=== PATIENT | female | born 1980 | race Caucasian/White ===

== ENCOUNTER 2023-06-04 09:22 | Outpatient (OUT) | payer OTHER, SELFPAY ==
[2023-06-04 10:32] LABS: Alanine Aminotransferase 33 U/L (14-59); Albumin Globulin Ratio 0.9; Albumin Level 3.5 g/dL (3.4-5.0); Alkaline Phosphatase 88 U/L (46-116); Aspartate Amino Transferase 18 U/L (15-37); BUN Creatinine Ratio 16.2; Bilirubin Total 0.7 mg/dL (0.2-1.0); Calcium 9.5 mg/dL (8.5-10.1); Carbon Dioxide 27.3 mmol/L (21.0-32.0); Chloride 103 mmol/L (98-107); Chol HDL Ratio 4.1; Cholesterol 219 mg/dL (<=200); Estimated GFR (African America >60 (>=60); Estimated GFR (Non-African Ame >60 (>=60); Glucose 98 mg/dL (74-106); HDL Cholesterol 54 mg/dL (40-60); Potassium 4.3 mmol/L (3.5-5.1); Sodium 140 mmol/L (136-145); Total Protein 7.5 g/dL (6.4-8.2); Triglycerides 117 mg/dL (<=150); VLDL CHOLESTEROL 23.4 mg/dL
[2023-06-04 13:41] LABS: Basophils Absolute Auto 0.1 10^3/uL (0.0-0.1); Basophils Percent Auto 0.6 % (0.2-2.0); Eosinophils Absolute Auto 0.1 10^3/uL (0.0-0.7); Eosinophils Percent Auto 0.7 % (0.9-7.0); Hematocrit 43.2 % (36.0-48.0); Hemoglobin 13.3 g/dL (12.0-16.0); Immature Granulocytes Abs Auto 0.07 10^3/uL (0.00-0.03); Immature Granulocytes Pct Auto 0.6 % (0.0-0.5); Lymphocytes Absolute Auto 1.8 10^3/uL (1.2-3.8); Lymphocytes Percent Auto 15.7 % (20.5-60.0); Mean Corpuscular HGB Conc 30.8 g/dL (29.9-35.2); Mean Corpuscular Hemoglobin 27.5 pg (26.7-34.0); Mean Corpuscular Volume 89.3 fL (81.0-99.0); Mean Platelet Volume 9.7 fL (9.5-13.5); Monocytes Absolute Auto 0.7 10^3/uL (0.3-0.8); Monocytes Percent Auto 6.5 % (1.7-12.0); Neutrophils Absolute Auto 8.5 10^3/uL (1.4-6.5); Neutrophils Percent Auto 75.9 % (43.0-75.0); Platelet Count 343 10^3/uL (150-450); Red Blood Count 4.84 10^6/uL (4.20-5.40); Red Cell Distribution Width 13.5 % (11.0-15.0); White Blood Count 11.2 10^3/uL (4.0-11.0)
== END 2023-06-04 09:23 | disposition home or self-care (01) ==
LOC: LAB 09:28
DX: F41.1 Generalized anxiety disorder (principal); F32.9 Major depressive disorder, single episode, unspecified; E66.01 Morbid (severe) obesity due to excess calories; Z68.42 Body mass index [BMI] 45.0-49.9, adult; R53.83 Other fatigue; R45.84 Anhedonia; Z79.891 Long term (current) use of opiate analgesic; R41.9 Unspecified symptoms and signs involving cognitive functions and awareness
CPT/HCPCS: 36415; 80053; 80061; 82306; 82607; 82746; 85025

== ENCOUNTER 2023-09-03 13:04 | Emergency (ER) | payer OTHER, SELFPAY ==
[2023-09-03 13:08] VITALS: BP 142/83; PULSE 76; TEMP 36.4; O2SAT 97; BMI 44.3
--- OUTSIDE RECORDS SUMMARY | 2023-09-03 13:19 | XMS_ITS | CCD ---
Author Organization [facility] Care Team Providers Care Cigarette Roller Name Role Phone ANNIKA, KEISHA Admitting Unavailable ANNIKA, KEISHA Attending Unavailable MILTON, ESTHER Primary Care Unavailable ALL GUDINO Consulting Unavailable ANNIKA, KEISHA Consulting Unavailable DAWN COHEN Admitting Unavailable DAWN COHEN Attending Unavailable DAWN COHEN Consulting Unavailable MILTON, ESTHER Primary Care Unavailable ANNIKA, KEISHA Admitting Unavailable ANNIKA, KEISHA Attending Unavailable MENDEZ KANG Consulting Unavailable Robert Chinchilla Consulting Unavailable MILTON, ESTHER Primary Care Unavailable ROSAURA ARTHUR Admitting UnavailROSAURA Laws Attending UnavailROSAURA Laws Consulting Unavailgeoff e Chico Gandhi Consulting Unavailable DAWN COHEN Admitting Unavailable DAWN COHEN Attending Unavailable MILTON, ESTHER Primary Care Unavailable DAWN COHEN Consulting Unavailable Milton, Esther Unavailable Maggie Harper Unavailable DO Tha Esther B Primary Care Provider [phone] DO Aide Miltonanne B Attending Provider [phone] DO Tha Esther B Primary Care Provider DO Dalton Orr Attending Provider Dalton Orr Attending Unavailable Milton, Esther B Primary Care Unavailable Dalton Orr Admitting Unavailable Milton, Esther B Admitting Unavailable Milton, Esther B Primary Care Unavailable Tha Esther B Attending Unavailable Alyssia Madden Admitting Unavailable Alyssia Madden Attending Unavailable Alyssia Madden Unavailable GENOVEVA SHERIDAN Attending Unavailable GENOVEVA SHERIDAN Referring Unavailable Allergies Allergy Classification Reported Allergen(s) Allergy Type Date of Onset Reaction(s) Facility (20 sources) Acetaminophen / HYDROcodone Drug Allergy 6 Unknown, mood changes [facility] Repository (1 source) Acetaminophen / oxyCODONE Drug Allergy 6 [facility] (3 sources) Morphine Drug Allergy 6 Unknown Reaction [facility] (19 sources) Acetaminophen / oxyCODONE Drug Allergy changes in personality [facility] [employer] Other (19 sources) Codeine Drug Allergy behaivioral issues, violent behavior [facility] [facility] Other (19 sources) Estrogens, Conjugated (SKILLED NURSING) Drug Allergy behaivioral changes [facility] [facility] Other (15 sources) Morphine Drug Allergy Unknown, mood changes [facility] Other (3 sources) Acetaminophen; Translations: [acetaminophen] Drug Allergy 0 Unknown Reaction [facility] (3 sources) HYDROcodone; Translations: [hydrocodone] Drug Allergy 0 Unknown Reaction [facility] (3 sources) oxyCODONE; Translations: [oxycodone] Drug Allergy 0 Unknown Reaction [facility] (4 sources) Morphine Drug Allergy mood changes [facility] [employer] Other (1 source) Morphine Drug Allergy 0 [facility] Medications Current Medications Medication Drug Class(es) Dates Sig (Normalized) Sig (Original) 0.5 ML semaglutide 0.5 MG/ML Auto-Injector [Wegovy] (8 sources) Start: 02-05-2022 inject 0.25 mg by subcutaneous injection every week Wegovy 0.25 MG/0.5ML 0.25 mg Subcutaneous weekly for 30 day(s) Jan, Active ARIPiprazole 5 mg oral tablet (20 sources) Atypical Antipsychotic Start: 11-14-2020 take 1 tablet by mouth every twenty-four hours Abilify 5 MG 1 tablet Orally Once a day for 30 day(s) Nov, Active take 1 tablet by zenon th once daily as needed ARIPiprazole 2 MG TAKE 1 TABLET BY MOUTH as needed Orally Once a day for 90 days Active ibuprofen 800 mg oral tablet (20 sources) Nonsteroidal Anti-inflammatory Drug Start: 09-09-2019 Ibuprofen Active 800 MG PO As Directed September 08, 2019 11:00pm LORazepam 0.5 mg oral tablet (20 sources) Benzodiazepine Start: 11-19-2022 take 1 tablet by mouth once daily as needed Ativan 0.5 MG 1 tablet Orally daily as needed for 30 days Nov, Active Start: 02-05-2022 take 1 tablet by zenon th once daily as needed Ativan 0.5 MG 1 tablet Orally daily as needed for 30 days Jan, Active Start: 05-20-2021 take 1 tablet by zenon th once daily as needed Ativan 0.5 MG 1 tablet Orally daily as needed for 30 days May, Active Start: 11-14-2020 take 1 tablet by zenon once daily as needed Ativan 0.5 MG 1 tablet Orally daily as needed for 30 days Nov, Active Start: 09-09-2019 take 1 tablet by zenon th twice daily Lorazepam (Ativan) 0.5 mg Tablet Active 0.5 MG PO Twice daily September 09, 2019 12:00am omeprazole 40 mg delayed release oral capsule (2 sources) Proton Pump Inhibitor Start: 09-09-2019 take 40 mg by mouth once daily Omeprazole Active 40 MG PO Daily September 09, 2019 12:00am Ozempic (0.25 or 0.5 MG/DOSE) 2 MG/1.5ML (5 sources) Start: 02-18-2022 Ozempic (0.25 or 0.5 MG/DOSE) 2 MG/1.5ML 0.25 mg Subcutaneous weekly for 30 days Feb, Active predniSONE 20 mg oral tablet (3 sources) Start: 11-19-2020 prednisone 20 MG as directed with food Orally 3 tablets qday x 4 days, 2 tablets qday x 4 days, 1 tablet qday x4 days for 12 days Nov, Active 0.25 mg, 0.5 mg dose 1.5 ml semaglutide 1.34 mg/ml pen injector (3 sources) Start: 02-18-2022 Ozempic (0.25 or 0.5 MG/DOSE) 2 MG/1.5ML 0.25 mg Subcutaneous weekly for 30 days Feb, Active sucralfate 100 mg/ml oral suspension (2 sources) Aluminum Complex Start: 09-09-2019 Sucralfate (Carafate) 100 mg/mL suspension Active 100 MG PO As Directed September 09, 2019 12:00am SUMAtriptan 50 mg oral tablet (2 sources) Serotonin-1b and Serotonin-1d Receptor Agonist Start: 01-25-2021 Imitrex 50 MG 1 tablet at onset of headache, may repeat dose x1 after 2h if needed Orally daily as needed for 10 days Jan, Active Ubrelvy 100 MG (6 sources) Start: 04-12-2021 Ubrelvy 100 MG 1 tablet may take second dose at least 2 hours after first dose as needed Orally Once a day for 30 day(s) Apr, Active ubrogepant 100 mg oral tablet (5 sources) Start: 04-12-2021 Ubrelvy 100 MG 1 tablet may take second dose at least 2 hours after first dose as needed Orally Once a day for 30 day(s) Apr, Active Completed/Discontinued Medications Medication Drug Class(es) Dates Sig (Normalized) Sig (Original) Triamcinolone (20 sources) Corticosteroid Start: 06-08-2018 Kenalog -40 mg May, 40 mg Start: 04-06-2018 Kenalog -40 mg Mar, 40 mg Problems Active Problems Problem Classification Problem Date Documented Da te Episodic/Chronic Abdominal pain (20 sources) Unspecified abdominal pain; Translations: [Abdominal pain] Onset: 09-19-2019 Episodic Anxiety disorders (20 sources) Anxiety; Translations: [Anxiety disorder, unspecified] Onset: 11-14-2020 Resolved: 05-20-2021 Chronic Conditions associated with dizziness or vertigo (19 sources) Benign paroxysmal positional vertigo; Translations: [Benign paroxysmal vertigo, unspecified ear] Episodic Disorders of lipid metabolism (20 sources) Hyperlipidemia; Translations: [Hyperlipidemia, unspecified] Onset: 11-14-2020 Resolved: 11-14-2020 Chronic Esophageal disorders (20 sources) Gastro-esophageal reflux disease without esophagitis; Translations: [Gastroesophageal reflux disease] Onset: 10-02-2019 Chronic Fever of unknown origin (1 source) Fever, unspecified; Translations: [FEVER UNSPECIFIED] Onset: 09-21-2019 Episodic Genitourinary symptoms and ill-defined conditions (2 sources) Hematuria, unspecified; Translations: [Hematuria, unspecified] Onset: 10-29-2022 Episodic Headache; including migraine (16 sources) Migraine; Translations: [Migraine, unspecified, not intractable, without status migrainosus] Onset: 04-12-2021 Resolved: 04-12-2021 Chronic Miscellaneous mental health disorders (19 sources) Globus sensation; Translations: [Other somatoform disorders] Chronic Mood disorders (20 sources) Bipolar disorder; Translations: [Bipolar disorder, unspecified] Onset: 11-14-2020 Resolved: 04-12-2021 Chronic Nausea and vomiting (1 source) Nausea; Translations: [NAUSEA] Onset: 09-20-2019 Episodic Other gastrointestinal disorders (19 sources) Irritable bowel syndrome with diarrhea; Translations: [Irritable bowel syndrome with diarrhea] Chronic Other gastrointestinal disorders (5 sources) Diarrhea, unspecified; Translations: [DIARRHEA UNSPECIFIED] Onset: 09-09-2019 Episodic Other gastrointestinal disorders (19 sources) Diarrhea; Translations: [Diarrhea, unspecified] Episodic Other lower respiratory disease (18 sources) Cough; Translations: [Cough] Episodic Other nervous system disorders (19 sources) Carpal tunnel syndrome; Translations: [Carpal tunnel syndrome, left upper limb] Chronic Other nervous system disorders (19 sources) Carpal tunnel syndrome of left wrist; Translations: [Carpal tunnel syndrome, left upper limb] Chronic Other nervous system disorders (19 sources) Circadian rhythm sleep disorder of shift work type; Translations: [Circadian rhythm sleep disorder, 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 Other nutritional; endocrine; and metabolic disorders (9 sources) Body mass index 30+ - obesity; Translations: [Obesity, unspecified] Chronic Other nutritional; endocrine; and metabolic disorders (19 sources) Severe obesity; Translations: [Morbid (severe) obesity due to excess calories] Chronic Other nutritional; endocrine; and metabolic disorders (20 sources) Body mass index 40+ - severely obese; Translations: [Body mass index (BMI) 40.0-44.9, adult] Chronic Other nutritional; endocrine; and metabolic disorders (9 sources) Obesity; Translations: [Obesity, unspecified] Chronic Other nutritional; endocrine; and metabolic disorders (2 sources) Obesity, unspecified; Translations: [Obesity] Chronic Other nutritional; endocrine; and metabolic disorders (1 source) Body mass index (BMI) 45.0-49.9, adult Chronic Other screening for suspected conditions (not mental disorders or infectious disease) (1 source) Encounter for screening mammogram for malignant neoplasm of breast Episodic Other skin disorders (19 sources) Skin lesion; Translations: [Disorder of the skin and subcutaneous tissue, unspecified] Episodic Residual codes; unclassified (19 sources) Reduced libido; Translations: [Decreased libido] Episodic Past or Other Problems Problem Classification Problem Date Documented Date Episodic/Chronic Immunizations and screening for infectious disease (5 sources) Encounter for screening for other viral diseases; Translations: [Contact with and (suspected) exposure to other viral communicable diseases] Onset: 09-06-2019 Resolved: 11-16-2020 Episodic Noninfectious gastroenteritis (1 source) Noninfective gastroenteritis and colitis, unspecified; Translations: [NONINFECTIVE GE AND COLITIS UNS] Onset: 08-25-2019 Episodic Other upper respiratory infections (1 source) Acute upper respiratory infection, unspecified Onset: 11-16-2020 Resolved: 11-16-2020 Episodic Unclassified (1 source) Cough R05.9 Results Test Name Value Interpretation Reference Range Facility BI MAMMOGRAM SCREENING TOMOS YJULYIS BILATERALon 07-08-2023 BI MAMMOGRAM SCREENING TOMOSYNTHESIS BILATERAL This is a summary report. The complete report is available in the patient's medical record. If you cannot access the medical record, please contact the sending organization for a detailed fax or copy. EXAMINATION: BI MAMMOGRAM SCREENING TOMOSYNTHESIS BILATERAL CLINICAL HISTORY:screening COMPARISON: November 29, 2020. RESULT: Digital mammography and 3D tomosynthesis of bilateral breasts was performed. Density: Almost entirely fatty [1] Overall appearance is stable. There is no suspicious mass, asymmetry, architectural distortion, or calcification IMPRESSION: BIRADS 1 - Negative Follow-up: Routine Screening Mamm Board Certified Radiologists. Accredited by the ACR and FDA. MAMMOGRAPHY IS VERY IMPORTANT TO YOUR HEALTH. THE [employer] GUIDELINES RECOMMEND THAT WOMEN 40 YEARS OF AGE AND OLDER SHOULD HAVE A MAMMOGRAM EVERY YEAR. A REMINDER LETTER WILL BE SENT AT THE APPROPRIATE TIME. THIS FACILITY UTILIZES A REMINDER SYSTEM TO ENSURE ALL PATIENTS RECEIVE REMINDER NOTIFICATIONS AT THE APPROPRIATE TIME BASED ON THE RECOMMENDATIONS OF THIS EXAM. THIS INCLUDES REMINDERS FOR ROUTINE SCREENING MAMMOGRAMS, DIAGNOSTIC MAMMOGRAMS IN WHICH THE PATIENT IS ASKED TO RETURN FOR ADDITIONAL VIEWS, OR OTHER BREAST IMAGING INTERVENTIONS WHEN APPROPRIATE. THE PATIENT WILL BE PLACED IN THE APPROPRIATE REMINDER SYSTEM INCLUDING A REMINDER AT THE APPROPRIATE TIME FOR ANY PENDING ADDITIONAL VIEWS. TRANSCRIBED BY: ELECTRONICALLY SIGNED BY: Robert Sotomayor MD Normal Not Available [facility] [employer] [facility] Dipstick & Microscopic No [facility] [employer] Other [employer] 0 10-29-2022 Appearance (U) Clear [facility] Comment on above: Order Comment: Reaso n for Exam Hematuria Performed By: #### C UU, ADDONUAPLUS #### [facility] [address] [place] [address] Bacteria,Urine None Seen Normal None Seen [facility] Comment on above: Order Comment: Reaso n for Exam Hematuria Performed By: #### C UU, ADDONUAPLUS #### [facility] [address] [place] [address] Bilirubin,Urine Negative Normal Negative [facility] Comment on above: Order Comment: Reaso n for Exam Hematuria Performed By: #### C UU, ADDONUAPLUS #### [facility] [address] [place] [address] Color (U) Yellow [facility] Comment on above: Order Comment: Reaso n for Exam Hematuria Performed By: #### C UU, ADDONUAPLUS #### [facility] [address] [place] [address] Glucose Ql (U) Normal Normal Normal [facility] Comment on above: Order Comment: Reaso n for Exam Hematuria Performed By: #### C UU, ADDONUAPLUS #### [facility] [address] [place] [address] [place] Hyaline Casts,Urine None Seen Normal 0-8 [facility] Comment on above: Order Comment: Reaso n for Exam Hematuria Result Comment: PERF ORMED BY: [place] [address] ORDERLY NADIR SANTILLAN M.D. Performed By: #### C UU, ADDONUAPLUS #### [facility] [address] [place] [address] [place] Ketones Ql (U) Negative [facility] Comment on above: Order Comment: Reaso n for Exam Hematuria Performed By: #### C UU, ADDONUAPLUS #### [facility] [address] Leukocyte esterase Test strip Ql (U) Negative [facility] Comment on above: Order Comment: Reaso n for Exam Hematuria Performed By: #### C UU, ADDONUAPLUS #### [facility] [address] [place] [address] [place] Nitrite,Urine Negative Normal Negative [facility] Comment on above: Order Comment: Reaso n for Exam Hematuria Performed By: #### C UU, ADDONUAPLUS #### [facility] [address] Occult Blood,Urine Trace High Negative [facility] Comment on above: Order Comment: Reaso n for Exam Hematuria Performed By: #### C UU, ADDONUAPLUS #### [facility] [address] [place] [address] [place] pH (U) 7.0 [pH] [facility] Comment on above: Order Comment: Reaso n for Exam Hematuria Performed By: #### C UU, ADDONUAPLUS #### [facility] [address] [place] [address] [place] Protein,Urine Negative Normal Negative [facility] Comment on above: Order Comment: Reaso n for Exam Hematuria Performed By: #### C UU, ADDONUAPLUS #### [facility] [address] [place] [address] [place] RBC,Urine 3-4 Normal 0-4 [facility] Comment on above: Order Comment: Reaso n for Exam Hematuria Performed By: #### C UU, ADDONUAPLUS #### [facility] [address] [place] [address] [place] Specificy [place],Urine 1.005 Normal 1.001-1.030 [facility] Comment on above: Order Comment: Reaso n for Exam Hematuria Performed By: #### C UU, ADDONUAPLUS #### [facility] [address] Squamous Epithelial Cell,Urine None Seen Normal 0-2 [facility] Comment on above: Order Comment: Reaso n for Exam Hematuria Performed By: #### C UU, ADDONUAPLUS #### [facility] [address] Urobilinogen,Urine Normal Normal Normal [facility] Comment on above: Order Comment: Reaso n for Exam Hematuria Performed By: #### C UU, ADDONUAPLUS #### [facility] [address] WBC LM.HPF (Urine sed) [#/Area] 0 /[HPF] Normal 0-4 [facility] Comment on above: Order Comment: Reaso n for Exam Hematuria Performed By: #### C UU, ADDONUAPLUS #### [facility] [address] [place] [address] Urinalysis - AUTOMATEDon Bilirubin Ql (U) Negative [employer] Other Glucose Ql (U) Negative [employer] Other Hemoglobin Ql (U) small [place] Other Nitrite Ql (U) Negative [employer] Other Protein Ql (U) Negative [employer] Other Specific gravity (U) [Rel density] 1.010 [employer] Other Urobilinogen (U) [Mass/Vol] 0.2 mg/dL [employer] Other Urinalysis - AUTOMATED No rt [employer] Other Urine Cultureon 10-29-2022 Bacteria identified Cx Nom (U) Reason for Exam Hematuria Urine 75,000 colonies/ml mixed bacterial skin contaminants 2 Days PERFORMED BY: [address] [place] [address] ORDERLY NADIR SANTILLAN M.D. [facility] Comment on above: Performed By: #### C UU, ADDONUAPLUS #### [facility] [address] [place] [address] Bacteria identified Cx Nom (U) [employer] Other Alanine aminotransferase [En zymatic activity/volume] in Serum or PlasmaOrdered By: Dalton Orr on 10-23-2022 ALT [Catalytic activity/Vol] 26 U/L 7-52 [facility] Albumin [Mass/volume] in Ser um or Plasma by Bromocresol green (BCG) dye binding methoOrdered By: Dalton Orr on 10-23-2022 Albumin BCG dye [Mass/Vol] 4.5 g/dL 3.5-5.7 [facility] Alkaline phosphatase [Enzyma tic activity/volume] in Serum or PlasmaOrdered By: Dalton Orr on 10-23-2022 ALP [Catalytic activity/Vol] 73 U/L 34-104 [facility] Aspartate aminotransferase [ Enzymatic activity/volume] in Serum or PlasmaOrdered By: Dalton Orr on 10-23-2022 AST [Catalytic activity/Vol] 19 U/L 13-39 [facility] Bilirubin.total [Mass/volume ] in Serum or PlasmaOrdered By: Dalton Orr on 10-23-2022 Bilirubin [Mass/Vol] 0.6 mg/dL 0.3-1.0 [facility] CMP with reflex to A1Con Albumin [Mass/Vol] 4.5 g/dL Normal 3.5-5.7 [facility] Comment on above: Performed By: #### E BS LIPID, CMP wRFX A1C #### [facility] [address] [place] [address] [place] #### NICOTINE QUAL #### [facility] , Albumin/Globulin [Mass ratio] 1.6 {ratio} Normal [facility] Comment on above: Performed By: #### E BS LIPID, CMP wRFX A1C #### [facility] [address] [place] [address] #### NICOTINE QUAL #### [facility] , ALP [Catalytic activity/Vol] 73 U/L Normal 34-104 [facility] Comment on above: Performed By: #### E BS LIPID, CMP wRFX A1C #### [facility] [address] [place] [address] #### NICOTINE QUAL #### [facility] , ALT [Catalytic activity/Vol] 26 U/L Normal 7-52 [facility] Comment on above: Performed By: #### E BS LIPID, CMP wRFX A1C #### [facility] [address] [place] [address] #### NICOTINE QUAL #### [facility] , Anion gap [Moles/Vol] 13.6 mmol/L Normal 6.0-15.0 [facility] Comment on above: Performed By: #### E BS LIPID, CMP wRFX A1C #### [address] #### NICOTINE QUAL #### [facility] , AST [Catalytic activity/Vol] 19 U/L Normal 13-39 [facility] Comment on above: Performed By: #### E BS LIPID, CMP wRFX A1C #### [place] [address] [place] #### NICOTINE QUAL #### [facility] , Bilirubin [Mass/Vol] 0.6 mg/dL Normal 0.3-1.0 [facility] Comment on above: Performed By: #### E BS LIPID, CMP wRFX A1C #### [facility] [address] [place] [address] [place] #### NICOTINE QUAL #### [facility] , Calcium [Mass/Vol] 9.7 mg/dL Normal 8.6-10.3 [facility] Comment on above: Performed By: #### E BS LIPID, CMP wRFX A1C #### [facility] [address] [place] [address] [place] #### NICOTINE QUAL #### [facility] , Chloride [Moles/Vol] 105 mmol/L Normal 98-107 [facility] Comment on above: Performed By: #### E BS LIPID, CMP wRFX A1C #### [facility] [address] [place] [address] [place] #### NICOTINE QUAL #### [facility] , CO2 [Moles/Vol] 27.0 mmol/L Normal 21.0-31.0 [facility] Comment on above: Performed By: #### E BS LIPID, CMP wRFX A1C #### [facility] [address] [place] [address] [place] #### NICOTINE QUAL #### [facility] , Creatinine [Mass/Vol] 0.81 mg/dL Normal 0.60-1.20 [facility] Comment on above: Performed By: #### E BS LIPID, CMP wRFX A1C #### [facility] [address] [place] [address] [place] #### NICOTINE QUAL #### [facility] , GFR/1.73 sq M.predicted MDRD (S/P/Bld) [Vol rate/Area] mL/min/{1.73_m2} [facility] Comment on above: Performed By: #### E BS LIPID, CMP wRFX A1C #### [facility] [address] [place] [address] [place] #### NICOTINE QUAL #### [facility] , Globulin (S) [Mass/Vol] 2.8 g/dL Normal [facility] Comment on above: Performed By: #### E BS LIPID, CMP wRFX A1C #### [facility] [address] [place] [address] [place] #### NICOTINE QUAL #### [facility] , Glucose [Mass/Vol] 79 mg/dL Normal 70-100 [facility] Comment on above: Performed By: #### E BS LIPID, CMP wRFX A1C #### [facility] [address] [place] [address] [place] #### NICOTINE QUAL #### [facility] , Potassium [Moles/Vol] 4.6 mmol/L Normal 3.5-5.1 [facility] Comment on above: Performed By: #### E BS LIPID, CMP wRFX A1C #### [facility] [address] [place] [address] [place] #### NICOTINE QUAL #### [facility] , Protein [Mass/Vol] 7.3 g/dL Normal 6.4-8.9 [facility] Comment on above: Performed By: #### E BS LIPID, CMP wRFX A1C #### [place] [address] [place] #### NICOTINE QUAL #### [facility] , Sodium [Moles/Vol] 141 mmol/L Normal 136-145 [facility] Comment on above: Performed By: #### E BS LIPID, CMP wRFX A1C #### [facility] [address] [place] [address] [place] #### NICOTINE QUAL #### [facility] , Urea nitrogen [Mass/Vol] 9 mg/dL Normal 7-25 [facility] Comment on above: Performed By: #### E BS LIPID, CMP wRFX A1C #### [place] [address] [place] #### NICOTINE QUAL #### [facility] , Calcium [Mass/volume] in Ser um or PlasmaOrdered By: Dalton Orr on 10-23-2022 Calcium [Mass/Vol] 9.7 mg/dL 8.6-10.3 [facility] Carbon dioxide, total [Moles /volume] in Serum or PlasmaOrdered By: Dalton Orr on 10-23-2022 CO2 [Moles/Vol] 27.0 mmol/L 21.0-31.0 [facility] Chloride [Moles/volume] in S bipin or PlasmaOrdered By: Dalton Orr on 10-23-2022 Chloride [Moles/Vol] 105 mmol/L 98-107 [facility] Cholesterol [Mass/volume] in Serum or PlasmaOrdered By: Dalton Orr on 10-23-2022 Cholesterol [Mass/Vol] 234 mg/dL 140-200 [facility] Comment on above: Chol less than 200 m g/dl low riskChol 201-239 mg/dl borderline riskChol 240 mg/dl and greater high risk Cholesterol in LDL Calc [Mas s/Vol]Ordered By: Dalton Orr on 10-23-2022 Cholesterol in LDL [Mass/Vol] 146 mg/dL 0-100 [facility] Comment on above: LDL ATP III CLASSIFI CATIONLDL less than 100 mg/dL OptimalLDL 100-129 mg/dL Near or above optimalLDL 130-159 mg/dL Borderline highLDL 160-189 mg/dL HighLDL greater than 189 mg/dL Very high Cholesterol in VLDL Calc [Ma ss/Vol]Ordered By: Dalton Orr on 10-23-2022 Cholesterol in VLDL [Mass/Vol] 30 mg/dL [facility] Creatinine [Mass/volume] in Serum or PlasmaOrdered By: Dalton Orr on 10-23-2022 Creatinine [Mass/Vol] 0.81 mg/dL 0.60-1.20 [facility] Globulin Calc (S) [Mass/Vol] Ordered By: Dalton Orr on 10-23-2022 Globulin (S) [Mass/Vol] 2.8 g/dL [facility] Glucose [Mass/volume] in Ser um or PlasmaOrdered By: Dalton Orr on 10-23-2022 Glucose [Mass/Vol] 79 mg/dL 70-100 [facility] Lipid Profileon 10-23-2022 Cholesterol [Mass/Vol] 234 mg/dL High 140-200 [facility] Comment on above: Result Comment: Chol less than 200 mg/dl low risk Chol 201-239 mg/dl borderline risk Chol 240 mg/dl and greater high risk Performed By: #### E BS LIPID, CMP wRFX A1C #### [facility] [address] [place] [address] [place] #### NICOTINE QUAL #### [facility] , Cholesterol in HDL [Mass/Vol] 58 mg/dL Normal 23-92 [facility] Comment on above: Result Comment: HDL CHOL ATP-III CLASSIFICATION Cardiovascular Risk HDL > or equal to 60 mg/dL LOW HDL < 40 mg/dL HIGH Performed By: #### E BS LIPID, CMP wRFX A1C #### [facility] [address] [place] [address] [place] #### NICOTINE QUAL #### [facility] , Cholesterol.total/Elodia sterol in HDL [Mass ratio] 4.0 {ratio} Normal <5.0 [facility] Comment on above: Result Comment: PERF ORMED BY: [place] [address] ORDERLY NADIR SANTILLAN M.D. Performed By: #### E BS LIPID, CMP wRFX A1C #### [place] [address] [place] #### NICOTINE QUAL #### [facility] , LDL Cholesterol,Calculated 146 mg/dL High 0-100 [facility] Comment on above: Result Comment: LDL ATP III CLASSIFICATION LDL less than 100 mg/dL Optimal LDL 100-129 mg/dL Near or above optimal LDL 130-159 mg/dL Borderline high LDL 160-189 mg/dL High LDL greater than 189 mg/dL Very high Performed By: #### E BS LIPID, CMP wRFX A1C #### [place] [address] [place] #### NICOTINE QUAL #### [facility] , Triglyceride w/Reflex 150 mg/dL High 0-149 [facility] Comment on above: Result Comment: TRIG ATP III CLASSIFICATION TRIG less than 150 mg/dL Normal TRIG 150-199 mg/dL Borderline high TRIG 200-500 mg/dL High TRIG greater than 500 mg/dL Very high Standard traceable to the Center for Disease Conrtrol and Prevention (CDC) test method. Performed By: #### E BS LIPID, CMP wRFX A1C #### [facility] [address] [place] [address] [place] #### NICOTINE QUAL #### [facility] , VLDL CHOLESTEROL 30 mg/dL Normal [facility] Comment on above: Performed By: #### E BS LIPID, CMP wRFX A1C #### [facility] [address] [place] [address] [place] #### NICOTINE QUAL #### [facility] , Nicotine Metabolite, Qualon 10-23-2022 Nicotine Metabolite Negative Normal Cutoff=25 [facility] Comment on above: Result Comment: Perf ormed at: - [facility] [address] [id number] Managed Care Provider: Luis Medina MD, Phone: [phone] PERFORMED BY: [place] [address] ORDERLY NADIR SANTILLAN M.D. Performed By: #### E BS LIPID, CMP wRFX A1C #### [facility] [address] [place] [address] [place] #### NICOTINE QUAL #### [facility] , No Panel InformationOrdered By: Dalton Orr on 10-23-2022 Estimated GFR (CKD-EPI) > 60.0 mL/Min [facility] Creatinine Clearance (Chem N/A [facility] Potassium [Moles/volume] in Serum or PlasmaOrdered By: Dalton Orr on 10-23-2022 Potassium [Moles/Vol] 4.6 mmol/L 3.5-5.1 [facility] Protein [Mass/volume] in Ser um or PlasmaOrdered By: Dalton Orr on 10-23-2022 Protein [Mass/Vol] 7.3 g/dL 6.4-8.9 [facility] Serum or plasma albumin/glob ulin mass ratioOrdered By: Dalton Orr on 10-23-2022 Albumin/Globulin [Mass ratio] 1.6 {ratio} [facility] Serum or plasma anion gap de terminationOrdered By: Dalton Orr on 10-23-2022 Anion gap [Moles/Vol] 13.6 mmol/L 6.0-15.0 [facility] Serum or plasma high density lipoprotein (HDL) cholesterol measurementOrdered By: Dalton Orr on 10-23-2022 Cholesterol in HDL [Mass/Vol] 58 mg/dL 23-92 [facility] Comment on above: HDL CHOL ATP-III CLA SSIFICATION Cardiovascular RiskHDL > or equal to 60 mg/dL LOWHDL < 40 mg/dL HIGH Serum or plasma total choles terol/high density lipoprotein (HDL) cholesterol mass ratOrdered By: Dalton Orr on 10-23-2022 Cholesterol.total/Elodia sterol in HDL [Mass ratio] 4.0 {ratio} <5.0 [facility] Sodium [Moles/volume] in Ser um or PlasmaOrdered By: Dalton Orr on 10-23-2022 Sodium [Moles/Vol] 141 mmol/L 136-145 [facility] Triglyceride [Mass/volume] i n Serum or PlasmaOrdered By: Dalton Orr on 10-23-2022 Triglyceride [Mass/Vol] 150 mg/dL 0-[address] [facility] Comment on above: TRIG ATP III CLASSIF ICATIONTRIG less than 150 mg/dL NormalTRIG 150-199 mg/dL Borderline highTRIG 200-500 mg/dL High TRIG greater than 500 mg/dL Very highStandard traceable to the Center for Disease Conrtrol and Prevention (CDC) test method. Urea nitrogen [Mass/volume] in Serum or PlasmaOrdered By: Dalton Orr on 10-23-2022 Urea nitrogen [Mass/Vol] 9 mg/dL 09-02 [facility] A1C with Estimated Average G luon 01-24-2022 Glucose [Mass/Vol] 114 mg/dL Normal [facility] Comment on above: Order Comment: Reaso n for Exam Anxiety;Laboratory exam ordered as part of routine general m Result Comment: PERF ORMED BY: [facility] [address] [place] [address] ORDERLY NADIR SANTILLAN M.D. Performed By: #### T SH3 wRFLX, A1C WTH eA, CMP, CBC, LIPID #### [facility] [address] [place] [address] [place] HbA1c (Bld) [Mass fraction] 5.6 % Normal 4.3-5.6 [facility] Comment on above: Order Comment: Reaso n for Exam Anxiety;Laboratory exam ordered as part of routine general m Result Comment: Incr eased risk for diabetes: 5.7 - 6.4 diabetes: >6.4 glycemic control for adults with diabetes: <7.0 Performed By: #### T SH3 wRFLX, A1C WTH eA, CMP, CBC, LIPID #### [facility] [address] [place] [address] [place] Albumin [Mass/volume] in Ser um or PlasmaOrdered By: Esther Milton on 01-24-2022 Albumin [Mass/Vol] 3.8 g/dL 3.2-5.5 [facility] Basophils Auto (Bld) [#/Vol] Ordered By: Esther Milton on 01-24-2022 Basophils (Bld) [#/Vol] 0.1 10*3/uL 0.0-0.2 [facility] Basophils/100 WBC Auto (Bld) Ordered By: Esther Milton on 01-24-2022 Basophils/100 WBC (Bld) 0.7 % . [facility] Cholesterol [Mass/volume] in Serum or PlasmaOrdered By: Esther Milton on 01-24-2022 Cholesterol [Mass/Vol] 215 mg/dL 140-200 [facility] Comment on above: Chol less than 200 m g/dl low riskChol 201-239 mg/dl borderline riskChol 240 mg/dl and greater high risk Cholesterol in LDL Calc [Mas s/Vol]Ordered By: Esther Milton on 01-24-2022 Cholesterol in LDL [Mass/Vol] 131 mg/dL 0-100 [facility] Comment on above: LDL ATP III CLASSIFI CATIONLDL less than 100 mg/dL OptimalLDL 100-129 mg/dL Near or above optimalLDL 130-159 mg/dL Borderline highLDL 160-189 mg/dL HighLDL greater than 189 mg/dL Very high Cholesterol in VLDL Calc [Ma ss/Vol]Ordered By: Esther Milton on 01-24-2022 Cholesterol in VLDL [Mass/Vol] 30 mg/dL [facility] Complete Blood Count Auto Di ffon 01-24-2022 Basophils (Bld) [#/Vol] 0.1 10*3/uL Normal 0.0-0.2 [facility] Comment on above: Order Comment: Reaso n for Exam Anxiety;Laboratory exam ordered as part of routine general m Result Comment: PERF ORMED BY: [place] [address] ORDERLY NADIR SANTILLAN M.D. Performed By: #### T SH3 wRFLX, A1C WTH eA, CMP, CBC, LIPID #### [facility] [address] [place] [address] [place] Basophils/100 WBC (Bld) 0.7 % Normal . [facility] Comment on above: Order Comment: Reaso n for Exam Anxiety;Laboratory exam ordered as part of routine general m Performed By: #### T SH3 wRFLX, A1C WTH eA, CMP, CBC, LIPID #### [facility] [address] [place] [address] [place] Eosinophils (Bld) [#/Vol] 0.2 10*3/uL Normal 0.0-0.45 [facility] Comment on above: Order Comment: Reaso n for Exam Anxiety;Laboratory exam ordered as part of routine general m Performed By: #### T SH3 wRFLX, A1C WTH eA, CMP, CBC, LIPID #### [facility] [address] [place] [address] [place] Eosinophils/100 WBC (Bld) 2.1 % Normal . [facility] Comment on above: Order Comment: Reaso n for Exam Anxiety;Laboratory exam ordered as part of routine general m Performed By: #### T SH3 wRFLX, A1C WTH eA, CMP, CBC, LIPID #### [facility] [address] [place] [address] [place] Erythrocyte distribution width (RBC) [Ratio] 13.5 % Normal 11.9-15.3 [facility] Comment on above: Order Comment: Reaso n for Exam Anxiety;Laboratory exam ordered as part of routine general m Performed By: #### T SH3 wRFLX, A1C WTH eA, CMP, CBC, LIPID #### [facility] [address] Hematocrit (Bld) [Volume fraction] 41.8 % Normal 34.0-46.4 [facility] Comment on above: Order Comment: Reaso n for Exam Anxiety;Laboratory exam ordered as part of routine general m Performed By: #### T SH3 wRFLX, A1C WTH eA, CMP, CBC, LIPID #### [address] Hemoglobin (Bld) [Mass/Vol] 13.6 g/dL Normal 11.8-15.4 [facility] Comment on above: Order Comment: Reaso n for Exam Anxiety;Laboratory exam ordered as part of routine general m Performed By: #### T SH3 wRFLX, A1C WTH eA, CMP, CBC, LIPID #### [address] Lymphocytes (Bld) [#/Vol] 2.3 10*3/uL Normal 1.00-4.8 [facility] Comment on above: Order Comment: Reaso n for Exam Anxiety;Laboratory exam ordered as part of routine general m Performed By: #### T SH3 wRFLX, A1C WTH eA, CMP, CBC, LIPID #### [address] Lymphocytes/100 WBC (Bld) 28.4 % Normal . [facility] Comment on above: Order Comment: Reaso n for Exam Anxiety;Laboratory exam ordered as part of routine general m Performed By: #### T SH3 wRFLX, A1C WTH eA, CMP, CBC, LIPID #### [facility] [address] [place] [address] MCH (RBC) [Entitic mass] 28.2 pg Normal 24.7-34.3 [facility] Comment on above: Order Comment: Reaso n for Exam Anxiety;Laboratory exam ordered as part of routine general m Performed By: #### T SH3 wRFLX, A1C WTH eA, CMP, CBC, LIPID #### [address] [place] [address] [place] MCV (RBC) [Entitic vol] 86.9 fL Normal 80-[address] [facility] Comment on above: Order Comment: Reaso n for Exam Anxiety;Laboratory exam ordered as part of routine general m Performed By: #### T SH3 wRFLX, A1C WTH eA, CMP, CBC, LIPID #### [facility] [address] Mean Corpuscular HGB Conc 32.5 g/dL Normal 32.0-35.0 [facility] Comment on above: Order Comment: Reaso n for Exam Anxiety;Laboratory exam ordered as part of routine general m Performed By: #### T SH3 wRFLX, A1C WTH eA, CMP, CBC, LIPID #### [facility] [address] [place] [address] [place] Monocytes (Bld) [#/Vol] 0.8 10*3/uL Normal 0.0-0.8 [facility] Comment on above: Order Comment: Reaso n for Exam Anxiety;Laboratory exam ordered as part of routine general m Performed By: #### T SH3 wRFLX, A1C WTH eA, CMP, CBC, LIPID #### [facility] [address] [place] [address] [place] Monocytes/100 WBC (Bld) 9.5 % Normal . [facility] Comment on above: Order Comment: Reaso n for Exam Anxiety;Laboratory exam ordered as part of routine general m Performed By: #### T SH3 wRFLX, A1C WTH eA, CMP, CBC, LIPID #### [facility] [address] [place] [id number] [place] Neutrophils (Bld) [#/Vol] 4.7 10*3/uL Normal 1.8-7.7 [facility] Comment on above: Order Comment: Reaso n for Exam Anxiety;Laboratory exam ordered as part of routine general m Performed By: #### T SH3 wRFLX, A1C WTH eA, CMP, CBC, LIPID #### [facility] [address] [place] [id number] [place] Neutrophils/100 WBC (Bld) 59.3 % Normal . [facility] Comment on above: Order Comment: Reaso n for Exam Anxiety;Laboratory exam ordered as part of routine general m Performed By: #### T SH3 wRFLX, A1C WTH eA, CMP, CBC, LIPID #### [facility] [address] NRBC% 0.1 /100{WBC} Normal 0-0.5 [facility] Comment on above: Order Comment: Reaso n for Exam Anxiety;Laboratory exam ordered as part of routine general m Performed By: #### T SH3 wRFLX, A1C WTH eA, CMP, CBC, LIPID #### [facility] [address] Platelet mean volume (Bld) [Entitic vol] 7.7 fL Normal 6.3-10.7 [facility] Comment on above: Order Comment: Reaso n for Exam Anxiety;Laboratory exam ordered as part of routine general m Performed By: #### T SH3 wRFLX, A1C WTH eA, CMP, CBC, LIPID #### [facility] [address] [place] [address] Platelets (Bld) [#/Vol] 350 10*3/uL Normal 150-450 [facility] Comment on above: Order Comment: Reaso n for Exam Anxiety;Laboratory exam ordered as part of routine general m Performed By: #### T SH3 wRFLX, A1C WTH eA, CMP, CBC, LIPID #### [facility] [address] [place] [address] RBC (Bld) [#/Vol] 4.82 10*6/uL Normal 3.60-5.00 [facility] Comment on above: Order Comment: Reaso n for Exam Anxiety;Laboratory exam ordered as part of routine general m Performed By: #### T SH3 wRFLX, A1C WTH eA, CMP, CBC, LIPID #### [facility] [address] [place] [address] WBC (Bld) [#/Vol] 7.9 10*3/uL Normal 3.8-11.6 [facility] Comment on above: Order Comment: Reaso n for Exam Anxiety;Laboratory exam ordered as part of routine general m Performed By: #### T SH3 wRFLX, A1C WTH eA, CMP, CBC, LIPID #### [facility] [address] Comprehensive Metabolic Pane tatyana 01-24-2022 Albumin [Mass/Vol] 3.8 g/dL Normal 3.2-5.5 [facility] Comment on above: Order Comment: Reaso n for Exam Anxiety;Laboratory exam ordered as part of routine general m Performed By: #### T SH3 wRFLX, A1C WTH eA, CMP, CBC, LIPID #### [facility] [address] Albumin/Globulin [Mass ratio] 1.4 {ratio} Normal [facility] Comment on above: Order Comment: Reaso n for Exam Anxiety;Laboratory exam ordered as part of routine general m Performed By: #### T SH3 wRFLX, A1C WTH eA, CMP, CBC, LIPID #### [facility] [address] ALP [Catalytic activity/Vol] 69 U/L Normal 32-92 [facility] Comment on above: Order Comment: Reaso n for Exam Anxiety;Laboratory exam ordered as part of routine general m Performed By: #### T SH3 wRFLX, A1C WTH eA, CMP, CBC, LIPID #### [facility] [address] ALT [Catalytic activity/Vol] 25 U/L Normal 10-60 [facility] Comment on above: Order Comment: Reaso n for Exam Anxiety;Laboratory exam ordered as part of routine general m Performed By: #### T SH3 wRFLX, A1C WTH eA, CMP, CBC, LIPID #### [facility] [address] Anion gap [Moles/Vol] 12.6 mmol/L Normal 6.0-15.0 [facility] Comment on above: Order Comment: Reaso n for Exam Anxiety;Laboratory exam ordered as part of routine general m Performed By: #### T SH3 wRFLX, A1C WTH eA, CMP, CBC, LIPID #### [facility] [address] AST [Catalytic activity/Vol] 20 U/L Normal 10-42 [facility] Comment on above: Order Comment: Reaso n for Exam Anxiety;Laboratory exam ordered as part of routine general m Performed By: #### T SH3 wRFLX, A1C WTH eA, CMP, CBC, LIPID #### [facility] [address] [place] [id number] [facility] Bilirubin [Mass/Vol] 0.5 mg/dL Normal 0.3-1.2 [facility] Comment on above: Order Comment: Reaso n for Exam Anxiety;Laboratory exam ordered as part of routine general m Performed By: #### T SH3 wRFLX, A1C WTH eA, CMP, CBC, LIPID #### [facility] [address] Calcium [Mass/Vol] 9.7 mg/dL Normal 8.2-10.2 [facility] Comment on above: Order Comment: Reaso n for Exam Anxiety;Laboratory exam ordered as part of routine general m Performed By: #### T SH3 wRFLX, A1C WTH eA, CMP, CBC, LIPID #### [facility] [address] [place] [id number] [place] Chloride [Moles/Vol] 102 mmol/L Normal 95-114 [facility] Comment on above: Order Comment: Reaso n for Exam Anxiety;Laboratory exam ordered as part of routine general m Performed By: #### T SH3 wRFLX, A1C WTH eA, CMP, CBC, LIPID #### [facility] [address] [place] [id number] [place] CO2 [Moles/Vol] 25.5 mmol/L Normal 22.0-30.0 [facility] Comment on above: Order Comment: Reaso n for Exam Anxiety;Laboratory exam ordered as part of routine general m Performed By: #### T SH3 wRFLX, A1C WTH eA, CMP, CBC, LIPID #### [facility] [address] [place] [id number] [facility] Creatinine [Mass/Vol] 0.85 mg/dL Normal 0.44-1.03 [facility] Comment on above: Order Comment: Reaso n for Exam Anxiety;Laboratory exam ordered as part of routine general m Performed By: #### T SH3 wRFLX, A1C WTH eA, CMP, CBC, LIPID #### [facility] [address] Estimated GFR ( Cata > 60 [facility] Comment on above: Order Comment: Reaso n for Exam Anxiety;Laboratory exam ordered as part of routine general m Result Comment: GFR estimated reference range: According to KDOQI guidelines, <60 ml/min/1.73m2 is sufficient to diagnose a patient with chronic kidney disease. Performed By: #### T SH3 wRFLX, A1C WTH eA, CMP, CBC, LIPID #### [facility] [address] Estimated GFR (Non- Am > 60 [facility] Comment on above: Order Comment: Reaso n for Exam Anxiety;Laboratory exam ordered as part of routine general m Performed By: #### T SH3 wRFLX, A1C WTH eA, CMP, CBC, LIPID #### [address] Globulin (S) [Mass/Vol] 2.8 g/dL Normal [facility] Comment on above: Order Comment: Reaso n for Exam Anxiety;Laboratory exam ordered as part of routine general m Performed By: #### T SH3 wRFLX, A1C WTH eA, CMP, CBC, LIPID #### [address] Glucose [Mass/Vol] 84 mg/dL Normal 70-100 [facility] Comment on above: Order Comment: Reaso n for Exam Anxiety;Laboratory exam ordered as part of routine general m Result Comment: [place] Glucose Reference Range is dependent on time and content of last meal. Glucose of more than 200 mg/dL in a nonstressed, ambulatory subject supports the diagnosis of Diabetes Mellitus. ADA recommended reference range Performed By: #### T SH3 wRFLX, A1C WTH eA, CMP, CBC, LIPID #### [address] Potassium [Moles/Vol] 4.1 mmol/L Normal 3.5-5.1 [facility] Comment on above: Order Comment: Reaso n for Exam Anxiety;Laboratory exam ordered as part of routine general m Performed By: #### T SH3 wRFLX, A1C WTH eA, CMP, CBC, LIPID #### [facility] [address] [place] [address] [place] Protein [Mass/Vol] 6.6 g/dL Normal 6.1-7.9 [facility] Comment on above: Order Comment: Reaso n for Exam Anxiety;Laboratory exam ordered as part of routine general m Performed By: #### T SH3 wRFLX, A1C WTH eA, CMP, CBC, LIPID #### [facility] [address] [place] [address] [place] Sodium [Moles/Vol] 136 mmol/L Normal 136-146 [facility] Comment on above: Order Comment: Reaso n for Exam Anxiety;Laboratory exam ordered as part of routine general m Performed By: #### T SH3 wRFLX, A1C WTH eA, CMP, CBC, LIPID #### [facility] [address] [place] [address] [place] Urea nitrogen [Mass/Vol] 18 mg/dL Normal 9-23 [facility] Comment on above: Order Comment: Reaso n for Exam Anxiety;Laboratory exam ordered as part of routine general m Performed By: #### T SH3 wRFLX, A1C WTH eA, CMP, CBC, LIPID #### [facility] [address] [place] [address] [place] Creatinine and Glomerular fi ltration rate.predicted panel (S/P/Bld)Ordered By: Esther Milton on 01-24-2022 Creatinine [Mass/Vol] 0.85 mg/dL 0.44-1.03 [facility] Eosinophils Auto (Bld) [#/Vo l]Ordered By: Esther Milton on 01-24-2022 Eosinophils (Bld) [#/Vol] 0.2 10*3/uL 0.0-0.45 [facility] Eosinophils/100 WBC Auto (Bl d)Ordered By: Esther Milton on 01-24-2022 Eosinophils/100 WBC (Bld) 2.1 % . [facility] Erythrocyte distribution wid th Auto (RBC) [Ratio]Ordered By: Esther Milton on 01-24-2022 Erythrocyte distribution width (RBC) [Ratio] 13.5 % 11.9-15.3 [facility] Estimated glomerular filtrat ion rate (GFR) non- AmericanOrdered By: Esther Milton on 01-24-2022 GFR/1.73 sq M.predicted among non-blacks MDRD (S/P/Bld) [Vol rate/Area] > 60 mL/Min [facility] Globulin Calc (S) [Mass/Vol] Ordered By: Esther Milton on 01-24-2022 Globulin (S) [Mass/Vol] 2.8 g/dL [facility] Hematocrit Auto (Bld) [Volum e fraction]Ordered By: Esther Milton on 01-24-2022 Hematocrit (Bld) [Volume fraction] 41.8 % 34.0-46.4 [facility] Hemoglobin [Mass/volume] in BloodOrdered By: Esther Milton on 01-24-2022 Hemoglobin (Bld) [Mass/Vol] 13.6 g/dL 11.8-15.4 [facility] Leukocytes [#/volume] correc malika for nucleated erythrocytes in Blood by Automated counOrdered By: Esther Milton on 01-24-2022 WBC corrected for nucl RBC Auto (Bld) [#/Vol] 7.9 10*3/uL 3.8-11.6 [facility] Lipid Panelon 01-24-2022 Cholesterol [Mass/Vol] 215 mg/dL High 140-200 [facility] Comment on above: Order Comment: Reaso n for Exam Anxiety;Laboratory exam ordered as part of routine general m Result Comment: Chol less than 200 mg/dl low risk Chol 201-239 mg/dl borderline risk Chol 240 mg/dl and greater high risk Performed By: #### T SH3 wRFLX, A1C WTH eA, CMP, CBC, LIPID #### [facility] [address] [place] [address] Cholesterol in HDL [Mass/Vol] 54 mg/dL Normal 35-85 [facility] Comment on above: Order Comment: Reaso n for Exam Anxiety;Laboratory exam ordered as part of routine general m Result Comment: HDL CHOL ATP-III CLASSIFICATION Cardiovascular Risk HDL > or equal to 60 mg/dL LOW HDL < 40 mg/dL HIGH Performed By: #### T SH3 wRFLX, A1C WTH eA, CMP, CBC, LIPID #### [facility] [address] Cholesterol.total/Elodia sterol in HDL [Mass ratio] 4.0 {ratio} Normal <5.0 [facility] Comment on above: Order Comment: Reaso n for Exam Anxiety;Laboratory exam ordered as part of routine general m Performed By: #### T SH3 wRFLX, A1C WTH eA, CMP, CBC, LIPID #### [facility] [address] LDL Cholesterol,Calculated 131 mg/dL High 0-100 [facility] Comment on above: Order Comment: Reaso n for Exam Anxiety;Laboratory exam ordered as part of routine general Result Comment: LDL ATP III CLASSIFICATION LDL less than 100 mg/dL Optimal LDL 100-129 mg/dL Near or above optimal LDL 130-159 mg/dL Borderline high LDL 160-189 mg/dL High LDL greater than 189 mg/dL Very high Performed By: #### T SH3 wRFLX, A1C WTH eA, CMP, CBC, LIPID #### [facility] [address] Triglyceride w/Reflex 151 mg/dL High 35-149 [facility] Comment on above: Order Comment: Reaso n for Exam Anxiety;Laboratory exam ordered as part of routine general Result Comment: TRIG ATP III CLASSIFICATION TRIG less than 150 mg/dL Normal TRIG 150-199 mg/dL Borderline high TRIG 200-500 mg/dL High TRIG greater than 500 mg/dL Very high Standard traceable to the Center for Disease Conrtrol and Prevention (CDC) test method. Performed By: #### T SH3 wRFLX, A1C WTH eA, CMP, CBC, LIPID #### [facility] [address] [place] [id number] [facility] VLDL CHOLESTEROL 30 mg/dL Normal [facility] Comment on above: Order Comment: Reaso n for Exam Anxiety;Laboratory exam ordered as part of routine general m Performed By: #### T SH3 wRFLX, A1C WTH eA, CMP, CBC, LIPID #### [facility] [address] Lymphocytes Auto (Bld) [#/Vo l]Ordered By: Esther Milton on 01-24-2022 Lymphocytes (Bld) [#/Vol] 2.3 10*3/uL 1.00-4.8 [facility] Lymphocytes/100 WBC Auto (Bl d)Ordered By: Esther Milton on 01-24-2022 Lymphocytes/100 WBC (Bld) 28.4 % . [facility] MCH Auto (RBC) [Entitic mass ]Ordered By: Esther Milton on 01-24-2022 MCH (RBC) [Entitic mass] 28.2 pg 24.7-34.3 [facility] MCHC Auto (RBC) [Mass/Vol]Or dered By: Esther Milton on 01-24-2022 MCHC (RBC) [Mass/Vol] 32.5 g/dL 32.0-35.[address] [facility] MCV Auto (RBC) [Entitic vol] Ordered By: Esther Milton on 01-24-2022 MCV (RBC) [Entitic vol] 86.9 fL 80-[address] [facility] Monocytes Auto (Bld) [#/Vol] Ordered By: Esther Milton on 01-24-2022 Monocytes (Bld) [#/Vol] 0.8 10*3/uL 0.0-0.8 [facility] Monocytes/100 WBC Auto (Bld) Ordered By: Esther Milton on 01-24-2022 Monocytes/100 WBC (Bld) 9.5 % . [facility] Neutrophils Auto (Bld) [#/Vo l]Ordered By: Esther Milton on 01-24-2022 Neutrophils (Bld) [#/Vol] 4.7 10*3/uL 1.8-7.7 [facility] Neutrophils/100 WBC Auto (Bl d)Ordered By: Esther Milton on 01-24-2022 Neutrophils/100 WBC (Bld) 59.3 % . [facility] No Panel InformationOrdered By: Esther Milton on 01-24-2022 Estimated GFR () > 60 mL/Min [facility] Comment on above: GFR estimated refere nce range: According to KDOQI guidelines, <60 ml/min/1.73m2 is sufficient to diagnose a patient with chronic kidney disease. Pharmacy Creatinine Clearance (Chem N/A [facility] Nucleated erythrocytes [Pres ence] in Blood by Automated countOrdered By: Esther Milton on 01-24-2022 Nucleated RBC Auto Ql (Bld) 0.1 /100{WBC} 0-0.5 [facility] Platelet mean volume Auto (B ld) [Entitic vol]Ordered By: Esther Milton on 01-24-2022 Platelet mean volume (Bld) [Entitic vol] 7.7 fL 6.3-10.7 [facility] Platelets Auto (Bld) [#/Vol] Ordered By: Esther Milton on 01-24-2022 Platelets (Bld) [#/Vol] 350 10*3/uL 150-450 [facility] Protein [Mass/volume] in Ser um or PlasmaOrdered By: Esther Milton on 01-24-2022 Protein [Mass/Vol] 6.6 g/dL 6.1-7.9 [facility] RBC Auto (Bld) [#/Vol]Ordere d By: Esther Milton on 01-24-2022 RBC (Bld) [#/Vol] 4.82 10*6/uL 3.60-5.00 [facility] Serum or plasma alanine yoon otransferase measurement without P-5'-P (enzymatic activiOrdered By: Esther Milton on 01-24-2022 ALT No additional P-5'-P [Catalytic activity/Vol] 25 U/L 10-60 [facility] Serum or plasma albumin/glob ulin mass ratioOrdered By: Esther Milton on 01-24-2022 Albumin/Globulin [Mass ratio] 1.4 {ratio} [facility] Serum or plasma alkaline venancio sphatase measurement (enzymatic activity/volume)Ordered By: Esther Milton on 01-24-2022 ALP [Catalytic activity/Vol] 69 U/L 32-92 [facility] Serum or plasma anion gap de terminationOrdered By: Esther Milton on 01-24-2022 Anion gap [Moles/Vol] 12.6 mmol/L 6.0-15.0 [facility] Serum or plasma aspartate am inotransferase measurement (enzymatic activity/volume)Ordered By: Esther Milton on 01-24-2022 AST [Catalytic activity/Vol] 20 U/L 10-42 [facility] Serum or plasma calcium edward urement (mass/volume)Ordered By: Esther Milton on 01-24-2022 Calcium [Mass/Vol] 9.7 mg/dL 8.2-10.2 [facility] Serum or plasma chloride jacquelyn surement (moles/volume)Ordered By: Esther Milton on 01-24-2022 Chloride [Moles/Vol] 102 mmol/L 95-114 [facility] Serum or plasma glucose edward urement (mass/volume)Ordered By: Esther Milton on 01-24-2022 Glucose [Mass/Vol] 84 mg/dL 70-100 [facility] Comment on above: ADA recommended refe rence rangeRandom Glucose Reference Range is dependent on time and content of last meal. Glucose of more than 200 mg/dL in a nonstressed, ambulatory subject supports the diagnosis of Diabetes Mellitus. Serum or plasma high density lipoprotein (HDL) cholesterol measurementOrdered By: Esther Milton on 01-24-2022 Cholesterol in HDL [Mass/Vol] 54 mg/dL 35-85 [facility] Comment on above: HDL CHOL ATP-III CLA SSIFICATION Cardiovascular RiskHDL > or equal to 60 mg/dL LOWHDL < 40 mg/dL HIGH Serum or plasma potassium me asurement (moles/volume)Ordered By: Esther Milton on 01-24-2022 Potassium [Moles/Vol] 4.1 mmol/L 3.5-5.1 [facility] Serum or plasma sodium measu rement (moles/volume)Ordered By: Esther Milton on 01-24-2022 Sodium [Moles/Vol] 136 mmol/L 136-146 [facility] Serum or plasma total biliru bin measurement (mass/volume)Ordered By: Esther Milton on 01-24-2022 Bilirubin [Mass/Vol] 0.5 mg/dL 0.3-1.2 [facility] Serum or plasma total carbon dioxide measurement (moles/volume)Ordered By: Esthercarlos Milton on 01-24-2022 CO2 [Moles/Vol] 25.5 mmol/L 22.0-30.0 [facility] Serum or plasma total choles terol/high density lipoprotein (HDL) cholesterol mass ratOrdered By: Esthre Milton on 01-24-2022 Cholesterol.total/Elodia sterol in HDL [Mass ratio] 4.0 {ratio} <5.0 [facility] Serum or plasma urea nitroge n measurement (mass/volume)Ordered By: Esther Milton on 01-24-2022 Urea nitrogen [Mass/Vol] 18 mg/dL 11-01 [facility] TSH DL <= 0.005 mIU/L QnOrde red By: Esther Milton on 01-24-2022 TSH Qn 2.26 m[IU]/L 0.45-5.33 [facility] Thyroid Stim Hormone w/Rflxo n 01-24-2022 Thyroid Stim Hormone w/Rflx 2.26 u[iU]/mL Normal 0.45-5.33 [facility] Comment on above: Order Comment: Reaso n for Exam Anxiety;Laboratory exam ordered as part of routine general m Result Comment: PERF ORMED BY: [facility] [address] [place] [address] ORDERLY NADIR SANTILLAN M.D. Performed By: #### T SH3 wRFLX, A1C WTH eA, CMP, CBC, LIPID #### [facility] [address] Triglyceride [Mass/volume] i n Serum or PlasmaOrdered By: Esther Milton on 01-24-2022 Triglyceride [Mass/Vol] 151 mg/dL 35-[address] [facility] Comment on above: TRIG ATP III CLASSIF ICATIONTRIG less than 150 mg/dL NormalTRIG 150-199 mg/dL Borderline highTRIG 200-500 mg/dL High TRIG greater than 500 mg/dL Very highStandard traceable to the [facility] Disease Conrtrol and Prevention (CDC) test method. WBC Auto (Bld) [#/Vol]Ordere d By: Esther Milton on 01-24-2022 WBC (Bld) [#/Vol] 7.9 10*3/uL 3.8-11.6 [facility] A1C with Estimated Average G jannn 11-20-2020 HbA1c (Bld) [Mass fraction] 5.3 % 4.3-5.6 [employer] Other HbA1c (Bld) [Mass fraction] 105 % [employer] Other Complete Blood Count Auto Di ffon 11-20-2020 Basophils (Bld) [#/Vol] 0.0 10*3/uL 0.0-0.2 [employer] Other Basophils/100 WBC (Bld) 0.4 % . [employer] Other Eosinophils (Bld) [#/Vol] 0.0 10*3/uL 0.0-0.45 [employer] Other Eosinophils/100 WBC (Bld) 0.2 % . [employer] Other Erythrocyte distribution width (RBC) [Ratio] 13.4 % 11.9-15.3 [employer] Other Hematocrit (Bld) [Volume fraction] 39.4 % 34.0-46.4 [employer] Other Hemoglobin (Bld) [Mass/Vol] 13.1 g/dL 11.8-15.4 [employer] Other Lymphocytes (Bld) [#/Vol] 2.1 10*3/uL 1.00-4.8 [employer] Other Lymphocytes/100 WBC (Bld) 15.3 % . [employer] Other MCH (RBC) [Entitic mass] 28.9 pg 24.7-34.3 [employer] Other MCH (RBC) [Entitic mass] 33.2 pg 32.0-35.0 [employer] Other MCV (RBC) [Entitic vol] 87.1 fL 80-100 [facility] Other Monocytes (Bld) [#/Vol] 1.0 10*3/uL 0.0-0.8 [employer] Other Monocytes/100 WBC (Bld) 7.3 % . [facility] [place] Other Neutrophils (Bld) [#/Vol] 10.3 10*3/uL 1.8-7.7 [employer] Other Neutrophils/100 WBC (Bld) 76.8 % . [employer] Other Platelet mean volume (Bld) [Entitic vol] 8.3 fL 6.3-10.7 [employer] Other Platelets (Bld) [#/Vol] 302 10*3/uL 150-450 [employer] Other RBC (Bld) [#/Vol] 4.52 10*6/uL 3.60-5.00 [employer] Other WBC (Bld) [#/Vol] 13.4 10*3/uL 3.8-11.6 [employer] Other Complete Blood Count Auto Diff 13.4 4.5-11.0 [employer] Other Complete Blood Count Auto Diff 0.0 0-0.5 [employer] Other Comprehensive Metabolic Pane tatyana 11-20-2020 Albumin [Mass/Vol] 3.8 g/dL 3.2-5.5 [employer] Other Albumin/Globulin [Mass ratio] 1.5 {ratio} [employer] Other ALP [Catalytic activity/Vol] 75 U/L 32-92 [employer] Other ALT [Catalytic activity/Vol] 26 U/L 10-60 [facility] [employer] Other AST [Catalytic activity/Vol] 20 U/L 10-42 [facility] [employer] Other Bilirubin [Mass/Vol] 0.4 mg/dL 0.3-1.2 [facility] [employer] Other Calcium [Mass/Vol] 9.4 mg/dL 8.2-10.2 [facility] [employer] Other Chloride [Moles/Vol] 104 mmol/L 95-114 [facility] [employer] Other CO2 [Moles/Vol] 24.9 mmol/L 22.0-30.0 [facility] [employer] Other Creatinine [Mass/Vol] 0.66 mg/dL 0.44-1.03 [facility] [employer] Other Glucose [Mass/Vol] 70 mg/dL 70-100 [facility] [employer] Other Potassium [Moles/Vol] 4.0 mmol/L 3.5-5.1 [facility] [employer] Other Protein [Mass/Vol] 6.4 g/dL 6.1-7.9 [facility] [employer] Other Sodium [Moles/Vol] 138 mmol/L 136-146 [facility] [employer] Other Urea nitrogen [Mass/Vol] 7 mg/dL 9-23 [facility] [employer] Other Comprehensive Metabolic Panel > 60 [facility] [employer] Other Comprehensive Metabolic Panel 2.6 [facility] [employer] Other Lipid Panelon 11-20-2020 Cholesterol [Mass/Vol] 204 mg/dL 140-200 [facility] [employer] Other Cholesterol in HDL [Mass/Vol] 46 mg/dL 35-85 [facility] [employer] Other Cholesterol in LDL Elph Qn 133 0-100 [facility] [employer] Other Cholesterol.total/Elodia sterol in HDL [Mass ratio] 4.4 {ratio} <5.0 [employer] Other Lipid Panel 127 35-149 [employer] Other Lipid Panel 25 [employer] Other Thyroid Stim Hormone w/Rflxo n 11-20-2020 Thyroid Stim Hormone w/Rflx 1.58 0.45-5.33 [employer] Other COVID Quick Testingon 2020 Result Negative [employer] Other TRIGLYCERIDEon 09-26-2019 Triglyceride [Mass/Vol] 197 mg/dL Critically high <=150 [facility] Comment on above: Performed By: #### NAOMI DORSEY BMP #### [facility] [address] [place] [address] Rogelio Renetta CBC AUTO DIFFon 09-19-2019 Basophils (Bld) [#/Vol] 0.0 103/ul Normal 0.0-0.1 [facility] Comment on above: Performed By: #### NAOMI DORSEY BMP #### [facility] [address] [place], [place] [phone] Rogelio Renetta Basophils/100 WBC (Bld) 0.3 % Normal 0.2-2.0 [facility] Comment on above: Performed By: #### NAOMI DORSEY BMP #### [facility] [address] [place], [place] [phone] Rogelio Renetta Eosinophils (Bld) [#/Vol] 0.1 103/ul Normal 0.0-0.7 [facility] Comment on above: Performed By: #### NAOMI DORSEY BMP #### [facility] [address] [place] [address] Rogelio Renetta Eosinophils/100 WBC (Bld) 1.0 % Normal 0.9-7.0 [facility] Comment on above: Performed By: #### NAOMI DORSEY BMP #### [facility] [address] [place] [address] Rogelio Renetta Erythrocyte distribution width (RBC) [Ratio] 12.7 % Normal 11.0-15.0 [facility] Comment on above: Performed By: #### NAOMI DORSEY, BMP #### [facility] [address] [place] [address] Rogelio Renetta Hematocrit (Bld) [Volume fraction] 40.8 % Normal 36.0-48.0 [facility] Comment on above: Performed By: #### NAOMI DORSEY, BMP #### [facility] [address] [place] [address] Rogelio Renetta Hemoglobin (Bld) [Mass/Vol] 13.3 g/dL Normal 12.0-16.0 [facility] Comment on above: Performed By: #### NAOMI DORSEY, BMP #### [facility] [address] [place] [address] Rogelio Renetta IG # 0.05 10e3/ul Critically high 0.00-0.03 [facility] Comment on above: Performed By: #### NAOMI DORSEY, BMP #### [facility] [address] [place] [address] Rogelio Renetta IG % 0.4 % Normal 0.0-0.5 [facility] Comment on above: Performed By: #### NAOMI DORSEY, BMP #### [facility] [address] [place] [address] Rogelio Renetta Lymphocytes (Bld) [#/Vol] 1.4 103/ul Normal 1.2-3.8 [facility] Comment on above: Performed By: #### ONELIA DORSEYA, BMP #### [facility] [address] [place] [address] Rogelio Renetta Lymphocytes/100 WBC (Bld) 10.9 % Critically low 20.5-60.0 [facility] Comment on above: Performed By: #### ONELIA DORSEYA, BMP #### [facility] [address] [place] [address] Rogeliorajan Cedilloen MANUAL DIFF REQ NO Normal [facility] Comment on above: Performed By: #### NAOMI DORSEY, BMP #### [facility] [address] [place], [place] [phone] Rogelio Renetta MCH (RBC) [Entitic mass] 28.7 pg Normal 26.7-34.0 [facility] Comment on above: Performed By: #### NAOMI DORSEY, BMP #### [facility] [address] [place] [address] Rogelio Renetta MCHC (RBC) [Mass/Vol] 32.6 g/dL Normal 29.9-35.2 [facility] Comment on above: Performed By: #### NAOMI DORSEY, BMP #### [facility] [address] [place] [address] Rogelio Renetta MCV (RBC) [Entitic vol] 87.9 fL Normal 81.0-99.0 [facility] Comment on above: Performed By: #### NAOMI DORSEY, BMP #### [facility] [address] [place] [address] Rogelio Renetta Monocytes (Bld) [#/Vol] 0.6 103/ul Normal 0.3-0.8 [facility] Comment on above: Performed By: #### NAOMI DORSEY, BMP #### [facility] [address] [place] [address] Rogelio Renetta Monocytes/100 WBC (Bld) 5.1 % Normal 1.7-12.0 [facility] Comment on above: Performed By: #### NAOMI DORSEY, BMP #### [facility] [address] [place], [place] [phone] Rogelio Renetta Neutrophils (Bld) [#/Vol] 10.2 103/ul Critically high 1.4-6.5 [facility] Comment on above: Performed By: #### NAOMI DORSEY, BMP #### [facility] [address] [place] [address] Rogelio Reentta Neutrophils/100 WBC (Bld) 82.3 % Critically high 43.0-75.0 [facility] Comment on above: Performed By: #### L NAOMI SHEPARD, BMP #### [facility] [address] [place], [place] [phone] Rogelio Jackson Platelet mean volume (Bld) [Entitic vol] 9.3 fL Critically low 9.5-13.5 [facility] Comment on above: Performed By: #### L NAOMI SHEPARD, BMP #### [facility] [address] [place], [place] [phone] Rogelio Jackson Platelets (Bld) [#/Vol] 249 103/ul Normal 150-450 [facility] Comment on above: Performed By: #### L NAOMI SHEPARD, BMP #### [facility] [address] [place] [address] Rogelio Jackson RBC (Bld) [#/Vol] 4.64 106/ul Normal 4.20-5.40 [facility] Comment on above: Performed By: #### NAOMI DORSEY, BMP #### [facility] [address] [place] [address] Rogelio Jackson WBC (Bld) [#/Vol] 12.5 103/ul Critically high 4.0-11.0 [facility] Comment on above: Performed By: #### L NAOMI SHEPARD, BMP #### [facility] [address] [place] [id number] CHEST W CONon 09-19-2019 CT CHEST W CON EXAMINATION: CT CHES T W CON, CT ABD/PELV W CON HISTORY: CHEST PAIN, UNSPECIFIED. Left-sided chest pain, left lower quadrant abdominal pain and left flank pain. Fever. COMPARISON: Acute abdominal series 09/18/[address] examination of the abdomen and pelvis 08/22/2019. TECHNIQUE: CT examination of the chest, abdomen, and pelvis following the administration of 100 mL Omnipaque 300 intravenous contrast. Coronal and sagittal reformations were performed. Delayed images through the pelvis were acquired. Dose reduction techniques were achieved by using automated exposure control and/or adjustment of mA and/or kV according to patient size and/or use of iterative reconstruction technique. FINDINGS: CHEST: 7 mm hypoattenuating left thyroid nodule. Heart is within normal limits in size. No pericardial effusion. There is motion degradation in the ascending aorta at the level of the aortic root on this non-gated examination. No thoracic aortic aneurysm or dissection. Normal caliber of the main pulmonary arteries. Calcified mediastinal and right hilar lymph nodes reflecting the sequela of prior granulomatous disease. No mediastinal, hilar, or axillary lymphadenopathy. Calcified granuloma is present within the right middle lobe. No discrete noncalcified pulmonary nodule. No focal consolidative process, pleural effusion, or pneumothorax. The central airways are patent. ABDOMEN: Liver is homogeneous in attenuation without evidence for focal lesion. Gallbladder is unremarkable. Spleen, adrenal glands, and pancreas are normal in appearance. No abdominal lymphadenopathy. Symmetric enhancement of the kidneys without evidence for hydronephrosis or focal renal lesion. 2 mm nonobstructive right mid pole intrarenal calculus. Duplicated right renal collecting system is noted. PELVIS: No ureteral or bladder stone. Prior hysterectomy. No pelvic free fluid. 2.8 cm cystic focus within the left ovary, likely physiologic. Normal appendix. Small and large bowel without evidence for abnormal bowel wall thickening, masses, or obstruction. Small fat-containing umbilical hernia without associated inflammatory change. No free air. OSSEOUS STRUCTURES: No suspicious osteolytic or osteoblastic lesion. IMPRESSION: 1. No thoracic aortic aneurysm or dissection. 2. No acute pulmonary parenchymal process. 3. Normal appendix. No acute inflammatory process identified within the abdomen or pelvis. No evidence for small or large bowel obstruction. 4. Small fat-containing umbilical hernia. Prior hysterectomy. 2.8 cm cystic focus within the left ovary, likely physiologic. No pelvic free fluid. 5. Small nonobstructive right intrarenal calculus. No ureteral or bladder stone. Electronically authenticated by: CHICO GANDHI Date: 2019-09-19 05:16 Normal [facility] LIPASEon 09-19-2019 Lipase [Catalytic activity/Vol] 117.0 U/L Normal 23.0-300.0 [facility] Comment on above: Performed By: #### L NAOMI SHEPARD, BMP #### [facility] [address] [place], [place] [address] Rogelio Jackson PROF 14(COMP METB)on 020 Albumin [Mass/Vol] 3.3 g/dL Critically low 3.5-5.0 [facility] Comment on above: Performed By: #### L IVELAINA LIPA, BMP #### [facility] [address] [phone] Rogelio Renetta Albumin/Globulin [Mass ratio] 0.9 {ratio} Normal [facility] Comment on above: Performed By: #### L IVER LIPA, BMP #### [facility] [address] [phone] Rogelio Renetta ALP [Catalytic activity/Vol] 83 U/L Normal 38-126 [facility] Comment on above: Performed By: #### L IVER LIPA, BMP #### [facility] [address] [place] [address] Rogelio Renetta ALT [Catalytic activity/Vol] 31 U/L Normal 9-52 [facility] Comment on above: Performed By: #### L IVELAINA LIPA, BMP #### [facility] [address] [place] [address] Rogelio Renetta Anion gap [Moles/Vol] 9.5 mmol/L Normal [facility] Comment on above: Performed By: #### L IVELAINA LIPA, BMP #### [facility] [address] [place] [address] Rogelio Renetta AST [Catalytic activity/Vol] 21 U/L Normal 14-36 [facility] Comment on above: Performed By: #### L IVELAINA LIPA, BMP #### [facility] [address] [address] Rogelio Renetta Bilirubin Ql (U) 0.6 mg/dL Normal 0.2-1.3 [facility] Comment on above: Performed By: #### L IVELAINA, LIPA, BMP #### [facility] [address] [phone] Rogelio Renetta Calcium [Mass/Vol] 9.2 mg/dL Normal 8.4-10.2 [facility] Comment on above: Performed By: #### L IVER, LIPA, BMP #### [facility] [address] [phone] Rogelio Renetta Chloride [Moles/Vol] 103 mmol/L Normal 98-107 [facility] Comment on above: Performed By: #### NAOMI DORSEY BMP #### [facility] [address] [place] [address] Rogelio Renetta CO2 [Moles/Vol] 28.4 mmol/L Normal 22.0-30.0 [facility] Comment on above: Performed By: #### NAOMI DORSEY BMP #### [facility] [address] [place] [address] Rogelio Renetta Creatinine [Mass/Vol] 1.04 mg/dL Normal 0.52-1.04 [facility] Comment on above: Performed By: #### NAOMI DORSEY BMP #### [facility] [address] [place] [address] Rogelio Renetta EGFR-AF CROATIAN >60 Normal >=60 [facility] Comment on above: Performed By: #### NAOMI DORSEY BMP #### [facility] [address] [place] [address] Rogelio Renetta EGFR-NON AF CROATIAN 58 mL/min/1.73m2 Critically low >=60 [facility] Comment on above: Performed By: #### NAOMI DORSEY BMP #### [facility] [address] [place] [address] Rogelio Renetta Globulin (S) [Mass/Vol] 3.7 g/dL Normal T [facility] Comment on above: Performed By: #### NAOMI DORSEY BMP #### [facility] [address] [place] [address] Rogelio Renetta Glucose [Mass/Vol] 101 mg/dL Normal 74-106 [facility] Comment on above: Performed By: #### NAOMI DORSEY BMP #### [facility] [address] [place] [address] Rogelio Renetta Potassium [Moles/Vol] 3.9 mmol/L Normal 3.4-5.0 [facility] Comment on above: Performed By: #### NAOMI DORSEY, BMP #### [facility] [address] [place], [place] [phone] Rogelio Renetta Protein [Mass/Vol] 7.0 g/dL Normal 6.1-8.2 [facility] Comment on above: Performed By: #### NAOMI DORSEY BMP #### [facility] [address] [place] [place], [place] [id number] Rogelio Renetta Sodium [Moles/Vol] 137 mmol/L Normal 137-145 [facility] Comment on above: Performed By: #### NAOMI DORSEY, BMP #### [facility] [address] [place], [place] [phone] Rogelio Renetta Urea nitrogen [Mass/Vol] 14.0 mg/dL Normal 7.0-17.0 [facility] Comment on above: Performed By: #### NAOMI DORSEY BMP #### [facility] [address] [place] [address] Rogelio Renetta Urea nitrogen/Creatinine [Mass ratio] 13.5 mg/mg Normal [facility] Comment on above: Performed By: #### NAOMI DORSEY BMP #### [facility] [address] [place], [place] [phone] Rogelio Renetta AMYLASEon 09-18-2019 Amylase [Catalytic activity/Vol] 36 U/L Normal 31-110 [facility] Comment on above: Performed By: #### NAOMI DORSEY, BMP #### [facility] [address] [place], [place] [phone] Rogelio Renetta CBC AUTO DIFFon 09-18-2019 Basophils (Bld) [#/Vol] 0.1 103/ul Normal 0.0-0.1 [facility] Comment on above: Performed By: #### C BC #### [facility] [address] [place], [place] [phone] Rogelio Renetta Basophils/100 WBC (Bld) 0.5 % Normal 0.2-2.0 [facility] Comment on above: Performed By: #### C BC #### [facility] [address] [place] [address] Rogelio Renetta Eosinophils (Bld) [#/Vol] 0.2 103/ul Normal 0.0-0.7 [facility] Comment on above: Performed By: #### C BC #### [facility] [address] [place] [address] Rogelio Renetta Eosinophils/100 WBC (Bld) 1.8 % Normal 0.9-7.0 [facility] Comment on above: Performed By: #### C BC #### [facility] [address] [place] [address] Rogelio Renetta Erythrocyte distribution width (RBC) [Ratio] 12.8 % Normal 11.0-15.0 [facility] Comment on above: Performed By: #### C BC #### [facility] [address] [place] [address] Rogelio Renetta Hematocrit (Bld) [Volume fraction] 44.9 % Normal 36.0-48.0 [facility] Comment on above: Performed By: #### C BC #### [facility] [address] [place] [address] Rogelio Renetta Hemoglobin (Bld) [Mass/Vol] 14.6 g/dL Normal 12.0-16.0 [facility] Comment on above: Performed By: #### C BC #### [facility] [address] [place] [address] Rogelio Renetta IG # 0.05 10e3/ul Critically high 0.00-0.03 [facility] Comment on above: Performed By: #### C BC #### [facility] [address] [place] [address] Orgelio Renetta IG % 0.5 % Normal 0.0-0.5 [facility] Comment on above: Performed By: #### C BC #### [facility] [address] [place] [address] Rogelio Renetta Lymphocytes (Bld) [#/Vol] 2.5 103/ul Normal 1.2-3.8 [facility] Comment on above: Performed By: #### C BC #### [facility] [address] [place] [address] Rogelio Renetta Lymphocytes/100 WBC (Bld) 24.0 % Normal 20.5-60.0 [facility] Comment on above: Performed By: #### C BC #### [facility] [address] [place], [place] [phone] Rogeliorajan Cedilloen MANUAL DIFF REQ NO Normal [facility] Comment on above: Performed By: #### C BC #### [facility] [address] [place], [place] [phone] Rogelio Renetta MCH (RBC) [Entitic mass] 28.9 pg Normal 26.7-34.0 [facility] Comment on above: Performed By: #### C BC #### [facility] [address] [place], [place] [phone] Rogelio Renetta MCHC (RBC) [Mass/Vol] 32.5 g/dL Normal 29.9-35.2 [facility] Comment on above: Performed By: #### C BC #### [facility] [address] [place], [place] [phone] Rogelio Renetta MCV (RBC) [Entitic vol] 88.7 fL Normal 81.0-99.0 [facility] Comment on above: Performed By: #### C BC #### [facility] [address] [place], [place] [phone] Rogelio Renetta Monocytes (Bld) [#/Vol] 0.8 103/ul Normal 0.3-0.8 [facility] Comment on above: Performed By: #### C BC #### [facility] [address] [place], [place] [phone] Rogelio Renetta Monocytes/100 WBC (Bld) 7.6 % Normal 1.7-12.0 [facility] Comment on above: Performed By: #### C BC #### [facility] [address] [place], [place] [phone] Rogelio Renetta Neutrophils (Bld) [#/Vol] 6.9 103/ul Critically high 1.4-6.5 [facility] Comment on above: Performed By: #### C BC #### [facility] [address] [place], [place] [phone] Rogelio Renetta Neutrophils/100 WBC (Bld) 65.6 % Normal 43.0-75.0 [facility] Comment on above: Performed By: #### C BC #### [facility] [address] [place], [place] [phone] Rogeliorajan Jackson Platelet mean volume (Bld) [Entitic vol] 9.5 fL Normal 9.5-13.5 [facility] Comment on above: Performed By: #### C BC #### [facility] [address] [place], [place] [phone] Rogelio Renetta Platelets (Bld) [#/Vol] 315 103/ul Normal 150-450 [facility] Comment on above: Performed By: #### C BC #### [facility] [address] [place], [place] [phone] Rogelio Renetta RBC (Bld) [#/Vol] 5.06 106/ul Normal 4.20-5.40 [facility] Comment on above: Performed By: #### C BC #### [facility] [address] [place] [address] Rogelio Renetta WBC (Bld) [#/Vol] 10.5 103/ul Normal 4.0-11.0 [facility] Comment on above: Performed By: #### C BC #### [facility] [address] [place], [place] [phone] Rogelio Renetta ER URINE PROFILEon 0 Bilirubin [Mass/Vol] Negative Normal NEGATIVE [facility] Comment on above: Performed By: #### SUSIE ALVARADO #### [facility] [address] [place], [place] [phone] Rogelio Renetta BLOOD SMALL Normal NEGATIVE [facility] Comment on above: Performed By: #### SUSIE ALVARADO #### [facility] [address] [place], [place] [phone] Rogelio Renetta Clarity (U) CLEAR Normal [facility] Comment on above: Performed By: #### SUSIE ALVARADO #### [facility] [address] [place], [place] [phone] Rogelio Renetta Color (U) LT. YELLOW Normal YELLOW [facility] Comment on above: Performed By: #### SUSIE ALVARADO #### [facility] [address] [place], [place] [phone] Rogelio Renetta ERUAHD A micrscopic examination will be performed if indicated. Normal [facility] Comment on above: Performed By: #### SUSIE ALVARADO #### [facility] [address] [place] [address] Rogelio Renetta Glucose [Mass/Vol] Negative Normal NEGATIVE [facility] Comment on above: Performed By: #### SUSIE ALVARADO #### [facility] [address] [place] [address] Rogelio Renetta Ketones Ql (U) Negative Normal NEGATIVE [facility] Comment on above: Performed By: #### SUSIE ALVARADO #### [facility] [address] [place] [address] Rogelio Renetta Nitrite Ql (U) Negative Normal NEGATIVE [facility] Comment on above: Performed By: #### SUSIE ALVARADO #### [facility] [address] [place] [address] Rogelio Renetta pH (Bld) 6.5 Normal 5-9 [facility] Comment on above: Performed By: #### SUSIE ALVARADO #### [facility] [address] [place] [address] Rogelio Renetta Protein (U) [Mass/Vol] Negative Normal [facility] Comment on above: Performed By: #### SUSIE ALVARADO #### [facility] [address] [place] [address] Rogelio Renetta SPEC GRAVITY 1.025 Normal 1.005-<=1.0 25 [facility] Comment on above: Performed By: #### SUSIE ALVARADO #### [facility] [address] [place] [address] Rogelio Renetta UR MICRO IND INDICATED Normal [facility] Comment on above: Performed By: #### SUSIE ALVARADO #### [facility] [address] [place] [address] Rogelio Renetta Urobilinogen Qn (U) 0.2 EU/dl Normal [facility] Comment on above: Performed By: #### SUSIE ALVARADO #### [facility] [address] [place], [place] [phone] Rogelio Renetta WBC (Bld) [#/Vol] Negative Normal NEGATIVE [facility] Comment on above: Performed By: #### SUSIE ALVARADO #### [facility] [address] [place] [address] Rogelio Renetta LACTATE/LACTIC ACIDon 2019 Lactate [Moles/Vol] 0.8 mmol/L Normal 0.7-2.0 [facility] Comment on above: Performed By: #### NAOMI DORSEY, BMP #### [facility] [address] [place] [address] Rogelio Renetta LIPASEon 09-18-2019 Lipase [Catalytic activity/Vol] 127.0 U/L Normal 23.0-300.0 [facility] Comment on above: Performed By: #### NAOMI DORSEY, BMP #### [facility] [address] [place], [place] [phone] Rogelio Renetta LIVER PROFILEon 09-18-2019 Albumin [Mass/Vol] 3.7 g/dL Normal 3.5-5.0 [facility] Comment on above: Performed By: #### NAOIM DORSEY, BMP #### [facility] [address] [place], [place] [phone] Rogelio Renetta Albumin/Globulin [Mass ratio] 0.9 {ratio} Normal [facility] Comment on above: Performed By: #### ONELIA DORSEYA, BMP #### [facility] [address] [place] [address] Rogelio Renetta ALP [Catalytic activity/Vol] 101 U/L Normal 38-126 [facility] Comment on above: Performed By: #### L ONELIA SHEPARDA, BMP #### [facility] [address] [place] [address] Rogelio Renetta ALT [Catalytic activity/Vol] 29 U/L Normal 9-52 [facility] Comment on above: Performed By: #### NAOMI DORSEY, BMP #### [facility] [address] [place] [address] Rogelio Renetta AST [Catalytic activity/Vol] 19 U/L Normal 14-36 [facility] Comment on above: Performed By: #### NAOMI DORSEY, BMP #### [facility] [address] [place] [address] Rogelio Renetta BILI, CONJUGATED 0.1 mg/dL Normal 0.0-0.3 [facility] Comment on above: Performed By: #### NAOMI DORSEY, BMP #### [facility] [address] [place] [address] Rogelio Renetta Bilirubin Ql (U) 0.3 mg/dL Normal 0.2-1.3 [facility] Comment on above: Performed By: #### NAOMI DORSEY, BMP #### [facility] [address] [place] [address] Rogelio Renetta Globulin (S) [Mass/Vol] 4.1 g/dL Normal T [facility] Comment on above: Performed By: #### NAOMI DORSEY, BMP #### [facility] [address] [place] [address] Rogelio Renetta Protein [Mass/Vol] 7.8 g/dL Normal 6.1-8.2 [facility] Comment on above: Performed By: #### NAOMI DORSEY, BMP #### [facility] [address] [place] [address] Rogeliorajan Cedilloen PROF CHEM 8 (BAS METB)on Anion gap [Moles/Vol] 10.7 mmol/L Normal [facility] Comment on above: Performed By: #### NAOMI DORSEY, BMP #### [facility] [address] [place] [address] Rogelio Renetta Calcium [Mass/Vol] 9.4 mg/dL Normal 8.4-10.2 [facility] Comment on above: Performed By: #### NAOMI DORSEY BMP #### [facility] [address] [place], [place] [address] Rogelio Renetta Chloride [Moles/Vol] 101 mmol/L Normal 98-107 [facility] Comment on above: Performed By: #### NAOMI DORSEY, BMP #### [facility] [address] [place] [address] Rogelio Renetta CO2 [Moles/Vol] 27.9 mmol/L Normal 22.0-30.0 [facility] Comment on above: Performed By: #### NAOMI DORSEY, BMP #### [facility] [address] [place] [address] Rogelio Renetta Creatinine [Mass/Vol] 0.98 mg/dL Normal 0.52-1.04 [facility] Comment on above: Performed By: #### NAOMI DORSEY, BMP #### [facility] [address] [place] [address] Rogelio Renetta EGFR-AF CROATIAN >60 Normal >=60 [facility] Comment on above: Performed By: #### NAOMI DORSEY, BMP #### [facility] [address] [place] [address] Rogelio Renetta EGFR-NON AF CROATIAN >60 Normal >=60 [facility] Comment on above: Performed By: #### NAOMI DORSEY, BMP #### [facility] [address] [place] [address] Rogelio Renetta Glucose [Mass/Vol] 91 mg/dL Normal 74-106 [facility] Comment on above: Performed By: #### NAOMI DORSEY, BMP #### [facility] [address] [place] [address] Rogelio Renetta Potassium [Moles/Vol] 3.6 mmol/L Normal 3.4-5.0 [facility] Comment on above: Performed By: #### ONELIA DORSEYA, BMP #### [facility] [address] [address] Rogelio Renetta Sodium [Moles/Vol] 136 mmol/L Critically low 137-145 [facility] Comment on above: Performed By: #### NAOMI DORSEY, BMP #### [facility] [address] [place] [address] Rogelio Renetta Urea nitrogen [Mass/Vol] 12.0 mg/dL Normal 7.0-17.0 [facility] Comment on above: Performed By: #### NAOMI DORSEY, BMP #### [facility] [address] [place] [address] Rogelio Renetta Urea nitrogen/Creatinine [Mass ratio] 12.2 mg/mg Normal [facility] Comment on above: Performed By: #### NAOMI DORSEY, BMP #### [facility] [address] [place] [address] Rogeliorajan Cedilloen TROPONIN - Ion 09-18-2019 Troponin I.cardiac [Mass/Vol] SEE BELOW Normal [facility] Comment on above: Result Comment: <0.0 34 ng/ml NEGATIVE 0.034-0.119 INDETERMINATE 0.120 AMI CUT OFF Performed By: #### NAOMI DORSEY, BMP #### [facility] [address] [place] [address] Rogelio Reentta Troponin I.cardiac [Mass/Vol] ng/mL Normal <=0.034 [facility] Comment on above: Performed By: #### NAOMI DORSEY, BMP #### [facility] [address] [place] [address] Rogelio Renetta URINE MICROSCOPIC ONLYon Bacteria LM.HPF (Urine sed) [#/Area] TRACE Normal NONE SEEN [facility] Comment on above: Performed By: #### NAOMI DORSEY, BMP #### [facility] [address] [place] [address] Rogelio Renetta CAST NONE SEEN Normal NONE SEEN [facility] Comment on above: Performed By: #### NAOMI DORSEY, BMP #### [facility] [address] [place] [address] Rogelio Renetta Crystals LM Nom (Urine sed) NONE SEEN Normal NONE SEEN [facility] Comment on above: Performed By: #### NAOMI DORSEY, BMP #### [facility] [address] [phone] Rogelio Jackson CULTURE NOT INDICATED Normal [facility] Comment on above: Performed By: #### L NAOMI SHEPARD BMP #### [facility] [address] [id number] Rogelio Jackson Epithelial cells LM.HPF (Urine sed) [#/Area] RARE Normal [facility] Comment on above: Performed By: #### L NAOMI SHEPARD, YONNY #### [facility] [address] [phone] Rogelio Jackson MUCOUS TRACE Normal NONE SEEN [facility] Comment on above: Performed By: #### L NAOMI SHEPARD BMP #### [facility] [address] [id number] Rogeliorajan Jackson RBC (U) [#/Vol] 5-10 Normal 0-2 [facility] Comment on above: Performed By: #### NAOMI DORSEY BMP #### [facility] [address] [phone] Rogelio Jackson WBC (Bld) [#/Vol] 0-2 Normal NONE SEEN [facility] Comment on above: Performed By: #### NAOMI DORSEY BMP #### [facility] [address] [phone] Rogeliorajan Jackson XR ABD FLAT UP_PA Natalie 09-17 XR ABD FLAT UP_PA CH EXAM: XR ABD FLAT UP_PA CH HISTORY: Left flank pain COMPARISON: CT of the abdomen and pelvis from 08/22/2019. TECHNIQUE: PA radiograph of the chest with upright and supine radiographs of the abdomen and pelvis FINDINGS: CHEST: The lungs are without focal consolidation, pneumothorax, or pleural effusion. Cardiothymic silhouette and pulmonary vasculature are normal. The osseous structures are intact. Abdomen pelvis: No free air, pneumobilia, portal venous gas. No dilated air-filled loop of small bowel. The bowel is not obstructed. No abnormal calcification projects over the renal shadows. Surgical clips within the pelvis noted. Phleboliths within the pelvis. The osseous structures are intact. IMPRESSION: 1. No acute pulmonary abnormality. 2. Normal nonobstructed bowel gas pattern. 3. No calculi over the renal shadows. Electronically authenticated by: ROBERT CHINCHILLA Date: 2019-09-18 16:18 Normal [facility] COVID-19 PCRon 09-08-2019 SARS-CoV-2, CESIA Not Detected Normal Not Detected [facility] Comment on above: Result Comment: This test was developed and its performance characteristics determined by [employer]. This test has not been FDA cleared or approved. This test has been authorized by FDA under an Emergency Use Authorization (EUA). This test is only authorized for the duration of time the declaration that circumstances exist justifying the authorization of the emergency use of in vitro diagnostic tests for detection of SARS-CoV-2 virus and/or diagnosis of COVID-19 infection under section 564(b)(1) of the Act, 21 U.S.C. 360bbb-3(b)(1), unless the authorization is terminated or revoked sooner. When diagnostic testing is negative, the possibility of a false negative result should be considered in the context of a patient's recent exposures and the presence of clinical signs and symptoms consistent with COVID-19. An individual without symptoms of COVID-19 and who is not shedding SARS-CoV-2 virus would expect to have a negative (not detected) result in this assay. Performed By: #### C VDPCR #### [facility] [address] [place] [id number] Rogelio Renetta CBC AUTO DIFFon 08-22-2019 Basophils (Bld) [#/Vol] 0.1 103/ul Normal 0.0-0.1 [facility] Comment on above: Performed By: #### C BC #### [facility] [address] [place] [address] Rogelio Renetta Basophils/100 WBC (Bld) 0.8 % Normal 0.2-2.0 [facility] Comment on above: Performed By: #### C BC #### [facility] [address] [place] [address] Rogelio Renetta Eosinophils (Bld) [#/Vol] 0.2 103/ul Normal 0.0-0.7 [facility] Comment on above: Performed By: #### C BC #### [facility] [address] [place], [place] [phone] Rogelio Renetta Eosinophils/100 WBC (Bld) 2.6 % Normal 0.9-7.0 [facility] Comment on above: Performed By: #### C BC #### [facility] [address] [place], [place] [phone] Rogelio Renetta Erythrocyte distribution width (RBC) [Ratio] 13.2 % Normal 11.0-15.0 [facility] Comment on above: Performed By: #### C BC #### [facility] [address] [place], [place] [phone] Rogelio Renetta Hematocrit (Bld) [Volume fraction] 40.7 % Normal 36.0-48.0 [facility] Comment on above: Performed By: #### C BC #### [facility] [address] [place] [address] Rogelio Renetta Hemoglobin (Bld) [Mass/Vol] 13.1 g/dL Normal 12.0-16.0 [facility] Comment on above: Performed By: #### C BC #### [facility] [address] [place], [place] [phone] Rogelio Renetta IG # 0.01 10e3/ul Normal 0.00-0.03 [facility] Comment on above: Performed By: #### C BC #### [facility] [address] [place], [place] [phone] Rogelio Renetta IG % 0.2 % Normal 0.0-0.5 [facility] Comment on above: Performed By: #### C BC #### [facility] [address] [place], [place] [phone] Rogelio Renetta Lymphocytes (Bld) [#/Vol] 2.3 103/ul Normal 1.2-3.8 [facility] Comment on above: Performed By: #### C BC #### [facility] [address] [place], [place] [phone] Rogelio Renetta Lymphocytes/100 WBC (Bld) 36.2 % Normal 20.5-60.0 [facility] Comment on above: Performed By: #### C BC #### [facility] [address] [place], [place] [address] Rogelio Renetta MANUAL DIFF REQ NO Normal [facility] Comment on above: Performed By: #### C BC #### [facility] [address] [place], [place] [address] Rogelio Renetta MCH (RBC) [Entitic mass] 28.8 pg Normal 26.7-34.0 [facility] Comment on above: Performed By: #### C BC #### [facility] [address] [place] [id number] Rogelio Renetta MCHC (RBC) [Mass/Vol] 32.2 g/dL Normal 29.9-35.2 [facility] Comment on above: Performed By: #### C BC #### [facility] [address] [place], [place] [phone] Rogelio Renetta MCV (RBC) [Entitic vol] 89.5 fL Normal 81.0-99.0 [facility] Comment on above: Performed By: #### C BC #### [facility] [address] [place] [address] Rogelio Renetta Monocytes (Bld) [#/Vol] 0.8 103/ul Normal 0.3-0.8 [facility] Comment on above: Performed By: #### C BC #### [facility] [address] [place] [address] Rogelio Renetta Monocytes/100 WBC (Bld) 12.5 % Critically high 1.7-12. 0 [facility] Comment on above: Performed By: #### C BC #### [facility] [address] [place] [address] Rogelio Renetta Neutrophils (Bld) [#/Vol] 3.1 103/ul Normal 1.4-6.5 [facility] Comment on above: Performed By: #### C BC #### [facility] [address] [place] [address] Rogelio Renetta Neutrophils/100 WBC (Bld) 47.7 % Normal 43.0-75.0 [facility] Comment on above: Performed By: #### C BC #### [facility] [address] [place], [place] [address] Rogeliorajan Jackson Platelet mean volume (Bld) [Entitic vol] 9.5 fL Normal 9.5-13.5 [facility] Comment on above: Performed By: #### C BC #### [facility] [address] [place], [place] [address] Rogelio Renetta Platelets (Bld) [#/Vol] 293 103/ul Normal 150-450 T [facility] Comment on above: Performed By: #### C BC #### [facility] [address] [place], [place] [address] Rogelio Renetta RBC (Bld) [#/Vol] 4.55 106/ul Normal 4.20-5.40 [facility] Comment on above: Performed By: #### C BC #### [facility] [address] [place] [address] Rogelio Renetta WBC (Bld) [#/Vol] 6.5 103/ul Normal 4.0-11.0 [facility] Comment on above: Performed By: #### C BC #### [facility] [address] [place] [id number] ABD/PELV W CONon 08-22-19 CT ABD/PELV W CON EXAMINATION: CT ABD/PELV W CON HISTORY: DIARRHEA, UNSPECIFIED ; abdominal distention; pain along lower margin of ribs COMPARISON: No relevant comparison available. TECHNIQUE: CT images were created with 100 mL Omnipaque 300 IV contrast. Axial, Coronal, and Sagittal images. Dose reduction techniques were achieved by using automated exposure control and/or adjustment of mA and/or kV according to patient size and/or use of iterative reconstruction technique. FINDINGS: LUNG BASES: Small calcified granuloma within the anterior right costophrenic angle. LIVER: No enlargement, atrophy, abnormal density, or significant focal lesion. BILIARY: No visible dilatation or calcification. PANCREAS: No lesion, fluid collection, ductal dilatation, or atrophy. SPLEEN: No enlargement or focal lesion. ADRENALS: No mass or enlargement. KIDNEYS: 3 mm nonobstructing stone within the right kidney. Unremarkable left kidney and bilateral ureters. BOWEL/MESENTERY: Slightly edematous appearing wall thickening of the hepatic flexure of the colon. Otherwise unremarkable bowel. Normal appendix. AORTA/VASCULAR: No aneurysm or dissection. RETROPERITONEUM: No mass or adenopathy. LYMPH NODES: No adenopathy. URINARY BLADDER: No visible focal wall thickening, lesion, or calculus. PELVIC ORGANS: Hysterectomy. Unremarkable ovaries. ABDOMINAL WALL: Tiny fat-containing umbilical hernia without strangulation. BONES: No bony lesion or fracture. OTHER: Negative. IMPRESSION: 1. Nonobstructing right nephrolithiasis. 2. Suspect mild colitis of the hepatic flexure of the colon. Electronically authenticated by: ALL GUDINO Date: 2019-08-22 15:49 Normal [facility] ER URINE PROFILEon 0 Bilirubin [Mass/Vol] Negative Normal NEGATIVE [facility] Comment on above: Performed By: #### SUSIE ALVARADO #### [facility] [address] [place] [address] Rogelio Renetta BLOOD SMALL Normal NEGATIVE [facility] Comment on above: Performed By: #### SUSIE ALVARADO #### [facility] [address] [place] [address] Rogelio Renetta Clarity (U) CLEAR Normal [facility] Comment on above: Performed By: #### SUSIE ALVARADO #### [facility] [address] [place] [address] Rogelio Renetta Color (U) LT. YELLOW Normal YELLOW [facility] Comment on above: Performed By: #### SUSIE ALVARADO #### [facility] [address] [place] [address] Rogelio Renetta ERUAHD A micrscopic examination will be performed if indicated. Normal [facility] Comment on above: Performed By: #### SUSIE ALVARADO #### [facility] [address] [place] [address] Rogelio Renetta Glucose [Mass/Vol] Negative Normal NEGATIVE [facility] Comment on above: Performed By: #### SUSIE ALVARADO #### [facility] [address] [place] [address] Rogelio Renetta Ketones Ql (U) Negative Normal NEGATIVE [facility] Comment on above: Performed By: #### NEHAL ALVARADORO #### [facility] [address] [place], [place] [phone] Rogelio Renetta Nitrite Ql (U) Negative Normal NEGATIVE [facility] Comment on above: Performed By: #### Carlos HOYT UMBELIDNARO #### [facility] [address] [place], [place] [phone] Rogelio Renetta pH (Bld) 6.0 Normal 5-9 [facility] Comment on above: Performed By: #### NEHAL ALVARADORO #### [facility] [address] [place], [place] [phone] Rogelio Jackson Protein (U) [Mass/Vol] Negative Normal [facility] Comment on above: Performed By: #### NEHAL ALVARADORO #### [facility] [address] [place], [place] [phone] Rogelio Jackson SPEC GRAVITY <=1.005 Normal 1.005-<=1.0 25 [facility] Comment on above: Performed By: #### NEHAL ALVARADORO #### [facility] [address] [place], [place] [phone] Rogelio Jackson UR MICRO IND INDICATED Normal [facility] Comment on above: Performed By: #### NEHAL ALVARADORO #### [facility] [address] [place], [place] [phone] Rogelio Jackson Urobilinogen Qn (U) 0.2 EU/dl Normal [facility] Comment on above: Performed By: #### NEHAL ALVARADORO #### [facility] [address] [place], [place] [phone] Rogeliorajan Jackson WBC (Bld) [#/Vol] Negative Normal NEGATIVE [facility] Comment on above: Performed By: #### Carlos HOYT UMBELINDARO #### [facility] [address] [place], [place] [phone] Rogelio Jackson LIPASEon 08-22-2019 Lipase [Catalytic activity/Vol] 144.0 U/L Normal 23.0-300.0 [facility] Comment on above: Performed By: #### NAOMI DORSEY, BMP #### [facility] [address] [phone] Rogelio Renetta LIVER PROFILEon 08-22-2019 Albumin [Mass/Vol] 3.6 g/dL Normal 3.5-5.0 [facility] Comment on above: Performed By: #### NAOMI DORSEY, BMP #### [facility] [address] [place] [address] Rogelio Renetta Albumin/Globulin [Mass ratio] 1.0 {ratio} Normal [facility] Comment on above: Performed By: #### NAOMI DORSEY, BMP #### [facility] [address] [place] [address] Rogelio Renetta ALP [Catalytic activity/Vol] 82 U/L Normal 38-126 [facility] Comment on above: Performed By: #### NAOMI DORSEY, BMP #### [facility] [address] [place] [address] Rogelio Renetta ALT [Catalytic activity/Vol] 31 U/L Normal 9-52 [facility] Comment on above: Performed By: #### NAOMI DORSEY, BMP #### [facility] [address] [place] [address] Rogelio Renetta AST [Catalytic activity/Vol] 14 U/L Normal 14-36 [facility] Comment on above: Performed By: #### NAOMI DORSEY, BMP #### [facility] [address] [place] [address] Rogelio Renetta BILI, CONJUGATED 0.0 mg/dL Normal 0.0-0.3 [facility] Comment on above: Performed By: #### NAOMI DORSEY, BMP #### [facility] [address] [place] [address] Rogelio Renetta Bilirubin Ql (U) 0.3 mg/dL Normal 0.2-1.3 [facility] Comment on above: Performed By: #### NAOMI DORSEY, BMP #### [facility] [address] [place] [address] Rogelio Renetta Globulin (S) [Mass/Vol] 3.7 g/dL Normal T [facility] Comment on above: Performed By: #### NAOMI DORSEY, BMP #### [facility] [address] [address] Rogelio Renetta Protein [Mass/Vol] 7.3 g/dL Normal 6.1-8.2 [facility] Comment on above: Performed By: #### NAOMI DORSEY, BMP #### [facility] [address] [address] Rogelio Renetta PROF CHEM 8 (BAS METB)on Anion gap [Moles/Vol] 12.0 mmol/L Normal [facility] Comment on above: Performed By: #### NAOMI DORSEY, BMP #### [facility] [address] [place] [address] Rogelio Renetta Calcium [Mass/Vol] 9.0 mg/dL Normal 8.4-10.2 [facility] Comment on above: Performed By: #### NAOMI DOSREY, BMP #### [facility] [address] [address] Rogelio Renetta Chloride [Moles/Vol] 103 mmol/L Normal 98-107 [facility] Comment on above: Performed By: #### NAOMI DORSEY, BMP #### [facility] [address] [address] Rogelio Renetta CO2 [Moles/Vol] 25.7 mmol/L Normal 22.0-30.0 [facility] Comment on above: Performed By: #### NAOMI DORSEY, BMP #### [facility] [address] [address] Rogelio Renetta Creatinine [Mass/Vol] 0.84 mg/dL Normal 0.52-1.04 [facility] Comment on above: Performed By: #### NAOMI DORSEY, BMP #### [facility] [address] [phone] Rogelio Renetta EGFR-AF CROATIAN >60 Normal >=60 [facility] Comment on above: Performed By: #### NAOMI DORSEY, BMP #### [facility] [address] [place] [address] Rogelio Renetta EGFR-NON AF CROATIAN >60 Normal >=60 [facility] Comment on above: Performed By: #### NAOMI DORSEY, BMP #### [facility] [address] [place] [address] Rogelio Renetta Glucose [Mass/Vol] 85 mg/dL Normal 74-106 [facility] Comment on above: Performed By: #### NAOMI DORSEY, BMP #### [facility] [address] [place] [address] Rogelio Renetta Potassium [Moles/Vol] 3.7 mmol/L Normal 3.4-5.0 [facility] Comment on above: Performed By: #### NAOMI DORSEY, BMP #### [facility] [address] [place] [address] Rogelio Renetta Sodium [Moles/Vol] 137 mmol/L Normal 137-145 [facility] Comment on above: Performed By: #### NAOMI DORSEY, BMP #### [facility] [address] [place] [address] Rogelio Renetta Urea nitrogen [Mass/Vol] 11.0 mg/dL Normal 7.0-17.0 [facility] Comment on above: Performed By: #### NAOMI DORSEY, BMP #### [facility] [address] [place] [address] Rogelio Renetta Urea nitrogen/Creatinine [Mass ratio] 13.1 mg/mg Normal [facility] Comment on above: Performed By: #### NAOMI DORSEY, BMP #### [facility] [address] [place], [place] [phone] Rogelio Renetta URINE MICROSCOPIC ONLYon Bacteria LM.HPF (Urine sed) [#/Area] TRACE Normal NONE SEEN [facility] Comment on above: Performed By: #### SUSIE ALVARADO #### [facility] [address] [place], [place] [phone] Rogelio Renetta CAST NONE SEEN Normal NONE SEEN [facility] Comment on above: Performed By: #### E RUR, UMICRO #### [facility] [address] [place], [place] [phone] Rogelio Renetta Crystals LM Nom (Urine sed) NONE SEEN Normal NONE SEEN [facility] Comment on above: Performed By: #### E RUR, UMICRO #### [facility] [address] [place], [place] [phone] Rogelio Renetta CULTURE NOT INDICATED Normal [facility] Comment on above: Performed By: #### E RUR, UMICRO #### [facility] [address] [place], [place] [phone] Rogelio Renetta Epithelial cells LM.HPF (Urine sed) [#/Area] RARE Normal [facility] Comment on above: Performed By: #### E RUR, UMICRO #### [facility] [address] [place], [place] [phone] Rogelio Renetta MUCOUS NONE SEEN Normal NONE SEEN [facility] Comment on above: Performed By: #### E RUR, UMICRO #### [facility] [address] [place], [place] [phone] Rogelio Renetta RBC (U) [#/Vol] 0-2 Normal 0-2 [facility] Comment on above: Performed By: #### E RUR, UMICRO #### [facility] [address] [place], [place] [phone] Rogelio Renetta WBC (Bld) [#/Vol] NONE SEEN Normal NONE SEEN [facility] Comment on above: Performed By: #### E RUR, UMICRO #### [facility] [address] [place], [place] [phone] Rogelio Renetta Vital Signs Date Time Vital Sign Value Performing Clinician Facility 11-19-2022 14:00-0400 Body height 160.02 cm Alyssia Madden Other [facility] Other 11-19-2022 14:00-0400 Body mass index (BMI) [Ratio] 48.43 kg/m2 Alyssia Maryanne Other [facility] Other 11-19-2022 14:00-0400 Body temperature 98.3 [degF] Alyssia Maryanne Other [facility] Other 11-19-2022 14:00-0400 Body weight 124.01 kg Alyssia Maryanne Other [facility] Other 11-19-2022 14:00-0400 Diastolic blood pressure 82 mm[Hg] Alyssia Maryanne Other [facility] Other 11-19-2022 14:00-0400 Respiratory rate 16 /min Alyssia Maryanne Other [facility] Other 11-19-2022 14:00-0400 SaO2% (BldA) [Mass fraction] 98 % Alyssia Maryanne Other [facility] Other 11-19-2022 14:00-0400 Systolic blood pressure 128 mm[Hg] Alyssia Maryanne Other [facility] Other 02-05-2022 17:00-0500 Body height 160.02 cm Esther Riveraers Other [facility] Other 02-05-2022 17:00-0500 Body mass index (BMI) [Ratio] 48.82 kg/m2 Esther Milton Other [facility] Other 02-05-2022 17:00-0500 Body temperature 97.6 [degF] Esther Milton Other [facility] Other 02-05-2022 17:00-0500 Body weight 125.01 kg Esther Milton Other [facility] Other 02-05-2022 17:00-0500 Diastolic blood pressure 80 mm[Hg] Esther Milton Other [facility] Other 02-05-2022 17:00-0500 Respiratory rate 16 /min Esther Milton Other [facility] Other 02-05-2022 17:00-0500 SaO2% (BldA) [Mass fraction] 97 % Esther Milton Other [facility] Other 02-05-2022 17:00-0500 Systolic blood pressure 126 mm[Hg] Esther Milton Other [facility] Other 04-12-2021 10:30-0500 Body height 160.02 cm Esther Milton Other [facility] Other 04-12-2021 10:30-0500 Body mass index (BMI) [Ratio] 40.92 kg/m2 Esther Milton Other [facility] Other 04-12-2021 10:30-0500 Body temperature 98.5 [degF] Esther Milton Other [facility] Other 04-12-2021 10:30-0500 Body weight 104.78 kg Esther Milton Other [facility] Other 04-12-2021 10:30-0500 Diastolic blood pressure 78 mm[Hg] Esther Milton Other [facility] Other 04-12-2021 10:30-0500 Respiratory rate 16 /min Esther Milton Other [facility] Other 04-12-2021 10:30-0500 SaO2% (BldA) [Mass fraction] 98 % Esther Milton Other [facility] Other 04-12-2021 10:30-0500 Systolic blood pressure 122 mm[Hg] Esther Milton Other [facility] Other 11-16-2020 13:45-0400 Respiratory rate 18 /min Maggie Harper Other [facility] Other 11-16-2020 13:45-0400 SaO2% (BldA) [Mass fraction] 98 % Maggie Harper Other [facility] Other 11-14-2020 18:45-0400 Body height 160.02 cm Esthermaggie Riveraers Other [facility] Other 11-14-2020 18:45-0400 Body mass index (BMI) [Ratio] 45.7 kg/m2 Esther Milton Other [facility] Other 11-14-2020 18:45-0400 Body temperature 98.2 [degF] Esther Milton Other [facility] Other 11-14-2020 18:45-0400 Body weight 117.03 kg Esther Milton Other [facility] Other 11-14-2020 18:45-0400 Diastolic blood pressure 72 mm[Hg] Esther Milton Other [facility] Other 11-14-2020 18:45-0400 Respiratory rate 18 /min Esther Milton Other [facility] Other 11-14-2020 18:45-0400 SaO2% (BldA) [Mass fraction] 99 % Esthermaggie Riveraers Other [facility] Other 11-14-2020 18:45-0400 Systolic blood pressure 128 mm[Hg] Esther Milton Other [facility] Other 11-14-2020 17:45-0400 Body height 160.02 cm Esther Riveraers Other [facility] Other 11-14-2020 17:45-0400 Body mass index (BMI) [Ratio] 45.7 kg/m2 Esther Milton Other [facility] Other 11-14-2020 17:45-0400 Body temperature 98.2 [degF] Esther Milton Other [facility] Other 11-14-2020 17:45-0400 Body weight 117.03 kg Esther Milton Other [facility] Other 11-14-2020 17:45-0400 Diastolic blood pressure 72 mm[Hg] Esthermaggie Riveraers Other [facility] Other 11-14-2020 17:45-0400 Respiratory rate 18 /min Esthermaggie Riveraers Other [facility] Other 11-14-2020 17:45-0400 SaO2% (BldA) [Mass fraction] 99 % Esthermaggie Riveraers Other [facility] Other 11-14-2020 17:45-0400 Systolic blood pressure 128 mm[Hg] Esther Milton Other [facility] Other Encounters Encounter Date Encounter Type Care Provider Facility Start: 07-08-2023 End: 07-08-2023 ambulatory GENOVEVA ARVIN Not Available Start: 06-03-2023 End: 06-03-2023 ambulatory GENOVEVA ARVIN Not Available Start: 03-20-2023 End: 03-20-2023 ambulatory Esther Milton Other [facility] Other Start: 03-20-2023 Telephone encounter Esther Milton [facility] Start: 11-19-2022 End: 11-19-2022 ambulatory Alyssiara Madden Other [facility] Other Start: 11-19-2022 Encounter for genera l adult medical examination without abnormal findings Alyssia Maryanne [facility] Start: 11-19-2022 Periodic preventive med est patient 40-64yrs Alyssiara Madden [facility] Start: 11-10-2022 End: 11-10-2022 ambulatory Esther Riveraers Other [facility] Other Start: 11-10-2022 Telephone encounter Esther Milton [facility] Start: 11-03-2022 End: 11-03-2022 ambulatory Esther Milton Other [facility] Other Start: 11-03-2022 Telephone encounter Esther Milton [facility] Start: 10-29-2022 Office outpatient vi sit 15 minutes Alyssiara Madden [facility] Start: 10-29-2022 End: 10-29-2022 ambulatory Alyssiara Madden Facility:[facility] Start: 10-28-2022 End: 10-28-2022 ambulatory Esther Milton Other [facility] Other Start: 10-28-2022 Encounter by ann-marie Milton [facility] Start: 10-23-2022 Telephone encounter Esther Milton [facility] Start: 10-23-2022 End: 10-23-2022 ambulatory DO Esther Milton Work Phone: [facility] Other Start: 10-23-2022 End: 10-23-2022 Departed Referred DO Esther Milton Work Phone: [facility] [address] Work Phone: Start: 02-18-2022 End: 02-18-2022 ambulatory Esther Milton Other [facility] Other Start: 02-18-2022 Telephone encounter Esther Cifuentes [facility] Start: 02-05-2022 End: 02-05-2022 ambulatory Esther Milton Other [facility] Other Start: 02-05-2022 Encounter for genera l adult medical examination without abnormal findings Esther Milton [facility] Start: 02-05-2022 Periodic preventive med est patient 40-64yrs Esthermaggie Riveraers [facility] Start: 01-27-2022 End: 01-27-2022 ambulatory Esther Milton Other [facility] Other Start: 01-27-2022 Telephone encounter Esther Milton [facility] Start: 01-24-2022 End: 01-24-2022 ambulatory Esther Milton Facility:[facility] Start: 01-24-2022 Encounter for genera l adult medical examination without abnormal findings Esther Milton [facility] Start: 01-24-2022 End: 01-24-2022 ambulatory DO Esther Milton Work Phone: [facility] Work Phone: Start: 01-24-2022 End: 01-24-2022 Patient encounter procedure DO Esther Milton Work Phone: [facility] Start: 12-18-2021 End: 12-18-2021 ambulatory Esther Milton Other [facility] Other Start: 12-18-2021 Encounter for genera l adult medical examination without abnormal findings Esthermaggie Milton [facility] Start: 12-18-2021 Telephone encounter Esthermaggie Milton [facility] Start: 05-20-2021 End: 05-20-2021 ambulatory Esther Milton Other [facility] Other Start: 05-20-2021 Telephone encounter Esthermaggie Milton [facility] Start: 04-12-2021 End: 04-12-2021 ambulatory Esther Milton Other [facility] Other Start: 04-12-2021 Office outpatient vi sit 25 minutes Esther Milton [facility] Start: 01-25-2021 End: 01-25-2021 ambulatory Esther Milton Other [facility] Other Start: 01-25-2021 Telephone encounter Esthermaggie Milton [facility] Start: 01-10-2021 End: 01-10-2021 ambulatory Esther Milton Other [facility] Other Start: 01-10-2021 Telephone encounter Esthermaggie Milton [facility] Start: 11-16-2020 End: 11-16-2020 ambulatory Maggie Harper Other [facility] Other Start: 11-16-2020 Office outpatient vi sit 15 minutes Maggie Harper [facility] Start: 11-14-2020 End: 11-14-2020 ambulatory Esther Milton Other [facility] Other Start: 11-14-2020 Encounter for genera l adult medical examination without abnormal findings Esther Milton [facility] Start: 11-14-2020 Periodic preventive med est patient 40-64yrs Esther Milton [facility] Start: 11-14-2020 Telephone encounter Esther Milton [facility] Start: 09-26-2019 End: 09-27-2019 Patient encounter procedure [facility] Facility:[facility] Start: 09-19-2019 End: 09-19-2019 Patient encounter procedure ESTHER MILTON Facility:[facility] Start: 09-18-2019 End: 09-18-2019 Patient encounter procedure ESTHER MILTON Facility:[facility] Start: 09-06-2019 End: 09-07-2019 Patient encounter procedure [facility] Facility:[facility] Start: 08-22-2019 End: 08-22-2019 Patient encounter procedure KEISHA ROBLERO Facility:[facility] Plan of Treatment Date Care Activity Detail Author Start: 10-23-2022 [facility] Immunizations Immunization Date Immunization Notes Care Provider Tejal white 11-27-2021 COVID-19 Pfizer (bivalent) Esther Milton Other [facility] Other 11-27-2021 influenza, injectable, quadrivalent, preservative free Esther Milton Other [facility] Other 01-04-2021 COVID-19 Vaccine Pfizer - Documentation Purposes Only Esther Tha Other [facility] Other 11-14-2020 influenza, injectable, quadrivalent, contains preservative Esther Milton Other [facility] Other 05-31-2020 COVID-19 Vaccine Pfizer - Documentation Purposes Only Esther Milton Other [facility] Other 05-10-2020 COVID-19 Vaccine Pfizer - Documentation Purposes Only sEther Milton Other [facility] Other 02-25-2019 influenza, seasonal, injectable Patient Objection Esther Milton Other [facility] Other 06-08-2018 Kenalog -40 mg Esther wheeler Other [facility] Other 04-06-2018 Kenalog -40 mg Esther wheeler Other [facility] Other 02-26-2018 influenza, seasonal, injectable Patient Objection Esther Milton Other [facility] Other NEGATED: Highlighted row has not occurred!02-25-2019 influenza, seasonal, injectable Patient Objection Maggie Harper Other [facility] Other NEGATED: Highlighted row has not occurred!02-26-2018 influenza, seasonal, injectable Patient Objection Maggie Harper Other [facility] Other Payers Date Payer Category Payer Unknown [id number] 2022 Unknown [id number] 2022 Unknown [id number] 2022 [facility] [id number] 2022 Self-pay [id number] 1978 Unknown [id number] 2.16.84 [id number] 1978 Unknown [id number] 2.16.84 [id number] 1978 Unknown [id number] .16.84 [id number] 1978 Unknown [id number] .16.84 [id number] 1978 Unknown [id number] 2.16.84 0.1.369934.3.579.2.593 1978 Unknown [id number] 2.16.84 0.1.128424.3.579.2.1259 1978 Unknown [id number] 2.16.84 [id number] 1959 Unknown [id number] Self-pay [id number] Self-pay [id number] Self-pay [id number] Unknown Shreyas BC/BS [id number] Unknown [id number] 2.16.8 [id number] Unknown [id number] 2.16.8 [id number] Unknown [id number] 2.16.8 [id number] Social History Date Type Detail Facility Unknown if ever smoked [facility] Other Sex Assigned At Sex Assigned At Bir th [facility] Other Start: 09-09-2019 End: 09-09-2019 Tobacco smoking status NHIS Never smoked tobacco (finding) [facility] Start: 1980 Sex Assigned At Female F [facility] Clinical Notes 11-14-2020 to 03-20-2023 Note Date & Type Note Facility 03-20-2023 Evaluation note Encounter Date Diagnosis Assessment Notes Mar, Bipolar disorder (ICD-10 - F31.9) [facility] Other 10-11-2023 Evaluation note* Encounter Date Diagnosis Assessment Notes Treatment Notes Treatment Clinical Notes Nov, Bipolar disorder (ICD-10 - F31.9) Doing well on current medication we will continue to monitor. Nov, Well adult (ICD-10 - Z00.00) Personalized healthcare advice was given to Torey. General topics regarding health education were discussed in detail. All preventative issues were discussed including remaining a nonsmoker, colorectal screening, the importance of proper sleep for brain health maintenance, maintaining a heart-healthy balanced diet, recognizing and addressing signs of anxiety and depression, maintaining positive relationships with family and friends. Nov, BMI 45.0-49.9, adult (ICD-10 - Z68.42) We discussed weight loss at great length. She is interested in going forward with a referral to the weight clinic for further evaluation and treatment. In the meantime lifestyle modification such as low calorie diet and increased activity were reviewed. Nov, Other Referral to [facility] [employer] Other 09-20-2023 Evaluation note* Encounter Date Diagnosis Assessment Notes Treatment Notes Treatment Clinical Notes Oct, Cough (ICD-10 - R05.9) SHe was positive for COVID-19. She was educated on supportive care such as increasing fluids, good handwashing, OTC medications for symptoms relief and rest. She was advised to quarantine for 5 day past onset of symptoms and mask an additional five days after. She was educated on red flag symptoms such as fever with SOBand advised to follow up at ER if she develops these symptoms. Oct, Hematuria (ICD-10 - R31.9) We will send the urine for microscopic evaluation and culture. She will follow up pending results or sooner if problems. Red flag symptoms such as fever, trouble urinating, and hematuria were review, and she was advised to be evaluated if she develops any of these symptoms [employer] Other 12-28-2022 Evaluation note* Encounter Date Diagnosis Assessment Notes Treatment Notes Treatment Clinical Notes Jan, Screening for breast cancer (ICD-10 - Z12.31) Jan, Wellness examination (ICD-10 - Z00.00) Age appropriate screening & recommendations reviewed & discussed with patient. Jan, Anxiety (ICD-10 - F41.9) Uses rarely Jan, Obesity (ICD-10 - E66.9) Discussed rx at length, given all instructions, expectations at todays visit. Advised to use coupon card, if not covered, plan referral to weight loss center patient is interested in going but worried about getting there with her schedule She is on abilify which can certainly cause weight gain but she is at a very low dose and actually had lost weight the first two follow ups after that was started so it is unclear how much this has contributed to her weight gain. Jan, Bipolar disorder (ICD-10 - F31.9) Stable, will cont current rx at this time. [employer] Other 11-09-2022 Evaluation note* Encounter Date Diagnosis Assessment Notes Treatment Notes Treatment Clinical Notes Dec, Anxiety (ICD-10 - F41.9) Dec, Laboratory exam ordered as part of routine general medical examination (ICD-10 - Z00.00) [employer] Other 04-11-2022 Evaluation note* Encounter Date Diagnosis Assessment Notes Treatment Notes Treatment Clinical Notes May, Anxiety (ICD-10 - F41.9) [employer] Other 03-04-2022 Evaluation note* Encounter Date Diagnosis Assessment Notes Treatment Notes Treatment Clinical Notes Apr, Bipolar disorder (ICD-10 - F31.9) Doing well, will cont current. Lots of stressors right now with her husbands cancer treatment. Apr, Migraine headache (ICD-10 - G43.909) Imitrex somewhat helpful but patient felt it caused headache to linger in mild form for a couple days. Samples given of ubrelvy for her to try instead, can call for rx if she likes it. [employer] Other 10-08-2021 Evaluation note* Encounter Date Diagnosis Assessment Notes Treatment Notes Treatment Clinical Notes Nov, Close exposure to COVID-19 virus (ICD-10 - Z20.828) Nov, Viral URI (ICD-10 - J06.9) Advised patient that COVID rapid antigen test was negative in office today. Advised patient that does not mean that you will not develop COVID or do not currently have a low viral count of COVID. The rapid test works best if symptoms have been over 72 hours and the results can vary if you are asymptomatic There is a higher chance of false negative results to occur if testing is performed too soon. Viral supportive care as directed. Increase fluids/rest, Tylenol/Motrin as needed for aches/fever, OTC cough/cold medications as needed as directed, cool mist humidifier, throat lozenges. If symptoms persist or worsen follow up with PCP. Immediate eval for warning s/sx as discussed, including but not limited to SOB, severe wheezing, difficulty breathing, chest pain, palpitations, fever >103, persistent fevers not reduced by antipyretic, severe headache, neck pain/stiffness, abdominal pain, persistent N/V, severe dehydration. Patient verbalizes understanding and is agreeable to treatment plan. [employer] Other 10-06-2021 Evaluation note* Encounter Date Diagnosis Assessment Notes Treatment Notes Treatment Clinical Notes Nov, Wellness examination (ICD-10 - Z00.00) Age appropriate screening & recommendations reviewed & discussed with patient. Nov, Bipolar disorder (ICD-10 - F31.9) Patient with hx of bipolar, has been stable off meds for a number of years but recent stressors have triggered rapid cycling episode. She is tearful in office. Feels she is cycling between very depressed and manic within the same day. She is getting about 6 hours of sleep a night. Denies SI. Has previously responded well to abilify so will resume that and refill of ativan given which historically she uses very sparingly. She would like referral to counseling as well, recently dx with metastatic colon cancer. Will send referral to manager medicare for assistance. 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 heavy painful periods. 2016 Hospitalization History see above surgical histo ry [place] [employer] Other Summary Purpose Family History No Family History Records Found Relationship Condition Age at Onset Recorded Date/T ted Not Specified Malignant neoplasm of pancreas Unknown father Heart disease Unknown grandparent Malignant neoplasm of lung Unknown brother Neoplasm Unknown Advance Directives No Advanced Directives Records Found Advance Directive Response Recorded Date/ Time Advance Directives No March 12, 2018 8:57am Advance Directive Response Recorded Date/ Time Advance Directives No March 12, 2018 9:57am Chief Complaint and Reason for Visit Chief Complaint LABS for PRE EMPLOYM ENT Reason for Referral Reason weight management Diagnosis 1 BMI 45.0-49.9, adult (Z68.42) Referral Organization [facility] Referring Provider First Name Alyssia Referring Provider Last Name Maryanne Referring Provider Specialty Nurse Pract itioner Referred Organization [facility] Referred Provider Marcus Blancas Referred Address [address] [place] [address],[address],[place], [place],[address] Referred Provider Specialty Internal Med icine Referral Priority Routine General Notes Palmira Carrillo 04:29:02 PM >received today, attachments made, will fax labs seperately once notes are locked. Additional Source Comments INFORMATION SOURCE (unrecogn ized section and content) DATE CREATED AUTHOR 11/28/2019 [facility] DATE CREATED AUTHOR AUTHOR'S ORGANIZ ATION 10/31/2022 [facility] DATE CREATED AUTHOR AUTHOR'S ORGANIZ ATION 07/12/2023 [facility] EPIC REASON FOR VISIT (unrecogniz ed section and content) wellness, discuss mental hea lth, [facility] - Wellness Examinationcounseling referral helpgray jeep-fever, dizziness, vomitingRefillsnotewellness, discuss mental health, [facility] - Wellness Examination2 month Follow upRefillsRefillslab resultswellness, [facility] - Mammo, [facility] - Wellness ExaminationWegovyrescheduling wellnessUpdate Kiosk DemographicsSilver Jeep-[SELF-PAY] URI/blood in urine at [facility] onboarding on linicalreschedulingWellness for PillarsRefills Care Teams (unrecognized sec tion and content) Team Status: Inactive Member Role Status Dates sEther Milton , DO Primary Care Provider, Attending Provider Active Team Status: Active Member Role Status Dates Esther Milton , DO Primary Care Provider Active Team Status: Inactive Member Role Status Dates Esther Milton , DO Primary Care Provider Active Dalton Orr , DO [facility] Attending Provider Active Goals (unrecognized section and content) Goals may be documented in a n alternate section FOR RECORDS PERTAINING TO PATIENTS WHO ARE OR HAVE BEEN ENROLLED IN A CHEMICAL DEPENDENCY/SUBSTANCEABUSE PROGRAM, SOME INFORMATION MAY BE OMITTED. This clinical summary was aggregated from multiple sources. Caution should be exercised in using it in the provision of clinical care. This summary normalizes information from multiple sources, and as a consequence, information in this document may materially change the coding, format and clinical context of patient data. In addition, data may be omitted in some cases. CLINICAL DECISIONS SHOULD BE BASED ON THE PRIMARY CLINICAL RECORDS. [employer] provides no warranty or guarantee of the accuracy or completeness of information in this document.
--- NOTE | 2023-09-03 13:21 | CT_ITS ---
The [address] [place], [place] [address] Patient Name: TOREY FELIZ MRN: [id number] date: 1980 Sex: F Assigned Patient Location: ER Current Patient Location: ER Accession/Order Number: [id number] Exam Date: 09/03/2023 14:10 Report Date: 09/03/2023 15:00 At the request of: DARRON POLANCO Procedure: CT abdomen pelvis w con EXAMINATION: CT abdomen pelvis w con HISTORY: Abdominal pain COMPARISON: No relevant comparison available. TECHNIQUE: CT images were created with IV contrast. Axial, Coronal, and Sagittal images. Dose reduction techniques were achieved by using automated exposure control and/or adjustment of mA and/or kV according to patient size and/or use of iterative reconstruction technique. FINDINGS: LUNG BASES: No visible pulmonary or pleural disease. LIVER: Diffuse hypoattenuation consistent with hepatic steatosis BILIARY: No visible dilatation or calcification. PANCREAS: No lesion, fluid collection, ductal dilatation, or atrophy. SPLEEN: No enlargement or focal lesion. ADRENALS: No mass or enlargement. KIDNEYS: Punctate right nephrolith. No obstructive uropathy BOWEL/MESENTERY: No visible mass, obstruction, or bowel wall thickening. Normal appendix AORTA/VASCULAR: No aneurysm or dissection. RETROPERITONEUM: No mass or adenopathy. LYMPH NODES: No adenopathy. URINARY BLADDER: No visible focal wall thickening, lesion, or calculus. PELVIC ORGANS: Hysterectomy. 2 surgical clips in the pelvis ABDOMINAL WALL: No mass or hernia. BONES: No bony lesion or fracture. OTHER: Negative. CT/CT abdomen pelvis w con IMPRESSION: No acute intraperitoneal abnormality Electronically authenticated by: CORNELIUS OCAMPO Date: 09/03/2023 15:00
--- NOTE | 2023-09-03 13:23 | ED_ITS ---
HPI HPI - General Adult General Chief complaint: Nausea/Vomiting/Diarrhea Stated complaint: VOMITTING/ABDOMINAL PAIN Time Seen by Provider: 09/03/23 13:12 Source: patient Mode of arrival: walk-in Limitations: no limitations History of Present Illness HPI narrative: Patient is a 43-year-old female with a history of previous hysterectomy who presents to the emergency department for diffuse upper abdominal pain that has been present for the last month. She saw her PCP yesterday and was prescribed Zofran and omeprazole. She states since starting the medications she has had an increase in pain and vomiting. Her primary care provider and here on did not order any outpatient labs or testing. She states she is in process of referring her to a GI specialist. She has had no other abdominal surgeries other than the hysterectomy. She states that the beginning of the course of her illness she did have some diarrhea but this has resolved and she has been having normal bowel movements. No flank or back pain. She denies urinary symptoms. Related Data Previous Rx's ?Medication ?Instructions ?Recorded pantoprazole 40 mg tablet,delayed 40 mg PO DAILY #7 tabs 09/03/23 release (Protonix) promethazine 25 mg tablet 25 mg PO Q6H PRN nausea and 09/03/23 vomiting #12 tabs sucralfate 1 gram tablet (Carafate) 1 g PO Q6H PRN abdominal pain #12 09/03/23 tabs Allergies Allergy/AdvReac Type Severity Reaction Status Date / Time acetaminophen [From Percocet] Allergy Severe Agitated Verified 09/03/23 13:15 codeine AdvReac Severe Vomiting Verified 09/03/23 13:15 hydrocodone [From Vicodin] AdvReac Severe Agitated Verified 09/03/23 13:15 morphine AdvReac Severe Vomiting Verified 09/03/23 13:15 oxycodone AdvReac Severe Agitated Verified 09/03/23 13:15 Opioid HPI Opioid Management Most Recent Opioid Data: Last Pain Scale 6 09/03/23 14:11 Review of Systems ROS Constitutional Denies: fever or chills Ears, nose, mouth, and throat Denies: throat pain or nasal congestion Respiratory Denies: shortness of breath Gastrointestinal Reports: abdominal pain, nausea, vomiting and diarrhea Genitourinary Denies: painful urination Musculoskeletal Denies: back pain or neck pain Integumentary/Breast Denies: rash Neurological Denies: headache Hematologic/Lymphatic Denies: easy bruising or easy bleeding Exam Narrative Exam Narrative: Gen.: Awake, alert, in no distress Head: Normocephalic, atraumatic ENT: Moist mucous membranes Respiratory: No respiratory distress Gastrointestinal: Abdomen is soft, obese, diffusely tender in the epigastrium and bilateral upper quadrants of the abdomen with no guarding or rebound Extremities: Moves extremities equally Psych: Normal mood and affect Neuro: No focal neuro deficit Skin: Warm, dry, intact Constitutional Vital Signs, click to edit/add: Last Vital Signs Temp 97.6 F 09/03/23 13:08 Pulse 65 09/03/23 14:34 Resp 18 09/03/23 14:34 BP 130/50 09/03/23 14:34 Pulse Ox 98 09/03/23 14:34 O2 Del Method Room Air 09/03/23 13:08 Course Vital Signs Vital signs: Vital Signs Temperature 97.6 F 09/03/23 13:08 Pulse Rate 76 09/03/23 13:08 Respiratory Rate 20 09/03/23 13:08 Blood Pressure 142/83 H 09/03/23 13:08 Pulse Oximetry 97 09/03/23 13:08 Oxygen Delivery Method Room Air 09/03/23 13:08 Temperature 97.6 F 09/03/23 13:08 Pulse Rate 65 09/03/23 14:34 Respiratory Rate 18 09/03/23 14:34 Blood Pressure 130/50 09/03/23 14:34 Pulse Oximetry 98 09/03/23 14:34 Oxygen Delivery Method Room Air 09/03/23 13:08 Medical Decision Making [facility] Narrative Medical decision making narrative: IV placed, patient was given medications for symptoms and IV fluids in the ER with improvement. She had no episodes of emesis in the ER. Vital signs are within normal limits and abdomen is soft and benign. Laboratory studies reviewed and noted within normal limits, CT of the abdomen and pelvis with IV contrast shows no evidence of acute process. Patient was given education and reassurance. She will be prescribed Phenergan, Carafate, Protonix for home. Follow-up with PCP and return to the emergency department if symptoms change or worsen. SUPERVISED APC VISIT, PHYSICIAN ATTESTATION: Based on the medical record the care appears appropriate. ? Medical Records Medical records reviewed: Yes I reviewed the patient's medical records Lab Data Lab results reviewed: Yes I reviewed the patient's lab results Labs: Lab Results 09/03/23 09/03/23 Range/Units 13:40 14:30 WBC 10.2 (4.0-11.0) 10^3/uL RBC 4.82 (4.20-5.40) 10^6/uL Hgb 13.8 (12.0-16.0) g/dL Hct 42.2 (36.0-48.0) % MCV 87.6 (81.0-99.0) fL MCH 28.6 (26.7-34.0) pg MCHC 32.7 (29.9-35.2) g/dL RDW 13.2 (11.0-15.0) % Plt Count 329 (150-450) 10^3/uL MPV 9.6 (9.5-13.5) fL Neut % (Auto) 71.1 (43.0-75.0) % Lymph % (Auto) 18.6 L (20.5-60.0) % [place] % (Auto) 8.8 (1.7-12.0) % Eos % (Auto) 0.8 L (0.9-7.0) % Baso % (Auto) 0.4 (0.2-2.0) % Neut # (Auto) 7.2 H (1.4-6.5) 10^3/uL Lymph # (Auto) 1.9 (1.2-3.8) 10^3/uL [place] # (Auto) 0.9 H (0.3-0.8) 10^3/uL Eos # (Auto) 0.1 (0.0-0.7) 10^3/uL Baso # (Auto) 0.0 (0.0-0.1) 10^3/uL Abs Immat Gran (auto) 0.03 (0.00-0.03) 10^3/uL Imm/Tot Granulo (auto) 0.3 (0.0-0.5) % PT 10.1 (9.0-11.6) sec INR 0.95 Sodium 140 (136-145) mmol/L Potassium 4.1 (3.5-5.1) mmol/L Chloride 103 (98-107) mmol/L Carbon Dioxide 23.6 (21.0-32.0) mmol/L Anion Gap 17.5 BUN 9.0 (7.0-18.0) mg/dL Creatinine 0.78 (0.55-1.02) mg/dL Est GFR ( Amer) >60 (>=60) Est GFR (Non-Af Amer) >60 (>=60) BUN/Creatinine Ratio 11.5 Glucose 110 H (74-106) mg/dL Lactate 1.5 (0.4-2.0) mmol/L Calcium 9.2 (8.5-10.1) mg/dL Total Bilirubin 0.5 (0.2-1.0) mg/dL AST 29 (15-37) U/L ALT 40 (14-59) U/L Alkaline Phosphatase 83 (46-116) U/L Total Protein 6.9 (6.4-8.2) g/dL Albumin 3.5 (3.4-5.0) g/dL Globulin 3.4 g/dL Albumin/Globulin Ratio 1.0 Lipase 27.0 (16.0-77.0) U/L Urine Color Lt. yellow (YELLOW) Urine Clarity Clear (CLEAR) Urine pH 7.0 (5.0-9.0) Ur Specific [place] <=1.005 A (1.005-1.025) Urine Protein Negative (NEG/TRACE) mg/dL Urine Glucose (UA) Negative (NEGATIVE) mg/dL Urine Ketones Negative (NEGATIVE) mg/dL Urine Occult Blood Trace-i (NEGATIVE) Urine Nitrite Negative (NEGATIVE) Urine Bilirubin Negative (NEGATIVE) Urine Urobilinogen 0.2 (0.2-1.0) EU/dL Ur Leukocyte Esterase Negative (NEGATIVE) Imaging Data CT scan - abdomen: Attestation: I have reviewed the pertinent imaging results. Radiologist's impression: ITS Impressions Abdomen/Pelvis CT 09/03/23 13:21 IMPRESSION: No acute intraperitoneal abnormality Electronically authenticated by: CORNELIUS OCAMPO Date: 09/03/2023 15:00 Discharge Plan Discharge Stand Alone Forms: Portal Instructions Chief Complaint: Nausea/Vomiting/Diarrhea Clinical Impression: Abdominal pain Patient Disposition: Home, Self-Care Time of Disposition Decision: 15:35 Condition: Good Prescriptions / Home Meds: New sucralfate [Carafate] 1 gram tablet 1 g PO Q6H PRN (Reason: abdominal pain) Qty: 12 0RF pantoprazole [Protonix] 40 mg tablet,delayed release (DR/EC) 40 mg PO DAILY Qty: 7 0RF promethazine 25 mg tablet 25 mg PO Q6H PRN (Reason: nausea and vomiting) Qty: 12 0RF Print Language: Filipino Instructions: Acute Abdominal Pain (ED) Referrals: Laura Gutierrez MD [Primary Care Provider] - 1 week
[2023-09-03] MEDS: 0.9 % SODIUM CHLORIDE 1,000 ML 1000 ML IV (13:48)
[2023-09-03] MEDS: HYOSCYAMINE SULFATE 0.125 MG TAB.SUBL SL (13:49)
[2023-09-03] MEDS: PANTOPRAZOLE SODIUM 40 MG VIAL IV (13:53)
[2023-09-03 13:57] LABS: Basophils Percent Auto 0.4 % (0.2-2.0); Eosinophils Absolute Auto 0.1 10^3/uL (0.0-0.7); Eosinophils Percent Auto 0.8 % (0.9-7.0); Hematocrit 42.2 % (36.0-48.0); Hemoglobin 13.8 g/dL (12.0-16.0); Immature Granulocytes Abs Auto 0.03 10^3/uL (0.00-0.03); Immature Granulocytes Pct Auto 0.3 % (0.0-0.5); Lymphocytes Absolute Auto 1.9 10^3/uL (1.2-3.8); Lymphocytes Percent Auto 18.6 % (20.5-60.0); Mean Corpuscular HGB Conc 32.7 g/dL (29.9-35.2); Mean Corpuscular Hemoglobin 28.6 pg (26.7-34.0); Mean Corpuscular Volume 87.6 fL (81.0-99.0); Mean Platelet Volume 9.6 fL (9.5-13.5); Monocytes Absolute Auto 0.9 10^3/uL (0.3-0.8); Monocytes Percent Auto 8.8 % (1.7-12.0); Neutrophils Absolute Auto 7.2 10^3/uL (1.4-6.5); Neutrophils Percent Auto 71.1 % (43.0-75.0); Platelet Count 329 10^3/uL (150-450); Red Blood Count 4.82 10^6/uL (4.20-5.40); Red Cell Distribution Width 13.2 % (11.0-15.0); White Blood Count 10.2 10^3/uL (4.0-11.0)
[2023-09-03] MEDS: PROMETHAZINE HCL 12.5 MG in 0.9 % SODIUM CHLORIDE 50 ML 202 MG IV (13:58)
[2023-09-03 14:09] LABS: INR 0.95; Prothrombin Time 10.1 sec (9.0-11.6)
[2023-09-03 14:16] LABS: Lactate/Lactic Acid 1.5 mmol/L (0.4-2.0)
[2023-09-03 14:28] LABS: Alanine Aminotransferase 40 U/L (14-59); Albumin Level 3.5 g/dL (3.4-5.0); Alkaline Phosphatase 83 U/L (46-116); Anion Gap 17.5; Aspartate Amino Transferase 29 U/L (15-37); BUN Creatinine Ratio 11.5; Bilirubin Total 0.5 mg/dL (0.2-1.0); Calcium 9.2 mg/dL (8.5-10.1); Carbon Dioxide 23.6 mmol/L (21.0-32.0); Chloride 103 mmol/L (98-107); Estimated GFR (African America >60 (>=60); Estimated GFR (Non-African Ame >60 (>=60); Globulin 3.4 g/dL; Glucose 110 mg/dL (74-106); Potassium 4.1 mmol/L (3.5-5.1); Sodium 140 mmol/L (136-145); Total Protein 6.9 g/dL (6.4-8.2)
[2023-09-03 14:34] VITALS: BP 130/50; PULSE 65; O2SAT 98
[2023-09-03 15:18] LABS: Bilirubin Urine NEGATIVE (NEGATIVE); Blood Urine TRACE-I (NEGATIVE); Clarity Urine CLEAR (CLEAR); Color Urine LT. YELLOW (YELLOW); Glucose Urine UA NEGATIVE (NEGATIVE); Ketones Urine NEGATIVE (NEGATIVE); Leukocyte Esterase Urine NEGATIVE (NEGATIVE); Nitrite Urine NEGATIVE (NEGATIVE); Protein Urine NEGATIVE (NEG/TRACE); Specific Gravity Urine <=1.005 (1.005-1.025); Urobilinogen Urine 0.2 EU/dL (0.2-1.0)
[2023-09-03 15:19] LABS: Urine Microscopic Indicated YES
[2023-09-03 15:34] LABS: Bacteria Urine TRACE #/HPF (NONE SEEN); Cast Seen? NONE SEEN #/LPF (NONE SEEN); Crystals Seen? None Seen #/HPF (None Seen); Mucus Urine NONE SEEN (NONE SEEN); RBC Urine 0-2 #/HPF (0-2); Squamous Epithelial Cell Urine FEW #/LPF (NONE/RARE); Urine Culture Indicated NO; WBC Urine 0-2 #/HPF (NONE SEEN)
[2023-09-03 15:45] VITALS: BP 128/88; PULSE 66; O2SAT 98
== END 2023-09-03 15:46 | disposition home or self-care (01) ==
PROVIDERS: Physician Assistant; Emergency Provider Emergency Medicine Emergency Medical Services; PCP Student in an Organized Health Care Education/Training Program
DX: R10.9 Unspecified abdominal pain (principal); Z90.710 Acquired absence of both cervix and uterus; E66.9 Obesity, unspecified; Z68.41 Body mass index [BMI] 40.0-44.9, adult
CPT/HCPCS: 36415; 74177; 80053; 81001; 83605; 83690; 85025; 85610; 96365; 96375; 99285; J2250; Q9967

== ENCOUNTER 2023-09-05 03:38 | Emergency (ER) | payer OTHER, SELFPAY ==
[2023-09-05 03:43] VITALS: BP 141/89; PULSE 69; TEMP 36.5; O2SAT 97; BMI 44.3
--- NOTE | 2023-09-05 03:55 | ED_ITS ---
HPI - Abdominal Pain General Chief Complaint: Abdominal Pain Stated Complaint: abd pain Time Seen by Provider: 09/05/23 03:54 Mode of arrival: walk-in Limitations: no limitations History of Present Illness HPI narrative: abdominal pain. patient seen in the ER yesterday and worked up for abdominal pain and vomiting. [place] CT. discharged home with medication for nausea and vomiting and was doing well. Developed abdominal pain again this AM. Went into the bathroom to have a BM to see if this would help. Vomited 3 times. Now returns with her abdominal pain. nausea has resolved. Understands her CT abdomen yesterday was neg. Points to RUQ and flank as site of pain Related Data Previous Rx's ?Medication ?Instructions ?Recorded pantoprazole 40 mg tablet,delayed 40 mg PO DAILY #7 tabs 09/03/23 release (Protonix) promethazine 25 mg tablet 25 mg PO Q6H PRN nausea and 09/03/23 vomiting #12 tabs sucralfate 1 gram tablet (Carafate) 1 g PO Q6H PRN abdominal pain #12 09/03/23 tabs Allergies Allergy/AdvReac Type Severity Reaction Status Date / Time acetaminophen [From Percocet] Allergy Severe Agitated Verified 09/03/23 13:15 codeine AdvReac Severe Vomiting Verified 09/03/23 13:15 hydrocodone [From Vicodin] AdvReac Severe Agitated Verified 09/03/23 13:15 morphine AdvReac Severe Vomiting Verified 09/03/23 13:15 oxycodone AdvReac Severe Agitated Verified 09/03/23 13:15 Review of Systems 2 ROS0 Status of ROS 10 or more systems reviewed and unremark able except as noted in history and below Exam Constitutional Vital Signs, click to edit/add: Last Vital Signs Temp 97.7 F 09/05/23 03:43 Pulse 69 09/05/23 03:43 Resp 18 09/05/23 03:43 BP 141/89 09/05/23 03:43 Pulse Ox 97 09/05/23 03:43 O2 Del Method Room Air 09/05/23 03:43 Common normals: no apparent distress, average body habitus, oriented x3, no limitations, healthy appearing, alert and well nourished HENMN Common normals: normocephalic and head/scalp atraumatic Eye Common normals: EOMs intact bilaterally and conjunctivae normal Respiratory Common normals: normal respiratory effort, no retractions, no use of accessory muscles and clear to auscultation bilaterally Cardio Common normals: regular rate, regular rhythm, S1 normal heart sound and S2 normal heart sound GI Common normals: Normal to inspection, nondistended, normoactive bowel sounds present and soft to palpation GI image (female): 2 1. tender. no guarding Extremity Common normals: normal to inspection and full ROM Neuro Common normals: oriented x3, CN's II-XII intact bilaterally, moves all extremities and no focal motor deficits Psych Appearance: grossly normal Course Vital Signs Vital signs: Vital Signs Temperature 97.7 F 09/05/23 03:43 Pulse Rate 69 09/05/23 03:43 Respiratory Rate 18 09/05/23 03:43 Blood Pressure 141/89 09/05/23 03:43 Pulse Oximetry 97 09/05/23 03:43 Oxygen Delivery Method Room Air 09/05/23 03:43 Temperature 97.7 F 09/05/23 03:43 Pulse Rate 69 09/05/23 03:43 Respiratory Rate 18 09/05/23 03:43 Blood Pressure 141/89 09/05/23 03:43 Pulse Oximetry 97 09/05/23 03:43 Oxygen Delivery Method Room Air 09/05/23 03:43 MDM - Abdominal Pain MDM Narrative Medical decision making narrative: seen 2 days ago for pain. pain for one month. Workup neg including normal CT abdomen/pelvis. symptoms treated and she felt better. Tonight developed pain again and vomited at home. Now presents and no longer has nausea. Has tenderness of her right side abdominal wall. Reviewed CT report that was completely neg. labs here today unremarkable. Treated for abdominal wall pain and discharged to follow up with her doctor Lab Data Labs: Lab Results 09/05/23 09/05/23 Range/Units 03:50 05:04 WBC 8.5 (4.0-11.0) 10^3/uL RBC 4.56 (4.20-5.40) 10^6/uL Hgb 12.7 (12.0-16.0) g/dL Hct 41.1 (36.0-48.0) % MCV 90.1 (81.0-99.0) fL MCH 27.9 (26.7-34.0) pg MCHC 30.9 (29.9-35.2) g/dL RDW 13.4 (11.0-15.0) % Plt Count 329 (150-450) 10^3/uL MPV 9.5 (9.5-13.5) fL Neut % (Auto) 63.3 (43.0-75.0) % Lymph % (Auto) 22.6 (20.5-60.0) % [place]bert % (Auto) 11.0 (1.7-12.0) % Eos % (Auto) 2.0 (0.9-7.0) % Baso % (Auto) 0.7 (0.2-2.0) % Neut # (Auto) 5.4 (1.4-6.5) 10^3/uL Lymph # (Auto) 1.9 (1.2-3.8) 10^3/uL Colbert # (Auto) 0.9 H (0.3-0.8) 10^3/uL Eos # (Auto) 0.2 (0.0-0.7) 10^3/uL Baso # (Auto) 0.1 (0.0-0.1) 10^3/uL Abs Immat Gran (auto) 0.03 (0.00-0.03) 10^3/uL Imm/Tot Granulo (auto) 0.4 (0.0-0.5) % Sodium 141 (136-145) mmol/L Potassium 3.3 L (3.5-5.1) mmol/L Chloride 104 (98-107) mmol/L Carbon Dioxide 26.4 (21.0-32.0) mmol/L Anion Gap 13.9 BUN 12.0 (7.0-18.0) mg/dL Creatinine 0.88 (0.55-1.02) mg/dL Est GFR ( Amer) >60 (>=60) Est GFR (Non-Af Amer) >60 (>=60) BUN/Creatinine Ratio 13.6 Glucose 112 H (74-106) mg/dL Lactate 1.5 (0.4-2.0) mmol/L Calcium 8.9 (8.5-10.1) mg/dL Total Bilirubin 0.3 (0.2-1.0) mg/dL AST 15 (15-37) U/L ALT 31 (14-59) U/L Alkaline Phosphatase 98 (46-116) U/L Troponin I High Sens 5.4 (4.0-51.3) pg/mL Total Protein 6.8 (6.4-8.2) g/dL Albumin 3.4 (3.4-5.0) g/dL Globulin 3.4 g/dL Albumin/Globulin Ratio 1.0 Lipase 44.0 (16.0-77.0) U/L Urine Color Lt. yellow (YELLOW) Urine Clarity Clear (CLEAR) Urine pH 6.5 (5.0-9.0) Ur Specific [place] <=1.005 A (1.005-1.025) Urine Protein Negative (NEG/TRACE) mg/dL Urine Glucose (UA) Negative (NEGATIVE) mg/dL Urine Ketones Negative (NEGATIVE) mg/dL Urine Occult Blood Trace-i (NEGATIVE) Urine Nitrite Negative (NEGATIVE) Urine Bilirubin Negative (NEGATIVE) Urine Urobilinogen 0.2 (0.2-1.0) EU/dL Ur Leukocyte Esterase Negative (NEGATIVE) Urine RBC 0-2 (0-2) #/HPF Urine WBC None seen (NONE SEEN) #/HPF Ur Squamous Epith Cells Rare (NONE/RARE) #/LPF Urine Crystals None seen (None Seen) #/HPF Urine Bacteria None seen (NONE SEEN) #/HPF Urine Casts None seen (NONE SEEN) #/LPF Urine Mucus None seen (NONE SEEN) Ur Culture Indicated? No Imaging Data Abdominal x-ray: Radiologist's impression: Name: TOREY FELIZ MRN: [id number] date: 1980 Sex: F Assigned Patient Location: Current Patient Location: Accession/Order Number: [id number] Exam Date: 09/03/2023 14:10 Report Date: 09/03/2023 15:00 At the request of: DARRON POLANCO Procedure: CT abdomen pelvis w con EXAMINATION: CT abdomen pelvis w con HISTORY: Abdominal pain COMPARISON: No relevant comparison available. TECHNIQUE: CT images were created with IV contrast. Axial, Coronal, and Sagittal images. Dose reduction techniques were achieved by using automated exposure control and/or adjustment of mA and/or kV according to patient size and/or use of iterative reconstruction technique. FINDINGS: LUNG BASES: No visible pulmonary or pleural disease. LIVER: Diffuse hypoattenuation consistent with hepatic steatosis BILIARY: No visible dilatation or calcification. PANCREAS: No lesion, fluid collection, ductal dilatation, or atrophy. SPLEEN: No enlargement or focal lesion. ADRENALS: No mass or enlargement. KIDNEYS: Punctate right nephrolith. No obstructive uropathy BOWEL/MESENTERY: No visible mass, obstruction, or bowel wall thickening. Normal appendix AORTA/VASCULAR: No aneurysm or dissection. RETROPERITONEUM: No mass or adenopathy. LYMPH NODES: No adenopathy. URINARY BLADDER: No visible focal wall thickening, lesion, or calculus. PELVIC ORGANS: Hysterectomy. 2 surgical clips in the pelvis ABDOMINAL WALL: No mass or hernia. BONES: No bony lesion or fracture. OTHER: Negative. IMPRESSION: No acute intraperitoneal abnormality Discharge Plan Discharge Stand Alone Forms: Portal Instructions Chief Complaint: Abdominal Pain Clinical Impression: Abdominal wall pain Patient Disposition: Home, Self-Care Prescriptions / Home Meds: No Action sucralfate [Carafate] 1 gram tablet 1 g PO Q6H PRN (Reason: abdominal pain) Qty: 12 0RF pantoprazole [Protonix] 40 mg tablet,delayed release (DR/EC) 40 mg PO DAILY Qty: 7 0RF promethazine 25 mg tablet 25 mg PO Q6H PRN (Reason: nausea and vomiting) Qty: 12 0RF Print Language: Bahraini Instructions: Abdominal Pain (ED) Additional Instructions: follow up Thursday with your doctor Referrals: Laura Gutierrez MD [Primary Care Provider] - 1 week
[2023-09-05 04:10] LABS: Basophils Absolute Auto 0.1 10^3/uL (0.0-0.1); Basophils Percent Auto 0.7 % (0.2-2.0); Eosinophils Absolute Auto 0.2 10^3/uL (0.0-0.7); Hematocrit 41.1 % (36.0-48.0); Hemoglobin 12.7 g/dL (12.0-16.0); Immature Granulocytes Abs Auto 0.03 10^3/uL (0.00-0.03); Immature Granulocytes Pct Auto 0.4 % (0.0-0.5); Lymphocytes Absolute Auto 1.9 10^3/uL (1.2-3.8); Lymphocytes Percent Auto 22.6 % (20.5-60.0); Mean Corpuscular HGB Conc 30.9 g/dL (29.9-35.2); Mean Corpuscular Hemoglobin 27.9 pg (26.7-34.0); Mean Corpuscular Volume 90.1 fL (81.0-99.0); Mean Platelet Volume 9.5 fL (9.5-13.5); Monocytes Absolute Auto 0.9 10^3/uL (0.3-0.8); Neutrophils Absolute Auto 5.4 10^3/uL (1.4-6.5); Neutrophils Percent Auto 63.3 % (43.0-75.0); Platelet Count 329 10^3/uL (150-450); Red Blood Count 4.56 10^6/uL (4.20-5.40); Red Cell Distribution Width 13.4 % (11.0-15.0); White Blood Count 8.5 10^3/uL (4.0-11.0)
[2023-09-05 04:24] LABS: Lactate/Lactic Acid 1.5 mmol/L (0.4-2.0)
[2023-09-05 04:31] LABS: Alanine Aminotransferase 31 U/L (14-59); Albumin Level 3.4 g/dL (3.4-5.0); Alkaline Phosphatase 98 U/L (46-116); Anion Gap 13.9; Aspartate Amino Transferase 15 U/L (15-37); BUN Creatinine Ratio 13.6; Bilirubin Total 0.3 mg/dL (0.2-1.0); Calcium 8.9 mg/dL (8.5-10.1); Carbon Dioxide 26.4 mmol/L (21.0-32.0); Chloride 104 mmol/L (98-107); Estimated GFR (African America >60 (>=60); Estimated GFR (Non-African Ame >60 (>=60); Globulin 3.4 g/dL; Glucose 112 mg/dL (74-106); Potassium 3.3 mmol/L (3.5-5.1); Sodium 141 mmol/L (136-145); Total Protein 6.8 g/dL (6.4-8.2); Troponin I High Sensitivity 5.4 pg/mL (4.0-51.3)
[2023-09-05] MEDS: 0.9 % SODIUM CHLORIDE 1,000 ML 999 ML IV (04:36)
[2023-09-05] MEDS: ORPHENADRINE 60 MG/ 2 ML VIAL IV (04:37)
[2023-09-05] MEDS: KETOROLAC TROMETHAMINE 30 MG/ML VIAL IM (04:40)
[2023-09-05 05:09] LABS: Bilirubin Urine NEGATIVE (NEGATIVE); Blood Urine TRACE-I (NEGATIVE); Clarity Urine CLEAR (CLEAR); Color Urine LT. YELLOW (YELLOW); Glucose Urine UA NEGATIVE (NEGATIVE); Ketones Urine NEGATIVE (NEGATIVE); Leukocyte Esterase Urine NEGATIVE (NEGATIVE); Nitrite Urine NEGATIVE (NEGATIVE); Protein Urine NEGATIVE (NEG/TRACE); Specific Gravity Urine <=1.005 (1.005-1.025); Urobilinogen Urine 0.2 EU/dL (0.2-1.0); pH Urine 6.5 (5.0-9.0)
[2023-09-05 05:14] LABS: Urine Microscopic Indicated YES
[2023-09-05 05:16] LABS: Bacteria Urine NONE SEEN #/HPF (NONE SEEN); Cast Seen? NONE SEEN #/LPF (NONE SEEN); Crystals Seen? None Seen #/HPF (None Seen); Mucus Urine NONE SEEN (NONE SEEN); RBC Urine 0-2 #/HPF (0-2); Squamous Epithelial Cell Urine RARE #/LPF (NONE/RARE); Urine Culture Indicated NO; WBC Urine NONE SEEN #/HPF (NONE SEEN)
[2023-09-05 05:48] VITALS: BP 129/71; PULSE 60; O2SAT 98
== END 2023-09-05 05:51 | disposition home or self-care (01) ==
PROVIDERS: Emergency Provider Internal Medicine; PCP Student in an Organized Health Care Education/Training Program
DX: R10.9 Unspecified abdominal pain (principal)
CPT/HCPCS: 36415; 80053; 81001; 83605; 83690; 84484; 85025; 96361; 96372; 96374; 99284; J1885; J2360

== ENCOUNTER 2023-11-08 16:16 | Emergency (ER) | payer OTHER, SELFPAY ==
[2023-11-08 16:22] VITALS: BP 164/103; PULSE 102; TEMP 36.8; O2SAT 97; BMI 42.1
--- OUTSIDE RECORDS SUMMARY | 2023-11-08 16:22 | XMS_ITS | CCD ---
Author Organization [facility] Care Team Providers Care Speech Clinician Name Role Phone ANNIKA KEISHA Admitting Unavailable ANNIKA KEISHA Attending Unavailable ESTHER MILTON Primary Care Unavailable ALL GUDINO Consulting Unavailable ANNIKA, KEISHA Consulting Unavailable DAWN COHEN Admitting Unavailable DAWN COHEN Attending Unavailable DAWN COHEN Consulting Unavailable ESTHER MILTON Primary Care Unavailable ANNIKA, KEISHA Admitting Unavailable KEISHA ROBLERO Attending Unavailable MENDEZ KANG Consulting Unavailable Robert Chinchilla Consulting Unavailable YOAN, ESTHER Primary Care Unavailable ROSAURA ARTHUR Admitting UnavailROSAURA Laws Attending UnavailROSAURA Laws Consulting UnavailChico Fortune Consulting Unavailable DAWN COHEN Admitting Unavailable DAWN COHEN Attending Unavailable ESTHER MILTON Primary Care Unavailable DAWN COHEN Consulting Unavailable Esther Milton Unavailable Maggie Harper Unavailable DO Esther Milton Primary Care Provider [phone] DO Esther Milton Attending Provider [phone] DO Esther Milton Primary Care Provider DO Dalton Orr Attending Provider Alyssia Madden Unavailable ARVINGREGGENOVEVA Attending Unavailable ARVIN, GENOVEVA Referring Unavailable ARVIN, GENOVEVA Attending Unavailable ARVIN, GENOVEVA Attending Unavailable TSEHA ORO Referring Unavailable ARVIN, GENOVEVA Primary Care Unavailable ARVIN, GENOVEVA Primary Care Unavailable DEREK OBRIEN Attending Unavailable DEREK OBRIEN Referring Unavailable GREG SHERIDANNDRA Primary Care Unavailable DEREK OBRIEN Attending Unavailable DEREK OBRIEN Referring Unavailable Esther Milton Primary Care Unavailable Bruno Kay Attending Unavailab le Bruno Kay Admitting Unavailab le Allergies Allergy Classification Reported Allergen(s) Allergy Type Date of Onset Reaction(s) Facility (20 sources) Acetaminophen / HYDROcodone Drug Allergy 6 Unknown, mood changes [facility] Repository (1 source) Acetaminophen / oxyCODONE Drug Allergy 6 [facility] Repository (3 sources) Morphine Drug Allergy 6 Unknown Reaction [facility] Repository (19 sources) Acetaminophen / oxyCODONE Drug Allergy changes in personality [facility] [employer] Other (19 sources) Codeine Drug Allergy behaivioral issues, violent behavior [facility] Other (19 sources) Estrogens, Conjugated (DETENTION) Drug Allergy behaivioral changes [facility] [employer] Other (15 sources) Morphine Drug Allergy Unknown, mood changes [facility] Other (3 sources) Acetaminophen; Translations: [acetaminophen] Drug Allergy 0 Unknown Reaction [facility] (3 sources) HYDROcodone; Translations: [hydrocodone] Drug Allergy 0 Unknown Reaction [facility] (3 sources) oxyCODONE; Translations: [oxycodone] Drug Allergy 0 Unknown Reaction [facility] (4 sources) Morphine Drug Allergy mood changes [facility] [employer] Other (1 source) Codeine Drug Allergy 3 [facility] Repository (1 source) Estrogens, Conjugated (DETENTION) Drug Allergy 3 [facility] Repository (1 source) Morphine Drug Allergy 3 [facility] Repository Medications Current Medications Medication Drug Class(es) [...] Nov, Active take 1 tablet by zenon once daily as needed ARIPiprazole 2 MG [...] Start: 05-20-2021 take 1 tablet by zenon once daily [...] 09-21-2019 Episodic Genitourinary symptoms and ill-defined conditions (1 source) Hematuria, unspecified Episodic Headache; including migraine (16 sources) Migraine; Translations: [Migraine, unspecified, not intractable, without status migrainosus] Onset: 04-12-2021 Resolved: 04-12-2021 Chronic Miscellaneous mental health disorders (19 sources) Globus sensation; Translations: [Other somatoform disorders] Chronic Mood disorders (20 sources) Bipolar disorder; Translations: [Bipolar disorder, unspecified] Onset: 11-14-2020 Resolved: 04-12-2021 Chronic Nausea and vomiting (2 sources) Nausea; Translations: [Nausea with vomiting, unspecified] Onset: 09-20-2019 Episodic Other gastrointestinal disorders (19 sources) Irritable bowel syndrome with diarrhea; Translations: [Irritable bowel syndrome with diarrhea] Chronic Other gastrointestinal disorders (6 sources) Diarrhea, unspecified; Translations: [DIARRHEA UNSPECIFIED] Onset: [...] mass index (BMI) 45.0-49.9, adult Chronic Other nutritional; endocrine; and metabolic disorders (1 source) Abnormal weight loss; Translations: [Abnormal weight loss] Onset: 10-27-2023 Episodic Other screening for suspected conditions (not mental [...] Test Name Value Interpretation Reference Range Facility Calprotectin, Fecalon 2023 Calprotectin, Fecal 62 ug/g High <=49 [facility] Comment on above: Result Comment: (NOT E) REFERENCE INTERVAL: Calprotectin, Fecal by Immunoassay Less than 50 ug/g.........Normal 50-120 ug/g...............Borderline elevated, test should be re-evaluated in 4-6 weeks. 121 ug/g or greater.......Elevated Performed By: [facility] [address] [place] [address] Lead Radiologic Technologist: Pankaj Corrales MD, PhD CLIA Number: [id number] Performed By: #### A CALPF #### [facility] [address] [place] [address] Telegraph Printer Mechanic: Bravo Vasquez MD #### STLPCR #### [facility] [address] [place] [address] Telegraph Printer Mechanic: Rashard Otero MD [facility] [address] [place] [address] Telegraph Printer Mechanic: Jaime Chavez MD Stool PCR [facility] 10-28-19 24 Campylobacter sp PCR NEGATIVE: No Campylobacter spp. (jejuni or coli) DNA Detected Normal [facility] Comment on above: Performed By: #### A CALPF #### [facility] [address] [place] [address] Telegraph Printer Mechanic: Bravo Vasquez MD #### STLPCR #### [facility] [address] [place] [address] Telegraph Printer Mechanic: Rashard Otero MD [facility] [address] [place] [address] Telegraph Printer Mechanic: Jaime Chavez MD E coli enterotox PCR NEGATIVE: No Enterotoxigenic E. coli (ETEC) Heat-labile and heat-stable (LT/ST) Normal [facility] Comment on above: Result Comment: DNA Detected Performed By: #### A CALPF #### [facility] [address] [place] [address] Telegraph Printer Mechanic: Bravo Vasquez MD #### STLPCR #### [facility] [address] [place] [address] Telegraph Printer Mechanic: Rashard Otero MD [facility] [address] [place] [address] Telegraph Printer Mechanic: Jaime Chavez MD Plesiomonas sp PCR Negative Normal [facility] Comment on above: Performed By: #### A CALPF #### [facility] [address] [place] [address] Telegraph Printer Mechanic: Bravo Vasquez MD #### STLPCR #### [facility] [address] [place] [address] Telegraph Printer Mechanic: Rsahard Otero MD [facility] [address] [place] [address] Telegraph Printer Mechanic: Jaime Chavez MD Salmonella sp PCR Negative [facility] Comment on above: Performed By: #### A CALPF #### [facility] [address] [place] [address] Telegraph Printer Mechanic: Bravo Vasquez MD #### STLPCR #### [facility] [address] [place] [address] Telegraph Printer Mechanic: Rashard Otero MD [facility] [address] [place] [address] Telegraph Printer Mechanic: Jaime Chavez MD Shigatoxin gene PCR Negative [facility] Comment on above: Performed By: #### A CALPF #### [facility] [address] [place] [address] Telegraph Printer Mechanic: Bravo Vasquez MD #### STLPCR #### [facility] [address] [place] [address] Telegraph Printer Mechanic: Rashard Otero MD [facility] [address] [place] [address] Telegraph Printer Mechanic: Jaime Chavez MD Shigella sp PCR Negative Normal [facility] Comment on above: Performed By: #### A CALPF #### [facility] [address] [place] [address] Telegraph Printer Mechanic: Bravo Vasquez MD #### STLPCR #### [facility] [address] [place] [address] Telegraph Printer Mechanic: Rashard Otero MD [facility] [address] [place] [address] Telegraph Printer Mechanic: Jaime Chavez MD Vibrio sp PCR NEGATIVE: No Vibrio (V. vulnificus, V, parahaemolyticus and V. cholerae) DNA Normal VIBNEG [facility] Comment on above: Result Comment: Dete cted Performed By: #### A CALPF #### [facility] [address] [place], [place] [phone] Telegraph Printer Mechanic: Bravo Vasquez MD #### STLPCR #### [facility] [address] [place] [address] Telegraph Printer Mechanic: Rashard Otero MD [facility] [address] [place] [address] Telegraph Printer Mechanic: Jaime Chavez MD Yersinia gene PCR Negative Normal YERNEG [facility] Comment on above: Performed By: #### A CALPF #### [facility] [address] [place] [address] Telegraph Printer Mechanic: Bravo Vasquez MD #### STLPCR #### [facility] [address] [place] [address] Telegraph Printer Mechanic: Rashard Otero MD [facility] [address] [place], [place] [phone] Telegraph Printer Mechanic: Jaime Chavez MD C-Reactive Proteinon 024 CRP [Mass/Vol] 5.1 mg/L High 0.0-5.0 [facility] Comment on above: Performed By: #### C DP, CP, CRP, TSH #### [facility] [address] [place], [place] [phone] Telegraph Printer Mechanic: Jaime Chavez MD CBC with Diffon 10-27-2023 Abs. Basophil 0.05 k/uL Normal 0.00-0.20 [facility] Comment on above: Performed By: #### C DP, CP, CRP, TSH #### [facility] [address] [place] [address] Telegraph Printer Mechanic: Jaime Chavez MD Abs.Imm.Granulocyte 0.01 k/uL Normal 0.00-0.30 [facility] Comment on above: Performed By: #### C DP, CP, CRP, TSH #### [facility] [address] [place] [address] Telegraph Printer Mechanic: Jaime Chavez MD Abs.Neutrophil (Seg) 4.21 k/uL Normal 2.5-7.0 [facility] Comment on above: Performed By: #### C DP, CP, CRP, TSH #### [facility] [address] [place] [address] Telegraph Printer Mechanic: Jaime Chavez MD Basophils/100 WBC (Bld) 1 % Normal 0-2 [facility] Comment on above: Performed By: #### C DP, CP, CRP, TSH #### [facility] [address] [place] [address] Telegraph Printer Mechanic: Jaime Chavez MD Eosinophils (Bld) [#/Vol] 0.12 10*3/uL Normal 0.00-0.40 [facility] Comment on above: Performed By: #### C DP, CP, CRP, TSH #### [facility] [address] [place] [address] Telegraph Printer Mechanic: Jaime Chavez MD Eosinophils/100 WBC (Bld) 2 % Normal 0-5 [facility] Comment on above: Performed By: #### C DP, CP, CRP, TSH #### [facility] [address] [place] [phone] Telegraph Printer Mechanic: Jaime Chavez MD Erythrocyte distribution width (RBC) [Ratio] 12.9 % Normal 12.1-15.2 [facility] Comment on above: Performed By: #### C DP, CP, CRP, TSH #### [facility] [address] [place] [phone] Telegraph Printer Mechanic: Jaime Chavez MD Hematocrit (Bld) [Volume fraction] 44.3 % Normal 36.0-46.0 [facility] Comment on above: Performed By: #### C DP, CP, CRP, TSH #### [facility] [address] [place] [phone] Telegraph Printer Mechanic: Jaime Cahvez MD Hemoglobin (Bld) [Mass/Vol] 14.4 g/dL Normal 12.0-16.0 [facility] Comment on above: Performed By: #### C DP, CP, CRP, TSH #### [facility] [address] [place] [phone] Telegraph Printer Mechanic: Jaime Chavez MD Immature granulocytes/100 WBC (Bld) 0 % Normal 0-5 [facility] Comment on above: Performed By: #### C DP, CP, CRP, TSH #### [facility] [address] [place] [address] Telegraph Printer Mechanic: Jaime Chavez MD Lymphocytes (Bld) [#/Vol] 1.94 10*3/uL Normal 1.00-4.80 [facility] Comment on above: Performed By: #### C DP, CP, CRP, TSH #### [facility] [address] [place] [phone] Telegraph Printer Mechanic: Jaime Chavez MD Lymphocytes/100 WBC (Bld) 28 % Normal 15-40 [facility] Comment on above: Performed By: #### C DP, CP, CRP, TSH #### [facility] [address] [place] [phone] Telegraph Printer Mechanic: Jaime Chavez MD MCH (RBC) [Entitic mass] 28.5 pg Normal 26.0-34.0 [facility] Comment on above: Performed By: #### C DP, CP, CRP, TSH #### [facility] [address] [place], [place] [phone] Telegraph Printer Mechanic: Jaime hCavez MD MCHC (RBC) [Mass/Vol] 32.5 g/dL Normal 31.0-37.0 [facility] Comment on above: Performed By: #### C DP, CP, CRP, TSH #### [facility] [address] [place] [address] Telegraph Printer Mechanic: Jaime Chavez MD MCV (RBC) [Entitic vol] 87.5 fL Normal 80.0-100.0 [facility] Comment on above: Performed By: #### C DP, CP, CRP, TSH #### [facility] [address] [place] [address] Telegraph Printer Mechanic: Jaime Chavez MD Monocytes (Bld) [#/Vol] 0.61 10*3/uL Normal 0.00-1.00 [facility] Comment on above: Performed By: #### C DP, CP, CRP, TSH #### [facility] [address] [place] [phone] Telegraph Printer Mechanic: Jaime Chavez MD Monocytes/100 WBC (Bld) 9 % High 4-8 [facility] Comment on above: Performed By: #### C DP, CP, CRP, TSH #### [facility] [address] [place] [phone] Telegraph Printer Mechanic: Jaime Chavez MD Neutrophil (Seg) 60 % Normal 47-75 [facility] Comment on above: Performed By: #### C DP, CP, CRP, TSH #### [facility] [address] [place], [place] [phone] Telegraph Printer Mechanic: Jaime Chavez MD Platelet mean volume (Bld) [Entitic vol] 9.3 fL Normal 6.0-12.0 [facility] Comment on above: Performed By: #### C DP, CP, CRP, TSH #### [facility] [address] [place] [address] Telegraph Printer Mechanic: Jaime Chavez MD Platelets (Bld) [#/Vol] 347 10*3/uL Normal 140-450 [facility] Comment on above: Performed By: #### C DP, CP, CRP, TSH #### [facility] [address] [place] [address] Telegraph Printer Mechanic: Jaime Chavez MD RBC (Bld) [#/Vol] 5.06 10*6/uL Normal 4.00-5.20 [facility] Comment on above: Performed By: #### C DP, CP, CRP, TSH #### [facility] [address] [place] [address] Telegraph Printer Mechanic: Jaime Chavez MD WBC (Bld) [#/Vol] 6.9 10*3/uL Normal 3.5-11.0 [facility] Comment on above: Performed By: #### C DP, CP, CRP, TSH #### [facility] [address] [place] [address] Telegraph Printer Mechanic: Jaime Chavez MD Comp Metabolic Profon 2023 Albumin [Mass/Vol] 4.1 g/dL Normal 3.5-5.2 [facility] Comment on above: Performed By: #### C DP, CP, CRP, TSH #### [facility] [address] [place] [address] Telegraph Printer Mechanic: Jaime Chavez MD Alkaline Phos 89 U/L Normal 35-104 [facility] Comment on above: Performed By: #### C DP, CP, CRP, TSH #### [facility] [address] [place] [address] Telegraph Printer Mechanic: Jaime Chavez MD ALT [Catalytic activity/Vol] 17 U/L Normal 5-33 [facility] Comment on above: Performed By: #### C DP, CP, CRP, TSH #### [facility] [address] [place] [address] Telegraph Printer Mechanic: Jaime Chavez MD Anion gap [Moles/Vol] 11 mmol/L Normal 9-17 [facility] Comment on above: Performed By: #### C DP, CP, CRP, TSH #### [facility] [address] [place], [place] [phone] Telegraph Printer Mechanic: Jaime Chavez MD AST [Catalytic activity/Vol] 13 U/L Normal <32 [facility] Comment on above: Performed By: #### C DP, CP, CRP, TSH #### [facility] [address] [place], [place] [phone] Telegraph Printer Mechanic: Jaime Chavez MD Bilirubin [Mass/Vol] 0.4 mg/dL Normal 0.3-1.2 [facility] Comment on above: Performed By: #### C DP, CP, CRP, TSH #### [facility] [address] [place], [place] [phone] Telegraph Printer Mechanic: Jaime Chavez MD BUN/CRE Ratio 14 Normal 9-20 [facility] Comment on above: Performed By: #### C DP, CP, CRP, TSH #### [facility] [address] [place], [place] [phone] Telegraph Printer Mechanic: Jaime Chavez MD Calcium [Mass/Vol] 9.8 mg/dL Normal 8.6-10.4 [facility] Comment on above: Performed By: #### C DP, CP, CRP, TSH #### [facility] [address] [place], [place] [phone] Telegraph Printer Mechanic: Jaime Chavez MD Chloride [Moles/Vol] 103 mmol/L Normal 98-107 [facility] Comment on above: Performed By: #### C DP, CP, CRP, TSH #### [facility] [address] [place] [address] Telegraph Printer Mechanic: Jaime Chavez MD CO2 [Moles/Vol] 27 mmol/L Normal 20-31 [facility] Comment on above: Performed By: #### C DP, CP, CRP, TSH #### [facility] [address] [place] [address] Telegraph Printer Mechanic: Jaime Chavez MD Creatinine [Mass/Vol] 0.9 mg/dL Normal 0.5-0.9 [facility] Comment on above: Performed By: #### C DP, CP, CRP, TSH #### [facility] [address] [place] [address] Telegraph Printer Mechanic: Jaime Chavez MD GFR/1.73 sq M.predicted among non-blacks MDRD (S/P/Bld) [Vol rate/Area] 80 mL/min/{1.73_m2} Normal >60 [facility] Comment on above: Result Comment: These results are not intended for use in patients <18 years of age. eGFR results are calculated without a race factor using the 2020 CKD-EPI equation. Careful clinical correlation is recommended, particularly when comparing to results calculated using previous equations. The CKD-EPI equation is less accurate in patients with extremes of muscle mass, extra-renal metabolism of creatine, excessive creatine ingestion, or following therapy that affects renal tubular secretion. Performed By: #### C DP, CP, CRP, TSH #### [facility] [address] [place] [address] Telegraph Printer Mechanic: Jaime Chavez MD Glucose [Mass/Vol] 91 mg/dL Normal 70-99 [facility] Comment on above: Performed By: #### C DP, CP, CRP, TSH #### [facility] [address] [place] [address] Telegraph Printer Mechanic: Jaime Chavez MD Potassium [Moles/Vol] 3.9 mmol/L Normal 3.7-5.3 [facility] Comment on above: Performed By: #### C DP, CP, CRP, TSH #### [facility] [address] [place], [place] [phone] Telegraph Printer Mechanic: Jaime Chavez MD Protein [Mass/Vol] 7.2 g/dL Normal 6.4-8.3 [facility] Comment on above: Performed By: #### C DP, CP, CRP, TSH #### [facility] [address] [place], [place] [phone] Telegraph Printer Mechanic: Jaime Chavez MD Sodium [Moles/Vol] 141 mmol/L Normal 135-144 [facility] Comment on above: Performed By: #### C DP, CP, CRP, TSH #### [facility] [address] [place], [place] [phone] Telegraph Printer Mechanic: Jaime Chavez MD Urea nitrogen [Mass/Vol] 13 mg/dL Normal 6-20 [facility] Comment on above: Performed By: #### C DP, CP, CRP, TSH #### [facility] [address] [place], [place] [phone] Telegraph Printer Mechanic: Jaime Chavez MD Fecal Lactoferrinon 10-27-19 24 Fecal Lactoferrin POSITIVE for fecal lactoferrin, a marker for fecal leukocytes and an indicator Abnormal NFLACT [facility] Comment on above: Result Comment: of i ntestinal inflammation. Performed By: #### F LACT #### [facility] [address] [place] [address] Telegraph Printer Mechanic: Rashard Otero MD Stool PCR [place] 10-27-19 24 Specimen Description .FECES Normal [facility] Comment on above: Performed By: #### A CALPF #### [facility] [address] [place] [address] Telegraph Printer Mechanic: Bravo Vasquez MD #### STLPCR #### [facility] [address] [place] [address] Telegraph Printer Mechanic: Rashard Otero MD [facility] [address] [place] [address] Telegraph Printer Mechanic: Jaime Chavez MD Thyroid Stim. Horm.on 2023 Thyroid Stim. Horm. 1.51 uIU/mL Normal 0.30-5.00 [facility] Comment on above: Performed By: #### C DP, CP, CRP, TSH #### [facility] [address] [place] [address] Telegraph Printer Mechanic: Jaime Chavez MD US GALLBLADDER RUQon 024 US GALLBLADDER RUQ EXAM: US GALLBLADDER RUQ HISTORY: . RUQ pain . COMPARISON: None. TECHNIQUE: Grayscale and color imaging was performed FINDINGS: The pancreas is grossly unremarkable. The liver is enlarged measuring 20 cm. There is diffuse increased echogenicity of liver consistent with fatty infiltration of the liver. The right kidney measures 11.4 x 5.4 x 5.6 cm. No solid renal cortical masses or hydronephrosis is noted. Color-flow is noted. Common bile duct measures 3 mm. The gallbladder appears normal with no stones or sludge. No gallbladder wall thickening is noted. No fluid is noted in the right upper quadrant. IMPRESSION: 1. The liver is enlarged measuring 20 cm. There is diffuse increased echogenicity of liver consistent with fatty infiltration of liver. 2. The remainder the right upper quadrant was unremarkable. Interpreted by: Jaime Rueda MD Signed by: Jaime Rueda MD 10/27/23 Final result Normal [facility] NM HEPATOBILIARY SCAN W PHAR MACOLOGICAL INTERVENTIONon 09-25-2023 NM HEPATOBILIARY SCAN W PHARMACOLOGICAL INTERVENTION EXAMINATION: NUCLEAR MEDICINE HEPATOBILIARY SCINTIGRAPHY (HIDA SCAN) WITH EJECTION FRACTION. TECHNIQUE: 5.4 mCi Tc-99m mebrofenin. Planar imaging of the abdomen is obtained for approximately 60 minutes. 2.3 mcg cholecystokinin is administered intravenously over 60 minutes. Dynamic imaging of the abdomen is obtained during infusion. Quantitative analysis is performed. National consensus guidelines for performing CCK-HIDA scans are followed. . NOHELIA Naidu et al. Clinical Gastroenterology and Hepatology June [phone] COMPARISON: None available HISTORY: ORDERING SYSTEM PROVIDED HISTORY: Generalized postprandial abdominal pain TECHNOLOGIST PROVIDED HISTORY: Is the patient ?->No Reason for Exam: post prandial abdomen pain x 1 month Additional signs and symptoms: nausea / vomiting x 1 month FINDINGS: Homogenous uptake within the liver is demonstrated. Prompt clearance of radiotracer from the blood pool. Appropriate visualization of the gallbladder and small bowel. Gallbladder ejection fraction is 32%. Normal value is >38% for CCK protocol. Patient-reported symptoms during CCK infusion:None IMPRESSION: 1. Gallbladder ejection fraction is low at 32%. In the proper clinical setting, this is consistent with functional gallbladder disorder. 2. No acute cholecystitis. Interpreted by: Anthony Chris MD Signed by: Anthony Chris MD 09/25/23 Final result Normal [facility] BI MAMMOGRAM SCREENING TOMOS YNTHESIS BILATERALon 07-08-2023 BI MAMMOGRAM SCREENING TOMOSYNTHESIS BILATERAL [...] IS VERY IMPORTANT TO YOUR HEALTH. THE [place] GUIDELINES RECOMMEND THAT WOMEN 40 [...] Dipstick & Microscopicon Dipstick & Microscopic No [facility] Other Urinalysis - AUTOMATEDon Appearance (U) clear [facility] Other Bilirubin Ql (U) Negative [facility] Other Color (U) yellow [facility] Other Glucose Ql (U) Negative [facility] Other Hemoglobin Ql (U) small [facility] Other Ketones Ql (U) Negative [facility] Other Leukocyte esterase Test strip Ql (U) Negative [employer] Other Nitrite Ql (U) Negative [facility] Other pH (U) 7.0 [pH] [employer] Other Protein Ql (U) Negative [facility] Other Specific gravity (U) [Rel density] 1.010 [employer] Other Urobilinogen (U) [Mass/Vol] 0.2 mg/dL [employer] Other Urinalysis - AUTOMATED No [facility] [place] Other Urine Cultureon 10-29-2022 Bacteria identified Cx Nom (U) [employer] Other Alanine aminotransferase [En zymatic activity/volume] in Serum or PlasmaOrdered By: Dalton Orr on 10-23-2022 ALT [Catalytic activity/Vol] 26 U/L 7-52 [facility] Albumin [Mass/volume] in Ser um or Plasma by Bromocresol green (BCG) dye binding methoOrdered By: Dalton Orr on 10-23-2022 Albumin BCG dye [Mass/Vol] 4.5 g/dL 3.5-5.7 [facility] Alkaline phosphatase [Enzyma tic activity/volume] in Serum or PlasmaOrdered By: Dalton Orr on 10-23-2022 ALP [Catalytic activity/Vol] 73 U/L 34-104 [facility] Aspartate aminotransferase [ Enzymatic activity/volume] in Serum or PlasmaOrdered By: Dalton Orr on 10-23-2022 AST [Catalytic activity/Vol] 19 U/L 13-39 [facility] Bilirubin.total [Mass/volume ] in Serum or PlasmaOrdered By: Dalton Orr on 10-23-2022 Bilirubin [Mass/Vol] 0.6 mg/dL 0.3-1.0 [facility] Calcium [Mass/volume] in Ser um or PlasmaOrdered By: Dalton Orr on 10-23-2022 Calcium [Mass/Vol] 9.7 mg/dL 8.6-10.3 [facility] Carbon dioxide, total [Moles /volume] in Serum or PlasmaOrdered By: Dalton Orr on 10-23-2022 CO2 [Moles/Vol] 27.0 mmol/L 21.0-31.0 [facility] Chloride [Moles/volume] in S bipin or PlasmaOrdered By: Dalton Orr on 10-23-2022 Chloride [Moles/Vol] 105 mmol/L 98-107 [facility] Cholesterol [Mass/volume] in Serum or PlasmaOrdered By: Dalton Orr on 10-23-2022 Cholesterol [Mass/Vol] 234 mg/dL 140-200 [facility] Comment on above: Chol less than 200 m g/dl low riskChol 201-239 mg/dl borderline riskChol 240 mg/dl and greater high risk Cholesterol in LDL Calc [Mas s/Vol]Ordered By: Dalton Orr on 10-23-2022 Cholesterol in LDL [Mass/Vol] 146 mg/dL 0-100 [facility] Comment on above: LDL ATP III CLASSIFI CATIONLDL less than 100 mg/dL OptimalLDL 100-129 mg/dL Near or above optimalLDL 130-159 mg/dL Borderline highLDL 160-189 mg/dL HighLDL greater than 189 mg/dL Very high Cholesterol in VLDL Calc [Ma ss/Vol]Ordered By: Dalton Orr on 10-23-2022 Cholesterol in VLDL [Mass/Vol] 30 mg/dL [facility] Creatinine [Mass/volume] in Serum or PlasmaOrdered By: Dalton Orr on 10-23-2022 Creatinine [Mass/Vol] 0.81 mg/dL 0.60-1.20 [facility] Globulin Calc (S) [Mass/Vol] Ordered By: Dalton Orr on 10-23-2022 Globulin (S) [Mass/Vol] 2.8 g/dL [facility] Glucose [Mass/volume] in Ser um or PlasmaOrdered By: Dalton Orr on 10-23-2022 Glucose [Mass/Vol] 79 mg/dL 70-100 [facility] No Panel InformationOrdered By: Dalton Orr on 10-23-2022 Estimated GFR (CKD-EPI) > 60.0 mL/Min [facility] Pharmacy Creatinine Clearance (Chem N/A [facility] Potassium [Moles/volume] in Serum or PlasmaOrdered By: Dalton Orr on 10-23-2022 Potassium [Moles/Vol] 4.6 mmol/L 3.5-5.1 [facility] Protein [Mass/volume] in Ser um or PlasmaOrdered By: Dalton Orr on 10-23-2022 Protein [Mass/Vol] 7.3 g/dL 6.4-8.9 [facility] Serum or plasma albumin/glob ulin mass ratioOrdered By: Dalton Orr on 10-23-2022 Albumin/Globulin [Mass ratio] 1.6 {ratio} [facility] Serum or plasma anion gap de terminationOrdered By: Dalton Orr on 10-23-2022 Anion gap [Moles/Vol] 13.6 mmol/L 6.0-15.0 [facility] Serum or plasma high density lipoprotein (HDL) cholesterol measurementOrdered By: Dalton Orr on 10-23-2022 Cholesterol in HDL [Mass/Vol] 58 mg/dL 23-92 [facility] Comment on above: HDL CHOL ATP-III CLA SSIFICATION Cardiovascular RiskHDL > or equal to 60 mg/dL LOWHDL < 40 mg/dL HIGH Serum or plasma total choles terol/high density lipoprotein (HDL) cholesterol mass ratOrdered By: Dalton Orr on 10-23-2022 Cholesterol.total/Elodia sterol in HDL [Mass ratio] 4.0 {ratio} <5.0 [facility] Sodium [Moles/volume] in Ser um or PlasmaOrdered By: Dalton Orr on 10-23-2022 Sodium [Moles/Vol] 141 mmol/L 136-145 [facility] Triglyceride [Mass/volume] i n Serum or PlasmaOrdered By: Dalton Orr on 10-23-2022 Triglyceride [Mass/Vol] 150 mg/dL 0-149 [facility] Comment on above: TRIG ATP III CLASSIF ICATIONTRIG less than 150 mg/dL NormalTRIG 150-199 mg/dL Borderline highTRIG 200-500 mg/dL High TRIG greater than 500 mg/dL Very highStandard traceable to the Center for Disease Conrtrol and Prevention (CDC) test method. Urea nitrogen [Mass/volume] in Serum or PlasmaOrdered By: Dalton Orr on 10-23-2022 Urea nitrogen [Mass/Vol] 9 mg/dL 7-25 [facility] Albumin [Mass/volume] in Ser um or PlasmaOrdered By: Esther Milton on 01-24-2022 Albumin [Mass/Vol] 3.8 g/dL 3.2-5.5 [facility] Basophils Auto (Bld) [#/Vol] Ordered By: Esther Milton on 01-24-2022 Basophils (Bld) [#/Vol] 0.1 10*3/uL 0.0-0.2 [facility] Basophils/100 WBC Auto (Bld) Ordered By: Esther Milton on 01-24-2022 Basophils/100 WBC (Bld) 0.7 % . [facility] Cholesterol [Mass/volume] in Serum or PlasmaOrdered By: Esther Milton on 01-24-2022 Cholesterol [Mass/Vol] 215 mg/dL 140-200 [facility] Comment on above: Chol less than 200 m g/dl low riskChol 201-239 mg/dl borderline riskChol 240 mg/dl and greater high risk Cholesterol in LDL Calc [Mas s/Vol]Ordered By: Esther Milton on 01-24-2022 Cholesterol in LDL [Mass/Vol] 131 mg/dL 0-100 [facility] Comment on above: LDL ATP III CLASSIFI CATIONLDL less than 100 mg/dL OptimalLDL 100-129 mg/dL Near or above optimalLDL 130-159 mg/dL Borderline highLDL 160-189 mg/dL HighLDL greater than 189 mg/dL Very high Cholesterol in VLDL Calc [Ma ss/Vol]Ordered By: Esther Milton on 01-24-2022 Cholesterol in VLDL [Mass/Vol] 30 mg/dL [facility] Creatinine and Glomerular fi ltration rate.predicted panel (S/P/Bld)Ordered By: Esther Milton on 01-24-2022 Creatinine [Mass/Vol] 0.85 mg/dL 0.44-1.03 [facility] Eosinophils Auto (Bld) [#/Vo l]Ordered By: Esther Milton on 01-24-2022 Eosinophils (Bld) [#/Vol] 0.2 10*3/uL 0.0-0.45 [facility] Eosinophils/100 WBC Auto (Bl d)Ordered By: Esther Milton on 01-24-2022 Eosinophils/100 WBC (Bld) 2.1 % . [facility] Erythrocyte distribution wid th Auto (RBC) [Ratio]Ordered By: Esther Milton on 01-24-2022 Erythrocyte distribution width (RBC) [Ratio] 13.5 % 11.9-15.3 [facility] Estimated glomerular filtrat ion rate (GFR) non- AmericanOrdered By: Esther Milton on 01-24-2022 GFR/1.73 sq M.predicted among non-blacks MDRD (S/P/Bld) [Vol rate/Area] > 60 mL/Min [facility] Globulin Calc (S) [Mass/Vol] Ordered By: Esther Milton on 01-24-2022 Globulin (S) [Mass/Vol] 2.8 g/dL [facility] Hematocrit Auto (Bld) [Volum e fraction]Ordered By: Esther Milton on 01-24-2022 Hematocrit (Bld) [Volume fraction] 41.8 % 34.0-46.4 [facility] Hemoglobin [Mass/volume] in BloodOrdered By: Esther Milton on 01-24-2022 Hemoglobin (Bld) [Mass/Vol] 13.6 g/dL 11.8-15.4 [facility] Leukocytes [#/volume] correc malika for nucleated erythrocytes in Blood by Automated counOrdered By: Esther Milton on 01-24-2022 WBC corrected for nucl RBC Auto (Bld) [#/Vol] 7.9 10*3/uL 3.8-11.6 [facility] Lymphocytes Auto (Bld) [#/Vo l]Ordered By: Esther Milton on 01-24-2022 Lymphocytes (Bld) [#/Vol] 2.3 10*3/uL 1.00-4.8 [facility] Lymphocytes/100 WBC Auto (Bl d)Ordered By: Esther Milton on 01-24-2022 Lymphocytes/100 WBC (Bld) 28.4 % . [facility] MCH Auto (RBC) [Entitic mass ]Ordered By: Esther Milton on 01-24-2022 MCH (RBC) [Entitic mass] 28.2 pg 24.7-34.3 [facility] MCHC Auto (RBC) [Mass/Vol]Or dered By: Esther Milton on 01-24-2022 MCHC (RBC) [Mass/Vol] 32.5 g/dL 32.0-35.0 [facility] MCV Auto (RBC) [Entitic vol] Ordered By: Esther Milton on 01-24-2022 MCV (RBC) [Entitic vol] 86.9 fL 80-100 [facility] Monocytes Auto (Bld) [#/Vol] Ordered By: Esther Milton on 01-24-2022 Monocytes (Bld) [#/Vol] 0.8 10*3/uL 0.0-0.8 [facility] Monocytes/100 WBC Auto (Bld) Ordered By: Esther Milton on 01-24-2022 Monocytes/100 WBC (Bld) 9.5 % . [facility] Neutrophils Auto (Bld) [#/Vo l]Ordered By: Esther Milton on 01-24-2022 Neutrophils (Bld) [#/Vol] 4.7 10*3/uL 1.8-7.7 [facility] Neutrophils/100 WBC Auto (Bl d)Ordered By: Esther Milton on 01-24-2022 Neutrophils/100 WBC (Bld) 59.3 % . [facility] No Panel InformationOrdered By: Esther Milton on 01-24-2022 Estimated GFR () > 60 mL/Min [facility] Comment on above: GFR estimated refere nce range: According to KDOQI guidelines, <60 ml/min/1.73m2 is sufficient to diagnose a patient with chronic kidney disease. Pharmacy Creatinine Clearance (Chem N/A [facility] Nucleated erythrocytes [Pres ence] in Blood by Automated countOrdered By: Esther Milton on 01-24-2022 Nucleated RBC Auto Ql (Bld) 0.1 /100{WBC} 0-0.5 [facility] Platelet mean volume Auto (B ld) [Entitic vol]Ordered By: Esther Milton on 01-24-2022 Platelet mean volume (Bld) [Entitic vol] 7.7 fL 6.3-10.7 [facility] Platelets Auto (Bld) [#/Vol] Ordered By: Esther Milton on 01-24-2022 Platelets (Bld) [#/Vol] 350 10*3/uL 150-450 [facility] Protein [Mass/volume] in Ser um or PlasmaOrdered By: Esther Milton on 01-24-2022 Protein [Mass/Vol] 6.6 g/dL 6.1-7.9 [facility] RBC Auto (Bld) [#/Vol]Ordere d By: Esther Milton on 01-24-2022 RBC (Bld) [#/Vol] 4.82 10*6/uL 3.60-5.00 [facility] Serum or plasma alanine yoon otransferase measurement without P-5'-P (enzymatic activiOrdered By: Esther Milton on 01-24-2022 ALT No additional P-5'-P [Catalytic activity/Vol] 25 U/L 10-60 [facility] Serum or plasma albumin/glob ulin mass ratioOrdered By: Esther Milton on 01-24-2022 Albumin/Globulin [Mass ratio] 1.4 {ratio} [facility] Serum or plasma alkaline venancio sphatase measurement (enzymatic activity/volume)Ordered By: Esther Milton on 01-24-2022 ALP [Catalytic activity/Vol] 69 U/L 32-92 [facility] Serum or plasma anion gap de terminationOrdered By: Esther Milton on 01-24-2022 Anion gap [Moles/Vol] 12.6 mmol/L 6.0-15.0 [facility] Serum or plasma aspartate am inotransferase measurement (enzymatic activity/volume)Ordered By: Esther Milton on 01-24-2022 AST [Catalytic activity/Vol] 20 U/L 10-42 [facility] Serum or plasma calcium edward urement (mass/volume)Ordered By: Esther Milton on 01-24-2022 Calcium [Mass/Vol] 9.7 mg/dL 8.2-10.2 [facility] Serum or plasma chloride jacquelyn surement (moles/volume)Ordered By: Esther Milton on 01-24-2022 Chloride [Moles/Vol] 102 mmol/L 95-114 [facility] Serum or plasma glucose edward urement (mass/volume)Ordered By: Esther Milton on 01-24-2022 Glucose [Mass/Vol] 84 mg/dL 70-100 [facility] Comment on above: ADA recommended refe rence rangeRandom Glucose Reference Range is dependent on time and content of last meal. Glucose of more than 200 mg/dL in a nonstressed, ambulatory subject supports the diagnosis of Diabetes Mellitus. Serum or plasma high density lipoprotein (HDL) cholesterol measurementOrdered By: Esther Milton on 01-24-2022 Cholesterol in HDL [Mass/Vol] 54 mg/dL 35-85 [facility] Comment on above: HDL CHOL ATP-III CLA SSIFICATION Cardiovascular RiskHDL > or equal to 60 mg/dL LOWHDL < 40 mg/dL HIGH Serum or plasma potassium me asurement (moles/volume)Ordered By: Esther Milton on 01-24-2022 Potassium [Moles/Vol] 4.1 mmol/L 3.5-5.1 [facility] Serum or plasma sodium measu rement (moles/volume)Ordered By: Esther Milton on 01-24-2022 Sodium [Moles/Vol] 136 mmol/L 136-146 [facility] Serum or plasma total biliru bin measurement (mass/volume)Ordered By: Esther Milton on 01-24-2022 Bilirubin [Mass/Vol] 0.5 mg/dL 0.3-1.2 [facility] Serum or plasma total carbon dioxide measurement (moles/volume)Ordered By: Esther Milton on 01-24-2022 CO2 [Moles/Vol] 25.5 mmol/L 22.0-30.0 [facility] Serum or plasma total choles terol/high density lipoprotein (HDL) cholesterol mass ratOrdered By: Esther Milton on 01-24-2022 Cholesterol.total/Elodia sterol in HDL [Mass ratio] 4.0 {ratio} <5.0 [facility] Serum or plasma urea nitroge n measurement (mass/volume)Ordered By: Esther Milton on 01-24-2022 Urea nitrogen [Mass/Vol] 18 mg/dL 9-23 [facility] TSH DL <= 0.005 mIU/L QnOrde red By: Esther Milton on 01-24-2022 TSH Qn 2.26 m[IU]/L 0.45-5.33 [facility] Triglyceride [Mass/volume] i n Serum or PlasmaOrdered By: Esther Milton on 01-24-2022 Triglyceride [Mass/Vol] 151 mg/dL 35-149 [facility] Comment on above: TRIG ATP III CLASSIF ICATIONTRIG less than 150 mg/dL NormalTRIG 150-199 mg/dL Borderline highTRIG 200-500 mg/dL High TRIG greater than 500 mg/dL Very highStandard traceable to the Center for Disease Conrtrol and Prevention (CDC) test method. WBC Auto (Bld) [#/Vol]Ordere d By: Esther Milton on 01-24-2022 WBC (Bld) [#/Vol] 7.9 10*3/uL 3.8-11.6 [facility] A1C with Estimated Average G luon 11-20-2020 HbA1c (Bld) [Mass fraction] 5.3 % 4.3-5.6 [employer] Other HbA1c (Bld) [Mass fraction] 105 % [employer] Other Complete Blood Count Auto Di ffon 11-20-2020 Basophils (Bld) [#/Vol] 0.0 10*3/uL 0.0-0.2 [place] [employer] Other Basophils/100 WBC (Bld) 0.4 % . [facility] [employer] Other Eosinophils (Bld) [#/Vol] 0.0 10*3/uL 0.0-0.45 [employer] Other Eosinophils/100 WBC (Bld) 0.2 % . [employer] Other Erythrocyte distribution width (RBC) [Ratio] 13.4 % 11.9-15.3 [employer] Other Hematocrit (Bld) [Volume fraction] 39.4 % 34.0-46.4 [employer] Other Hemoglobin (Bld) [Mass/Vol] 13.1 g/dL 11.8-15.4 [employer] Other Lymphocytes (Bld) [#/Vol] 2.1 10*3/uL 1.00-4.8 [employer] Other Lymphocytes/100 WBC (Bld) 15.3 % . [employer] Other MCH (RBC) [Entitic mass] 28.9 pg 24.7-34.3 [employer] Other MCH (RBC) [Entitic mass] 33.2 pg 32.0-35.0 [employer] Other MCV (RBC) [Entitic vol] 87.1 fL 80-100 [facility] [employer] Other Monocytes (Bld) [#/Vol] 1.0 10*3/uL 0.0-0.8 [employer] Other Monocytes/100 WBC (Bld) 7.3 % . [facility] [employer] Other Neutrophils (Bld) [#/Vol] 10.3 10*3/uL 1.8-7.7 [employer] Other Neutrophils/100 WBC (Bld) 76.8 % . [employer] Other Platelet mean volume (Bld) [Entitic vol] 8.3 fL 6.3-10.7 [employer] Other Platelets (Bld) [#/Vol] 302 10*3/uL 150-450 [employer] Other RBC (Bld) [#/Vol] 4.52 10*6/uL 3.60-5.00 [employer] Other WBC (Bld) [#/Vol] 13.4 10*3/uL 3.8-11.6 [employer] Other Complete Blood Count Auto Diff 13.4 4.5-11.0 [employer] Other Complete Blood Count Auto Diff 0.0 0-0.5 [employer] Other Comprehensive Metabolic Pane tatyana 11-20-2020 Albumin [Mass/Vol] 3.8 g/dL 3.2-5.5 [employer] Other Albumin/Globulin [Mass ratio] 1.5 {ratio} [employer] Other ALP [Catalytic activity/Vol] 75 U/L 32-92 [employer] Other ALT [Catalytic activity/Vol] 26 U/L 10-60 [employer] Other AST [Catalytic activity/Vol] 20 U/L 10-42 [employer] Other Bilirubin [Mass/Vol] 0.4 mg/dL 0.3-1.2 [facility] Other Calcium [Mass/Vol] 9.4 mg/dL 8.2-10.2 [place] [employer] Other Chloride [Moles/Vol] 104 mmol/L 95-114 [facility] [employer] Other CO2 [Moles/Vol] 24.9 mmol/L 22.0-30.0 [facility] [employer] Other Creatinine [Mass/Vol] 0.66 mg/dL 0.44-1.03 [facility] [employer] Other Glucose [Mass/Vol] 70 mg/dL 70-100 [facility] [employer] Other Potassium [Moles/Vol] 4.0 mmol/L 3.5-5.1 [facility] [employer] Other Protein [Mass/Vol] 6.4 g/dL 6.1-7.9 [facility] [employer] Other Sodium [Moles/Vol] 138 mmol/L 136-146 [facility] [employer] Other Urea nitrogen [Mass/Vol] 7 mg/dL 9-23 [facility] [employer] Other Comprehensive Metabolic Panel > 60 [facility] [employer] Other Comprehensive Metabolic Panel 2.6 [facility] [employer] Other Lipid Panelon 11-20-2020 Cholesterol [Mass/Vol] 204 mg/dL 140-200 [facility] [employer] Other Cholesterol in HDL [Mass/Vol] 46 mg/dL 35-85 [facility] [employer] Other Cholesterol in LDL Elph Qn 133 0-100 [facility] [employer] Other Cholesterol.total/Elodia sterol in HDL [Mass ratio] 4.4 {ratio} <5.0 [facility] [employer] Other Lipid Panel 127 35-149 [facility] [employer] Other Lipid Panel 25 [facility] [employer] Other Thyroid Stim Hormone w/Rflxo n 11-20-2020 Thyroid Stim Hormone w/Rflx 1.58 0.45-5.33 [employer] Other COVID Quick Testingon 2020 Result Negative [employer] Other TRIGLYCERIDEon 09-26-2019 Triglyceride [Mass/Vol] 197 mg/dL Critically high <=150 [facility] Comment on above: Performed By: #### NAOMI DORSEY, BMP #### [facility] [address] [place], [place] [id number] Rogelio Renetta CBC AUTO DIFFon 09-19-2019 Basophils (Bld) [#/Vol] 0.0 103/ul Normal 0.0-0.1 [facility] Comment on above: Performed By: #### NAOMI DORSEY, BMP #### [facility] [address] [place], [place] [id number] Rogelio Renetta Basophils/100 WBC (Bld) 0.3 % Normal 0.2-2.0 [facility] Comment on above: Performed By: #### NAOMI DORSEY, BMP #### [facility] [address] [place] [id number] Rogelio Renetta Eosinophils (Bld) [#/Vol] 0.1 103/ul Normal 0.0-0.7 [facility] Comment on above: Performed By: #### NAOMI DORSEY, BMP #### [facility] [address] [place] [id number] Rogelio Renetta Eosinophils/100 WBC (Bld) 1.0 % Normal 0.9-7.0 [facility] Comment on above: Performed By: #### NAOMI DORSEY, BMP #### [facility] [address] [place], [place] [id number] Rogelio Renetta Erythrocyte distribution width (RBC) [Ratio] 12.7 % Normal 11.0-15.0 [facility] Comment on above: Performed By: #### NAOMI DORSEY, BMP #### [facility] [address] [place] [id number] Rogelio Renetta Hematocrit (Bld) [Volume fraction] 40.8 % Normal 36.0-48.0 [facility] Comment on above: Performed By: #### NAOMI DORSEY, BMP #### [facility] [address] [place] [address] Rogelio Renetta Hemoglobin (Bld) [Mass/Vol] 13.3 g/dL Normal 12.0-16.0 [facility] Comment on above: Performed By: #### NAOMI DORSEY, BMP #### [facility] [address] [place] [address] Rogelio Renetta IG # 0.05 10e3/ul Critically high 0.00-0.03 [facility] Comment on above: Performed By: #### NAOMI DORSEY, BMP #### [facility] [address] [place] [address] Rogelio Renetta IG % 0.4 % Normal 0.0-0.5 [facility] Comment on above: Performed By: #### NAOMI DORSEY, BMP #### [facility] [address] [place] [address] Rogelio Renetta Lymphocytes (Bld) [#/Vol] 1.4 103/ul Normal 1.2-3.8 [facility] Comment on above: Performed By: #### NAOMI DORSEY, BMP #### [facility] [address] [place] [address] Rogelio Renetta Lymphocytes/100 WBC (Bld) 10.9 % Critically low 20.5-60.0 [facility] Comment on above: Performed By: #### NAOMI DORSEY, BMP #### [facility] [address] [place] [address] Rogelio Renetta MANUAL DIFF REQ NO Normal [facility] [place] [facility] Comment on above: Performed By: #### NAOMI DORSEY, BMP #### [facility] [address] [place] [address] Rogelio Renetta MCH (RBC) [Entitic mass] 28.7 pg Normal 26.7-34.0 [facility] Comment on above: Performed By: #### NAOMI DORSEY, BMP #### [facility] [address] [place] [address] Rogelio Jackson MCHC (RBC) [Mass/Vol] 32.6 g/dL Normal 29.9-35.2 [facility] Comment on above: Performed By: #### NAOMI DORSEY, BMP #### [facility] [address] [address] Rogelio Jackson MCV (RBC) [Entitic vol] 87.9 fL Normal 81.0-99.0 [facility] Comment on above: Performed By: #### NAOMI DORSEY, BMP #### [facility] [address] [address] Rogelio Renetta Monocytes (Bld) [#/Vol] 0.6 103/ul Normal 0.3-0.8 [facility] Comment on above: Performed By: #### NAOMI DORSEY, BMP #### [facility] [address] [place] [address] Rogelio Renetta Monocytes/100 WBC (Bld) 5.1 % Normal 1.7-12.0 [facility] Comment on above: Performed By: #### NAMOI DORSEY, BMP #### [facility] [address] [address] Rogelio Renetta Neutrophils (Bld) [#/Vol] 10.2 103/ul Critically high 1.4-6.5 [facility] Comment on above: Performed By: #### NAOMI DORSEY, BMP #### [facility] [address] [place] [address] Rogelio Renetta Neutrophils/100 WBC (Bld) 82.3 % Critically high 43.0-75.0 [facility] Comment on above: Performed By: #### NAOMI DORSEY, BMP #### [facility] [address] [place] [address] Rogeliorajan Jackson Platelet mean volume (Bld) [Entitic vol] 9.3 fL Critically low 9.5-13.5 [facility] Comment on above: Performed By: #### NAOMI DORSEY, BMP #### [facility] [address] [place] [address] Rogelio Jackson Platelets (Bld) [#/Vol] 249 103/ul Normal 150-450 [facility] Comment on above: Performed By: #### L NAOMI SHEPARD, YONNY #### [facility] [address] [place], [place] [address] Rogelio Jackson RBC (Bld) [#/Vol] 4.64 106/ul Normal 4.20-5.40 [facility] Comment on above: Performed By: #### L NAOMI SHEPARD, BMP #### [facility] [address] [place], [place] [address] Rogelio Jackson WBC (Bld) [#/Vol] 12.5 103/ul Critically high 4.0-11.0 [facility] Comment on above: Performed By: #### L NAOMI SHEPARD BMP #### [facility] [address], [place] [address] CHEST W CONon 09-19-2019 [...] by: CHICO GANDHI Date: 2019-09-19 05:16 Normal [facility] LIPASEon 09-19-2019 Lipase [Catalytic activity/Vol] 117.0 U/L Normal 23.0-300.0 [facility] Comment on above: Performed By: #### L NAOMI SHEPARD BMP #### [facility] [address], [place] [address] Rogelio Jackson PROF 14(COMP METB)on 020 Albumin [Mass/Vol] 3.3 g/dL Critically low 3.5-5.0 [facility] Comment on above: Performed By: #### L NAOMI SHEPARD BMP #### [facility] [address], [place] [address] Rogelio Jackson Albumin/Globulin [Mass ratio] 0.9 {ratio} Normal [facility] Comment on above: Performed By: #### L NAOMI SHEPARD, YONNY #### [facility] [address], [place] [address] Rogelio Renetta ALP [Catalytic activity/Vol] 83 U/L Normal 38-126 [facility] Comment on above: Performed By: #### NAOMI DORSEY BMP #### [facility] [address] [place] [address] Rogelio Renetta ALT [Catalytic activity/Vol] 31 U/L Normal 9-52 [facility] Comment on above: Performed By: #### NAOMI DORSEY BMP #### [facility] [address] [place] [address] Rogelio Renetta Anion gap [Moles/Vol] 9.5 mmol/L Normal [facility] Comment on above: Performed By: #### NAOMI DORSEY BMP #### [facility] [address] [place] [address] Rogelio Renetta AST [Catalytic activity/Vol] 21 U/L Normal 14-36 [facility] Comment on above: Performed By: #### NAOMI DORSEY BMP #### [facility] [address] [place] [address] Rogelio Renetta Bilirubin Ql (U) 0.6 mg/dL Normal 0.2-1.3 [facility] Comment on above: Performed By: #### NAOMI DORSEY BMP #### [facility] [address] [place] [address] Rogelio Renetta Calcium [Mass/Vol] 9.2 mg/dL Normal 8.4-10.2 [facility] Comment on above: Performed By: #### NAOMI DORSEY, BMP #### [facility] [address] [place] [address] Rogelio Renetta Chloride [Moles/Vol] 103 mmol/L Normal 98-107 [facility] Comment on above: Performed By: #### NAOMI DORSEY BMP #### [facility] [address] [place] [address] Rogelio Renetta CO2 [Moles/Vol] 28.4 mmol/L Normal 22.0-30.0 [facility] Comment on above: Performed By: #### NAOMI DORSEY, BMP #### [facility] [address] [id number] Rogelio Renetta Creatinine [Mass/Vol] 1.04 mg/dL Normal 0.52-1.04 [facility] Comment on above: Performed By: #### NAOMI DORSEY, BMP #### [facility] [address] [id number] Rogelio Renetta EGFR-AF LEBANESE >60 Normal >=60 [facility] Comment on above: Performed By: #### NAOMI DORSEY, BMP #### [facility] [address] [place], [place] [address] Rogelio Renetta EGFR-NON AF LEBANESE 58 mL/min/1.73m2 Critically low >=60 [facility] Comment on above: Performed By: #### NAOMI DORSEY, BMP #### [facility] [address] [place] [address] Rogelio Renetta Globulin (S) [Mass/Vol] 3.7 g/dL Normal T [facility] Comment on above: Performed By: #### NAOMI DORSEY, BMP #### [facility] [address] [place] [address] Rogelio Renetta Glucose [Mass/Vol] 101 mg/dL Normal 74-106 [facility] Comment on above: Performed By: #### NAOMI DORSEY, BMP #### [facility] [address] [place] [address] Rogelio Renetta Potassium [Moles/Vol] 3.9 mmol/L Normal 3.4-5.0 [facility] Comment on above: Performed By: #### NAOMI DORSEY, BMP #### [facility] [address] [place] [address] Rogelio Renetta Protein [Mass/Vol] 7.0 g/dL Normal 6.1-8.2 [facility] Comment on above: Performed By: #### NAOMI DORSEY, BMP #### [facility] [address] [place], [place] [id number] Rogelio Renetta Sodium [Moles/Vol] 137 mmol/L Normal 137-145 [facility] Comment on above: Performed By: #### L NAOMI SHEPARD, BMP #### [facility] [address] [place] [address] Rogelio Renetta Urea nitrogen [Mass/Vol] 14.0 mg/dL Normal 7.0-17.0 [facility] Comment on above: Performed By: #### NAOMI DORSEY, BMP #### [facility] [address] [place] [address] Rogelio Renetta Urea nitrogen/Creatinine [Mass ratio] 13.5 mg/mg Normal [facility] Comment on above: Performed By: #### NAOMI DORSEY, BMP #### [facility] [address] [place] [address] Rogelio Renetta AMYLASEon 09-18-2019 Amylase [Catalytic activity/Vol] 36 U/L Normal 31-110 [facility] Comment on above: Performed By: #### NAOMI DORSEY BMP #### [facility] [address] [place] [address] Rogelio Renetta CBC AUTO DIFFon 09-18-2019 Basophils (Bld) [#/Vol] 0.1 103/ul Normal 0.0-0.1 [facility] Comment on above: Performed By: #### C BC #### [facility] [address] [place] [address] Rogelio Renetta Basophils/100 WBC (Bld) 0.5 % Normal 0.2-2.0 [facility] Comment on above: Performed By: #### C BC #### [facility] [address] [place] [address] Rogelio Renetta Eosinophils (Bld) [#/Vol] 0.2 103/ul Normal 0.0-0.7 [facility] Comment on above: Performed By: #### C BC #### [facility] [address] [place] [address] Rogelio Renetta Eosinophils/100 WBC (Bld) 1.8 % Normal 0.9-7.0 [facility] Comment on above: Performed By: #### C BC #### [facility] [address] [place], [place] [id number] Rogeliorajan Jackson Erythrocyte distribution width (RBC) [Ratio] 12.8 % Normal 11.0-15.0 [facility] Comment on above: Performed By: #### C BC #### [facility] [address] [place] [address] Rogelio Renetta Hematocrit (Bld) [Volume fraction] 44.9 % Normal 36.0-48.0 [facility] Comment on above: Performed By: #### C BC #### [facility] [address] [place] [address] Rogelio Renetta Hemoglobin (Bld) [Mass/Vol] 14.6 g/dL Normal 12.0-16.0 [facility] Comment on above: Performed By: #### C BC #### [facility] [address] [place] [address] Rogelio Renetta IG # 0.05 10e3/ul Critically high 0.00-0.03 [facility] Comment on above: Performed By: #### C BC #### [facility] [address] [place] [address] Rogelio Renetta IG % 0.5 % Normal 0.0-0.5 [facility] Comment on above: Performed By: #### C BC #### [facility] [address] [place] [address] Rogelio Renetta Lymphocytes (Bld) [#/Vol] 2.5 103/ul Normal 1.2-3.8 [facility] Comment on above: Performed By: #### C BC #### [facility] [address] [place] [address] Rogelio Renetta Lymphocytes/100 WBC (Bld) 24.0 % Normal 20.5-60.0 [facility] Comment on above: Performed By: #### C BC #### [facility] [address] [place], [place] [id number] Rogelio Cedilloen MANUAL DIFF REQ NO Normal [facility] [place] [facility] Comment on above: Performed By: #### C BC #### [facility] [address] [place], [place] [id number] Rogeliorajan Cedilloen MCH (RBC) [Entitic mass] 28.9 pg Normal 26.7-34.0 [facility] Comment on above: Performed By: #### C BC #### [facility] [address] [place], [place] [id number] Rogelio Jackson MCHC (RBC) [Mass/Vol] 32.5 g/dL Normal 29.9-35.2 [facility] Comment on above: Performed By: #### C BC #### [facility] [address] [place], [place] [id number] Orgeliorajan Jackson MCV (RBC) [Entitic vol] 88.7 fL Normal 81.0-99.0 [facility] Comment on above: Performed By: #### C BC #### [facility] [address] [place], [place] [address] Rogelio Renetta Monocytes (Bld) [#/Vol] 0.8 103/ul Normal 0.3-0.8 [facility] Comment on above: Performed By: #### C BC #### [facility] [address] [place], [place] [address] Rogeliorajan Cedilloen Monocytes/100 WBC (Bld) 7.6 % Normal 1.7-12.0 [facility] Comment on above: Performed By: #### C BC #### [facility] [address] [place], [place] [id number] Rogelio Renetta Neutrophils (Bld) [#/Vol] 6.9 103/ul Critically high 1.4-6.5 [facility] Comment on above: Performed By: #### C BC #### [facility] [address] [place], [place] [address] Rogelio Renetta Neutrophils/100 WBC (Bld) 65.6 % Normal 43.0-75.0 [facility] Comment on above: Performed By: #### C BC #### [facility] [address] [place], [place] [id number] Rogelio Renetta Platelet mean volume (Bld) [Entitic vol] 9.5 fL Normal 9.5-13.5 [facility] Comment on above: Performed By: #### C BC #### [facility] [address] [place], [place] [id number] Rogelio Renetta Platelets (Bld) [#/Vol] 315 103/ul Normal 150-450 [facility] Comment on above: Performed By: #### C BC #### [facility] [address] [place], [place] [id number] Rogelio Renetta RBC (Bld) [#/Vol] 5.06 106/ul Normal 4.20-5.40 [facility] Comment on above: Performed By: #### C BC #### [facility] [address] [place], [place] [address] Rogelio Renetta WBC (Bld) [#/Vol] 10.5 103/ul Normal 4.0-11.0 [facility] Comment on above: Performed By: #### C BC #### [facility] [address] [place], [place] [address] Rogelio Renetta ER URINE PROFILEon 0 Bilirubin [Mass/Vol] Negative Normal NEGATIVE [facility] Comment on above: Performed By: #### SUSIE ALVARADO #### [facility] [address] [place], [place] [address] Rogelio Renetta BLOOD SMALL Normal NEGATIVE [facility] Comment on above: Performed By: #### SUSIE ALVARADO #### [facility] [address] [place] [address] Rogelio Renetta Clarity (U) CLEAR Normal [facility] Comment on above: Performed By: #### SUSIE ALVARADO #### [facility] [address] [place] [address] Rogelio Renetta Color (U) LT. YELLOW Normal YELLOW [facility] Comment on above: Performed By: #### SUSIE ALVARADO #### [facility] [address] [place], [place] [address] Rogelio Renetta ERUAHD A micrscopic examination will be performed if indicated. Normal [facility] Comment on above: Performed By: #### SUSIE ALVARADO #### [facility] [address] [place], [place] [address] Rogelio Renetta Glucose [Mass/Vol] Negative Normal NEGATIVE [facility] Comment on above: Performed By: #### Carlos HOYT UMICRO #### [facility] [address] [place], [place] [address] Rogelio Renetta Ketones Ql (U) Negative Normal NEGATIVE [facility] Comment on above: Performed By: #### Carlos HOYT UMICRO #### [facility] [address] [place], [place] [address] Rogelio Renetta Nitrite Ql (U) Negative Normal NEGATIVE [facility] Comment on above: Performed By: #### Carlos HOYT UMICRO #### [facility] [address] [place], [place] [address] Rogelio Renetta pH (Bld) 6.5 Normal 5-9 [facility] Comment on above: Performed By: #### Carlos HOYT UMICRO #### [facility] [address] [place] [address] Rogelio Renetta Protein (U) [Mass/Vol] Negative Normal [facility] Comment on above: Performed By: #### Carlos HOYT UMICRO #### [facility] [address] [place], [place] [address] Rogelio Renetta SPEC GRAVITY 1.025 Normal 1.005-<=1.0 25 [facility] Comment on above: Performed By: #### Carlos HOYT UMICRO #### [facility] [address] [place], [place] [address] Rogelio Renetta UR MICRO IND INDICATED Normal [facility] Comment on above: Performed By: #### Carlos HOYT UMICRO #### [facility] [address] [place], [place] [address] Rogelio Renetta Urobilinogen Qn (U) 0.2 EU/dl Normal [facility] Comment on above: Performed By: #### Carlos HOYT UMICRO #### [facility] [address] [place], [place] [address] Rogelio Renetta WBC (Bld) [#/Vol] Negative Normal NEGATIVE [facility] Comment on above: Performed By: #### E RUR, UMICRO #### [facility] [address] [place] [address] Rogelio Renetta LACTATE/LACTIC ACIDon 2019 Lactate [Moles/Vol] 0.8 mmol/L Normal 0.7-2.0 [facility] Comment on above: Performed By: #### NAOMI DORSEY, BMP #### [facility] [address] [place], [place] [address] Rogelio Renetta LIPASEon 09-18-2019 Lipase [Catalytic activity/Vol] 127.0 U/L Normal 23.0-300.0 [facility] Comment on above: Performed By: #### NAOMI DORSEY, BMP #### [facility] [address] [place] [address] Rogelio Renetta LIVER PROFILEon 09-18-2019 Albumin [Mass/Vol] 3.7 g/dL Normal 3.5-5.0 [facility] Comment on above: Performed By: #### NAOMI DORSEY, BMP #### [facility] [address] [place] [address] Rogelio Renetta Albumin/Globulin [Mass ratio] 0.9 {ratio} Normal [facility] Comment on above: Performed By: #### NAOMI DORSEY, BMP #### [facility] [address] [place] [address] Rogelio Renetta ALP [Catalytic activity/Vol] 101 U/L Normal 38-126 [facility] Comment on above: Performed By: #### NAOMI DORSEY, BMP #### [facility] [address] [place] [address] Rogelio Renetta ALT [Catalytic activity/Vol] 29 U/L Normal 9-52 [facility] Comment on above: Performed By: #### NAOMI DORSEY, BMP #### [facility] [address] [place] [address] Rogelio Renetta AST [Catalytic activity/Vol] 19 U/L Normal 14-36 [facility] Comment on above: Performed By: #### NAOMI DORSEY, BMP #### [facility] [address] [place] [address] Rogelio Renetta BILI, CONJUGATED 0.1 mg/dL Normal 0.0-0.3 [facility] Comment on above: Performed By: #### NAOMI DORSEY, BMP #### [facility] [address] [place] [address] Rogelio Renetta Bilirubin Ql (U) 0.3 mg/dL Normal 0.2-1.3 [facility] Comment on above: Performed By: #### NAOMI DORSEY, BMP #### [facility] [address] [place] [address] Rogelio Renetta Globulin (S) [Mass/Vol] 4.1 g/dL Normal T [facility] Comment on above: Performed By: #### NAOMI DORSEY, BMP #### [facility] [address] [place] [address] Rogelio Renetta Protein [Mass/Vol] 7.8 g/dL Normal 6.1-8.2 [facility] Comment on above: Performed By: #### NAOMI DORSEY, BMP #### [facility] [address] [place] [address] Rogelio Renetta PROF CHEM 8 (BAS METB)on Anion gap [Moles/Vol] 10.7 mmol/L Normal [facility] Comment on above: Performed By: #### NAOMI DORSEY, BMP #### [facility] [address] [place] [address] Rogelio Renetta Calcium [Mass/Vol] 9.4 mg/dL Normal 8.4-10.2 [facility] Comment on above: Performed By: #### NAOMI DORSEY, BMP #### [facility] [address] [place] [address] Rogelio Renetta Chloride [Moles/Vol] 101 mmol/L Normal 98-107 [facility] Comment on above: Performed By: #### NAOMI DORSEY, BMP #### [facility] [address] [place] [address] Rogelio Renetta CO2 [Moles/Vol] 27.9 mmol/L Normal 22.0-30.0 [facility] Comment on above: Performed By: #### NAOMI DORSEY, BMP #### [facility] [address] [place] [address] Rogelio Renetta Creatinine [Mass/Vol] 0.98 mg/dL Normal 0.52-1.04 [facility] Comment on above: Performed By: #### NAOMI DORSEY, BMP #### [facility] [address] [address] Rogelio Renetta EGFR-AF LEBANESE >60 Normal >=60 [facility] Comment on above: Performed By: #### NAOMI DORSEY, BMP #### [facility] [address] [place] [address] Rogelio Renetta EGFR-NON AF LEBANESE >60 Normal >=60 [facility] Comment on above: Performed By: #### NAOMI DORSEY, BMP #### [facility] [address] [place] [address] Rogelio Renetta Glucose [Mass/Vol] 91 mg/dL Normal 74-106 [facility] Comment on above: Performed By: #### NAOMI DORSEY, BMP #### [facility] [address] [place] [address] Rogelio Renetta Potassium [Moles/Vol] 3.6 mmol/L Normal 3.4-5.0 [facility] Comment on above: Performed By: #### NAOMI DORSEY, BMP #### [facility] [address] [place] [address] Rogelio Renetta Sodium [Moles/Vol] 136 mmol/L Critically low 137-145 [facility] Comment on above: Performed By: #### NAOMI DORSEY, BMP #### [facility] [address] [place] [address] Rogelio Renetta Urea nitrogen [Mass/Vol] 12.0 mg/dL Normal 7.0-17.0 [facility] Comment on above: Performed By: #### NAOMI DORSEY, BMP #### [facility] [address] [place] [address] Rogelio Renetta Urea nitrogen/Creatinine [Mass ratio] 12.2 mg/mg Normal [facility] Comment on above: Performed By: #### NAOMI DORSEY, BMP #### [facility] [address] [place] [address] Rogeliorajan Jackson TROPONIN - Ion 09-18-2019 Troponin I.cardiac [Mass/Vol] SEE BELOW Normal [facility] Comment on above: Result Comment: <0.0 34 ng/ml NEGATIVE 0.034-0.119 INDETERMINATE 0.120 AMI CUT OFF Performed By: #### NAOMI DORSEY, BMP #### [facility] [address] [place] [address] Rogeliorajan Jackson Troponin I.cardiac [Mass/Vol] ng/mL Normal <=0.034 [facility] Comment on above: Performed By: #### NAOMI DORSEY, BMP #### [facility] [address] [place] [address] Rogelio Renetta URINE MICROSCOPIC ONLYon Bacteria LM.HPF (Urine sed) [#/Area] TRACE Normal NONE SEEN [facility] Comment on above: Performed By: #### NAOMI DORSEY, BMP #### [facility] [address] [place] [address] Rogelio Renetta CAST NONE SEEN Normal NONE SEEN [facility] Comment on above: Performed By: #### NAOMI DORSEY, BMP #### [facility] [address] [place] [address] Rogelio Renetta Crystals LM Nom (Urine sed) NONE SEEN Normal NONE SEEN [facility] Comment on above: Performed By: #### NAOMI DORSEY, BMP #### [facility] [address] [place] [address] Rogelio Renetta CULTURE NOT INDICATED Normal [facility] Comment on above: Performed By: #### NAOMI DORSEY, BMP #### [facility] [address] [place] [address] Rogelio Renetta Epithelial cells LM.HPF (Urine sed) [#/Area] RARE Normal [facility] Comment on above: Performed By: #### L NAOMI SHEPARD, BMP #### [facility] [address], [place] [address] Rogelio Renetta MUCOUS TRACE Normal NONE SEEN [facility] Comment on above: Performed By: #### L NAOMI SHEPARD, BMP #### [facility] [address], [place] [address] Rogelio Renetta RBC (U) [#/Vol] 5-10 Normal 0-2 [facility] Comment on above: Performed By: #### L NAOMI SHEPARD, BMP #### [facility] [address], [place] [address] Rogelio Renetta WBC (Bld) [#/Vol] 0-2 Normal NONE SEEN [facility] Comment on above: Performed By: #### L NAOMI SHEPARD, BMP #### [facility] [address], [place] [address] Rogelio Renetta XR ABD FLAT UP_PA Natalie 09-17 XR [...] ROBERT CHINCHILLA Date: 2019-09-18 16:18 Normal [facility] COVID-19 PCRon 09-08-2019 SARS-CoV-2, CESIA Not Detected Normal Not Detected [facility] Comment on above: Result Comment: This test was developed and its performance characteristics determined by [employer]. This test has not been FDA cleared [...] assay. Performed By: #### C VDPCR #### [facility] [address] [place] [id number] Rogelio Renetta CBC AUTO DIFFon 08-22-2019 Basophils (Bld) [#/Vol] 0.1 103/ul Normal 0.0-0.1 [facility] Comment on above: Performed By: #### C BC #### [facility] [address] [place] [address] Rogelio Renetta Basophils/100 WBC (Bld) 0.8 % Normal 0.2-2.0 [facility] Comment on above: Performed By: #### C BC #### [facility] [address] [place] [address] Rogelio Renetta Eosinophils (Bld) [#/Vol] 0.2 103/ul Normal 0.0-0.7 [facility] Comment on above: Performed By: #### C BC #### [facility] [address] [place] [address] Rogelio Renetta Eosinophils/100 WBC (Bld) 2.6 % Normal 0.9-7.0 [facility] Comment on above: Performed By: #### C BC #### [facility] [address] [place] [address] Rogelio Renetta Erythrocyte distribution width (RBC) [Ratio] 13.2 % Normal 11.0-15.0 [facility] Comment on above: Performed By: #### C BC #### [facility] [address] [place] [address] Rogelio Jackson Hematocrit (Bld) [Volume fraction] 40.7 % Normal 36.0-48.0 [facility] Comment on above: Performed By: #### C BC #### [facility] [address] [place], [place] [id number] Rogelio Jackson Hemoglobin (Bld) [Mass/Vol] 13.1 g/dL Normal 12.0-16.0 [facility] Comment on above: Performed By: #### C BC #### [facility] [address] [place] [address] Rogeliorajan Jackson IG # 0.01 10e3/ul Normal 0.00-0.03 [facility] Comment on above: Performed By: #### C BC #### [facility] [address] [place] [address] Rogelio Jackson IG % 0.2 % Normal 0.0-0.5 [facility] Comment on above: Performed By: #### C BC #### [facility] [address] [place], [place] [id number] Rogelio Jackson Lymphocytes (Bld) [#/Vol] 2.3 103/ul Normal 1.2-3.8 [facility] Comment on above: Performed By: #### C BC #### [facility] [address] [place], [place] [id number] Rogelio Jackson Lymphocytes/100 WBC (Bld) 36.2 % Normal 20.5-60.0 [facility] Comment on above: Performed By: #### C BC #### [facility] [address] [place], [place] [id number] Rogelio Jackson MANUAL DIFF REQ NO Normal [facility] Comment on above: Performed By: #### C BC #### [facility] [address] [place], [place] [id number] Rogelio Jackson MCH (RBC) [Entitic mass] 28.8 pg Normal 26.7-34.0 [facility] Comment on above: Performed By: #### C BC #### [facility] [address], [place] [address] Rogelio Renetta MCHC (RBC) [Mass/Vol] 32.2 g/dL Normal 29.9-35.2 [facility] Comment on above: Performed By: #### C BC #### [facility] [address], [place] [address] Rogelio Renetta MCV (RBC) [Entitic vol] 89.5 fL Normal 81.0-99.0 [facility] Comment on above: Performed By: #### C BC #### [facility] [address], [place] [address] Rogelio Renetta Monocytes (Bld) [#/Vol] 0.8 103/ul Normal 0.3-0.8 [facility] Comment on above: Performed By: #### C BC #### [facility] [address] [place] [address] Rogelio Renetta Monocytes/100 WBC (Bld) 12.5 % Critically high 1.7-12. 0 [facility] Comment on above: Performed By: #### C BC #### [facility] [address] [place] [address] Rogelio Renetta Neutrophils (Bld) [#/Vol] 3.1 103/ul Normal 1.4-6.5 [facility] Comment on above: Performed By: #### C BC #### [facility] [address] [place] [address] Rogelio Renetta Neutrophils/100 WBC (Bld) 47.7 % Normal 43.0-75.0 [facility] Comment on above: Performed By: #### C BC #### [facility] [address], [place] [address] Rogelio Renetta Platelet mean volume (Bld) [Entitic vol] 9.5 fL Normal 9.5-13.5 [facility] Comment on above: Performed By: #### C BC #### [facility] [address], [place] [address] Rogelio Renetta Platelets (Bld) [#/Vol] 293 103/ul Normal 150-450 T [facility] Comment on above: Performed By: #### C BC #### [facility] [address], [place] [address] Rogelio Jackson RBC (Bld) [#/Vol] 4.55 106/ul Normal 4.20-5.40 [facility] Comment on above: Performed By: #### C BC #### [facility] [address], [place] [address] Rogelio Jackson WBC (Bld) [#/Vol] 6.5 103/ul Normal 4.0-11.0 [facility] Comment on above: Performed By: #### C BC #### [facility] [address], [place] [address] ABD/PELV W CONon 08-22-19 [...] ALL GUDINO Date: 2019-08-22 15:49 Normal [facility] URINE PROFILEon 0 Bilirubin [Mass/Vol] Negative Normal NEGATIVE [facility] Comment on above: Performed By: #### NEHAL ALVARADORO #### [facility] [address] [place] [address] Rogleio Renetta BLOOD SMALL Normal NEGATIVE [facility] Comment on above: Performed By: #### NEHAL ALVARADORO #### [facility] [address] [place] [address] Rogelio Renetta Clarity (U) CLEAR Normal [facility] Comment on above: Performed By: #### NEHAL ALVARADORO #### [facility] [address] [place] [address] Rogelio Renetta Color (U) LT. YELLOW Normal YELLOW [facility] Comment on above: Performed By: #### NEHAL ALVARADORO #### [facility] [address] [place] [address] Rogelio Renetta ERUAHD A micrscopic examination will be performed if indicated. Normal [facility] Comment on above: Performed By: #### NEHAL ALVARADORO #### [facility] [address] [place] [address] Rogelio Renetta Glucose [Mass/Vol] Negative Normal NEGATIVE [facility] Comment on above: Performed By: #### SUSIE ALVARADO #### [facility] [address] [place] [address] Rogelio Renetta Ketones Ql (U) Negative Normal NEGATIVE [facility] Comment on above: Performed By: #### SUSIE ALVARADO #### [facility] [address] [place] [address] Rogelio Renetta Nitrite Ql (U) Negative Normal NEGATIVE [facility] Comment on above: Performed By: #### NEHAL ALVARADORO #### [facility] [address] [place] [address] Rogelio Renetta pH (Bld) 6.0 Normal 5-9 [facility] Comment on above: Performed By: #### NEHAL ALVARADORO #### [facility] [address] [place], [place] [id number] Rogelio Jackson Protein (U) [Mass/Vol] Negative Normal [facility] Comment on above: Performed By: #### NEHAL ALVARADORO #### [facility] [address] [place], [place] [id number] Rogelio Jackson SPEC GRAVITY <=1.005 Normal 1.005-<=1.0 25 [facility] Comment on above: Performed By: #### NEHAL ALVARADORO #### [facility] [address] [place], [place] [id number] Rogelio Jackson UR MICRO IND INDICATED Normal [facility] Comment on above: Performed By: #### SUSIE ALVARADO #### [facility] [address] [place], [place] [id number] Rogelio Jackson Urobilinogen Qn (U) 0.2 EU/dl Normal [facility] Comment on above: Performed By: #### NEHAL ALVARADORO #### [facility] [address] [place], [place] [id number] Rogelio Jackson WBC (Bld) [#/Vol] Negative Normal NEGATIVE [facility] Comment on above: Performed By: #### NEHAL ALVARADORO #### [facility] [address] [place], [place] [id number] Rogelio Jackson LIPASEon 08-22-2019 Lipase [Catalytic activity/Vol] 144.0 U/L Normal 23.0-300.0 [facility] Comment on above: Performed By: #### NAOMI DORSEY BMP #### [facility] [address] [place], [place] [phone] Rogelio Jackson LIVER PROFILEon 08-22-2019 Albumin [Mass/Vol] 3.6 g/dL Normal 3.5-5.0 [facility] Comment on above: Performed By: #### NAOMI DORSEY BMP #### [facility] [address] [place] [address] Rogelio Renetta Albumin/Globulin [Mass ratio] 1.0 {ratio} Normal [facility] Comment on above: Performed By: #### NAOMI DORSEY BMP #### [facility] [address] [place] [address] Rogelio Renetta ALP [Catalytic activity/Vol] 82 U/L Normal 38-126 [facility] Comment on above: Performed By: #### NAOMI DORSEY BMP #### [facility] [address] [place] [address] Rogelio Renetta ALT [Catalytic activity/Vol] 31 U/L Normal 9-52 [facility] Comment on above: Performed By: #### NAOMI DORSEY BMP #### [facility] [address] [place] [address] Rogelio Renetta AST [Catalytic activity/Vol] 14 U/L Normal 14-36 [facility] Comment on above: Performed By: #### NAOMI DORSEY BMP #### [facility] [address] [place] [address] Rogelio Renetta BILI, CONJUGATED 0.0 mg/dL Normal 0.0-0.3 [facility] Comment on above: Performed By: #### NAOMI DORSEY, BMP #### [facility] [address] [place] [address] Rogelio Renetta Bilirubin Ql (U) 0.3 mg/dL Normal 0.2-1.3 [facility] Comment on above: Performed By: #### NAOMI DORSEY, BMP #### [facility] [address] [place] [address] Rogelio Renetta Globulin (S) [Mass/Vol] 3.7 g/dL Normal T [facility] Comment on above: Performed By: #### NAOMI DORSEY, BMP #### [facility] [address] [place] [address] Rogelio Renetta Protein [Mass/Vol] 7.3 g/dL Normal 6.1-8.2 [facility] Comment on above: Performed By: #### NAOMI DORSEY BMP #### [facility] [address] [place] [address] Rogelio Renetta PROF CHEM 8 (BAS METB)on Anion gap [Moles/Vol] 12.0 mmol/L Normal Th [facility] Comment on above: Performed By: #### L ONELIA SHEPARDA, BMP #### [facility] [address] [place] [address] Rogelio Renetta Calcium [Mass/Vol] 9.0 mg/dL Normal 8.4-10.2 [facility] Comment on above: Performed By: #### L NAOMI SHEPARD, BMP #### [facility] [address] [place] [address] Rogelio Renetta Chloride [Moles/Vol] 103 mmol/L Normal 98-107 [facility] Comment on above: Performed By: #### NAOMI DORSEY, BMP #### [facility] [address] [place] [address] Rogelio Renetta CO2 [Moles/Vol] 25.7 mmol/L Normal 22.0-30.0 [facility] Comment on above: Performed By: #### NAOMI DORSEY, BMP #### [facility] [address] [place] [address] Rogelio Renetta Creatinine [Mass/Vol] 0.84 mg/dL Normal 0.52-1.04 [facility] Comment on above: Performed By: #### ONELIA DORSEYA, BMP #### [facility] [address] [place] [address] Rogelio Renetta EGFR-AF LEBANESE >60 Normal >=60 [facility] Comment on above: Performed By: #### L ONELIA SHEPARDA, BMP #### [facility] [address] [place] [address] Rogelio Renetta EGFR-NON AF LEBANESE >60 Normal >=60 [facility] Comment on above: Performed By: #### L IVELAINA LIPA, BMP #### [facility] [address] [place] [address] Rogelio Renetta Glucose [Mass/Vol] 85 mg/dL Normal 74-106 [facility] Comment on above: Performed By: #### NAOMI DORSEY BMP #### [facility] [address] [place] [address] Rogelio Renetta Potassium [Moles/Vol] 3.7 mmol/L Normal 3.4-5.0 [facility] Comment on above: Performed By: #### NAOMI DORSEY BMP #### [facility] [address] [place] [address] Rogelio Renetta Sodium [Moles/Vol] 137 mmol/L Normal 137-145 [facility] Comment on above: Performed By: #### NAOMI DORSEY BMP #### [facility] [address] [place] [address] Rogelio Renetta Urea nitrogen [Mass/Vol] 11.0 mg/dL Normal 7.0-17.0 [facility] Comment on above: Performed By: #### NAOMI DORSEY BMP #### [facility] [address] [place] [address] Rogelio Renetta Urea nitrogen/Creatinine [Mass ratio] 13.1 mg/mg Normal [facility] Comment on above: Performed By: #### NAOMI DORSEY BMP #### [facility] [address] [place] [address] Rogelio Renetta URINE MICROSCOPIC ONLYon Bacteria LM.HPF (Urine sed) [#/Area] TRACE Normal NONE SEEN The [facility] Comment on above: Performed By: #### SUSIE ALVARADO #### [facility] [address] [place] [address] Rogelio Renetta CAST NONE SEEN Normal NONE SEEN [facility] Comment on above: Performed By: #### SUSIE ALVARADO #### [facility] [address] [place] [address] Rogelio Renetta Crystals LM Nom (Urine sed) NONE SEEN Normal NONE SEEN [facility] Comment on above: Performed By: #### SUSIE ALVARADO #### [facility] [address] [place] [address] Rogelio Renetta CULTURE NOT INDICATED Normal [facility] Comment on above: Performed By: #### E RUR, UMICRO #### [facility] [address] [place], [place] [id number] Rogelio Renetta Epithelial cells LM.HPF (Urine sed) [#/Area] RARE Normal [facility] Comment on above: Performed By: #### E RUR, UMICRO #### [facility] [address] [place], [place] [address] Rogelio Renetta MUCOUS NONE SEEN Normal NONE SEEN [facility] Comment on above: Performed By: #### E RUR, UMICRO #### [facility] [address] [place], [place] [address] Rogelio Renetta RBC (U) [#/Vol] 0-2 Normal 0-2 [facility] Comment on above: Performed By: #### E RUR, UMICRO #### [facility] [address] [place], [place] [address] Rogelio Renetta WBC (Bld) [#/Vol] NONE SEEN Normal NONE SEEN [facility] Comment on above: Performed By: #### E RUR, UMICRO #### [facility] [address] [place], [place] [id number] Rogelio Renetta Vital Signs Date Time Vital Sign Value Performing Clinician Facility 11-19-2022 14:00-0400 Body height 160.02 cm Alyssia Madden [facility] Other 11-19-2022 14:00-0400 Body mass index (BMI) [Ratio] 48.43 kg/m2 Alyssia Madden Other [facility] Other 11-19-2022 14:00-0400 Body temperature 98.3 [degF] Alyssia Madden Other [facility] Other 11-19-2022 14:00-0400 Body weight 124.01 kg Alyssia Madden Other [facility] Other 11-19-2022 14:00-0400 Diastolic blood pressure 82 mm[Hg] Alyssia Maryanne Other [facility] Other 11-19-2022 14:00-0400 Respiratory rate 16 /min Alyssia Maryanne Other [facility] Other 11-19-2022 14:00-0400 SaO2% (BldA) [Mass fraction] 98 % Alyssia Maryanne Other [facility] Other 11-19-2022 14:00-0400 Systolic blood pressure 128 mm[Hg] Alyssia Maryanne Other [facility] Other 02-05-2022 17:00-0500 Body height 160.02 cm Esther Milton Other [facility] Other 02-05-2022 17:00-0500 Body mass index (BMI) [Ratio] 48.82 kg/m2 Esther Milton Other [facility] Other 02-05-2022 17:00-0500 Body temperature 97.6 [degF] Esther Milton Other [facility] Other 02-05-2022 17:00-0500 Body weight 125.01 kg Esther Milton Other [facility] Other 02-05-2022 17:00-0500 Diastolic blood pressure 80 mm[Hg] Esthermaggie Riveraers Other [facility] Other 02-05-2022 17:00-0500 Respiratory rate 16 /min Esther Milton Other [facility] Other 02-05-2022 17:00-0500 SaO2% (BldA) [Mass fraction] 97 % Esther Milton Other [facility] Other 02-05-2022 17:00-0500 Systolic blood pressure 126 mm[Hg] Esther Milton Other [facility] Other 04-12-2021 10:30-0500 Body height 160.02 cm Esther Milton Other [facility] Other 04-12-2021 10:30-0500 Body mass index (BMI) [Ratio] 40.92 kg/m2 Esther Milton Other [facility] Other 04-12-2021 10:30-0500 Body temperature 98.5 [degF] Esther Riveraers Other [facility] Other 04-12-2021 10:30-0500 Body weight 104.78 kg Esther Riveraers Other [facility] Other 04-12-2021 10:30-0500 Diastolic blood pressure 78 mm[Hg] Esther Milton Other [facility] Other 04-12-2021 10:30-0500 Respiratory rate 16 /min Esther Milton Other [facility] Other 04-12-2021 10:30-0500 SaO2% (BldA) [Mass fraction] 98 % Esther Milton Other [facility] Other 04-12-2021 10:30-0500 Systolic blood pressure 122 mm[Hg] Esther Milton Other [facility] Other 11-16-2020 13:45-0400 Respiratory rate 18 /min Maggie Harper Other [facility] Other 11-16-2020 13:45-0400 SaO2% (BldA) [Mass fraction] 98 % Maggie Harper Other [facility] Other 11-14-2020 18:45-0400 Body height 160.02 cm Esther Milton Other [facility] Other 11-14-2020 18:45-0400 Body mass index (BMI) [Ratio] 45.7 kg/m2 Esther Milton Other [facility] Other 11-14-2020 18:45-0400 Body temperature 98.2 [degF] Esther Milton Other [facility] Other 11-14-2020 18:45-0400 Body weight 117.03 kg Esther Milton Other [facility] Other 11-14-2020 18:45-0400 Diastolic blood pressure 72 mm[Hg] Esther Milton Other [facility] Other 11-14-2020 18:45-0400 Respiratory rate 18 /min Esther Milton Other [facility] Other 11-14-2020 18:45-0400 SaO2% (BldA) [Mass fraction] 99 % Esther Milton Other [facility] Other 11-14-2020 18:45-0400 Systolic blood pressure 128 mm[Hg] Esther Milton Other [facility] Other 11-14-2020 17:45-0400 Body height 160.02 cm Esther Milton Other [facility] Other 11-14-2020 17:45-0400 Body mass index (BMI) [Ratio] 45.7 kg/m2 Esther Milton Other [facility] Other 11-14-2020 17:45-0400 Body temperature 98.2 [degF] Esther Milton Other [facility] Other 11-14-2020 17:45-0400 Body weight 117.03 kg Esther Milton Other [facility] Other 11-14-2020 17:45-0400 Diastolic blood pressure 72 mm[Hg] Esther Milton Other [facility] Other 11-14-2020 17:45-0400 Respiratory rate 18 /min Esther Milton Other [facility] Other 11-14-2020 17:45-0400 SaO2% (BldA) [Mass fraction] 99 % Esther Milton Other [facility] Other 11-14-2020 17:45-0400 Systolic blood pressure 128 mm[Hg] Esther Milton Other [facility] Other Encounters Encounter Date Encounter Type Care Provider Facility Start: 11-03-2023 ambulatory Esther Milton Facili ty:[facility] Start: 10-27-2023 End: 10-29-2023 ambulatory [facility] Start: 09-25-2023 End: 09-27-2023 [facility]ulatory [facility] Start: 09-08-2023 End: 09-08-2023 ambulatory GENOVEVA ARVIN Not Available Start: 09-02-2023 End: 09-02-2023 ambulatory GENOVEVA ARVIN Not Available Start: 07-08-2023 End: 07-08-2023 ambulatory GENOVEVA ARVIN Not Available Start: 06-03-2023 End: 06-03-2023 ambulatory GENOVEVA ARVIN Not Available Start: 03-20-2023 End: 03-20-2023 ambulatory Esther Milton Other [facility] Other Start: 03-20-2023 Telephone encounter Esther Cif[facility] Start: 11-19-2022 End: 11-19-2022 ambulatory Alyssiara Madden Other [facility] Other Start: 11-19-2022 Encounter for genera l adult medical examination without abnormal findings Alyssia Maryanne [facility] [place] [facility] Start: 11-19-2022 Periodic preventive med est patient 40-64yrs Alyssiara Madden [facility] [place] [facility] Start: 11-10-2022 End: 11-10-2022 ambulatory Esther Milton Other [facility] Other Start: 11-10-2022 Telephone encounter Esther Cifuentes [facility] [place] [facility] Start: 11-03-2022 End: 11-03-2022 ambulatory Esther Milton Other [facility] Other Start: 11-03-2022 Telephone encounter Esther Cifuentes [facility] [place] [facility] Start: 10-29-2022 End: 10-29-2022 ambulatory Alyssia Maryanne Other [facility] Other Start: 10-29-2022 Office outpatient vi sit 15 minutes Alyssia Maryanne [facility] Start: 10-28-2022 End: 10-28-2022 ambulatory Esther Milton Other [facility] Other Start: 10-28-2022 Encounter by ann-marie Milton [facility] Start: 10-23-2022 Telephone encounter Esther Cifuentes [facility] [place] [facility] Start: 10-23-2022 End: 10-23-2022 ambulatory DO Esther Milton Work Phone: [facility] Other Start: 10-23-2022 End: 10-23-2022 Departed Referred DO Esther Milton Work Phone: [facility] [place] [facility] [address] Work Phone: Start: 02-18-2022 End: 02-18-2022 ambulatory Esther Milton Other [facility] Other Start: 02-18-2022 Telephone encounter Esther Milton [facility] Start: 02-05-2022 End: 02-05-2022 ambulatory Esther Milton Other [facility] Other Start: 02-05-2022 Encounter for genera l adult medical examination without abnormal findings Esther Riveraers [facility] Start: 02-05-2022 Periodic preventive med est patient 40-64yrs Esther Milton [facility] Start: 01-27-2022 End: 01-27-2022 ambulatory Esther Milton Other [facility] Other Start: 01-27-2022 Telephone encounter Esther Cifuentes [facility] [place] [facility] Start: 01-24-2022 End: 01-24-2022 ambulatory DO Esther Milton Work Phone: [facility] [place] [facility] Work Phone: Start: 01-24-2022 End: 01-24-2022 Patient encounter procedure DO Esther Milton Work Phone: [facility] [place] [facility] Start: 12-18-2021 End: 12-18-2021 ambulatory Esthermaggie Milton Other [facility] Other Start: 12-18-2021 Encounter for genera l adult medical examination without abnormal findings Esthermaggie Milton [facility] [place] [facility] Start: 12-18-2021 Telephone encounter Esthermaggie Milton [facility] [place] [facility] Start: 05-20-2021 End: 05-20-2021 ambulatory Esther Milton Other [facility] Other Start: 05-20-2021 Telephone encounter Esthermaggie Milton [facility] [place] [facility] Start: 04-12-2021 End: 04-12-2021 ambulatory Esthermaggie Milton Other [facility] Other Start: 04-12-2021 Office outpatient vi sit 25 minutes Esthermaggie Milton [facility] [place] [facility] Start: 01-25-2021 End: 01-25-2021 ambulatory Esther Milton Other [facility] Other Start: 01-25-2021 Telephone encounter Esthermaggie Milton [facility] [place] [facility] Start: 01-10-2021 End: 01-10-2021 ambulatory Esthermaggie Milton Other [facility] Other Start: 01-10-2021 Telephone encounter Esthermaggie Milton [facility] [place] [facility] Start: 11-16-2020 End: 11-16-2020 ambulatory Maggie Harper Other [facility] Other Start: 11-16-2020 Office outpatient vi sit 15 minutes Maggie Harper [facility] Start: 11-14-2020 End: 11-14-2020 ambulatory Esthermaggie Milton Other [facility] Other Start: 11-14-2020 Encounter for genera l adult medical examination without abnormal findings Esther Milton [facility] [place] [facility] Start: 11-14-2020 Periodic preventive med est patient 40-64yrs Esther Milton [facility] Start: 11-14-2020 Telephone encounter Esther Cifuentes [facility] Start: 09-26-2019 End: 09-27-2019 Patient encounter procedure [facility] Facility:[facility] Start: 09-19-2019 End: 09-19-2019 Patient encounter procedure ESTHER MILTON Facility:[facility] Start: 09-18-2019 End: 09-18-2019 Patient encounter procedure ESTHER MILTON Facility:[facility] Start: 09-06-2019 End: 09-07-2019 Patient encounter procedure [facility] Facility:[facility] Start: 08-22-2019 End: 08-22-2019 Patient encounter procedure KEISHA ROBLERO Facility:[facility] Plan of Treatment Date Care Activity Detail Author Start: 10-23-2022 [facility] Immunizations Immunization Date Immunization Notes Care Provider Tejal white 11-27-2021 COVID-19 Pfizer (bivalent) Esther Milton Other [facility] Other 11-27-2021 influenza, injectable, quadrivalent, preservative free Esther Milton Other [facility] Other 01-04-2021 COVID-19 Vaccine Pfizer - Documentation Purposes Only Esther Milton Other [facility] Other 11-14-2020 influenza, injectable, quadrivalent, contains preservative Esther Milton Other [facility] Other 05-31-2020 COVID-19 Vaccine Pfizer - Documentation Purposes Only Esther Milton Other [facility] Other 05-10-2020 COVID-19 Vaccine Pfizer - Documentation Purposes Only Esther Milton Other [facility] Other 02-25-2019 influenza, seasonal, injectable Patient Objection Esther Milton Other [facility] Other 06-08-2018 Kenalog -40 mg Esther Arroyo s Other [facility] Other 04-06-2018 Kenalog -40 mg Esther Arroyo s Other [facility] Other 02-26-2018 influenza, seasonal, injectable Patient Objection Esther Milton Other [facility] Other NEGATED: Highlighted row has not occurred!02-25-2019 influenza, seasonal, injectable Patient Objection Maggie [place] Other Car reviews Other NEGATED: Highlighted row has not occurred!02-26-2018 influenza, seasonal, injectable Patient Objection Maggie Harper Other Car reviews Other Payers Date Payer Category Payer Self-pay [id number] 2023 Unknown [id number] 2022 Unknown [id number] 1978 Unknown [id number] .16.84 0.1.639386.3.579.2.593 1978 Unknown [id number] .16.84 0.1.179490.3.579.2.593 1978 Unknown [id number] .16.84 0.1.457837.3.579.2.593 1978 Unknown [id number] .16.84 0.1.878694.3.579.2.593 1978 Unknown [id number] .16.84 0.1.113992.3.579.2.593 1978 Unknown [id number] .16.84 0.1.561353.3.579.2.1259 1978 Unknown [id number] 2.16.84 0.1.278301.3.579.2.1259 1978 Unknown [id number] 2.16.84 0.1.720240.3.579.2.1259 1978 Unknown [id number] 2.16.84 0.1.569978.3.579.2.1259 1978 Unknown [id number] 2.16.8 40.1.810831.3.579.2.173 1978 Unknown [id number] 2.16.8 40.1.976631.3.579.2.174 1978 Unknown [id number] 2.16.8 40.1.082412.3.579.2.174 1959 Unknown [id number] [facility] [id number] 2.16840.1.341511.19 Self-pay [id number] 2.16.840.1.521088.19 Self-pay [id number] 2.16.840.1.444766.19 Self-pay [id number] 2.16840.1.073243.19 Unknown Shreyas BC/BS [id number] Unknown [id number] 2.16 840.1.470177.19 Unknown [id number] 2.16.8 40.1.500061.3.579.2.531 Social History Date Type Detail Facility Unknown if ever smoked Car reviews Other Sex Assigned At Sex Assigned At Bir th Car reviews Other Start: 09-09-2019 End: 09-09-2019 Tobacco smoking status NHIS Never smoked tobacco (finding) [facility] Start: 1980 Sex Assigned At Female F [facility] Clinical Notes 11-14-2020 to 03-20-2023 Note Date & Type Note Facility 03-20-2023 Evaluation note Encounter Date Diagnosis Assessment Notes Mar, Bipolar disorder (ICD-10 - F31.9) [facility] [employer] Other 10-11-2023 Evaluation note* Encounter Date Diagnosis Assessment Notes Treatment Notes Treatment Clinical Notes Nov, Bipolar disorder (ICD-10 - F31.9) Doing well on current medication we will continue to monitor. Nov, Well adult (ICD-10 - Z00.00) Personalized healthcare advice was given to Adrienne. General topics regarding health education were discussed [...] reviewed. Nov, Other Referral to azra williamson [facility] [employer] Other 09-20-2023 Evaluation note* Encounter Date Diagnosis [...] if she develops any of these symptoms Car reviews Other 12-28-2022 Evaluation note* Encounter Date Diagnosis [...] will cont current rx at this time. Car reviews Other 11-09-2022 Evaluation note* Encounter Date Diagnosis Assessment Notes Treatment Notes Treatment Clinical Notes Dec, Anxiety (ICD-10 - F41.9) Dec, Laboratory exam ordered as part of routine general medical examination (ICD-10 - Z00.00) Car reviews Other 04-11-2022 Evaluation note* Encounter Date Diagnosis Assessment Notes Treatment Notes Treatment Clinical Notes May, Anxiety (ICD-10 - F41.9) Car reviews Other 03-04-2022 Evaluation note* Encounter Date Diagnosis [...] call for rx if she likes it. Car reviews Other 10-08-2021 Evaluation note* Encounter Date Diagnosis [...] understanding and is agreeable to treatment plan. Car reviews Other 10-06-2021 Evaluation note* Encounter Date Diagnosis [...] metastatic colon cancer. Will send referral to child day care center worker for assistance. 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 heavy painful periods. 2016 Hospitalization History see above surgical histo ry Car reviews Other Summary Purpose Family History No Family [...] 1 BMI 45.0-49.9, adult (Z68.42) Referral Organization [facility] Referring Provider First Name Alyssia Referring Provider Last Name Maryanne Referring Provider Specialty Nurse Pract itioner Referred Organization [facility] Referred Provider Marcus Blancas Referred Address [address] [place] [address],[place], [place],[address] Referred Provider Specialty Internal Med icine Referral Priority Routine General Notes Palmira Carrillo 04:29:02 PM >received today, attachments made, will fax labs seperately once notes are locked. Additional Source Comments INFORMATION SOURCE (unrecogn ized section and content) DATE CREATED AUTHOR 11/28/2019 [facility] DATE CREATED AUTHOR AUTHOR'S ORGANIZ ATION 09/10/2023 [facility] EPIC DATE CREATED AUTHOR AUTHOR'S ORGANIZ ATION 09/28/2023 [facility] DATE CREATED AUTHOR AUTHOR'S ORGANIZ ATION 10/31/2023 [facility] DATE CREATED AUTHOR AUTHOR'S ORGANIZ ATION 11/05/[address] [facility] REASON FOR VISIT (unrecogniz ed section and content) wellness, discuss mental hea lth, [facility] - Wellness Examinationcounseling referral helpgray jeep-fever, dizziness, vomitingRefillsnotewellness, discuss mental health, [facility] - Wellness Examination2 month Follow upRefillsRefillslab resultswellness, [facility] - Mammo, [facility] - Wellness ExaminationWegovyrescheduling wellnessUpdate Kiosk DemographicsSilver Jeep-[SELF-PAY] URI/blood in urine at [facility] onboarding on linicalreschedulingWellness for PillarsRefills Care Teams (unrecognized sec tion and content) Team Status: Inactive Member Role Status Dates Esther Milton , Primary Care Provider, Attending Provider Active Team Status: Active Member Role Status Dates Esther Milton , Primary Care Provider Active Team Status: Inactive Member Role Status Dates Esther Milton , Primary Care Provider Active Dalton Orr , DO [facility] Attending Provider Active Goals (unrecognized section [...] BE BASED ON THE PRIMARY CLINICAL RECORDS. [employer] provides no warranty or guarantee of the accuracy or completeness of information in this document.
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
[2023-11-08 16:49] VITALS: O2SAT 98
[2023-11-08] MEDS: LORAZEPAM 1 MG TABLET PO (17:06)
[2023-11-08 17:35] VITALS: BP 141/69; PULSE 80; O2SAT 97
== END 2023-11-08 18:09 | disposition home or self-care (01) ==
PROVIDERS: Emergency Provider Emergency Medicine; PCP Student in an Organized Health Care Education/Training Program
DX: F41.8 Other specified anxiety disorders (principal)
CPT/HCPCS: 99283

== ENCOUNTER 2024-08-27 16:13 | Emergency (ER) | payer BC, SELFPAY ==
[2024-08-27 16:18] VITALS: BP 142/78; PULSE 84; TEMP 36.4; O2SAT 97; BMI 47.2
--- OUTSIDE RECORDS SUMMARY | 2024-08-27 16:20 | XMS_ITS | CCD ---
Author Organization [facility] Care Team Providers Care Naturalization Examiner Name Role Phone ANNIKA, KEISHA Admitting Unavailable ANNIKA, KEISHA Attending Unavailable ESTHER MILTON Primary Care Unavailable ALL GUDINO Consulting Unavailable ANNIKA, KEISHA Consulting Unavailable DAWN COHEN Admitting Unavailable DAWN COHEN Attending Unavailable DAWN COHEN Consulting Unavailable MILTON, ESTHER Primary Care Unavailable ANNIKA, KEISHA Admitting Unavailable ANNIKA, KEISHA Attending Unavailable MENDEZ KANG Consulting Unavailable Robert Chinchilla Consulting Unavailable MILTONESTHER Primary Care Unavailable ROSAURA ARTHUR Admitting Unavailabl e ROSAURA ARTHUR Attending Unavailabl e SANDHYA, ROSAURA Consulting Unavailabl e Chico Gandhi Consulting Unavailable DAWN COHEN Admitting Unavailable DAWN COHEN Attending Unavailable MILTONESTHER Primary Care Unavailable DAWN COHEN Consulting Unavailable Esther Milton Unavailable Maggie Harper Unavailable DO Esther Milton Primary Care Provider DO Esther Milton Attending Provider DO Abby Miltone Kenneth Primary Care Provider [phone] DO Dalton Orr Attending Provider [phone] Alyssia Madden Unavailable CARRI ORO Referring Unavailable BRENDA, GENOVEVA Primary Care Unavailable BRENDA, GENOVEVA Primary Care Unavailable DEREK OBRIEN Attending Unavailable DEREK OBRIEN Referring Unavailable BRENDA, GENOVEVA Primary Care Unavailable DEREK OBRIEN Attending Unavailable DEREK OBRIEN Referring Unavailable Brenda , IBCLC, Genoveva Primary Care Provid er Esther Milton Primary Care Unavailable Bruno Kay Attending Unavailab Bruno Awad Admitting Unavailab pratima Gutierrez MD, Genoveva Primary Care Provider [phone] Esther Milton DO Primary Care Provider Mounika De Souza APRN Attending Provider [phone] GENOVEVA GUTIERREZ Attending Unavailable BRENDAGENOVEVA YEE Attending Unavailable GENOVEVA GUTIERREZ Attending Unavailable Allergies Allergy Classification Reported Allergen(s) Allergy Type Date of Onset Reaction(s) Facility (20 sources) Acetaminophen / HYDROcodone Drug Allergy 10-08-19 16 Unknown, mood changes [facility] (1 source) Acetaminophen / oxyCODONE Drug Allergy 10-08-19 16 [facility] (5 sources) Morphine Drug Allergy 10-08-19 16 Unknown Reaction, Unknown Reaction, mood changes [facility] (19 sources) Acetaminophen / oxyCODONE Drug Allergy changes in personality [facility] [employer] Other (20 sources) Codeine Drug Allergy 09-02-19 24 behaivioral issues, violent behavior [facility] (20 sources) Estrogens, Conjugated (RETIREMENT) Drug Allergy 06-03-19 24 Other (See Comments) [employer] Other (20 sources) Morphine Drug Allergy 09-09-19 20 Unknown, Other (See Comments) [employer] Other (6 sources) Acetaminophen; Translations: [acetaminophen] Drug Allergy 09-09-19 20 Other (See Comments) [facility] (13 sources) HYDROcodone; Translations: [hydrocodone] Drug Allergy 09-09-[address] [facility] (14 sources) oxyCODONE; Translations: [oxycodone] Drug Allergy 09-09-19 20 Unknown, Other (See Comments) [facility] (4 sources) Morphine Drug Allergy mood changes [facility] [employer] Other (9 sources) Acetaminophen / HYDROcodone Drug Allergy 06-03-19 24 Unknown, Other (See Comments) [facility] (8 sources) Conjugated Estrogens Allergy to substance 06-03-19 Unknown [facility] Healthcare (1 source) Codeine Drug Allergy 11-22-19 [facility]ository (3 sources) Estrogens, Conjugated (RETIREMENT) Drug Allergy 11-22-[address] [facility] (1 source) Morphine Drug Allergy 11-22-19 [facility] Medications Current Medications Medication Drug Class(es) Dates Sig (Normalized) Sig (Original) 0.5 ML semaglutide 0.5 MG/ML Auto-Injector [Wegovy] (8 sources) Start: 02-05-2022 inject 0.25 mg by subcutaneous injection every week Wegovy 0.25 MG/0.5ML 0.25 mg Subcutaneous weekly for 30 day(s) Jan, Active hydrOXYzine hydrochloride 25 mg oral tablet (5 sources) Antihistamine Start: 08-17-2024 End: 09-16-2024 take 2 tablets by mouth every eight hours hydrOXYzine HCl (Atarax) 25 MG tablet Indications: Poison kar dermatitis Take 2 tablets (50 mg) by mouth every 8 (eight) hours if needed for itching 30 tablet 08/17/2024 09/16/2024 Active Start: 08-13-2024 End: 08-17-2024 take 1 tablet by mouth four times daily as needed hydrOXYzine HCl (Atarax) 25 MG tablet TAKE 1 TABLET BY MOUTH FOUR TIMES DAILY NEEDED FOR ITCHING FOR 5 DAYS 08/13/2024 08/17/2024 Discontinued (Reorder) Ozempic (0.25 or 0.5 MG/DOSE) 2 MG/1.5ML (5 sources) Start: 02-18-2022 Ozempic (0.25 or 0.5 MG/DOSE) 2 MG/1.5ML 0.25 mg Subcutaneous weekly for 30 days Feb, Active predniSONE 10 mg oral tablet (6 sources) Start: 08-17-2024 End: 08-29-2024 take 6 tablets by mouth once daily, then take 5 tablets by mouth once daily, then take 4 tablets by mouth once daily, then take 3 tablets by mouth once daily, then take 2 tablets by mouth once daily, then take 1 tablet by mouth once daily predniSONE (Deltasone) 10 MG tablet Indications: Poison kar dermatitis Take 6 tablets (60 mg) by mouth Daily for 2 days, THEN 5 tablets (50 mg) Daily for 2 days, THEN 4 tablets (40 mg) Daily for 2 days, THEN 3 tablets (30 mg) Daily for 2 days, THEN 2 tablets (20 mg) Daily for 2 days, THEN 1 tablet (10 mg) Daily for 2 days. 42 tablet 08/17/2024 08/29/2024 Active Start: 05-16-2024 End: 08-13-2024 take 1 tablet by mouth twice daily Prednisone 20 mg tablet Discontinued 20 MG PO Twice daily 11 13May 16, 2024 12:00am August 13, 2024 9:27am Start: 11-19-2020 prednisone 20 MG as directed with food Orally 3 tablets qday x 4 days, 2 tablets qday x 4 days, 1 tablet qday x4 days for 12 days Nov, Active promethazine hydrochloride 25 mg oral tablet (2 sources) Phenothiazine Start: 09-08-2023 End: 10-08-2023 take 1 tablet by mouth every six hours for nausea promethazine (Phenergan) 25 MG tablet Indications: RUQ pain Take 1 tablet (25 mg) by mouth every 6 (six) hours if needed for nausea or vomiting 30 tablet 09/08/2023 10/08/2023 Active 0.25 mg, 0.5 mg dose 1.5 ml semaglutide 1.34 mg/ml pen injector (3 sources) Start: 02-18-2022 Ozempic (0.25 or 0.5 MG/DOSE) 2 MG/1.5ML 0.25 mg Subcutaneous weekly for 30 days Feb, Active sucralfate 1000 mg oral tablet (11 sources) Aluminum Complex Start: 09-08-2023 End: 03-28-2024 take 1 tablet by mouth every six hours sucralfate (Carafate) 1 g tablet Indications: RUQ pain , Generalized postprandial abdominal pain TAKE 1 TABLET (1 G) BY MOUTH EVERY 6 (SIX) HOURS 360 tablet 1 09/30/2023 03/28/2024 Active Start: 09-09-2019 End: 05-16-2024 Sucralfate (Carafate) 100 mg /mL suspension Discontinued 100 MG PO As Directed September 09, 2019 12:00am May 16, 2024 4:17pm SUMAtriptan 50 mg oral tablet (2 sources) [...] Drug Class(es) Dates Sig (Normalized) Sig (Original) amoxicillin 875 mg / clavulanate 125 mg oral tablet (1 source) Penicillin-class Antibacterial Start: 05-16-2024 End: 08-13-2024 take 1 tablet by mouth twice daily Amoxicillin-Pot Clavulanate 875-125 mg tablet Discontinued 1 TAB PO Twice daily 28 11May 16, 2024 12:00am August 13, 2024 9:26am ARIPiprazole 2 mg oral tablet (20 sources) Atypical Antipsychotic Start: 04-22-2023 End: 08-17-2024 take 1 tablet by mouth once daily as needed ARIPiprazole (Abilify) 2 MG tablet TAKE 1 TABLET BY MOUTH ONCE A DAY NEEDED 04/22/2023 08/17/2024 Discontinued (Med list cleanup) Start: 11-14-2020 take 1 tablet by zenon th every twenty-four hours Abilify 5 MG 1 tablet Orally Once a day for 30 day(s) Nov, Active take 1 tablet by zenon th once daily as needed ARIPiprazole 2 MG TAKE 1 TABLET BY MOUTH as needed Orally Once a day for 90 days Active cyclobenzaprine hydrochloride 10 mg oral tablet (8 sources) Muscle Relaxant End: 08-17-2024 take 5 mg by mouth three times daily as needed for muscle spasms cyclobenzaprine (Flexeril) 10 MG tablet Take 5 mg by mouth 3 (three) times a day as needed for muscle spasms 08/17/2024 Discontinued ergocalciferol 1.25 mg oral capsule (10 sources) Provitamin D2 Compound Start: 09-02-2023 End: 08-17-2024 take 1 capsule by mouth every week ergocalciferol (Vitamin D2) 1.25 MG (28525 UT) capsule Indications: Vitamin D deficiency TAKE 1 CAPSULE BY MOUTH ONE TIME PER WEEK 12 capsule 1 10/30/2023 08/17/2024 Discontinued ibuprofen 800 mg oral tablet (20 sources) Nonsteroidal Anti-inflammatory Drug Start: 09-09-2019 End: 08-17-2024 take 1 tablet by mouth every eight hours as needed for pain ibuprofen 800 MG tablet Indications: Other migraine without status migrainosus, not intractable TAKE 1 TABLET BY MOUTH EVERY 8 HOURS NEEDED FOR MILD PAIN. 90 tablet 01/19/2024 08/17/2024 Discontinued (Reorder) Start: 09-09-2019 Ibuprofen Acti ve 800 MG PO As Directed September 08, 2019 11:00pm LORazepam 0.5 mg oral tablet (20 sources) Benzodiazepine Start: 11-19-2022 take 1 tablet by mouth once daily as needed Ativan 0.5 MG 1 tablet Orally daily as needed for 30 days Nov, Active Start: 02-05-2022 take 1 tablet by zenon once daily [...] for 30 days Nov, Active Start: 09-09-2019 End: 08-17-2024 take 1 tablet by mouth every six hours for anxiety LORazepam (Ativan) 0.5 MG tablet Indications: Generalized anxiety disorder Take 1 tablet (0.5 mg) by mouth every 6 (six) hours if needed for anxiety for up to 10 days 30 tablet 11/03/2023 08/17/2024 Discontinued Start: 09-09-2019 End: 05-16-2024 take 1 tablet by mouth twice daily as needed for anxiety Lorazepam (Ativan) 0.5 mg Tablet Discontinued 0.5 MG PO Twice daily as needed for Anxiety September 09, 2019 12:00am May 16, 2024 4:17pm methylPREDNISolone (3 sources) Corticosteroid Start: 08-13-2024 End: 08-17-2024 methylPREDNISolone (Medrol Dospak) 4 MG tablets TAKE 6 TABLETS ON DAY 1 DIRECTED ON PACKAGE AND DECREASE BY 1 TAB EACH DAY FOR A TOTAL OF 6 DAYS 08/13/2024 08/17/2024 Discontinued Start: 08-13-2024 take 1 tablet by mouth once Me thylprednisolone (Medrol (Geovany)) 4 mg tablets,dose pack Active 0 PO per package directions August 13, 2024 12:00am PO PER PKG DIR Complies with drug therapy omeprazole 40 mg delayed release oral capsule (6 sources) Proton Pump Inhibitor Start: 09-09-2019 End: 05-16-2024 take 1 capsule by mouth once daily Omeprazole 40 mg Capsule,Delayed Release(Dr/Ec) Discontinued 40 MG PO Daily September 09, 2019 12:00am May 16, 2024 4:17pm End: 08-17-2024 omeprazole OTC (PriLOSEC OTC ) 20 MG EC tablet 1 capsule 1 (one) time each day at the same time 08/17/2024 Discontinued pantoprazole 40 mg delayed release oral tablet (9 sources) Proton Pump Inhibitor Start: 09-09-2023 End: 09-08-2024 take 1 tablet by mouth before mealtime pantoprazole (ProtoNix) 40 MG EC tablet Indications: RUQ pain , LUQ abdominal pain , Nausea and vomiting, unspecified vomiting type Take 1 tablet (40 mg) by mouth in the morning. Take before meals. Do not crush, chew, or split.. 90 tablet 3 09/09/2023 08/17/2024 Discontinued sincalide (KINEVAC) 2.31 mcg in sodium chloride 0.9 % 100 mL infusion (1 source) Start: 09-25-2023 End: 09-25-2023 2.31 mcg (rounded from 2.314 mcg = 0.02 mcg/kg 115.7 kg), IntraVENous, at 100 mL/hr, Administer over 60 Minutes, ONCE, On Thu09/25/23 at 0900, For 1 dose technetium mebrofenin (CHOLETEC) injection 5 millicurie (1 source) Start: 09-25-2023 End: 09-25-2023 5 millicurie, IntraVENous, IMG ONCE PRN, 1 dose, Starting on Thu09/25/23 at 0832, Until Thu09/25/23 at 0909, Other Triamcinolone (20 sources) Corticosteroid Start: 06-08-2018 Kenalog -40 mg May, 40 mg Start: 04-06-2018 Kenalog -40 mg Mar, 40 mg Problems Active Problems Problem Classification Problem Date Documented Da te Episodic/Chronic Abdominal pain (20 sources) Unspecified abdominal pain; Translations: [Abdominal pain] Onset: 09-19-2019 09-30-2023 Episodic Allergic reactions (4 sources) Contact dermatitis due to poison kar; Translations: [Allergic contact dermatitis due to plants, except food] 08-13-2024 Episodic Anxiety disorders (20 sources) Anxiety; Translations: [Anxiety disorder, unspecified] Onset: 11-14-2020 Resolved: 05-20-2021 Chronic Cancer of other female genital organs (2 sources) 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; Translations: [Carcinoma in situ of unspecified female genital organs] 05-16-2024 Chronic Conditions associated with dizziness or vertigo (20 sources) Benign paroxysmal positional vertigo; Translations: [Benign paroxysmal vertigo, unspecified ear] 05-16-2024 Episodic Disorders of lipid metabolism (20 sources) Hyperlipidemia; Translations: [Hyperlipidemia, unspecified] Onset: 11-14-2020 Resolved: 11-14-2020 Chronic Esophageal disorders (20 sources) Gastro-esophageal reflux disease without esophagitis; Translations: [Gastroesophageal reflux disease] Onset: 10-02-2019 Chronic Fever of unknown origin (1 source) Fever, unspecified; Translations: [FEVER UNSPECIFIED] Onset: 09-21-2019 Episodic Genitourinary symptoms and ill-defined conditions (1 source) Hematuria, unspecified Episodic Headache; including migraine (20 sources) Migraine; Translations: [Migraine, unspecified, not intractable, without status migrainosus] Onset: 04-12-2021 Resolved: 04-12-2021 Chronic Miscellaneous mental health disorders (19 sources) Globus sensation; Translations: [Other somatoform disorders] Chronic Mood disorders (20 sources) Bipolar disorder; Translations: [Bipolar disorder, unspecified] Onset: 11-14-2020 Resolved: 04-12-2021 Chronic Nausea and vomiting (2 sources) Nausea; Translations: [Nausea with vomiting, unspecified] Onset: 09-20-2019 Episodic Noninfectious gastroenteritis (3 sources) Noninfective gastroenteritis and colitis, unspecified; Translations: [Colitis] Onset: 08-25-2019 05-16-2024 Episodic Nutritional deficiencies (1 source) Vitamin D deficiency; Translations: [Vitamin D deficiency, unspecified] 10-29-2023 Chronic Other gastrointestinal disorders (20 sources) Irritable bowel syndrome with diarrhea; Translations: [Irritable bowel syndrome with diarrhea] 05-16-2024 Chronic Other gastrointestinal disorders (6 sources) Diarrhea, unspecified; Translations: [DIARRHEA UNSPECIFIED] Onset: 09-09-2019 Episodic Other gastrointestinal disorders (19 sources) Diarrhea; Translations: [Diarrhea, unspecified] Episodic Other lower respiratory disease (18 sources) Cough; Translations: [Cough] Episodic Other nervous system disorders (19 sources) Carpal tunnel syndrome; Translations: [Carpal tunnel syndrome, left upper limb] Chronic Other nervous system disorders (20 sources) Carpal tunnel syndrome of left wrist; Translations: [Carpal tunnel syndrome, left upper limb] 05-16-2024 Chronic Other nervous system disorders (20 sources) Circadian rhythm sleep disorder of shift work type; Translations: [Circadian rhythm sleep disorder, shift work type] 05-16-2024 Chronic Other nutritional; endocrine; and metabolic disorders (9 sources) Body mass index 30+ - obesity; Translations: [Obesity, unspecified] Chronic Other nutritional; endocrine; and metabolic disorders (20 sources) Severe obesity; Translations: [Morbid (severe) obesity due to excess calories] Onset: 06-03-2023 06-03-2023 Chronic Other nutritional; endocrine; and metabolic disorders (20 sources) Body mass index 40+ - severely obese; Translations: [Body mass index (BMI) 40.0-44.9, adult] 05-16-2024 Chronic Other nutritional; endocrine; and metabolic disorders (9 sources) Obesity; Translations: [Obesity, unspecified] Chronic Other nutritional; endocrine; and metabolic disorders (2 sources) Obesity, unspecified; Translations: [Obesity] Chronic Other nutritional; endocrine; and metabolic disorders (1 source) Body mass index (BMI) 45.0-49.9, adult Chronic Other nutritional; endocrine; and metabolic disorders (2 sources) Obesity caused by energy imbalance; Translations: [Morbid (severe) obesity due to excess calories] 05-16-2024 Chronic Other nutritional; endocrine; and metabolic disorders (1 source) Abnormal weight loss; Translations: [Abnormal weight loss] Onset: 10-27-2023 Episodic Other screening for suspected conditions (not mental disorders or infectious disease) (5 sources) Encounter for screening mammogram for malignant neoplasm of breast; Translations: [Patient encounter status] Episodic Other skin disorders (20 sources) Skin lesion; Translations: [Disorder of the skin and subcutaneous tissue, unspecified] 05-16-2024 Episodic Other skin disorders (1 source) Eruption; Translations: [Rash and other nonspecific skin eruption] 08-13-2024 Episodic Other upper respiratory disease (2 sources) Feeling of lump in throat; Translations: [Globus sensation] 05-16-2024 Episodic Other upper respiratory infections (2 sources) Sinusitis; Translations: [Chronic sinusitis, unspecified] 05-16-2024 Chronic Residual codes; unclassified (20 sources) Reduced libido; Translations: [Decreased libido] 05-16-2024 Episodic Past or Other Problems Problem Classification Problem Date Documented Da te Episodic/Chronic Immunizations and screening for infectious disease (5 sources) Encounter for screening for other viral diseases; Translations: [Contact with and (suspected) exposure to other viral communicable diseases] Onset: 09-06-2019 Resolved: 11-16-2020 Episodic Other upper respiratory infections (1 source) Acute upper respiratory infection, unspecified Onset: 11-16-2020 Resolved: 11-16-2020 Episodic Unclassified (1 source) Cough R05.9 Results Test Name Value Interpretation Reference Range Facility Calprotectin, Fecalon 2023 Calprotectin, Fecal 62 ug/g High <=49 [facility] Comment on above: Result Comment: (NOT E) REFERENCE INTERVAL: Calprotectin, Fecal by Immunoassay Less than 50 ug/g.........Normal 50-120 ug/g...............Borderline elevated, test should be re-evaluated in 4-6 weeks. 121 ug/g or greater.......Elevated Performed By: [facility] [address] [place] [address] Cue Selector: Pankaj Corrales MD, PhD CLIA Number: [id number] Performed By: #### A CALPF #### [facility] [address] [place] [address] Molding Manager: Bravo Vasquez MD #### STLPCR #### [facility] [address] [place] [address] Molding Manager: Rashard Otero MD [facility] [address] [place] [address] Molding Manager: Jaime Chavez MD Stool PCR [place] 10-28-19 24 Campylobacter sp PCR NEGATIVE: No Campylobacter spp. (jejuni or coli) DNA Detected [facility] Comment on above: Performed By: #### A CALPF #### [facility] [address] [place] [address] Molding Manager: Bravo Vasquez MD #### STLPCR #### [facility] [address] [place] [address] Molding Manager: Rashard Otero MD [facility] [address] [place] [address] Molding Manager: Jaime Chavez MD E coli enterotox PCR NEGATIVE: No Enterotoxigenic E. coli (ETEC) Heat-labile and heat-stable (LT/ST) [facility] Comment on above: Result Comment: DNA Detected Performed By: #### A CALPF #### [facility] [address] [place] [address] Molding Manager: Bravo Vasquez MD #### STLPCR #### [facility] [address] [place] [address] Molding Manager: Rashard Otero MD [facility] [address] [place], [place] [id number] Molding Manager: Jaime Chavez MD Plesiomonas sp PCR Negative Normal PLEN[facility] Comment on above: Performed By: #### A CALPF #### [facility] [address] [place] [address] Molding Manager: Bravo Vasquez MD #### STLPCR #### [facility] [address] [place] [id number] Molding Manager: Rashard Otero MD [facility] [address] [place] [address] Molding Manager: Jaime Chavez MD Salmonella sp PCR Negative [facility] Comment on above: Performed By: #### A CALPF #### [facility] [address] [place] [address] Molding Manager: Bravo Vasquez MD #### STLPCR #### [facility] [address] [place] [id number] Molding Manager: Rashard Otero MD [facility] [address] [place] [address] Molding Manager: Jaime Chavez MD Shigatoxin gene PCR Negative Normal [facility] Comment on above: Performed By: #### A CALPF #### [facility] [address] [place] [address] Molding Manager: Bravo Vasquez MD #### STLPCR #### [facility] [address] [place] [id number] Molding Manager: Rashard Otero MD [facility] [address] [place] [address] Molding Manager: Jaime Chavez MD Shigella sp PCR Negative Normal [facility] Comment on above: Performed By: #### A CALPF #### [facility] [address] [place] [address] Molding Manager: Bravo Vasquez MD #### STLPCR #### [facility] [address] [place] [address] Molding Manager: Rashard Otero MD [facility] [address] [place] [address] Molding Manager: Jaime Chavez MD Vibrio sp PCR NEGATIVE: No Vibrio (V. vulnificus, V, parahaemolyticus and V. cholerae) DNA Normal VIBNEG [facility] Comment on above: Result Comment: Dete cted Performed By: #### A CALPF #### [facility] [address] [place] [address] Molding Manager: Bravo Vasquez MD #### STLPCR #### [facility] [address] [place] [address] Molding Manager: Rashard Otero MD [facility] [address] [place] [address] Molding Manager: Jaime Chavez MD Yersinia gene PCR Negative Normal [facility]ERNE[facility] Comment on above: Performed By: #### A CALPF #### [facility] [address] [place] [address] Molding Manager: Bravo Vasquez MD #### STLPCR #### [facility] [address] [place] [id number] Molding Manager: Rashard Otero MD [facility] [address] [place] [address] Molding Manager: Jaime Chavez MD C-Reactive Proteinon 024 CRP [Mass/Vol] 5.1 mg/L High 0.0-5.0 [facility] Comment on above: Performed By: #### C DP, CP, CRP, TSH #### [facility] [address] [place], [place] [id number] Molding Manager: Jaime Chavez MD CBC with Diffon 10-27-2023 Abs. Basophil 0.05 k/uL Normal 0.00-0.20 [facility] Comment on above: Performed By: #### C DP, CP, CRP, TSH #### [facility] [address] [place] [id number] Molding Manager: Jaime Chavez MD Abs.Imm.Granulocyte 0.01 k/uL Normal 0.00-0.30 [facility] Comment on above: Performed By: #### C DP, CP, CRP, TSH #### [facility] [address] [place] [id number] Molding Manager: Jaime Chavez MD Abs.Neutrophil (Seg) 4.21 k/uL Normal 2.5-7.0 [facility] Comment on above: Performed By: #### C DP, CP, CRP, TSH #### [facility] [address] [place] [address] Molding Manager: Jaime Chavez MD Basophils/100 WBC (Bld) 1 % Normal 0-2 [facility] Comment on above: Performed By: #### C DP, CP, CRP, TSH #### [facility] [address] [place] [id number] Molding Manager: Jaime Chavez MD Eosinophils (Bld) [#/Vol] 0.12 10*3/uL Normal 0.00-0.40 [facility] Comment on above: Performed By: #### C DP, CP, CRP, TSH #### [facility] [address] [place] [id number] Molding Manager: Jaime Chavez MD Eosinophils/100 WBC (Bld) 2 % Normal 0-5 [facility] Comment on above: Performed By: #### C DP, CP, CRP, TSH #### [facility] [address] [place] [id number] Molding Manager: Jaime Chavez MD Erythrocyte distribution width (RBC) [Ratio] 12.9 % Normal 12.1-15.2 [facility] Comment on above: Performed By: #### C DP, CP, CRP, TSH #### [facility] [address] [place] [address] Molding Manager: Jaime Chavez MD Hematocrit (Bld) [Volume fraction] 44.3 % Normal 36.0-46.0 [facility] Comment on above: Performed By: #### C DP, CP, CRP, TSH #### [facility] [address] [place] [id number] Molding Manager: Jaime Chavez MD Hemoglobin (Bld) [Mass/Vol] 14.4 g/dL Normal 12.0-16.0 [facility] Comment on above: Performed By: #### C DP, CP, CRP, TSH #### [facility] [address] [phone] Molding Manager: Jaime Chavez MD Immature granulocytes/100 WBC (Bld) 0 % Normal 0-5 [facility] Comment on above: Performed By: #### C DP, CP, CRP, TSH #### [facility] [address] [place] [address] Molding Manager: Jaime Chavez MD Lymphocytes (Bld) [#/Vol] 1.94 10*3/uL Normal 1.00-4.80 [facility] Comment on above: Performed By: #### C DP, CP, CRP, TSH #### [facility] [address] [place] [address] Molding Manager: Jaime Chavez MD Lymphocytes/100 WBC (Bld) 28 % Normal 15-40 [facility] Comment on above: Performed By: #### C DP, CP, CRP, TSH #### [facility] [address] [phone] Molding Manager: Jaime Chavez MD MCH (RBC) [Entitic mass] 28.5 pg Normal 26.0-34.0 [facility] Comment on above: Performed By: #### C DP, CP, CRP, TSH #### [facility] [address] [place] [address] Molding Manager: Jaime Chavez MD MCHC (RBC) [Mass/Vol] 32.5 g/dL Normal 31.0-37.0 [facility] Comment on above: Performed By: #### C DP, CP, CRP, TSH #### [facility] [address] [place] [address] Molding Manager: Jaime Chavez MD MCV (RBC) [Entitic vol] 87.5 fL Normal 80.0-100.0 [facility] Comment on above: Performed By: #### C DP, CP, CRP, TSH #### [facility] [address] [phone] Molding Manager: Jaime Chavez MD Monocytes (Bld) [#/Vol] 0.61 10*3/uL Normal 0.00-1.00 [facility] Comment on above: Performed By: #### C DP, CP, CRP, TSH #### [facility] [address] [place] [address] Molding Manager: Jaime Chavez MD Monocytes/100 WBC (Bld) 9 % High 4-8 [facility] Comment on above: Performed By: #### C DP, CP, CRP, TSH #### [facility] [address] [place] [address] Molding Manager: Jaime Chavez MD Neutrophil (Seg) 60 % Normal 47-75 [facility] Comment on above: Performed By: #### C DP, CP, CRP, TSH #### [facility] [address] [place] [address] Molding Manager: Jaime Chavez MD Platelet mean volume (Bld) [Entitic vol] 9.3 fL Normal 6.0-12.0 [facility] Comment on above: Performed By: #### C DP, CP, CRP, TSH #### [facility] [address] [place], [place] [phone] Molding Manager: Jaime Chavez MD Platelets (Bld) [#/Vol] 347 10*3/uL Normal 140-450 [facility] Comment on above: Performed By: #### C DP, CP, CRP, TSH #### [facility] [address] [place], [place] [phone] Molding Manager: Jaime Chavez MD RBC (Bld) [#/Vol] 5.06 10*6/uL Normal 4.00-5.20 [facility] Comment on above: Performed By: #### C DP, CP, CRP, TSH #### [facility] [address] [place], [place] [phone] Molding Manager: Jaime Chavez MD WBC (Bld) [#/Vol] 6.9 10*3/uL Normal 3.5-11.0 [facility] Comment on above: Performed By: #### C DP, CP, CRP, TSH #### [facility] [address] [place], [place] [phone] Molding Manager: Jaime Chavez MD Comp Metabolic Profon 2023 Albumin [Mass/Vol] 4.1 g/dL Normal 3.5-5.2 [facility] Comment on above: Performed By: #### C DP, CP, CRP, TSH #### [facility] [address] [place], [place] [phone] Molding Manager: Jaime Chavez MD Alkaline Phos 89 U/L Normal 35-104 [facility] Comment on above: Performed By: #### C DP, CP, CRP, TSH #### [facility] [address] [place], [place] [phone] Molding Manager: Jaime Chavez MD ALT [Catalytic activity/Vol] 17 U/L Normal 5-33 [facility] Comment on above: Performed By: #### C DP, CP, CRP, TSH #### [facility] [address] [place], [place] [phone] Molding Manager: Jaime Chavez MD Anion gap [Moles/Vol] 11 mmol/L Normal 9-17 [facility] Comment on above: Performed By: #### C DP, CP, CRP, TSH #### [facility] [address] [phone] Molding Manager: aJime Chavez MD AST [Catalytic activity/Vol] 13 U/L Normal <32 [facility] Comment on above: Performed By: #### C DP, CP, CRP, TSH #### [facility] [address] [phone] Molding Manager: Jaime Chavez MD Bilirubin [Mass/Vol] 0.4 mg/dL Normal 0.3-1.2 [facility] Comment on above: Performed By: #### C DP, CP, CRP, TSH #### [facility] [address] [phone] Molding Manager: Jaime Chavez MD BUN/CRE Ratio 14 Normal 9-20 [facility] Comment on above: Performed By: #### C DP, CP, CRP, TSH #### [facility] [address] [phone] Molding Manager: Jaime Chavez MD Calcium [Mass/Vol] 9.8 mg/dL Normal 8.6-10.4 [facility] Comment on above: Performed By: #### C DP, CP, CRP, TSH #### [facility] [address] [place], [place] [phone] Molding Manager: Jaime Chavez MD Chloride [Moles/Vol] 103 mmol/L Normal 98-107 [facility] Comment on above: Performed By: #### C DP, CP, CRP, TSH #### [facility] [address] [place], [place] [phone] Molding Manager: Jaime Chavez MD CO2 [Moles/Vol] 27 mmol/L Normal 20-31 [facility] Comment on above: Performed By: #### C DP, CP, CRP, TSH #### [facility] [address] [place], [place] [phone] Molding Manager: Jaime Chavez MD Creatinine [Mass/Vol] 0.9 mg/dL Normal 0.5-0.9 [facility] Comment on above: Performed By: #### C DP, CP, CRP, TSH #### [facility] [address] [place], [place] [phone] Molding Manager: Jaime Chavez MD GFR/1.73 sq M.predicted among non-blacks MDRD (S/P/Bld) [Vol rate/Area] 80 mL/min/{1.73_m2} Normal >60 [facility] Comment on above: Result Comment: These [...] #### C DP, CP, CRP, TSH #### [facility] [address] [place], [place] [phone] Molding Manager: Jaime Chavez MD Glucose [Mass/Vol] 91 mg/dL Normal 70-99 [facility] Comment on above: Performed By: #### C DP, CP, CRP, TSH #### [facility] [address] [place], [place] [phone] Molding Manager: Jaime Chavez MD Potassium [Moles/Vol] 3.9 mmol/L Normal 3.7-5.3 [facility] Comment on above: Performed By: #### C DP, CP, CRP, TSH #### [facility] [address] [place], [place] [phone] Molding Manager: Jaime Chavez MD Protein [Mass/Vol] 7.2 g/dL Normal 6.4-8.3 [facility] Comment on above: Performed By: #### C DP, CP, CRP, TSH #### [facility] [address] [place], [place] [phone] Molding Manager: Jaime Chavez MD Sodium [Moles/Vol] 141 mmol/L Normal 135-144 [facility] Comment on above: Performed By: #### C DP, CP, CRP, TSH #### [facility] [address] [place], [place] [phone] Molding Manager: Jaime Chavez MD Urea nitrogen [Mass/Vol] 13 mg/dL Normal 6-20 [facility] Comment on above: Performed By: #### C DP, CP, CRP, TSH #### [facility] [address] [place], [place] [phone] Molding Manager: Jaime Chavez MD Fecal Lactoferrinon 10-27-19 24 Fecal Lactoferrin POSITIVE for fecal lactoferrin, a marker for fecal leukocytes and an indicator Abnormal NFLACT [facility] Comment on above: Result Comment: of i ntestinal inflammation. Performed By: #### F LACT #### [facility] [address] [place] [address] [id number] Molding Manager: Rashard Otero MD Stool PCR Batteryon 10-27-19 24 Specimen Description .FECES Normal [facility] Comment on above: Performed By: #### A CALPF #### [facility] [address] [place] [address] Molding Manager: Bravo Vasquez MD #### STLPCR #### [facility] [place] [address] Molding Manager: Rashard Otero MD [facility] [address] [place] [address] Molding Manager: Jaime Chavez MD Thyroid Stim. Horm.on 2023 Thyroid Stim. Horm. 1.51 uIU/mL Normal 0.30-5.00 [facility] Comment on above: Performed By: #### C DP, CP, CRP, TSH #### [facility] [address] [place] [phone] Molding Manager: Jaime Chavez MD US GALLBLADDER RUQon 024 [...] Jaime Rueda MD 10/27/23 Final result Normal [facility] NM Gallbladder Views W elodia cystokinin and W radionuclide Wendie 09-25-2023 1. Gallbladder ejection fraction is low at 32%. In the proper clinical setting, this is consistent with functional gallbladder disorder. 2. No acute cholecystitis. [facility] RIS CONSOLIDATED EXAMINATION: NUCLEAR MEDICINE HEPATOBILIARY SCINTIGRAPHY (HIDA SCAN) [...] et al. Clinical Gastroenterology and Hepatology June 2010-384 COMPARISON: None available HISTORY: ORDERING SYSTEM PROVIDED [...] CCK protocol. Patient-reported symptoms during CCK infusion:None [facility] Anthony Tanner MD - 09/25/2023 EXAMINATION: NUCLEAR MEDICINE HEPATOBILIARY SCINTIGRAPHY (HIDA SCAN) [...] et al. Clinical Gastroenterology and Hepatology June 2010-384 COMPARISON: None available HISTORY: ORDERING SYSTEM PROVIDED [...] functional gallbladder disorder. 2. No acute cholecystitis. [facility] [employer] [facility]USCrowdBouncer [facility] Radiology Study observation (narrative) [facility] NM Gallbladder Views W elodia cystokinin and W radionuclide IVOrdered By: Anthony Chris on 09-25-2023 [facility] [employer] [facility] CAMPUSBoomtown! Work Phone: NM HEPATOBILIARY SCAN W PHAR MACOLOGICAL INTERVENTIONon [...] Anthony Chris MD 09/25/23 Final result Normal [facility] Dipstick & Microscopic No rt [employer] Other Urinalysis - AUTOMATEDon Appearance (U) clear [employer] Other Bilirubin Ql (U) Negative [employer] Other Color (U) yellow [employer] Other Glucose Ql (U) Negative [employer] Other Hemoglobin Ql (U) small [employer] Other Ketones Ql (U) Negative [employer] Other Leukocyte esterase Test strip Ql (U) Negative [employer] Other Nitrite Ql (U) Negative [employer] Other pH (U) 7.0 [pH] [employer] Other Protein Ql (U) Negative [employer] Other Specific gravity (U) [Rel density] 1.010 [place] [employer] Other Urobilinogen (U) [Mass/Vol] 0.2 mg/dL [facility] [employer] Other Urinalysis - AUTOMATED No [facility]Her[facility] [employer] Other Urine Cultureon 10-29-2022 Bacteria identified Cx Nom (U) [facility] [employer] Other Alanine aminotransferase [En zymatic activity/volume] in Serum or PlasmaOrdered By: Dalton Orr on 10-23-2022 ALT [Catalytic activity/Vol] 26 U/L 7-52 [facility] Albumin [Mass/volume] in Ser um or Plasma by Bromocresol green (BCG) dye binding methoOrdered By: Dalton Orr on 10-23-2022 Albumin BCG dye [Mass/Vol] 4.5 g/dL 3.5-5.7 [facility] Alkaline phosphatase [Enzyma tic activity/volume] in Serum or PlasmaOrdered By: Dalton Orr on 10-23-2022 ALP [Catalytic activity/Vol] 73 U/L 34-104 [facility] Aspartate aminotransferase [ Enzymatic activity/volume] in Serum or PlasmaOrdered By: Dalton Orr on 10-23-2022 AST [Catalytic activity/Vol] 19 U/L 13-39 [facility] Bilirubin.total [Mass/volume ] in Serum or PlasmaOrdered By: Dalton Orr on 10-23-2022 Bilirubin [Mass/Vol] 0.6 mg/dL 0.3-1.0 [facility] Calcium [Mass/volume] in Ser um or PlasmaOrdered By: Dalton Orr on 10-23-2022 Calcium [Mass/Vol] 9.7 mg/dL 8.6-10.3 [facility] Carbon dioxide, total [Moles /volume] in Serum or PlasmaOrdered By: Dalton Orr on 10-23-2022 CO2 [Moles/Vol] 27.0 mmol/L 21.0-31.0 [facility] Chloride [Moles/volume] in S bipin or PlasmaOrdered By: Dalton Orr on 10-23-2022 Chloride [Moles/Vol] 105 mmol/L 98-107 [facility] Cholesterol [Mass/volume] in Serum or PlasmaOrdered By: Dalton Orr on 10-23-2022 Cholesterol [Mass/Vol] 234 mg/dL 140-200 [facility] Comment on above: Chol less than 200 m g/dl low riskChol 201-239 mg/dl borderline riskChol 240 mg/dl and greater high risk Cholesterol in LDL Calc [Mas s/Vol]Ordered By: Dalton Orr on 10-23-2022 Cholesterol in LDL [Mass/Vol] 146 mg/dL 0-100 [facility] Comment on above: LDL ATP III CLASSIFI CATIONLDL less than 100 mg/dL OptimalLDL 100-129 mg/dL Near or above optimalLDL 130-159 mg/dL Borderline highLDL 160-189 mg/dL HighLDL greater than 189 mg/dL Very high Cholesterol in VLDL Calc [Ma ss/Vol]Ordered By: Dalton Orr on 10-23-2022 Cholesterol in VLDL [Mass/Vol] 30 mg/dL [facility] Creatinine [Mass/volume] in Serum or PlasmaOrdered By: Dalton Orr on 10-23-2022 Creatinine [Mass/Vol] 0.81 mg/dL 0.60-1.20 [facility] Globulin Calc (S) [Mass/Vol] Ordered By: Dalton Orr on 10-23-2022 Globulin (S) [Mass/Vol] 2.8 g/dL [facility] Glucose [Mass/volume] in Ser um or PlasmaOrdered By: Dalton Orr on 10-23-2022 Glucose [Mass/Vol] 79 mg/dL 70-100 [facility] No Panel InformationOrdered By: Dalton Orr on 10-23-2022 Estimated GFR (CKD-EPI) > 60.0 mL/Min [facility] Creatinine Clearance (Chem N/A [facility] Potassium [Moles/volume] in Serum or PlasmaOrdered By: Dalton Orr on 10-23-2022 Potassium [Moles/Vol] 4.6 mmol/L 3.5-5.1 [facility] Protein [Mass/volume] in Ser um or PlasmaOrdered By: Dalton Orr on 10-23-2022 Protein [Mass/Vol] 7.3 g/dL 6.4-8.9 [facility] Serum or plasma albumin/glob ulin mass ratioOrdered By: Dalton Orr on 10-23-2022 Albumin/Globulin [Mass ratio] 1.6 {ratio} [facility] Serum or plasma anion gap de terminationOrdered By: Dalton Orr on 10-23-2022 Anion gap [Moles/Vol] 13.6 mmol/L 6.0-15.0 [facility] Serum or plasma high density lipoprotein (HDL) cholesterol measurementOrdered By: Dalton Orr on 10-23-2022 Cholesterol in HDL [Mass/Vol] 58 mg/dL 23- [facility] Comment on above: HDL CHOL ATP-III CLA SSIFICATION Cardiovascular RiskHDL > or equal to 60 mg/dL LOWHDL < 40 mg/dL HIGH Serum or plasma total choles terol/high density lipoprotein (HDL) cholesterol mass ratOrdered By: Dalton Orr on 10-23-2022 Cholesterol.total/Elodia sterol in HDL [Mass ratio] 4.0 {ratio} <5.0 [facility] Sodium [Moles/volume] in Ser um or PlasmaOrdered By: Dalton Orr on 10-23-2022 Sodium [Moles/Vol] 141 mmol/L 136-145 [facility] Triglyceride [Mass/volume] i n Serum or PlasmaOrdered By: Dalton Orr on 10-23-2022 Triglyceride [Mass/Vol] 150 mg/dL 0-149 [facility] Comment on above: TRIG ATP III CLASSIF ICATIONTRIG less than 150 mg/dL NormalTRIG 150-199 mg/dL Borderline highTRIG 200-500 mg/dL High TRIG greater than 500 mg/dL Very highStandard traceable to the Center for Disease Conrtrol and Prevention (CDC) test method. Urea nitrogen [Mass/volume] in Serum or PlasmaOrdered By: Dalton Orr on 10-23-2022 Urea nitrogen [Mass/Vol] 9 mg/dL 7- [facility] Albumin [Mass/volume] in Ser um or PlasmaOrdered By: Esther Milton on 01-24-2022 Albumin [Mass/Vol] 3.8 g/dL 3.2-5.5 [facility] Basophils Auto (Bld) [#/Vol] Ordered By: Esther Milton on 01-24-2022 Basophils (Bld) [#/Vol] 0.1 10*3/uL 0.0-0.2 [facility] Basophils/100 WBC Auto (Bld) Ordered By: Esther Milton on 01-24-2022 Basophils/100 WBC (Bld) 0.7 % . [facility] Cholesterol [Mass/volume] in Serum or PlasmaOrdered By: Esther Milton on 01-24-2022 Cholesterol [Mass/Vol] 215 mg/dL 140-200 [facility] Comment on above: Chol less than 200 m g/dl low riskChol 201-239 mg/dl borderline riskChol 240 mg/dl and greater high risk Cholesterol in LDL Calc [Mas s/Vol]Ordered By: Esther Milton on 01-24-2022 Cholesterol in LDL [Mass/Vol] 131 mg/dL 0-100 [facility] Comment on above: LDL ATP III CLASSIFI CATIONLDL less than 100 mg/dL OptimalLDL 100-129 mg/dL Near or above optimalLDL 130-159 mg/dL Borderline highLDL 160-189 mg/dL HighLDL greater than 189 mg/dL Very high Cholesterol in VLDL Calc [Ma ss/Vol]Ordered By: Esther Milton on 01-24-2022 Cholesterol in VLDL [Mass/Vol] 30 mg/dL [facility] Creatinine and Glomerular fi ltration rate.predicted panel (S/P/Bld)Ordered By: Esther Milton on 01-24-2022 Creatinine [Mass/Vol] 0.85 mg/dL 0.44-1.03 [facility] Eosinophils Auto (Bld) [#/Vo l]Ordered By: Esther Milton on 01-24-2022 Eosinophils (Bld) [#/Vol] 0.2 10*3/uL 0.0-0.45 [facility] Eosinophils/100 WBC Auto (Bl d)Ordered By: Esther Milton on 01-24-2022 Eosinophils/100 WBC (Bld) 2.1 % . [facility] Erythrocyte distribution wid th Auto (RBC) [Ratio]Ordered By: Esther Milton on 01-24-2022 Erythrocyte distribution width (RBC) [Ratio] 13.5 % 11.9-15.3 [facility] Estimated glomerular filtrat ion rate (GFR) non- AmericanOrdered By: Esther Milton on 01-24-2022 GFR/1.73 sq M.predicted among non-blacks MDRD (S/P/Bld) [Vol rate/Area] > 60 mL/Min [facility] Globulin Calc (S) [Mass/Vol] Ordered By: Esther Milton on 01-24-2022 Globulin (S) [Mass/Vol] 2.8 g/dL [facility] Hematocrit Auto (Bld) [Volum e fraction]Ordered By: Esther Milton on 01-24-2022 Hematocrit (Bld) [Volume fraction] 41.8 % 34.0-46.4 [facility] Hemoglobin [Mass/volume] in BloodOrdered By: Esther Milton on 01-24-2022 Hemoglobin (Bld) [Mass/Vol] 13.6 g/dL 11.8-15.4 [facility] Leukocytes [#/volume] correc malika for nucleated erythrocytes in Blood by Automated counOrdered By: Esther Milton on 01-24-2022 WBC corrected for nucl RBC Auto (Bld) [#/Vol] 7.9 10*3/uL 3.8-11.6 [facility] Lymphocytes Auto (Bld) [#/Vo l]Ordered By: Esther Milton on 01-24-2022 Lymphocytes (Bld) [#/Vol] 2.3 10*3/uL 1.00-4.8 [facility] Lymphocytes/100 WBC Auto (Bl d)Ordered By: Esther Milton on 01-24-2022 Lymphocytes/100 WBC (Bld) 28.4 % . [facility] MCH Auto (RBC) [Entitic mass ]Ordered By: Esther Milton on 01-24-2022 MCH (RBC) [Entitic mass] 28.2 pg 24.7-34.3 [facility] MCHC Auto (RBC) [Mass/Vol]Or dered By: Esther Milton on 01-24-2022 MCHC (RBC) [Mass/Vol] 32.5 g/dL 32.0-35.0 [facility] MCV Auto (RBC) [Entitic vol] Ordered By: Esther Milton on 01-24-2022 MCV (RBC) [Entitic vol] 86.9 fL 80-100 [facility] Monocytes Auto (Bld) [#/Vol] Ordered By: Esther Milton on 01-24-2022 Monocytes (Bld) [#/Vol] 0.8 10*3/uL 0.0-0.8 [facility] Monocytes/100 WBC Auto (Bld) Ordered By: Esther Milton on 01-24-2022 Monocytes/100 WBC (Bld) 9.5 % . [facility] Neutrophils Auto (Bld) [#/Vo l]Ordered By: Esther Milton on 01-24-2022 Neutrophils (Bld) [#/Vol] 4.7 10*3/uL 1.8-7.7 [facility] Neutrophils/100 WBC Auto (Bl d)Ordered By: Esther Milton on 01-24-2022 Neutrophils/100 WBC (Bld) 59.3 % . [facility] No Panel InformationOrdered By: Esther Milton on 01-24-2022 Estimated GFR () > 60 mL/Min [facility] Comment on above: GFR estimated refere nce range: According to KDOQI guidelines, <60 ml/min/1.73m2 is sufficient to diagnose a patient with chronic kidney disease. Pharmacy Creatinine Clearance (Chem N/A [facility] Nucleated erythrocytes [Pres ence] in Blood by Automated countOrdered By: Esther Milton on 01-24-2022 Nucleated RBC Auto Ql (Bld) 0.1 /100{WBC} 0-0.5 [facility] Platelet mean volume Auto (B ld) [Entitic vol]Ordered By: Esther Milton on 01-24-2022 Platelet mean volume (Bld) [Entitic vol] 7.7 fL 6.3-10.7 [facility] Platelets Auto (Bld) [#/Vol] Ordered By: Esther Milton on 01-24-2022 Platelets (Bld) [#/Vol] 350 10*3/uL 150-450 [facility] Protein [Mass/volume] in Ser um or PlasmaOrdered By: Esther Milton on 01-24-2022 Protein [Mass/Vol] 6.6 g/dL 6.1-7.9 [facility] RBC Auto (Bld) [#/Vol]Ordere d By: Esther Milton on 01-24-2022 RBC (Bld) [#/Vol] 4.82 10*6/uL 3.60-5.00 [facility] Serum or plasma alanine yoon otransferase measurement without P-5'-P (enzymatic activiOrdered By: Esther Milton on 01-24-2022 ALT No additional P-5'-P [Catalytic activity/Vol] 25 U/L 1060 [facility] Serum or plasma albumin/glob ulin mass ratioOrdered By: Esther Milton on 01-24-2022 Albumin/Globulin [Mass ratio] 1.4 {ratio} [facility] Serum or plasma alkaline venancio sphatase measurement (enzymatic activity/volume)Ordered By: Esther Milton on 01-24-2022 ALP [Catalytic activity/Vol] 69 U/L 32-92 [facility] Serum or plasma anion gap de terminationOrdered By: Esther Milton on 01-24-2022 Anion gap [Moles/Vol] 12.6 mmol/L 6.0-15.0 [facility] Serum or plasma aspartate am inotransferase measurement (enzymatic activity/volume)Ordered By: Esther Milton on 01-24-2022 AST [Catalytic activity/Vol] 20 U/L 10-42 [facility] Serum or plasma calcium edward urement (mass/volume)Ordered By: Esther Milton on 01-24-2022 Calcium [Mass/Vol] 9.7 mg/dL 8.2-10.2 [facility] Serum or plasma chloride jacquelyn surement (moles/volume)Ordered By: Esther Milton on 01-24-2022 Chloride [Moles/Vol] 102 mmol/L 95-114 [facility] Serum or plasma glucose edward urement (mass/volume)Ordered By: Esther Milton on 01-24-2022 Glucose [Mass/Vol] 84 mg/dL 70-100 [facility] Comment on above: ADA recommended refe rence rangeRandom Glucose Reference Range is dependent on time and content of last meal. Glucose of more than 200 mg/dL in a nonstressed, ambulatory subject supports the diagnosis of Diabetes Mellitus. Serum or plasma high density lipoprotein (HDL) cholesterol measurementOrdered By: Esther Milton on 01-24-2022 Cholesterol in HDL [Mass/Vol] 54 mg/dL 35-85 [facility] Comment on above: HDL CHOL ATP-III CLA SSIFICATION Cardiovascular RiskHDL > or equal to 60 mg/dL LOWHDL < 40 mg/dL HIGH Serum or plasma potassium me asurement (moles/volume)Ordered By: Esther Milton on 01-24-2022 Potassium [Moles/Vol] 4.1 mmol/L 3.5-5.1 [facility] Serum or plasma sodium measu rement (moles/volume)Ordered By: Esther Milton on 01-24-2022 Sodium [Moles/Vol] 136 mmol/L 136-146 [facility] Serum or plasma total biliru bin measurement (mass/volume)Ordered By: Esther Milton on 01-24-2022 Bilirubin [Mass/Vol] 0.5 mg/dL 0.3-1.2 [facility] Serum or plasma total carbon dioxide measurement (moles/volume)Ordered By: Esther Milton on 01-24-2022 CO2 [Moles/Vol] 25.5 mmol/L 22.0-30.0 [facility] Serum or plasma total choles terol/high density lipoprotein (HDL) cholesterol mass ratOrdered By: Esther Milton on 01-24-2022 Cholesterol.total/Elodia sterol in HDL [Mass ratio] 4.0 {ratio} <5.0 [facility] Serum or plasma urea nitroge n measurement (mass/volume)Ordered By: Esther Milton on 01-24-2022 Urea nitrogen [Mass/Vol] 18 mg/dL 9-23 [facility] TSH DL <= 0.005 mIU/L QnOrde red By: Esther Milton on 01-24-2022 TSH Qn 2.26 m[IU]/L 0.45-5.33 [facility] Triglyceride [Mass/volume] i n Serum or PlasmaOrdered By: Esther Milton on 01-24-2022 Triglyceride [Mass/Vol] 151 mg/dL 35-149 [facility] Comment on above: TRIG ATP III CLASSIF ICATIONTRIG less than 150 mg/dL NormalTRIG 150-199 mg/dL Borderline highTRIG 200-500 mg/dL High TRIG greater than 500 mg/dL Very highStandard traceable to the Center for Disease Conrtrol and Prevention (CDC) test method. WBC Auto (Bld) [#/Vol]Ordere d By: Estherkristin Milton on 01-24-2022 WBC (Bld) [#/Vol] 7.9 10*3/uL 3.8-11.6 [facility] A1C with Estimated Average G luon 11-20-2020 HbA1c (Bld) [Mass fraction] 5.3 % 4.3-5.6 [employer] Other HbA1c (Bld) [Mass fraction] 105 % [employer] Other Complete Blood Count Auto Di ffon 11-20-2020 Basophils (Bld) [#/Vol] 0.0 10*3/uL 0.0-0.2 [employer] Other Basophils/100 WBC (Bld) 0.4 % . N [employer] Other Eosinophils (Bld) [#/Vol] 0.0 10*3/uL 0.0-0.45 [employer] Other Eosinophils/100 WBC (Bld) 0.2 % . [employer] Other Erythrocyte distribution width (RBC) [Ratio] 13.4 % 11.9-15.3 [employer] Other Hematocrit (Bld) [Volume fraction] 39.4 % 34.0-46.4 [employer] Other Hemoglobin (Bld) [Mass/Vol] 13.1 g/dL 11.8-15.4 [place] [employer] Other Lymphocytes (Bld) [#/Vol] 2.1 10*3/uL 1.00-4.8 [employer] Other Lymphocytes/100 WBC (Bld) 15.3 % . [employer] Other MCH (RBC) [Entitic mass] 28.9 pg 24.7-34.3 [employer] Other MCH (RBC) [Entitic mass] 33.2 pg 32.0-35.0 [employer] Other MCV (RBC) [Entitic vol] 87.1 fL 80-100 [facility] [employer] Other Monocytes (Bld) [#/Vol] 1.0 10*3/uL 0.0-0.8 [place] [employer] Other Monocytes/100 WBC (Bld) 7.3 % . [facility] [employer] Other Neutrophils (Bld) [#/Vol] 10.3 10*3/uL 1.8-7.7 [employer] Other Neutrophils/100 WBC (Bld) 76.8 % . [employer] Other Platelet mean volume (Bld) [Entitic vol] 8.3 fL 6.3-10.7 [place] [employer] Other Platelets (Bld) [#/Vol] 302 10*3/uL 150-450 [employer] Other RBC (Bld) [#/Vol] 4.52 10*6/uL 3.60-5.00 [employer] Other WBC (Bld) [#/Vol] 13.4 10*3/uL 3.8-11.6 [facility] [employer] Other Complete Blood Count Auto Diff 13.4 4.5-11.0 [facility] [employer] Other Complete Blood Count Auto Diff 0.0 0-0.5 [facility] [employer] Other Comprehensive Metabolic Pane tatyana 11-20-2020 Albumin [Mass/Vol] 3.8 g/dL 3.2-5.5 [facility] [employer] Other Albumin/Globulin [Mass ratio] 1.5 {ratio} [facility] [employer] Other ALP [Catalytic activity/Vol] 75 U/L 32-92 [facility] [employer] Other ALT [Catalytic activity/Vol] 26 U/L 10-60 [facility] [employer] Other AST [Catalytic activity/Vol] 20 U/L 10-42 [facility] [employer] Other Bilirubin [Mass/Vol] 0.4 mg/dL 0.3-1.2 [facility] [employer] Other Calcium [Mass/Vol] 9.4 mg/dL 8.2-10.2 [place] [employer] Other Chloride [Moles/Vol] 104 mmol/L 95-114 [facility] [employer] Other CO2 [Moles/Vol] 24.9 mmol/L 22.0-30.0 [facility] [employer] Other Creatinine [Mass/Vol] 0.66 mg/dL 0.44-1.03 [facility] [employer] Other Glucose [Mass/Vol] 70 mg/dL 70-100 [place] [employer] Other Potassium [Moles/Vol] 4.0 mmol/L 3.5-5.1 [facility] [employer] Other Protein [Mass/Vol] 6.4 g/dL 6.1-7.9 [facility] [employer] Other Sodium [Moles/Vol] 138 mmol/L 136-146 [employer] Other Urea nitrogen [Mass/Vol] 7 mg/dL 9-23 [employer] Other Comprehensive Metabolic Panel > 60 [employer] Other Comprehensive Metabolic Panel 2.6 [employer] Other Lipid Panelon 11-20-2020 Cholesterol [Mass/Vol] 204 mg/dL 140-200 [facility] [employer] Other Cholesterol in HDL [Mass/Vol] 46 mg/dL 35-85 [employer] Other Cholesterol in LDL Elph Qn 133 0-100 [employer] Other Cholesterol.total/Elodia sterol in HDL [Mass ratio] 4.4 {ratio} <5.0 [employer] Other Lipid Panel 127 35-149 [employer] Other Lipid Panel 25 [employer] Other Thyroid Stim Hormone w/Rflxo n 11-20-2020 Thyroid Stim Hormone w/Rflx 1.58 0.45-5.33 [employer] Other COVID Quick Testingon 2020 Result Negative [place] [employer] Other TRIGLYCERIDEon 09-26-2019 Triglyceride [Mass/Vol] 197 mg/dL Critically high <=150 [facility] Comment on above: Performed By: #### L NAOMI SHEPARD, BMP #### [facility] [address], [place] [address] Rogelio Renetta CBC AUTO DIFFon 09-19-2019 Basophils (Bld) [#/Vol] 0.0 103/ul Normal 0.0-0.1 [facility] Comment on above: Performed By: #### L NAOMI SHEPARD, BMP #### [facility] [address], [place] [address] Rogelio Renetta Basophils/100 WBC (Bld) 0.3 % Normal 0.2-2.0 [facility] Comment on above: Performed By: #### NAOMI DORSEY BMP #### [facility] [address] [place] [address] Rogelio Renetta Eosinophils (Bld) [#/Vol] 0.1 103/ul Normal 0.0-0.7 [facility] Comment on above: Performed By: #### NAOMI DORSEY BMP #### [facility] [address] [place] [address] Rogelio Renetta Eosinophils/100 WBC (Bld) 1.0 % Normal 0.9-7.0 [facility] Comment on above: Performed By: #### NAOMI DORSEY BMP #### [facility] [address] [place] [address] Rogelio Renetta Erythrocyte distribution width (RBC) [Ratio] 12.7 % Normal 11.0-15.0 [facility] Comment on above: Performed By: #### NAOMI DORSEY BMP #### [facility] [address] [place] [address] Rogelio Renetta Hematocrit (Bld) [Volume fraction] 40.8 % Normal 36.0-48.0 [facility] Comment on above: Performed By: #### NAOMI DORSEY BMP #### [facility] [address] [place] [address] Rogelio Renetta Hemoglobin (Bld) [Mass/Vol] 13.3 g/dL Normal 12.0-16.0 [facility] Comment on above: Performed By: #### NAOMI DORSEY, BMP #### [facility] [address] [place] [address] Rogelio Renetta IG # 0.05 10e3/ul Critically high 0.00-0.03 [facility] Comment on above: Performed By: #### NAOMI DORSEY, BMP #### [facility] [address] [place] [address] Rogelio Renetta IG % 0.4 % Normal 0.0-0.5 [facility] Comment on above: Performed By: #### L NAOMI SHEPARD, BMP #### [facility] [address] [place] [address] Rogeliorajan Jackson Lymphocytes (Bld) [#/Vol] 1.4 103/ul Normal 1.2-3.8 [facility] Comment on above: Performed By: #### NAOMI DORSEY, BMP #### [facility] [address] [place] [address] Rogelio Jackson Lymphocytes/100 WBC (Bld) 10.9 % Critically low 20.5-60.0 [facility] Comment on above: Performed By: #### L NAOMI SHEPARD, BMP #### [facility] [address] [place] [address] Rogelio Jackson MANUAL DIFF REQ NO Normal [facility] Comment on above: Performed By: #### NAOMI DORSEY, BMP #### [facility] [address] [place] [address] Rogeliorajan Cedilloen MCH (RBC) [Entitic mass] 28.7 pg Normal 26.7-34.0 [facility] Comment on above: Performed By: #### NAOMI DORSEY, BMP #### [facility] [address] [place] [address] Rogelio Jackson MCHC (RBC) [Mass/Vol] 32.6 g/dL Normal 29.9-35.2 [facility] Comment on above: Performed By: #### NAOMI DORSEY, BMP #### [facility] [address] [place] [address] Rogelio Jackson MCV (RBC) [Entitic vol] 87.9 fL Normal 81.0-99.0 [facility] Comment on above: Performed By: #### L NAOMI SHEPARD, BMP #### [facility] [address] [place] [address] Rogelio Jackson Monocytes (Bld) [#/Vol] 0.6 103/ul Normal 0.3-0.8 [facility] Comment on above: Performed By: #### NAOMI DORSEY, BMP #### [facility] [address] [place], [place] [phone] Rogelio Renetta Monocytes/100 WBC (Bld) 5.1 % Normal 1.7-12.0 [facility] Comment on above: Performed By: #### NAOMI DORSEY, BMP #### [facility] [address] [place] [id number] Rogelio Renetta Neutrophils (Bld) [#/Vol] 10.2 103/ul Critically high 1.4-6.5 [facility] Comment on above: Performed By: #### NAOMI DORSEY, BMP #### [facility] [address] [place], [place] [phone] Rogelio Renetta Neutrophils/100 WBC (Bld) 82.3 % Critically high 43.0-75.0 [facility] Comment on above: Performed By: #### NAOMI DORSEY BMP #### [facility] [address] [place], [place] [phone] Rogelio Renetta Platelet mean volume (Bld) [Entitic vol] 9.3 fL Critically low 9.5-13.5 [facility] Comment on above: Performed By: #### NOAMI DORSEY BMP #### [facility] [address] [place], [place] [phone] Rogelio Renetta Platelets (Bld) [#/Vol] 249 103/ul Normal 150-450 [facility] Comment on above: Performed By: #### NAOMI DORSEY, BMP #### [facility] [address] [place], [place] [phone] Rogelio Renetta RBC (Bld) [#/Vol] 4.64 106/ul Normal 4.20-5.40 [facility] Comment on above: Performed By: #### NAOMI DORSEY, BMP #### [facility] [address] [place], [place] [phone] Rogelio Ernetta WBC (Bld) [#/Vol] 12.5 103/ul Critically high 4.0-11.0 [facility] Comment on above: Performed By: #### NAOMI DORSEY, BMP #### [facility] [address] [phone] [address] CT CHEST W CONon 09-19-2019 CT [...] by: CHICO GANDHI Date: 2019-09-19 05:16 Normal [facility] LIPASEon 09-19-2019 Lipase [Catalytic activity/Vol] 117.0 U/L Normal 23.0-300.0 [facility] Comment on above: Performed By: #### NAOMI DORSEY, BMP #### [facility] [address], [place] [address] Rogelio Jackson PROF 14(COMP METB)on 020 Albumin [Mass/Vol] 3.3 g/dL Critically low 3.5-5.0 [facility] Comment on above: Performed By: #### NAOMI DOSREY, BMP #### [facility] [address] [phone] Rogelio Jackson Albumin/Globulin [Mass ratio] 0.9 {ratio} Normal [facility] Comment on above: Performed By: #### NAOMI DORSEY, BMP #### [facility] [address], [place] [address] Rogelio Renetta ALP [Catalytic activity/Vol] 83 U/L Normal 38-126 [facility] Comment on above: Performed By: #### NAOMI DORSEY, BMP #### [facility] [address], [place] [address] Rogelio Jackson ALT [Catalytic activity/Vol] 31 U/L Normal 9-52 [facility] Comment on above: Performed By: #### NAOMI DORSEY, BMP #### [facility] [address], [place] [address] Rogelio Renetta Anion gap [Moles/Vol] 9.5 mmol/L Normal [facility] Comment on above: Performed By: #### NAOMI DORSEY, BMP #### [facility] [address] [phone] Rogelio Renetta AST [Catalytic activity/Vol] 21 U/L Normal 14-36 [facility] Comment on above: Performed By: #### NAOMI DORSEY, BMP #### [facility] [address] [place] [address] Rogelio Renetta Bilirubin Ql (U) 0.6 mg/dL Normal 0.2-1.3 [facility] Comment on above: Performed By: #### NAOMI DORSEY, BMP #### [facility] [address] [place] [address] Rogelio Renetta Calcium [Mass/Vol] 9.2 mg/dL Normal 8.4-10.2 [facility] Comment on above: Performed By: #### NAOMI DORSEY, BMP #### [facility] [address] [place] [address] Rogelio Renetta Chloride [Moles/Vol] 103 mmol/L Normal 98-107 [facility] Comment on above: Performed By: #### NAOMI DORSEY, BMP #### [facility] [address] [place] [address] Rogelio Renetta CO2 [Moles/Vol] 28.4 mmol/L Normal 22.0-30.0 [facility] Comment on above: Performed By: #### NAOMI DORSEY, BMP #### [facility] [address] [place] [address] Rogelio Renetta Creatinine [Mass/Vol] 1.04 mg/dL Normal 0.52-1.04 [facility] Comment on above: Performed By: #### NAOMI DORSEY, BMP #### [facility] [address] [place] [address] Rogelio Renetta EGFR-AF SAUDI ARABIAN >60 Normal >=60 [facility] Comment on above: Performed By: #### NAOMI DORSEY, BMP #### [facility] [address] [place] [address] Rogelio Renetta EGFR-NON AF SAUDI ARABIAN 58 mL/min/1.73m2 Critically low >=60 [facility] Comment on above: Performed By: #### NAOMI DORSEY, BMP #### [facility] [address] [place], [place] [address] Rogelio Renetta Globulin (S) [Mass/Vol] 3.7 g/dL Normal [facility] Comment on above: Performed By: #### NAOMI DORSEY BMP #### [facility] [address] [place], [place] [phone] Rogelio Renetta Glucose [Mass/Vol] 101 mg/dL Normal 74-106 [facility] Comment on above: Performed By: #### NAOMI DORSEY BMP #### [facility] [address] [place] [address] Rogelio Renetta Potassium [Moles/Vol] 3.9 mmol/L Normal 3.4-5.0 [facility] Comment on above: Performed By: #### NAOMI DORSEY BMP #### [facility] [address] [place] [address] Rogelio Renetta Protein [Mass/Vol] 7.0 g/dL Normal 6.1-8.2 [facility] Comment on above: Performed By: #### NAOMI DORSEY BMP #### [facility] [address] [place] [address] Rogelio Renetta Sodium [Moles/Vol] 137 mmol/L Normal 137-145 [facility] Comment on above: Performed By: #### NAOMI DORSEY BMP #### [facility] [address] [place], [place] [phone] Rogelio Renetta Urea nitrogen [Mass/Vol] 14.0 mg/dL Normal 7.0-17.0 [facility] Comment on above: Performed By: #### NAOMI DORSEY BMP #### [facility] [address] [place] [address] Rogelio Renetta Urea nitrogen/Creatinine [Mass ratio] 13.5 mg/mg Normal [facility] Comment on above: Performed By: #### NAOMI DORSEY BMP #### [facility] [address] [place], [place] [phone] Rogelio Renetta AMYLASEon 09-18-2019 Amylase [Catalytic activity/Vol] 36 U/L Normal 31-110 [facility] Comment on above: Performed By: #### L NAOMI SHEPRAD BMP #### [facility] [address] [place], [place] [phone] Rogelio Renetta CBC AUTO DIFFon 09-18-2019 Basophils (Bld) [#/Vol] 0.1 103/ul Normal 0.0-0.1 [facility] Comment on above: Performed By: #### C BC #### [facility] [address] [place], [place] [phone] Rogelio Renetta Basophils/100 WBC (Bld) 0.5 % Normal 0.2-2.0 [facility] Comment on above: Performed By: #### C BC #### [facility] [address] [place], [place] [phone] Rogelio Renetta Eosinophils (Bld) [#/Vol] 0.2 103/ul Normal 0.0-0.7 [facility] Comment on above: Performed By: #### C BC #### [facility] [address] [place] [address] Rogelio Renetta Eosinophils/100 WBC (Bld) 1.8 % Normal 0.9-7.0 [facility] Comment on above: Performed By: #### C BC #### [facility] [address] [place] [address] Rogelio Renetta Erythrocyte distribution width (RBC) [Ratio] 12.8 % Normal 11.0-15.0 [facility] Comment on above: Performed By: #### C BC #### [facility] [address] [place] [address] Rogelio Renetta Hematocrit (Bld) [Volume fraction] 44.9 % Normal 36.0-48.0 [facility] Comment on above: Performed By: #### C BC #### [facility] [address] [place], [place] [phone] Rogelio Renetta Hemoglobin (Bld) [Mass/Vol] 14.6 g/dL Normal 12.0-16.0 [facility] Comment on above: Performed By: #### C BC #### [facility] [address] [place] [address] Rogelio Renetta IG # 0.05 10e3/ul Critically high 0.00-0.03 [facility] Comment on above: Performed By: #### C BC #### [facility] [address] [place], [place] [phone] Rogelio Renetta IG % 0.5 % Normal 0.0-0.5 [facility] Comment on above: Performed By: #### C BC #### [facility] [address] [place], [place] [phone] Rogelio Renetta Lymphocytes (Bld) [#/Vol] 2.5 103/ul Normal 1.2-3.8 [facility] Comment on above: Performed By: #### C BC #### [facility] [address] [place], [place] [phone] Rogelio Renetta Lymphocytes/100 WBC (Bld) 24.0 % Normal 20.5-60.0 [facility] Comment on above: Performed By: #### C BC #### [facility] [address] [place], [place] [phone] Rogelio Renetta MANUAL DIFF REQ NO Normal [facility] Comment on above: Performed By: #### C BC #### [facility] [address] [place], [place] [phone] Rogelio Renetta MCH (RBC) [Entitic mass] 28.9 pg Normal 26.7-34.0 [facility] Comment on above: Performed By: #### C BC #### [facility] [address] [place], [place] [phone] Rogelio Renetta MCHC (RBC) [Mass/Vol] 32.5 g/dL Normal 29.9-35.2 [facility] Comment on above: Performed By: #### C BC #### [facility] [address] [place], [place] [address] Rogelio Renetta MCV (RBC) [Entitic vol] 88.7 fL Normal 81.0-99.0 [facility] Comment on above: Performed By: #### C BC #### [facility] [address] [place], [place] [phone] Rogelio Renetta Monocytes (Bld) [#/Vol] 0.8 103/ul Normal 0.3-0.8 [facility] Comment on above: Performed By: #### C BC #### [facility] [address] [place], [place] [address] Rogelio Renetta Monocytes/100 WBC (Bld) 7.6 % Normal 1.7-12.0 [facility] Comment on above: Performed By: #### C BC #### [facility] [address] [place], [place] [phone] Rogelio Renetta Neutrophils (Bld) [#/Vol] 6.9 103/ul Critically high 1.4-6.5 [facility] Comment on above: Performed By: #### C BC #### [facility] [address] [place], [place] [address] Rogelio Renetta Neutrophils/100 WBC (Bld) 65.6 % Normal 43.0-75.0 [facility] Comment on above: Performed By: #### C BC #### [facility] [address] [place], [place] [address] Rogeliorajan Cedilloen Platelet mean volume (Bld) [Entitic vol] 9.5 fL Normal 9.5-13.5 [facility] Comment on above: Performed By: #### C BC #### [facility] [address] [place], [place] [phone] Rogelio Renetta Platelets (Bld) [#/Vol] 315 103/ul Normal 150-450 [facility] Comment on above: Performed By: #### C BC #### [facility] [address] [place], [place] [phone] Rogelio Renetta RBC (Bld) [#/Vol] 5.06 106/ul Normal 4.20-5.40 [facility] Comment on above: Performed By: #### C BC #### [facility] [address] [place], [place] [phone] Rogelio Renetta WBC (Bld) [#/Vol] 10.5 103/ul Normal 4.0-11.0 [facility] Comment on above: Performed By: #### C BC #### [facility] [address] [place], [place] [address] Rogelio Renetta ER URINE PROFILEon 0 Bilirubin [Mass/Vol] Negative Normal NEGATIVE [facility] Comment on above: Performed By: #### SUSIE ALVARADO #### [facility] [address] [place] [address] Rogelio Renetta BLOOD SMALL Normal NEGATIVE [facility] Comment on above: Performed By: #### NEHAL ALVARADORO #### [facility] [address] [place] [address] Rogelio Renetta Clarity (U) CLEAR Normal [facility] Comment on above: Performed By: #### NEHAL ALVARADORO #### [facility] [address] [place] [address] Rogelio Renetta Color (U) LT. YELLOW Normal YELLOW [facility] Comment on above: Performed By: #### SUSIE ALVARADO #### [facility] [address] [place], [place] [phone] Rogelio Renetta ERUAHD A micrscopic examination will be performed if indicated. Normal [facility] Comment on above: Performed By: #### NEHAL ALVARADORO #### [facility] [address] [place] [address] Rogelio Renetta Glucose [Mass/Vol] Negative Normal NEGATIVE [facility] Comment on above: Performed By: #### NEHAL ALVARADORO #### [facility] [address] [place] [address] Rogelio Renetta Ketones Ql (U) Negative Normal NEGATIVE [facility] Comment on above: Performed By: #### NEHAL ALVARADORO #### [facility] [address] [place] [address] Rogelio Renetta Nitrite Ql (U) Negative Normal NEGATIVE [facility] Comment on above: Performed By: #### NEHAL ALVARADORO #### [facility] [address] [place] [address] Rogelio Renetta pH (Bld) 6.5 Normal 5-9 [facility] Comment on above: Performed By: #### NEHAL ALVARADORO #### [facility] [address] [place] [address] Rogeliorajan Jackson Protein (U) [Mass/Vol] Negative Normal [facility] Comment on above: Performed By: #### SUSIE ALVARADO #### [facility] [address] [place], [place] [address] Rogelio Jackson SPEC GRAVITY 1.025 Normal 1.005-<=1.0 25 [facility] Comment on above: Performed By: #### SUSIE ALVARADO #### [facility] [address] [place] [address] Rogelio Jackson UR MICRO IND INDICATED Normal [facility] Comment on above: Performed By: #### SUSIE ALVARADO #### [facility] [address] [place], [place] [phone] Rogelio Jackson Urobilinogen Qn (U) 0.2 EU/dl Normal [facility] Comment on above: Performed By: #### SUSIE ALVARADO #### [facility] [address] [place] [address] Rogelio Jackson WBC (Bld) [#/Vol] Negative Normal NEGATIVE [facility] Comment on above: Performed By: #### SUSIE ALVARADO #### [facility] [address] [place], [place] [address] Rogelio Jackson LACTATE/LACTIC ACIDon 2019 Lactate [Moles/Vol] 0.8 mmol/L Normal 0.7-2.0 [facility] Comment on above: Performed By: #### NAOMI DORSEY BMP #### [facility] [address] [place], [place] [address] Rogeliorajan Jackson LIPASEon 09-18-2019 Lipase [Catalytic activity/Vol] 127.0 U/L Normal 23.0-300.0 [facility] Comment on above: Performed By: #### NAOMI DORSEY BMP #### [facility] [address] [place], [place] [address] Rogeliorajan Jackson LIVER PROFILEon 09-18-2019 Albumin [Mass/Vol] 3.7 g/dL Normal 3.5-5.0 [facility] Comment on above: Performed By: #### L IVELAINA LIPA, BMP #### [facility] [address] [place], [place] [address] Rogelio Renetta Albumin/Globulin [Mass ratio] 0.9 {ratio} Normal [facility] Comment on above: Performed By: #### L IVER LIPA, BMP #### [facility] [address] [place], [place] [address] Rogelio Renetta ALP [Catalytic activity/Vol] 101 U/L Normal 38-126 [facility] Comment on above: Performed By: #### L IVER LIPA, BMP #### [facility] [address] [place] [address] Rogelio Renetta ALT [Catalytic activity/Vol] 29 U/L Normal 9-52 [facility] Comment on above: Performed By: #### L IVELAINA LIPA, BMP #### [facility] [address] [place] [address] Rogelio Renetta AST [Catalytic activity/Vol] 19 U/L Normal 14-36 [facility] Comment on above: Performed By: #### L DREA LIPA, BMP #### [facility] [address] [place], [place] [address] Rogelio Renetta BILI, CONJUGATED 0.1 mg/dL Normal 0.0-0.3 [facility] Comment on above: Performed By: #### L IVELAINA LIPA, BMP #### [facility] [address] [place] [address] Rogelio Renetta Bilirubin Ql (U) 0.3 mg/dL Normal 0.2-1.3 [facility] Comment on above: Performed By: #### L IVELAINA LIPA, BMP #### [facility] [address] [place] [address] Rogelio Renetta Globulin (S) [Mass/Vol] 4.1 g/dL Normal [facility] Comment on above: Performed By: #### L IVER, LIPA, BMP #### [facility] [address] [place] [address] Rogelio Renetta Protein [Mass/Vol] 7.8 g/dL Normal 6.1-8.2 [facility] Comment on above: Performed By: #### NAOMI DORSEY, BMP #### [facility] [address] [place], [place] [id number] Rogelio Renetta PROF CHEM 8 (BAS METB)on Anion gap [Moles/Vol] 10.7 mmol/L Normal [facility] Comment on above: Performed By: #### NAOMI DORSEY, BMP #### [facility] [address] [place] [address] Rogelio Renetta Calcium [Mass/Vol] 9.4 mg/dL Normal 8.4-10.2 [facility] Comment on above: Performed By: #### NAOMI DORSEY, BMP #### [facility] [address] [place] [address] Rogelio Renetta Chloride [Moles/Vol] 101 mmol/L Normal 98-107 [facility] Comment on above: Performed By: #### NAOMI DORSEY, BMP #### [facility] [address] [place] [address] Rogelio Renetta CO2 [Moles/Vol] 27.9 mmol/L Normal 22.0-30.0 [facility] Comment on above: Performed By: #### NAOMI DORSEY, BMP #### [facility] [address] [place] [address] Rogelio Renetta Creatinine [Mass/Vol] 0.98 mg/dL Normal 0.52-1.04 [facility] Comment on above: Performed By: #### NAOMI DORSEY, BMP #### [facility] [address] [place] [address] Rogelio Renetta EGFR-AF SAUDI ARABIAN >60 Normal >=60 [facility] Comment on above: Performed By: #### NAOMI DORSEY, BMP #### [facility] [address] [place] [address] Rogelio Renetta EGFR-NON AF SAUDI ARABIAN >60 Normal >=60 [facility] Comment on above: Performed By: #### NAOMI DORSEY, BMP #### [facility] [address] [address] Rogelio Renetta Glucose [Mass/Vol] 91 mg/dL Normal 74-106 [facility] Comment on above: Performed By: #### NAOMI DORSEY, BMP #### [facility] [address] [address] Rogelio Renetta Potassium [Moles/Vol] 3.6 mmol/L Normal 3.4-5.0 [facility] Comment on above: Performed By: #### NAOMI DORSEY, BMP #### [facility] [address] [place] [address] Rogelio Renetta Sodium [Moles/Vol] 136 mmol/L Critically low 137-145 [facility] Comment on above: Performed By: #### NAOMI DORSEY, BMP #### [facility] [address] [place] [address] Rogelio Renetta Urea nitrogen [Mass/Vol] 12.0 mg/dL Normal 7.0-17.0 [facility] Comment on above: Performed By: #### NAOMI DORSEY, BMP #### [facility] [address] [place] [address] Rogelio Renetta Urea nitrogen/Creatinine [Mass ratio] 12.2 mg/mg Normal [facility] Comment on above: Performed By: #### NAOMI DORSEY, BMP #### [facility] [address] [place] [address] Rogelio Renetta TROPONIN - Ion 09-18-2019 Troponin I.cardiac [Mass/Vol] SEE BELOW Normal [facility] Comment on above: Result Comment: <0.0 34 ng/ml NEGATIVE 0.034-0.119 INDETERMINATE 0.120 AMI CUT OFF Performed By: #### NAOMI DORSEY, BMP #### [facility] [address] [place] [address] Rogelio Renetta Troponin I.cardiac [Mass/Vol] ng/mL Normal <=0.034 [facility] Comment on above: Performed By: #### NAOMI DORSEY, BMP #### [facility] [address] [phone] Rogelio Renetta URINE MICROSCOPIC ONLYon Bacteria LM.HPF (Urine sed) [#/Area] TRACE Normal NONE SEEN [facility] Comment on above: Performed By: #### L NAOMI SHEPARD, BMP #### [facility] [address] [place], [place] [phone] Rogelio Renetta CAST NONE SEEN Normal NONE SEEN [facility] Comment on above: Performed By: #### NAOMI DORSEY, BMP #### [facility] [address] [place] [address] Rogelio Renetta Crystals LM Nom (Urine sed) NONE SEEN Normal NONE SEEN [facility] Comment on above: Performed By: #### NAOMI DORSEY, BMP #### [facility] [address] [place] [address] Rogelio Renetta CULTURE NOT INDICATED Normal [facility] Comment on above: Performed By: #### NAOMI DORSEY, BMP #### [facility] [address] [place] [address] Rogelio Renetta Epithelial cells LM.HPF (Urine sed) [#/Area] RARE Normal [facility] Comment on above: Performed By: #### NAOMI DORSEY, BMP #### [facility] [address] [place] [address] Rogelio Renetta MUCOUS TRACE Normal NONE SEEN [facility] Comment on above: Performed By: #### NAOMI DORSEY, BMP #### [facility] [address] [place] [address] Rogelio Renetta RBC (U) [#/Vol] 5-10 Normal 0-2 [facility] Comment on above: Performed By: #### NAOMI DORSEY, BMP #### [facility] [address] [place] [address] Rogelio Renetta WBC (Bld) [#/Vol] 0-2 Normal NONE SEEN [facility] Comment on above: Performed By: #### NAOMI DORSEY, BMP #### [facility] [address] [place] [address] Rogelio Renetta XR ABD FLAT UP_PA Natalie [...] ROBERT CHINCHILLA Date: 2019-09-18 16:18 Normal [facility] COVID-19 PCRon 09-08-2019 SARS-CoV-2, CESIA Not Detected Normal Not Detected [facility] Comment on above: Result Comment: This test was developed and its performance characteristics determined by [employer]. This test has not been FDA cleared [...] assay. Performed By: #### C VDPCR #### [facility] [address] [place] [address] Rogelio Renetta CBC AUTO DIFFon 08-22-2019 Basophils (Bld) [#/Vol] 0.1 103/ul Normal 0.0-0.1 [facility] Comment on above: Performed By: #### C BC #### [facility] [address] [place] [address] Rogelio Renetta Basophils/100 WBC (Bld) 0.8 % Normal 0.2-2.0 [facility] Comment on above: Performed By: #### C BC #### [facility] [address] [place] [address] Rogelio Renetta Eosinophils (Bld) [#/Vol] 0.2 103/ul Normal 0.0-0.7 [facility] Comment on above: Performed By: #### C BC #### [facility] [address] [place] [address] Rogelio Renetta Eosinophils/100 WBC (Bld) 2.6 % Normal 0.9-7.0 [facility] Comment on above: Performed By: #### C BC #### [facility] [address] [place] [address] Rogelio Renetta Erythrocyte distribution width (RBC) [Ratio] 13.2 % Normal 11.0-15.0 [facility] Comment on above: Performed By: #### C BC #### [facility] [address] [place] [address] Rogelio Renetta Hematocrit (Bld) [Volume fraction] 40.7 % Normal 36.0-48.0 [facility] Comment on above: Performed By: #### C BC #### [facility] [address] [place] [address] Rogelio Renetta Hemoglobin (Bld) [Mass/Vol] 13.1 g/dL Normal 12.0-16.0 [facility] Comment on above: Performed By: #### C BC #### [facility] [address] [place] [address] Rogelio Renetta IG # 0.01 10e3/ul Normal 0.00-0.03 [facility] Comment on above: Performed By: #### C BC #### [facility] [address] [phone] Rogelio Renetta IG % 0.2 % Normal 0.0-0.5 [facility] Comment on above: Performed By: #### C BC #### [facility] [address] [phone] Rogelio Renetta Lymphocytes (Bld) [#/Vol] 2.3 103/ul Normal 1.2-3.8 [facility] Comment on above: Performed By: #### C BC #### [facility] [address] [place], [place] [phone] Rogelio Renetta Lymphocytes/100 WBC (Bld) 36.2 % Normal 20.5-60.0 [facility] Comment on above: Performed By: #### C BC #### [facility] [address] [place], [place] [phone] Rogelio Renetta MANUAL DIFF REQ NO Normal [facility] Comment on above: Performed By: #### C BC #### [facility] [address] [place], [place] [phone] Rogelio Renetta MCH (RBC) [Entitic mass] 28.8 pg Normal 26.7-34.0 [facility] Comment on above: Performed By: #### C BC #### [facility] [address] [place], [place] [phone] Rogelio Renetta MCHC (RBC) [Mass/Vol] 32.2 g/dL Normal 29.9-35.2 [facility] Comment on above: Performed By: #### C BC #### [facility] [address] [place], [place] [phone] Rogelio Renetta MCV (RBC) [Entitic vol] 89.5 fL Normal 81.0-99.0 [facility] Comment on above: Performed By: #### C BC #### [facility] [address] [place], [place] [phone] Rogelio Renetta Monocytes (Bld) [#/Vol] 0.8 103/ul Normal 0.3-0.8 [facility] Comment on above: Performed By: #### C BC #### [facility] [address] [place], [place] [address] Rogelio Renetta Monocytes/100 WBC (Bld) 12.5 % Critically high 1.7-12. 0 [facility] Comment on above: Performed By: #### C BC #### [facility] [address] [place], [place] [address] Rogelio Renetta Neutrophils (Bld) [#/Vol] 3.1 103/ul Normal 1.4-6.5 [facility] Comment on above: Performed By: #### C BC #### [facility] [address] [place], [place] [address] Rogelio Renetta Neutrophils/100 WBC (Bld) 47.7 % Normal 43.0-75.0 [facility] Comment on above: Performed By: #### C BC #### [facility] [address] [place] [address] Rogelio Renetta Platelet mean volume (Bld) [Entitic vol] 9.5 fL Normal 9.5-13.5 [facility] Comment on above: Performed By: #### C BC #### [facility] [address], [place] [address] Rogelio Renetta Platelets (Bld) [#/Vol] 293 103/ul Normal 150-450 [facility] Comment on above: Performed By: #### C BC #### [facility] [address] [place] [address] Rogelio Renetta RBC (Bld) [#/Vol] 4.55 106/ul Normal 4.20-5.40 [facility] Comment on above: Performed By: #### C BC #### [facility] [address] [place], [place] [address] Rogelio Renetta WBC (Bld) [#/Vol] 6.5 103/ul Normal 4.0-11.0 [facility] Comment on above: Performed By: #### C BC #### [facility] [address] [place] [address] ABD/PELV W CONon 08-22-[address] ABD/PELV W CON EXAMINATION: CT ABD/PELV [...] ALL GUDINO Date: 2019-08-22 15:49 Normal [facility] ER URINE PROFILEon 0 Bilirubin [Mass/Vol] Negative Normal NEGATIVE [facility] Comment on above: Performed By: #### SUSIE ALVARADO #### [facility] [address] [address] Rogelio Renetta BLOOD SMALL Normal NEGATIVE [facility] Comment on above: Performed By: #### SUSIE ALVARADO #### [facility] [address] [phone] Rogelio Renetta Clarity (U) CLEAR Normal [facility] Comment on above: Performed By: #### SUSIE ALVARADO #### [facility] [address], [place] [address] Rogelio Renetta Color (U) LT. YELLOW Normal YELLOW [facility] Comment on above: Performed By: #### SUSIE ALVARADO #### [facility] [address] [place], [place] [phone] Rogelio Renetta ERUAHD A micrscopic examination will be performed if indicated. Normal [facility] Comment on above: Performed By: #### SUSIE ALVARADO #### [facility] [address] [place] [address] Rogelio Renetta Glucose [Mass/Vol] Negative Normal NEGATIVE [facility] Comment on above: Performed By: #### NEHAL ALVARADORO #### [facility] [address] [place] [address] Rogelio Renetta Ketones Ql (U) Negative Normal NEGATIVE [facility] Comment on above: Performed By: #### NEHAL ALVARADORO #### [facility] [address] [place] [address] Rogelio Renetta Nitrite Ql (U) Negative Normal NEGATIVE [facility] Comment on above: Performed By: #### NEHAL ALVARADORO #### [facility] [address] [place] [address] Rogelio Renetta pH (Bld) 6.0 Normal 5-9 [facility] Comment on above: Performed By: #### NEHAL ALVARADORO #### [facility] [address] [place] [address] Rogelio Renetta Protein (U) [Mass/Vol] Negative Normal [facility] Comment on above: Performed By: #### NEHAL ALVARADORO #### [facility] [address] [place] [address] Rogelio Renetta SPEC GRAVITY <=1.005 Normal 1.005-<=1.0 25 [facility] Comment on above: Performed By: #### NEHAL ALVARADORO #### [facility] [address] [place] [address] Rogelio Renetta UR MICRO IND INDICATED Normal [facility] Comment on above: Performed By: #### SUSIE ALVARADO #### [facility] [address] [place], [place] [address] Rogelio Renetta Urobilinogen Qn (U) 0.2 EU/dl Normal [facility] Comment on above: Performed By: #### SUSIE ALVARADO #### [facility] [address] [place] [address] Rogelio Renetta WBC (Bld) [#/Vol] Negative Normal NEGATIVE [facility] Comment on above: Performed By: #### SUSIE ALVARADO #### [facility] [address] [place] [address] Rogeloi Renetta LIPASEon 08-22-2019 Lipase [Catalytic activity/Vol] 144.0 U/L Normal 23.0-300.0 [facility] Comment on above: Performed By: #### NAOMI DORSEY BMP #### [facility] [address] [place] [address] Rogelio Renetta LIVER PROFILEon 08-22-2019 Albumin [Mass/Vol] 3.6 g/dL Normal 3.5-5.0 [facility] Comment on above: Performed By: #### NAOMI DORSEY, YONNY #### [facility] [address] [place], [place] [phone] Rogelio Renetta Albumin/Globulin [Mass ratio] 1.0 {ratio} Normal [facility] Comment on above: Performed By: #### NAOMI DORSEY, YONNY #### [facility] [address] [place], [place] [phone] Rogelio Renetta ALP [Catalytic activity/Vol] 82 U/L Normal 38-126 [facility] Comment on above: Performed By: #### NAOMI DORSEY, BMP #### [facility] [address] [place], [place] [phone] Rogelio Renetta ALT [Catalytic activity/Vol] 31 U/L Normal 9-52 [facility] Comment on above: Performed By: #### NAOMI DORSEY, BMP #### [facility] [address] [place], [place] [phone] Rogelio Renetta AST [Catalytic activity/Vol] 14 U/L Normal 14-36 [facility] Comment on above: Performed By: #### NAOMI DORSEY, BMP #### [facility] [address] [place] [address] Rogelio Renetta BILI, CONJUGATED 0.0 mg/dL Normal 0.0-0.3 [facility] Comment on above: Performed By: #### NAOMI DORSEY, BMP #### [facility] [address] [place] [address] Rogelio Renetta Bilirubin Ql (U) 0.3 mg/dL Normal 0.2-1.3 [facility] Comment on above: Performed By: #### NAOMI DORSEY, BMP #### [facility] [address] [place] [address] Rogelio Renetta Globulin (S) [Mass/Vol] 3.7 g/dL Normal [facility] Comment on above: Performed By: #### NAOMI DORSEY, BMP #### [facility] [address] [place] [address] Rogelio Renetta Protein [Mass/Vol] 7.3 g/dL Normal 6.1-8.2 [facility] Comment on above: Performed By: #### NAOMI DORSEY, BMP #### [facility] [address] [place] [address] Rogelio Renetta PROF CHEM 8 (BAS METB)on Anion gap [Moles/Vol] 12.0 mmol/L Normal [facility] Comment on above: Performed By: #### NAOMI DORSEY, BMP #### [facility] [address] [place] [address] Rogelio Renetta Calcium [Mass/Vol] 9.0 mg/dL Normal 8.4-10.2 [facility] Comment on above: Performed By: #### NAOMI DORSEY, BMP #### [facility] [address] [place] [address] Rogelio Renetta Chloride [Moles/Vol] 103 mmol/L Normal 98-107 [facility] Comment on above: Performed By: #### NAOMI DORSEY, BMP #### [facility] [address] [address] Rogelio Renetta CO2 [Moles/Vol] 25.7 mmol/L Normal 22.0-30.0 [facility] Comment on above: Performed By: #### L DREA LIPA, BMP #### [facility] [address] [address] Rogelio Renetta Creatinine [Mass/Vol] 0.84 mg/dL Normal 0.52-1.04 [facility] Comment on above: Performed By: #### Gilberto SHEPARD LIPA, BMP #### [facility] [address] [phone] Rogelio Renetta EGFR-AF SAUDI ARABIAN >60 Normal >=60 [facility] Comment on above: Performed By: #### Gilberto SHEPARD LIPA, BMP #### [facility] [address] [address] Rogelio Renetta EGFR-NON AF SAUDI ARABIAN >60 Normal >=60 [facility] Comment on above: Performed By: #### NAOMI DORSEY, BMP #### [facility] [address] [address] Rogelio Renetta Glucose [Mass/Vol] 85 mg/dL Normal 74-106 [facility] Comment on above: Performed By: #### ONELIA DORSEYA, BMP #### [facility] [address] [phone] Rogelio Renetta Potassium [Moles/Vol] 3.7 mmol/L Normal 3.4-5.0 [facility] Comment on above: Performed By: #### Gilberto SHEPARD LIPA, BMP #### [facility] [address] [phone] Rogelio Renetta Sodium [Moles/Vol] 137 mmol/L Normal 137-145 [facility] Comment on above: Performed By: #### L IVELAINA LIPA, BMP #### [facility] [address] [address] Rogelio Renetta Urea nitrogen [Mass/Vol] 11.0 mg/dL Normal 7.0-17.0 [facility] Comment on above: Performed By: #### L NAOMI SHEPARD, BMP #### [facility] [address] [place], [place] [phone] Rogelio Renetta Urea nitrogen/Creatinine [Mass ratio] 13.1 mg/mg Normal [facility] Comment on above: Performed By: #### L NAOMI SHEPARD, BMP #### [facility] [address] [place], [place] [phone] Rogelio Renetta URINE MICROSCOPIC ONLYon Bacteria LM.HPF (Urine sed) [#/Area] TRACE Normal NONE SEEN [facility] Comment on above: Performed By: #### Kristin RUR, UMICRO #### [facility] [address] [place] [address] Rogelio Renetta CAST NONE SEEN Normal NONE SEEN [facility] Comment on above: Performed By: #### E RUR, UMICRO #### [facility] [address] [place] [address] Rogelio Renetta Crystals LM Nom (Urine sed) NONE SEEN Normal NONE SEEN [facility] Comment on above: Performed By: #### E RUR, UMICRO #### [facility] [address] [place] [address] Rogelio Renetta CULTURE NOT INDICATED Normal [facility] Comment on above: Performed By: #### E RUR, UMICRO #### [facility] [address] [place] [address] Rogelio Renetta Epithelial cells LM.HPF (Urine sed) [#/Area] RARE Normal [facility] Comment on above: Performed By: #### E RUR, UMICRO #### [facility] [address] [place] [address] Rogelio Renetta MUCOUS NONE SEEN Normal NONE SEEN [facility] Comment on above: Performed By: #### E RUR, UMICRO #### [facility] [address] [place] [address] Rogelio Renetta RBC (U) [#/Vol] 0-2 Normal 0-2 [facility] Comment on above: Performed By: #### E RUR, UMICRO #### [facility] [address], [place] [address] Rogelio Jackson WBC (Bld) [#/Vol] NONE SEEN Normal NONE SEEN [facility] Comment on above: Performed By: #### SUSIE ALVARADO #### [facility] [address], [place] [address] Rogelio Jackson Vital Signs Date Time Vital Sign Value Performing Clinician Facility 08-17-2024 14:32-0400 Body height 162.6 cm Genoveva Gutierrez MD, IBCLC Work Phone: [facility] 08-17-2024 14:32-0400 Body mass index (BMI) [Ratio] 48.78 kg/m2 Genoveva Gutierrez MD, IBCLC Work Phone: [facility] 08-17-2024 14:32-0400 Body temperature 97.11 [degF] Genoveva Gutierrez MD, IBCLC Work Phone: [facility] 08-17-2024 14:32-0400 Body weight 128.91 kg Genoveva Gutierrez MD, IBCLC Work Phone: [facility] 08-17-2024 14:32-0400 Diastolic blood pressure 74 mm[Hg] Genoveva Gutierrez MD, IBCLC Work Phone: [facility] 08-17-2024 14:32-0400 Heart rate 76 /min Genoveva Gutierrez MD, IBCLC Work Phone: [facility] 08-17-2024 14:32-0400 SaO2% (BldA) [Mass fraction] 98 % Genoveva Gutierrez MD, IBCLC Work Phone: [facility] 08-17-2024 14:32-0400 Systolic blood pressure 128 mm[Hg] Genoveva Gutierrez MD, IBCLC Work Phone: [facility] 08-13-2024 09:23-0400 Body height 162.56 cm Esther Milton DO Work Phone: [facility] 08-13-2024 09:23-0400 Body mass index (BMI) [Ratio] 48.5 kg/m2 Esther Milton DO Work Phone: [facility] 08-13-2024 09:23-0400 Body temperature 98.2 [degF] Esther Milton DO Work Phone: [facility] 08-13-2024 09:23-0400 Body weight 128.36 kg Esther Milton DO Work Phone: [facility] 08-13-2024 09:23-0400 Diastolic blood pressure 64 mm[Hg] Esther Milton DO Work Phone: [facility] 08-13-2024 09:23-0400 Heart rate 67 /min Esther Milton DO Work Phone: [facility] 08-13-2024 09:23-0400 Respiratory rate 18 /min Esther Milton DO Work Phone: [facility] 08-13-2024 09:23-0400 SaO2% (BldA) [Mass fraction] 96 % Esther Milton DO Work Phone: [facility] 08-13-2024 09:23-0400 Systolic blood pressure 114 mm[Hg] Esther Milton DO Work Phone: [facility] 05-16-2024 16:13-0400 Body height 162.56 cm [facility] 05-16-2024 16:13-0400 Body mass index (BMI) [Ratio] 48 kg/m2 [facility] 05-16-2024 16:13-0400 Body temperature 96 [degF] [facility] 05-16-2024 16:13-0400 Body weight 127 kg [facility] 05-16-2024 16:13-0400 Diastolic blood pressure 73 mm[Hg] [facility] 05-16-2024 16:13-0400 Heart rate 73 /min [facility] 05-16-2024 16:13-0400 SaO2% (BldA) [Mass fraction] 98 % [facility] 05-16-2024 16:13-0400 Systolic blood pressure 131 mm[Hg] [facility] 09-25-2023 08:30-0400 Body height 162.6 cm Mth 2 [facility] [employer] 09-25-2023 08:30-0400 Body mass index (BMI) [Ratio] 43.77 kg/m2 [facility] [employer] 09-25-2023 08:30-0400 Body weight 115.67 kg [facility] [employer] 11-19-2022 14:00-0400 Body height 160.02 cm Alyssia Maryanne Other [employer] Other 11-19-2022 14:00-0400 Body mass index (BMI) [Ratio] 48.43 kg/m2 Alyssia Maryanne Other [employer] Other 11-19-2022 14:00-0400 Body temperature 98.3 [degF] Alyssia Maryanne Other [employer] Other 11-19-2022 14:00-0400 Body weight 124.01 kg Alyssia Maryanne Other [employer] Other 11-19-2022 14:00-0400 Diastolic blood pressure 82 mm[Hg] Alyssia Maryanne Other [employer] Other 11-19-2022 14:00-0400 Respiratory rate 16 /min Alyssia Maryanne Other [employer] Other 11-19-2022 14:00-0400 SaO2% (BldA) [Mass fraction] 98 % Alyssia Maryanne Other [employer] Other 11-19-2022 14:00-0400 Systolic blood pressure 128 mm[Hg] Alyssia Maryanne Other [employer] Other 02-05-2022 17:00-0500 Body height 160.02 cm Esther Milton Other [employer] Other 02-05-2022 17:00-0500 Body mass index (BMI) [Ratio] 48.82 kg/m2 Esther Milton Other [employer] Other 02-05-2022 17:00-0500 Body temperature 97.6 [degF] Esther Milton Other [employer] Other 02-05-2022 17:00-0500 Body weight 125.01 kg Esther Milton Other [employer] Other 02-05-2022 17:00-0500 Diastolic blood pressure 80 mm[Hg] Esther Milton Other [employer] Other 02-05-2022 17:00-0500 Respiratory rate 16 /min Esther Milton Other [employer] Other 02-05-2022 17:00-0500 SaO2% (BldA) [Mass fraction] 97 % Esther Milton Other [employer] Other 02-05-2022 17:00-0500 Systolic blood pressure 126 mm[Hg] Esther Milton Other [employer] Other 04-12-2021 10:30-0500 Body height 160.02 cm Esther Milton Other [employer] Other 04-12-2021 10:30-0500 Body mass index (BMI) [Ratio] 40.92 kg/m2 Esther Milton Other [employer] Other 04-12-2021 10:30-0500 Body temperature 98.5 [degF] Esther Milton Other [employer] Other 04-12-2021 10:30-0500 Body weight 104.78 kg Esther Milton Other [employer] Other 04-12-2021 10:30-0500 Diastolic blood pressure 78 mm[Hg] Esther Milton Other [employer] Other 04-12-2021 10:30-0500 Respiratory rate 16 /min Esther Milton Other [employer] Other 04-12-2021 10:30-0500 SaO2% (BldA) [Mass fraction] 98 % Esther Milton Other [employer] Other 04-12-2021 10:30-0500 Systolic blood pressure 122 mm[Hg] Esther Milton Other [employer] Other 11-16-2020 13:45-0400 Respiratory rate 18 /min Maggie Harper Other [employer] Other 11-16-2020 13:45-0400 SaO2% (BldA) [Mass fraction] 98 % Maggie Harper Other [employer] Other 11-14-2020 18:45-0400 Body height 160.02 cm Esther Milton Other [employer] Other 11-14-2020 18:45-0400 Body mass index (BMI) [Ratio] 45.7 kg/m2 Esther Riveraers Other [employer] Other 11-14-2020 18:45-0400 Body temperature 98.2 [degF] Esthermaggie Riveraers Other [employer] Other 11-14-2020 18:45-0400 Body weight 117.03 kg Esthermaggie Riveraers Other [employer] Other 11-14-2020 18:45-0400 Diastolic blood pressure 72 mm[Hg] Esther Milton Other [employer] Other 11-14-2020 18:45-0400 Respiratory rate 18 /min Esther Riveraers Other [employer] Other 11-14-2020 18:45-0400 SaO2% (BldA) [Mass fraction] 99 % Esther Milton Other [employer] Other 11-14-2020 18:45-0400 Systolic blood pressure 128 mm[Hg] Esther Milton Other [employer] Other 11-14-2020 17:45-0400 Body height 160.02 cm Esther Riveraers Other [employer] Other 11-14-2020 17:45-0400 Body mass index (BMI) [Ratio] 45.7 kg/m2 Esthermaggie Riveraers Other [employer] Other 11-14-2020 17:45-0400 Body temperature 98.2 [degF] Esther Milton Other [employer] Other 11-14-2020 17:45-0400 Body weight 117.03 kg Esther Riveraers Other [employer] Other 11-14-2020 17:45-0400 Diastolic blood pressure 72 mm[Hg] Esther Milton Other [employer] Other 11-14-2020 17:45-0400 Respiratory rate 18 /min Esther Milton Other [employer] Other 11-14-2020 17:45-0400 SaO2% (BldA) [Mass fraction] 99 % Esther Milton Other [employer] Other 11-14-2020 17:45-0400 Systolic blood pressure 128 mm[Hg] Esther Milton Other [employer] Other Encounters Encounter Date Encounter Type Care Provider Facility Start: 08-17-2024 End: 08-17-2024 ambulatory GENOVEVA GUTIERREZ Not Available Start: 08-17-2024 End: 08-17-2024 Office outpatient visit 25 minutes Genoveva Gutierrez MD, IBCLC Work Phone: [facility] Comment on above: Poison kar dermatiti s (Primary Dx); Encounter for screening mammogram for malignant neoplasm of breast; Other migraine without status migrainosus, not intractable ; Encounter for lipid screening for cardiovascular disease; Class 3 severe obesity due to excess calories without serious comorbidity with body mass index (BMI) of 45.0 to 49.9 in adult ([facility]); Reactive depression ; Generalized anxiety disorder Start: 08-17-2024 End: 08-17-2024 Bamboo flowstiffanie Gutierrez MD, IBCLC Work Phone: [facility] Start: 08-17-2024 End: 08-17-2024 Bamboo flowstiffanie Gutierrez MD, IBCLC Work Phone: [facility] Start: 08-13-2024 End: 08-13-2024 ambulatory Esther Kenneth Milton DO Work Phone: [facility] Work Phone: Start: 08-13-2024 End: 08-13-2024 Patient encounter procedure Mounika Sarabia [employer] LO[employer] UNDERWRITER -[facility] Work Phone: Start: 05-16-2024 End: 05-16-2024 ambulatory [facility] Work Phone: Start: 05-16-2024 End: 05-16-2024 Patient encounter procedure [facility] Work Phone: Start: 01-16-2024 End: 01-19-2024 Refill Genoveva Gutierrez MD, IBCLC Work Phone: [facility] Comment on above: Other migraine witho ut status migrainosus, not intractable ([facility]) Start: 01-05-2024 ambulatory Esther Lee ty:[facility] Start: 12-07-2023 End: 12-08-2023 Refill Angela Myrick PILING SETTER Work Phone: [facility] Comment on above: Other migraine witho ut status migrainosus, not intractable (CMS/HCC) Start: 11-03-2023 End: 11-03-2023 Refill Genoveva Gutierrez MD, IBCLC Work Phone: [facility] Comment on above: Generalized anxiety disorder ([facility]) Start: 10-29-2023 End: 10-30-2023 Refill Genoveva Gutierrez MD, IBCLC Work Phone: [facility] Comment on above: Vitamin D deficiency Start: 10-27-2023 End: 10-29-2023 ambulatory [facility] Start: 09-30-2023 End: 09-30-2023 Refill Genoveva Gutierrez MD, IBCLC Work Phone: [facility] Comment on above: Generalized postpran dial abdominal pain (Primary Dx); RUQ pain Start: 09-25-2023 End: 09-27-2023 ambulatory [facility] Start: 09-25-2023 End: 09-27-2023 Subsequent hospital visit by physician Yancy Sosa 2 [facility] Comment on above: Generalized postpran dial abdominal pain Start: 09-08-2023 End: 09-08-2023 ambulatory GENOVEVA BRENDA Not Available Start: 09-02-2023 End: 09-02-2023 ambulatory GENOVEVA BRENDA Not Available Start: 03-20-2023 End: 03-20-2023 ambulatory Esther Milton Other [employer] Other Start: 03-20-2023 Telephone encounter Esther Riverazina Cifuentes [facility] Start: 11-19-2022 End: 11-19-2022 ambulatory Alyssia Madden Other [employer] Other Start: 11-19-2022 Encounter for genera l adult medical examination without abnormal findings Alyssiara Madden [facility] Start: 11-19-2022 Periodic preventive med est patient 40-64yrs Alyssiara Madden [facility] Start: 11-10-2022 End: 11-10-2022 ambulatory Esther Milton Other [employer] Other Start: 11-10-2022 Telephone encounter Esther Milton [facility] Start: 11-03-2022 End: 11-03-2022 ambulatory Esther Milton Other [employer] Other Start: 11-03-2022 Telephone encounter Esther Milton [facility] Start: 10-29-2022 End: 10-29-2022 ambulatory Alyssiara Madden Other [employer] Other Start: 10-29-2022 Office outpatient vi sit 15 minutes Alyssiara Madden [facility] Start: 10-28-2022 End: 10-28-2022 ambulatory Esther Milton Other [employer] Other Start: 10-28-2022 Encounter by ann-marie Milton [facility] Start: 10-23-2022 Telephone encounter Esther Cifuentes [facility] Start: 10-23-2022 End: 10-23-2022 ambulatory DO Esther Milton Work Phone: [employer] Other Start: 10-23-2022 End: 10-23-2022 Departed Referred DO Esther Milton Work Phone: [facility] [address] Work Phone: Start: 02-18-2022 End: 02-18-2022 ambulatory Esther Milton Other [employer] Other Start: 02-18-2022 Telephone encounter Esther Milton [facility] Start: 02-05-2022 End: 02-05-2022 ambulatory Esther Milton Other [employer] Other Start: 02-05-2022 Encounter for genera l adult medical examination without abnormal findings Esther Milton [facility] Start: 02-05-2022 Periodic preventive med est patient 40-64yrs Esther Milton [facility] Start: 01-27-2022 End: 01-27-2022 ambulatory Esther Milton Other [employer] Other Start: 01-27-2022 Telephone encounter Esther Milton [facility] Start: 01-24-2022 End: 01-24-2022 ambulatory DO Esther Milton Work Phone: [facility] Work Phone: Start: 01-24-2022 End: 01-24-2022 Patient encounter procedure DO Esther Milton Work Phone: [facility] Start: 12-18-2021 End: 12-18-2021 ambulatory Esther Milton Other [employer] Other Start: 12-18-2021 Encounter for genera l adult medical examination without abnormal findings Esthermaggie Milton [facility] Start: 12-18-2021 Telephone encounter Esthermaggie Milton [facility] Start: 05-20-2021 End: 05-20-2021 ambulatory Esther Milton Other [employer] Other Start: 05-20-2021 Telephone encounter Esthermaggie Milton [facility] Start: 04-12-2021 End: 04-12-2021 ambulatory Esther Milton Other [employer] Other Start: 04-12-2021 Office outpatient vi sit 25 minutes Esthermaggie Riveraers [facility] Start: 01-25-2021 End: 01-25-2021 ambulatory Esther Milton Other [employer] Other Start: 01-25-2021 Telephone encounter Esthermaggie Milton [facility] Start: 01-10-2021 End: 01-10-2021 ambulatory Esther Milton Other [employer] Other Start: 01-10-2021 Telephone encounter Esthermaggie Milton [facility] Start: 11-16-2020 End: 11-16-2020 ambulatory Maggie Harper Other [employer] Other Start: 11-16-2020 Office outpatient vi sit 15 minutes Maggie Harper [facility] Start: 11-14-2020 End: 11-14-2020 ambulatory Esther Milton Other [employer] Other Start: 11-14-2020 Encounter for genera l adult medical examination without abnormal findings Estherkristin Milton [facility] Start: 11-14-2020 Periodic preventive med est patient 40-64yrs Esther Milton [facility] Start: 11-14-2020 Telephone encounter Esther Cifuentes [facility] Start: 09-26-2019 End: 09-27-2019 Patient encounter procedure [facility] Facility:H1 Start: 09-19-2019 End: 09-19-2019 Patient encounter procedure ESTHER MILTON Facility:[facility]1 Start: 09-18-2019 End: 09-18-2019 Patient encounter procedure ESTHER MILTON Facility:[facility]1 Start: 09-06-2019 End: 09-07-2019 Patient encounter procedure [facility] Facility:H1 Start: 08-22-2019 End: 08-22-2019 Patient encounter procedure KEISHA ROBLERO Facility:H1 Procedures Date Procedure Procedure Detail Performing Clinician Start: 09-25-2023 Hepatobil syst imag inc gb w/pharma intervenj Carri Oro [employer]CIAL LOAN UNDERWRITER - [employer] Work Phone: Start: 07-08-2023 Mammography Genoveva Gutierrez MD, IBCLC Work Phone: Start: 09-12-2019 Colonoscopy Mth 2 Plan of Treatment Date Care Activity Detail Author Start: 09-11-2029 Screening for malign ant neoplasm of colon [facility] Start: 07-07-2025 Screening for malign ant neoplasm of breast Breast cancer screen [facility] Start: 10-10-2024 Influenza vaccination Influenza Vacc ine (#1) [facility] Start: 08-17-2024 End: 08-17-2025 CBC W Auto Differential panel - Blood CBC auto differential Lab Routine Class 3 severe obesity due to excess calories without serious comorbidity with body mass index (BMI) of 45.0 to 49.9 in adult ([facility]) Reactive depression Generalized anxiety disorder Expected: 08/17/2024 (Approximate), Expires: 08/17/2025 [facility] Comment on above: Expected: 08/17/2024 (Approximate), Expires: 08/17/2025 Start: 08-17-2024 End: 08-17-2025 Comprehensive metabolic 2000 panel - Serum or Plasma Comprehensive metabolic panel Lab Routine Class 3 severe obesity due to excess calories without serious comorbidity with body mass index (BMI) of 45.0 to 49.9 in adult ([facility]) Reactive depression Generalized anxiety disorder Expected: 08/17/2024 (Approximate), Expires: 08/17/2025 [facility] Comment on above: Expected: 08/17/2024 (Approximate), Expires: 08/17/2025 Start: 08-17-2024 End: 10-18-2025 DBT Breast - bilateral screening Bilateral screening mammogram with tomosynthesis Imaging Routine Encounter for screening mammogram for malignant neoplasm of breast Expected: 08/17/2024, Expires: 10/18/2025 [facility] Work Phone: Comment on above: Expected: 08/17/2024 , Expires: 10/18/2025 Start: 08-17-2024 End: 08-17-2025 Lipid 1996 panel - Serum or Plasma Lipid panel Lab Routine Encounter for lipid screening for cardiovascular disease Expected: 08/17/2024 (Approximate), Expires: 08/17/2025 [facility] Comment on above: Expected: 08/17/2024 (Approximate), Expires: 08/17/2025 Start: 07-07-2024 Screening for malign ant neoplasm of breast Mammogram [facility] Start: 10-11-2023 Influenza vaccination Influenza Vacc ine (#1) [facility] Start: 09-10-2023 Influenza vaccination Flu vaccine (# 1) [facility] Start: 04-30-2023 Screening for malign ant neoplasm of colon [facility] Start: 10-23-2022 [facility] Start: 10-10-2022 COVID-19 Vaccine ( season) COVID-19 Vaccine ( season) [facility] Start: 2018 Lipid panel Lipids [facility] Start: 2013 Diabetes screen Diabetes screen [facility] Start: 2008 Screening for malign ant neoplasm of cervix [facility] Start: 04-30-1999 Screening for malign ant neoplasm of cervix Pap smear [facility] Start: 1997 DTaP/Tdap/Td vaccine (1 - Tdap) DTaP/Tdap/Td vaccine (1 - Tdap) [facility] Start: 1997 Hepatitis B vaccine (1 of 3 - 19+ 3-dose series) Hepatitis B vaccine (1 of 3 - 19+ 3-dose series) [facility] Start: 1996 Hepatitis C screening Hepatitis C sc reen [facility] Start: 1993 HIV screening HIV screen [facility] Start: 1990 Depression Monitoring Depression Mon itoring [facility] Start: 1978 Screening for malign ant neoplasm of colon [facility] Immunizations Immunization Date Immunization Notes Care Provider Fa cility 10-23-2022 influenza virus vaccine, unspecified formulation Genoveva Gutierrez MD, IBCLC Work Phone: [facility] 11-27-2021 COVID-19 Pfizer (bivalent) Esther Milton Other [facility] 11-27-2021 influenza, injectable, quadrivalent, preservative free Esther Milton Other [facility] 01-04-2021 COVID-19 Vaccine Pfizer - Documentation Purposes Only Esthermaggie Milton Other [facility] 11-14-2020 influenza, injectable, quadrivalent, preservative free [facility] 11-14-2020 influenza, injectable, quadrivalent, contains preservative Esther Milton Other [facility] [employer] Other 05-31-2020 COVID-19 Vaccine Pfizer - Documentation Purposes Only Esther Milton Other [facility] 05-10-2020 COVID-19 Vaccine Pfizer - Documentation Purposes Only Esthermaggie Milton Other [facility] 02-25-2019 influenza, seasonal, injectable Patient Objection Esther Milton Other [facility] [employer] Other 06-08-2018 Kenalog -40 mg Esther Arroyo s Other [employer] Other 04-06-2018 Kenalog -40 mg Esther wheeler Other [employer] Other 02-26-2018 influenza, seasonal, injectable Patient Objection Esther Milton Other [employer] Other NEGATED: Highlighted row has not occurred! 0 influenza, seasonal, injectable Patient Objection Magige Richardsonhn Other [employer] Other NEGATED: Highlighted row has not occurred! 9 influenza, seasonal, injectable Patient Objection Maggie Harper Other [employer] Other Payers Date Payer Category Payer [facility] [id number] 2024 Unknown [id number] 2023 Self-pay [id number] 2023 Private Health Insurance [facility] [id number] 2023 Unknown [employer] [facility] [employer] [id number] 2023-Present [address] [address] [place] [address] [id number] 2023 Unknown [id number] 2022 Unknown [id number] [id number] 1978 Unknown [id number] 2.16.840.1.446873.3.579.2. 593 1978 Unknown [id number] 2.16.840.1.183060.3.579.2. 593 1978 Unknown [id number] 2.16.840.1.432993.3.579.2. 593 1978 Unknown [id number] 2.16.840.1.899685.3.579.2. 593 1978 Unknown [id number] 2.16.840.1.287615.3.579.2. 593 1978 Unknown [id number] 2.16.840.1.598589.3.579.2. 173 1978 Unknown [id number] 2.16.840.1.405204.3.579.2. 174 1978 Unknown [id number] 2.16.840.1.413226.3.579.2. 174 1978 Unknown [id number] 2.16.840.1.889284.3.579.2. 1259 1978 Unknown [id number] 2.16.840.1.348889.3.579.2. 1259 1978 Unknown [id number] 2.840.1.839045.3.579.2. 1259 1959 Unknown [id number] [facility] [id number] Self-pay [id number] [id number] Self-pay [id number] 2.160.1.541917.19 Self-pay [id number] 2.0.1.111203.19 Unknown Shreyas EDWARD/CHRISTELLE [id number] Unknown [id number] [id number] Unknown [id number] [id number]. 531 Social History Date Type Detail Facility Unknown if ever smoked [employer] Other Start: 09-02-2023 End: 08-17-2024 Sex Assigned At [facility] Start: 09-09-2019 End: 06-03-2023 Tobacco smoking status MTIS Never smoked tobacco (finding) [facility] Start: 1980 Sex Assigned At Female [facility] Start: 06-03-2023 Tobacco use and exposure Smokeless tobacco non-user [facility] Start: 09-02-2023 End: 08-17-2024 History of Social function [facility] How often do you nee d to have someone help you when you read instructions, pamphlets, or other written material from your doctor or pharmacy [SILS] Never [facility] Do you belong to any clubs or organizations such as restorationism groups, unions, fraternal or athletic groups, or school groups? No [facility] Are you now , , , , never or living with a partner? Living with partner [facility] How often to you hav e a drink containing alcohol? Monthly or less [facility] How often do you hav e 6 or more drinks on 1 occasion? Never [facility] Do you feel stress - tense, restless, nervous, or anxious, or unable to sleep at night because your mind is troubled all the time - these days [OSQ] Very much [facility] (I/We) worried wheth er (my/our) food would run out before (I/we) got money to buy more. Never true [facility] Start: 06-03-2023 Gender identity Identifies as female gender (finding) [facility] Tobacco smoking stat [facility] Tobacco smoking consumption unknown [facility] Start: 1980 Sex assigned at Not on file [facility] Start: 05-16-2024 Sex Female (finding) [facility] Functional Status Date Assessment Result Facility 08-17-2024 Patient Health Quest ionnaire 2 item (PHQ-2) [Reported] [facility] Clinical Notes 11-14-2020 to 08-17-2024 Gen[facility] Gutierrez [facility], [facility] - 08/17/2024 2:20 PM Yu Gutierrez MD, IBCLC - 08/17/2024 2:20 PM Yu Gutierrez [facility], [facility] - 08/17/2024 2:20 PM EDTPatient Instructions Note Date & Type Note Facility 08-17-2024 History of Presen t illness Narrative Associated Problem(s): Class 3 severe obesity due to excess calories without serious comorbidity with body mass index (BMI) of 45.0 to 49.9 in adult ([facility]) Wt Readings from Last 5 Encounters: 08/17/24 284 lb 3.2 oz 09/08/23 260 lb 9.6 oz 09/02/23 258 lb 3.2 oz 06/03/23 273 lb 06/21/21 235 lb Nutrition: I recommend a fruit/vegetable & protein source with every meal/snack. Minimize excess sugar and processed foods. Avoid full-sugar sodas. Exercise: I recommend 150 minutes of ardio exercise per week for cardiovascular health. Additional weight training and/or cardio may be needed to achieve weight loss. Orders: CBC auto differential; Future Comprehensive metabolic panel; Future Associated Problem(s): Reactive depression - in remission - has not needed medication since ending her prior relationship - Recommend regular physical exercise, well-rounded diet, engaging in hobbies outside of work, and interacting with friends. Orders: CBC auto differential; Future Comprehensive metabolic panel; Future Associated Problem(s): Generalized anxiety disorder - in remission - has not needed medication since ending her prior relationship - Recommend regular physical exercise, well-rounded diet, engaging in hobbies outside of work, and interacting with friends. Orders: CBC auto differential; Future Comprehensive metabolic panel; Future Images from the original note were not included. Adrienne Manzanares is a 44 y.o. female here today for Poison [place] SUBJECTIVE: History Provided by: patient History of Present Illness The patient came in today because of a rash that's causing severe itching but no swelling. She said the rash first showed up on her arm after doing yard work on , 08/12/2024. She mentioned she hasn't had poison kar in 30 years, but the last time she did, her face swelled up so badly she needed four steroid shots. This time, she thought she was fine at first, but by Thursday morning, her eyes were so swollen she could barely open them, so she went to urgent care and got a steroid shot. Later that day, being out in the heat made things worse, and by Thursday night, she felt miserable. She started taking prednisone on Thursday, which helped with the swelling in her face. However, going back to work and wearing clothes over the rash made it worse, and now it's spreading to her chest. She said hydroxyzine helps a little with the itching, but it hasn't completely stopped it, even though most of the blisters are gone. She's been trying cold showers and other home remedies, but the itching is still really bad. At urgent care, she was given a 40 mg Kenalog shot, hydroxyzine 25 mg, and a Medrol Dosepak with a 6-day taper. She's currently on day 4 of the Medrol Dosepak and has four hydroxyzine tablets left. She has Benadryl at home but prefers hydroxyzine because it doesn't make her drowsy. She feels the itching is getting worse as the steroid dose decreases. She mentioned feeling fonseca as a side effect of the steroid, which she's experienced before, along with hyperactivity, but she thinks the hydroxyzine might be balancing those effects out. She also talked about how she had some gastrointestinal issues in the past, which she believes were caused by stress from a previous relationship. She said she's stopped taking most medications, including Ativan, which she used for years, and now only takes ibuprofen occasionally. For her skin dryness, she's been using a [place] natural remedy, which she said feels much better. She is due for a mammogram. Current Outpatient Medications Medication Instructions hydrOXYzine HCl (ATARAX) 50 mg, Oral, Every 8 hours PRN ibuprofen 800 mg, Oral, Every 8 hours PRN predniSONE (Deltasone) 10 MG tablet Take 6 tablets (60 mg) by mouth Daily for 2 days, THEN 5 tablets (50 mg) Daily for 2 days, THEN 4 tablets (40 mg) Daily for 2 days, THEN 3 tablets (30 mg) Daily for 2 days, THEN 2 tablets (20 mg) Daily for 2 days, THEN 1 tablet (10 mg) Daily for 2 days. I have reviewed and reconciled the history, allergies, family history, social history, and medication list with the patient today. OBJECTIVE: BP 128/74 Pulse 76 Temp 97.1 F Ht 5' 4 Wt 284 lb 3.2 oz SpO2 98% BMI 48.78 kg/m Physical Exam Physical Exam General Appearance: Awake, Alert, NAD. Eyes: conjunctiva clear, no discharge Skin: Erythematous rash with itching and minimal blistering observed on the arm and chest. Respiratory: Clear to auscultation, no wheezing/rhonchi/rales. Cardiovascular: regular rate and rhythm, no murmurs/rubs/gallops. Neurological: motor and sensory function grossly intact, normal gait Psychiatric: appropriate affect, normal speech, good eye contact. Results Depression screening PHQ-2 score: 0 ASSESSMENT AND PLAN: Assessment & Plan Poison kar dermatitis - acute - Symptoms suggest a recurrence of poison kar dermatitis, characterized by severe itching and facial swelling. The patient received a 40 mg Kenalog injection at urgent care, which provided temporary relief. - Currently on a Medrol Dosepak (6-day taper) and hydroxyzine 25 mg, which have helped reduce facial swelling but not fully alleviated the itching. - Advised to increase hydroxyzine to 50 mg and start [id number] famotidine (Pepcid) 40 mg (2 tablets) daily until symptoms improve. A new prescription for prednisone with a 12-day tapering schedule will be initiated: 60 mg for 2 days, 50 mg for 2 days, 40 mg for 2 days, 30 mg for 2 days, etc. The potential side effects of prednisone, including increased hunger, moodiness, difficulty sleeping, and hyperactivity, were discussed. - Advised to discontinue ibuprofen while on steroids and resume after completing the steroid course. If gastrointestinal irritation occurs, intermittent use of omeprazole is permissible. The use of calamine lotion and cold or ice baths was also suggested for symptom relief. Orders: hydrOXYzine HCl (Atarax) 25 MG tablet; Take 2 tablets (50 mg) by mouth every 8 (eight) hours if needed for itching predniSONE (Deltasone) 10 MG tablet; Take 6 tablets (60 mg) by mouth Daily for 2 days, THEN 5 tablets (50 mg) Daily for 2 days, THEN 4 tablets (40 mg) Daily for 2 days, THEN 3 tablets (30 mg) Daily for 2 days, THEN 2 tablets (20 mg) Daily for 2 days, THEN 1 tablet (10 mg) Daily for 2 days. Encounter for screening mammogram for malignant neoplasm of breast Orders: Bilateral screening mammogram with tomosynthesis; Future Other migraine without status migrainosus, not intractable - chronic, controlled - uses ibuprofen PRN - do not take ibuprofen with steroids Orders: ibuprofen 800 MG tablet; Take 1 tablet (800 mg) by mouth every 8 (eight) hours if needed for mild pain Encounter for lipid screening for cardiovascular disease Orders: Lipid panel; Future Class 3 severe obesity due to excess calories without serious comorbidity with body mass index (BMI) of 45.0 to 49.9 in adult ([facility]) Wt Readings from Last 5 Encounters: 08/17/24 284 lb 3.2 oz 09/08/23 260 lb 9.6 oz 09/02/23 258 lb 3.2 oz 06/03/23 273 lb 06/21/21 235 lb Nutrition: I recommend a fruit/vegetable & protein source with every meal/snack. Minimize excess sugar and processed foods. Avoid full-sugar sodas. Exercise: I recommend 150 minutes of ardio exercise per week for cardiovascular health. Additional weight training and/or cardio may be needed to achieve weight loss. Orders: CBC auto differential; Future Comprehensive metabolic panel; Future Reactive depression Generalized anxiety disorder - in remission - has not needed medication since ending her prior relationship - Recommend regular physical exercise, well-rounded diet, engaging in hobbies outside of work, and interacting with friends. Orders: CBC auto differential; Future Comprehensive metabolic panel; Future Genoveva Gutierrez MD, IBCLC [facility] documented in this encounter [facility] 08-17-2024 Instructions Genoveva Gutierrez MD, IBCLC - 08/17/2024 2:20 PM EDT Increase hydroxyzine to 50mg Famotidine (Pepcid) 40mg (2 tablets) Stop medrol dosepak Start the new prednisone taper Calamine lotion Cold / ice baths documented in this encounter [facility] 05-16-2024 Evaluation note Diagnosis Onset Date Resolution Sinusitis acute May 16 3:46pm Poison kar dermatitis acute Aug 9:20am [facility] Work Phone: [phone] 133-152002-09-2024 Evaluation note* Encounter Date Diagnosis Assessment Notes Treatment Notes Treatment Clinical Notes Mar, Bipolar disorder (ICD-10 - F31.9) [employer] Other 10-11-2023 Evaluation note* Encounter Date Diagnosis [...] reviewed. Nov, Other Referral to azra [facility] [employer] Other 09-20-2023 Evaluation note* Encounter Date Diagnosis [...] if she develops any of these symptoms [employer] Other 12-28-2022 Evaluation note* Encounter Date Diagnosis [...] will cont current rx at this time. [employer] Other 11-09-2022 Evaluation note* Encounter Date Diagnosis Assessment Notes Treatment Notes Treatment Clinical Notes Dec, Anxiety (ICD-10 - F41.9) Dec, Laboratory exam ordered as part of routine general medical examination (ICD-10 - Z00.00) [employer] Other 04-11-2022 Evaluation note* Encounter Date Diagnosis Assessment Notes Treatment Notes Treatment Clinical Notes May, Anxiety (ICD-10 - F41.9) [employer] Other 03-04-2022 Evaluation note* Encounter Date Diagnosis [...] call for rx if she likes it. [employer] Other 10-08-2021 Evaluation note* Encounter Date Diagnosis [...] understanding and is agreeable to treatment plan. [employer] Other 10-06-2021 Evaluation note* Encounter Date Diagnosis [...] metastatic colon cancer. Will send referral to day care aide for assistance. Nov, Hyperlipidemia (ICD-10 - E78.5) Nov, Anxiety (ICD-10 - F41.9) [employer] Other Evaluation noteNo InformationNort [employer] Other Evaluation noteNo assessment information available [facility] Work Phone: Evalurefpi note* Diagnosis Generalized anxiety disorder (CMS/HCC)- Primary Generalized anxiety disorder Reactive depression (CMS/HCC) Class 3 severe obesity due to excess calories without serious comorbidity with body mass index (BMI) of 45.0 to 49.9 in adult (CMS/HCC) Other fatigue Encounter for screening mammogram for malignant neoplasm of breast Encounter for lipid screening for cardiovascular disease Family history of pancreatic cancer Family history of malignant neoplasm of gastrointestinal tract LUQ abdominal pain Abdominal pain, left upper quadrant Other migraine without status migrainosus, not intractable (CMS/HCC) [facility] Diagnosis Generalized postprandial abdominal pain- Primary RUQ pain Abdominal pain, right upper quadrant [facility] Diagnosis Vitamin D deficiency [facility] Diagnosis Generalized anxiety disorder (CMS/HCC) Generalized anxiety disorder [facility] Diagnosis Generalized postprandial abdominal pain Abdominal pain, generalized [facility] Diagnosis Generalized anxiety disorder- Primary Generalized anxiety disorder Reactive depression Class 3 severe obesity due to excess calories without serious comorbidity with body mass index (BMI) of 45.0 to 49.9 in adult (CMS-HCC) Other fatigue Encounter for screening mammogram for malignant neoplasm of breast Encounter for lipid screening for cardiovascular disease Family history of pancreatic cancer Family history of malignant neoplasm of gastrointestinal tract LUQ abdominal pain Abdominal pain, left upper quadrant Poison kar dermatitis- Primary Encounter for screening mammogram for malignant neoplasm of breast Other migraine without status migrainosus, not intractable Encounter for lipid screening for cardiovascular disease Class 3 severe obesity due to excess calories without serious comorbidity with body mass index (BMI) of 45.0 to 49.9 in adult ([facility]) Reactive depression Generalized anxiety disorder Generalized anxiety disorder [facility] N[facility]ative - Reported* Type Description Date Medical History Bipolar Medical History Anxiety Medical History 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 heavy painful periods. 2016 Hospitalization History see above surgical histo ry [employer] Other Reason for referral (narrative)No reason for referral [facility] Work [facility]: Summary Purpose Family History No Family History Records Found Relationship Condition Age at Onset Recorded Date/T ted Not Specified Malignant neoplasm of pancreas Unknown father Heart disease Unknown grandparent Malignant neoplasm of lung Unknown brother Neoplasm Unknown Relationship Condition Age at Onset Recorded Date/T ted mother Malignant neoplasm of pancreas Unknown father Heart disease Unknown grandparent Malignant neoplasm of lung Unknown brother Neoplasm Unknown aunt Diabetes mellitus Unknown brother Family history of mental disorder Unknown father Diabetes mellitus Unknown Heart disease Unknown grandparent Malignant neoplasm Unknown Unknown Family history of lung cancer Unknown grandparent Family history of thyroid disease Unknown grandparent Unknown History of stroke Unknown mother Malignant neoplasm Unknown Family history of pancreatic cancer Unkno wn Advance Directives No Advanced Directives Records Found Advance Directive Response Recorded Date/ Time Advance Directives No March 12, 2018 8:57am Advance Directive Response Recorded Date/ Time Advance Directives No March 12, 2018 9:57am Advance Directive Response Recorded Date/ Time Advance Directives No October 11:48am Chief Complaint and Reason for Visit Chief Complaint LABS for PRE EMPLOYM ENT Chief Complaint Admit Date sinus pressure, cough May 16, 2024 3: 46pm Chief Complaint Admit Date sinus pressure, cough May 16, 2024 3: 46pm Rash all over August 13, 2024 9:20a m Reason for Visit Admit Date Sinusitis May 16, 2024 3:46 pm Poison kar dermatitis August 13, 2024 9:2 0am Reason for Referral Specialty Diagnoses / Procedures Referred By Shashank gonsalez Referred To Contact Radiology Diagnoses Generalized postprandial abdominal pain Procedures NM HEPATOBILIARY SCAN W EJECTION FRACTION Carri Oro, COMMERCIAL LOAN UNDERWRITER - ROCK CRUSHER OPERATOR [address] [address] Referral ID Status Reason Start Date Expiration Date Visits Re quested Visits Authorized [id number] Closed 09/14/2023 09/13/2024 1 1 Reason weight management Diagnosis 1 BMI 45.0-49.9, adult (Z68.42) Referral Organization [facility] Referring Provider First Name Alyssia Referring Provider Last Name Maryanne Referring Provider Specialty Nurse Pract itioner Referred Organization [facility] Referred Provider Marcus Blancas Referred Address [address],[place], [place],[address] Referred Provider Specialty Internal Med icine Referral Priority Routine General Notes Palmira Carrillo 04:29:02 PM >received today, attachments made, will fax labs seperately once notes are locked. Additional Source Comments INFORMATION SOURCE (unrecogn ized section and content) DATE CREATED AUTHOR 11/28/2019 [facility] DATE CREATED AUTHOR AUTHOR'S ORGANIZ ATION 09/28/2023 [facility] DATE CREATED AUTHOR AUTHOR'S ORGANIZ ATION 10/31/2023 [facility] DATE CREATED AUTHOR AUTHOR'S ORGANIZ ATION 01/08/2024 [facility] DATE CREATED AUTHOR AUTHOR'S ORGANIZ ATION 08/21/2024 [facility] EPIC REASON FOR VISIT (unrecogniz ed section and content) Reason Comments Med Refill Reason Comments Med Change Request Reason Onset Date Comments Med Refill 11/03/2023 Specialty Diagnoses / Procedures Referred By Contac t Referred To Contact Radiology Diagnoses Generalized postprandial abdominal pain Procedures NM HEPATOBILIARY SCAN W EJECTION FRACTION Carri Oro R, COMMERCIAL LOAN UNDERWRITER - ROCK CRUSHER OPERATOR [address] [address] Referral ID Status Reason Start Date Expiration Date Visits Re quested Visits Authorized [id number] Closed 09/14/2023 09/13/2024 1 1 Reason Comments [facility] [place] Care Teams (unrecognized sec tion and content) Team Status: Inactive Member Role Status Dates Esther Milton DO Primary Care Provider, Attending Provider Active Team Status: Active Member Role Status Dates Esther Milton DO Primary Care Provider Active Team Status: Inactive Member Role Status Dates Esther Milton DO Primary Care Provider Active Dalton Orr DO [facility] Attending Provider Active Naturalization Examiner Relationship Specialty Start Date End Date Genoveva Gutierrez MD, IBCLC [address] [place] [address] PCP - General Family Medicine 06/02/23 Naturalization Examiner Relationship Specialty Start Date End Date Genoveva Gutierrez MD, IBCLC [address] [place] [address] PCP - General Family Medicine 06/02/23 Naturalization Examiner Relationship Specialty Start Date End Date Genoveva Gutierrez MD, IBCLC [address] [place] [address] PCP - General Family Medicine 06/02/23 Naturalization Examiner Relationship Specialty Start Date End Date Genoveva Gutierrez MD, IBCLC [address] [place] [address] PCP - General [facility] Medicine 06/02/23 Naturalization Examiner Relationship Specialty Start Date End Date Genoveva Gutierrez MD [address] [place] [address] [place] [address] PCP - General 09/07/23 Team Status: Inactive Member Role Status Dates Esther Milton DO Primary Care Provider Active Start: May 16, 2024 End: May 16, 2024 Mounika De Souza APRN Attending Provider Active S tart: May 16, 2024 End: May 16, 2024 Team Status: Inactive Member Role Status Dates Esther Milton DO Primary Care Provider Active Start: August 13, 2024 End: August 13, 2024 Mounika De Souza APRN Attending Provider Active S tart: August 13, 2024 End: August 13, 2024 Naturalization Examiner Relationship Specialty Start Date End Date Genoveva Gutierrez MD, IBCLC [address] [place] [address] PCP - General Family Medicine 06/02/23 Goals (unrecognized section and content) Goals may [...] BE BASED ON THE PRIMARY CLINICAL RECORDS. [employer] [facility]. provides no warranty or guarantee of the accuracy or completeness of information in this document.
--- OUTSIDE RECORDS SUMMARY | 2024-08-27 16:20 | XMS_ITS | Clinical Summary ---
Author Organization [facility] Address [address] [place] [address] Care Team Providers Care Envelope Cutter Name Role Phone Unavailable Primary Care Provider Unavailabl e Social History Tobacco Use Types Packs/Day Years Used Date Smoking Tobacco: Never Assessed Comments Unknown Sex and Gender Information Value Date Recorded Sex Assigned at Not on file Legal Sex Female 6:25 AM EST Gender Identity Not on file Sexual Orientation Not on file Plan of Treatment Health Maintenance Due Date Last Done Comments HEPATITIS C VIRUS SCREENING 1978 TETANUS 1978 HIV SCREENING DISCUSSION 1993 HEP B VACCINE (1 of 3 - 19+ 3-dose series) 1997 TDAP (ADULT) 1997 CERVICAL CANCER SCREENING DISCUSSION 04/30/1999 LIPID SCREENING 2018 MAMMOGRAM SCREENING DISCUSSION 2018 COLORECTAL CANCER SCREENING DISCUSSION 04/30/2023 COVID-19 VACCINE (2023-2 5 season) 2023 INFLUENZA VACCINE (#1) 2024 PNEUMOCOCCAL VACCINE SERIES Aged Out No longer eligible based on patient's age to complete this topic
[2024-08-27] MEDS: LIDOCAINE HCL 1% 100 MG/10 ML MDV INJ (16:30)
--- NOTE | 2024-08-27 16:32 | ED_ITS ---
HPI - Wound/Laceration General Chief Complaint: Wound/Laceration Stated Complaint: LACERATION Time Seen by Provider: 08/27/24 16:18 Source: patient Mode of arrival: walk-in Limitations: no limitations History of Present Illness HPI narrative: 44-year-old female [id number] with immunizations up-to-date including recent tetanus who presents with concern of laceration to the left little finger. At the level of the DIP radial aspect going to the distal phalanx patient has a 1 cm x 0.5 cm x 1 cm avulsion type flap laceration with bleeding controlled on arrival the most distal aspect is still attached to the tip of the finger with no evidence of nail injury. Patient states she was using a knife with her right hand cutting a watermelon when it quickly struck the little finger. She notes sensation is intact and minimal discomfort. She knew that the bleeding would not do well with home bandage and promptly came to the hospital for evaluation. She has no other concerns or injuries. Patient feels safe in the home and has multiple family members visiting from out of state. Onset (ago): minute(s) Location: Reports other (left little finger) Place: Reports home Patient tetanus UTD: Yes Context: Reports accidental Associated symptoms: Denies loss of feeling/numbness Related Data Home Medications ?Medication ?Instructions ?Recorded ?Confirmed ergocalciferol (vitamin D2) 1,250 1,250 mcg PO DAILY 0 11/08/23 11/08/23 mcg (50,000 unit) capsule lorazepam 0.5 mg tablet 0.5 mg PO Q6H PRN anxiety 11/08/23 Previous Rx's ?Medication ?Instructions ?Recorded pantoprazole 40 mg tablet,delayed 40 mg PO DAILY #7 ta bs 09/03/23 release (Protonix) promethazine 25 mg tablet 25 mg PO Q6H PRN nausea and 09/03/23 vomiting #12 tabs sucralfate 1 gram tablet (Carafate) 1 g PO Q6H PRN abd ominal pain #12 09/03/23 tabs Allergies Allergy/AdvReac Type Severity Reaction Status Date / Time acetaminophen (From Percocet) Allergy Severe Agitated Verified 08/27/24 16:18 codeine AdvReac Severe Vomiting Verified 08/27/24 16:18 hydrocodone (From Vicodin) AdvReac Severe Agitated Verified 08/27/24 16:18 morphine AdvReac Severe Vomiting Verified 08/27/24 16:18 oxycodone AdvReac Severe Agitated Verified 08/27/24 16:18 Review of Systems ROS Constitutional Denies: fever or chills Eyes Denies: change in vision Cardiovascular Denies: chest pain Musculoskeletal Reports: extremity pain (since laceration); Denies: back pain or neck pain Integumentary/Breast Denies: rash PFSH [facility] Medical History (Updated 08/27/24 @ 16:34 by TASNEEM Sharif) H/O anxiety state ?Z91.89 - Other specified personal risk factors, not elsewhere classified (ICD-10) Social History Little interest or pleasure in doing things: not at all Feeling down, depressed, or hopeless: not at all Exam Narrative Exam Narrative: Nurse's notes and vital signs reviewed. Patient is not hypoxic. General: The patient appears well and in no apparent distress. Patient is resting comfortably on cart. Skin: Warm, dry, no pallor noted.At the level of the left DIP radial aspect little finger going to the distal phalanx patient has a 1 cm x 0.5 cm x 1 cm avulsion type flap laceration with bleeding controlled on arrival the most distal aspect is still attached to the tip of the finger with no evidence of nail injury. Head: Normocephalic, atraumatic Eye: Normal conjunctiva Respiratory: Patient is in no distress Musculoskeletal: The left hand and wrist shows no obvious deformity. There was no swelling noted. The patient had full ROM despite laceration and on inspection there is no evidence of capsule involvement bone involvement or tendon involvement. Surprisingly it does run along the neurovascular bundle but there is no visible arterial bleeding or and patient notes distal sensation intact to both the radial and ulnar aspects of the little finger. The patient had tenderness noted directly on palpation to the little finger, no evidence of tendon disruption The patient had no tenderness in the anatomical snuff box. The patient had no pain with axial loading of the thumb. Pulses are intact at brachial and radial 2+. There was no deficit at the elbow or shoulder. The patient has normal capillary refill to all distal digits. The patient has no evidence of cyanosis or mottling. The patient is able to flex and extend all digits without d ifficulty. Neurological: A&O x4, normal sensory, normal motor Psychiatric: Cooperative Constitutional Vital Signs, click to edit/add: Last Vital Signs Temp 97.6 F 08/27/24 16:18 Pulse 84 08/27/24 16:18 Resp 16 08/27/24 16:18 BP 142/78 H 08/27/24 16:18 Pulse Ox 97 08/27/24 16:18 Course Vital Signs Vital signs: Vital Signs Temperature 97.6 F 08/27/24 16:18 Pulse Rate 84 08/27/24 16:18 Respiratory Rate 16 08/27/24 16:18 Blood Pressure 142/78 H 08/27/24 16:18 Pulse Oximetry 97 08/27/24 16:18 Temperature 97.6 F 08/27/24 16:18 Pulse Rate 84 08/27/24 16:18 Respiratory Rate 16 08/27/24 16:18 Blood Pressure 142/78 H 08/27/24 16:18 Pulse Oximetry 97 08/27/24 16:18 MDM - Wound/Laceration MDM Narrative Medical decision making narrative: Wound care discussed patient's tetanus up-to-date sutures required patient tolerated this well. No underlying structures involved with visualization for concern of bone tendon or capsular involvement. Patient had a superficial laceration that made almost a perfect rectangle and was a flap still attached at the distal aspect. Given the amount of tissue that was present patient agreeable to reattachment with hopefulness of revascularization. We discussed there would be a chance that the tissue does not take given the three quarters involvement and this would likely scab and fall off at a later date. We have recommended a follow-up to her PCP in 2 to 3 days to recheck the area and then likely suture removal in 10 days. We discussed the utilization of a splint but this would likely rub on the incision and have recommended that she just keep her finger in a straight tea finger position as tolerated and to focus on ice and elevation. Removal of flap would likely lead to soft tissue deformity given the scalloping to soft tissues. The patient is to followup with primary care physician in next 2-3 days or to return to the emergency department should any of the signs or symptoms worsen or new symptoms develop. Patient had questions answered. The patient agrees with the following Diagnosis and Treatment plan and the patient will be discharged home. Discharge Plan Discharge Chief Complaint: Wound/Laceration Clinical Impression: Finger laceration Qualifiers: Encounter type: initial encounter Finger: little finger Damage to nail status: without damage Foreign body presence: without foreign body Laterality: left Qualified Code(s): S61.217A - Laceration without foreign body of left little finger without damage to nail, initial encounter Patient Disposition: Home, Self-Care Time of Disposition Decision: 16:33 Condition: Good Prescriptions / Home Meds: No Action ergocalciferol (vitamin D2) 1,250 mcg (50,000 unit) capsule 1,250 mcg PO DAILY lorazepam 0.5 mg tablet 0.5 mg PO Q6H PRN (Reason: anxiety) sucralfate [Carafate] 1 gram tablet 1 g PO Q6H PRN (Reason: abdominal pain) Qty: 12 0RF pantoprazole [Protonix] 40 mg tablet,delayed release (DR/EC) 40 mg PO DAILY Qty: 7 0RF promethazine 25 mg tablet 25 mg PO Q6H PRN (Reason: nausea and vomiting) Qty: 12 0RF Print Language: Maori Instructions: Finger Laceration (ED) Additional Instructions: Recommend suture removal in 10 days- please call pcp for follow up wound check in 2-4 days Referrals: Laura Gutierrez MD [Primary Care Provider] - 1 week Procedures ED Laceration Laceration Laceration 1: Additional comments: Laceration repair: Done under sterile conditions. The use of Betadine was used to prep and clean the area. Local injection with lidocaine 1% was used, approximately 1 cc. The wound was irrigated copiously with normal saline. The wound was explored there was no evidence of foreign material. The laceration was approximated with 6-0 prolene. 6 simple interrupted sutures were placed. Patient tolerated the procedure well. The patient was neurovascularly intact post. the patient had bacitracin applied to the laceration and a dry sterile dressing was place. The patient will need to follow-up in the next 10 days for removal.
[2024-08-27] MEDS: BACITRACIN 0.9 GM PACKET 1 PACKET TOPICAL (16:55)
== END 2024-08-27 17:07 | disposition home or self-care (01) ==
PROVIDERS: Emergency Provider Emergency Medicine; PCP Student in an Organized Health Care Education/Training Program
DX: S61.217A Laceration without foreign body of left little finger without damage to nail, initial encounter (principal); W26.0XXA Contact with knife, initial encounter
CPT/HCPCS: 12001; 99282

== ENCOUNTER 2024-09-17 07:39 | Outpatient (OUT) | payer BC, SELFPAY ==
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
--- OUTSIDE RECORDS SUMMARY | 2024-09-16 17:00 | XMS_ITS | Encounter Summary ---
Author Organization [facility] Address [address] [facility] [place] [address] Care Team Providers Care Concrete Rubber Name Role Phone Laura Gutierrez MD, IBCLC Primary Care Provid er Encounter Details Date Type Department Care Team (Latest Contact Info) Description 09/16/2024 5:00 PM EDT Ancillary Procedure [facility] [address] [place] [address] Encounter for screening mammogram for malignant neoplasm of breast Social History Tobacco Use Types Packs/Day Years [...] 09/07/2024 How often do you attend chur ch or worship services? Never 09/07/2024 Do you belong to any clubs o r organizations such as cheondoism groups, unions, fraternal or athletic groups, or [...] Recorded Patient Health Questionnaire-2 Score 0 08/17/2024 [facility] - Occupational [...] any time in the past 12 m [facility], were you homeless or living in a correction (including now)? No 09/07/2024 Comments No Sex and Gender Information Value Date Recorded Sex Assigned at Female 06/03/2023 5:50 AM EDT Legal Sex Female 7:18 PM EDT Gender Identity Female 06/03/2023 5:50 AM EDT Sexual Orientation Not on file documented as of this encounter Plan of Treatment Upcoming Encounters Date Type Department Care Team (Late st Contact Info) Description 09/26/2024 3:00 PM EDT Office Visit [facility] [address] [place] [address] Laura Gutierrez MD, IBCLC [address] [place] [address] Pending Results Name Type Priority Associated Diagnoses Date /Time Bilateral screening mammogram with tomosynthesis Imaging Routine Encounter for screening mammogram for malignant neoplasm of breast 09/16/2024 5:02 PM EDT documented as of this encounter Visit Diagnoses Diagnosis Encounter for screening mammogram for malignant neoplasm of breast documented in this encounter Care Teams Concrete Rubber Relationship Specialty Start Date End Date Laura Gutierrez MD, IBCLC [address] [place] [address] PCP - General Family Medicine 06/02/23 documented as of this encounter
--- OUTSIDE RECORDS SUMMARY | 2024-09-17 07:45 | XMS_ITS | Encounter Summary ---
Author Organization [facility] Address [address] [place] [address] Care Team Providers Care Biomedical Engineering Internship Name Role Phone Laura Gutierrez MD, IBCLC Primary Care Provid er Encounter Details Date Type Department Care Team (Late st Contact Info) Description 03/31/2023 Abstract [facility] [address] [place] [address] A, Unknown Practice [address] [place], [place] [id number] Social History Tobacco Use Types Packs/Day Years [...] [facility] [address] [place] [address] Laura Gutierrez MD, IBCLC [address] [place] [address] documented as of this encounter Visit Diagnoses Not on filedocumented in this encounter Care Teams Biomedical Engineering Internship Relationship Specialty Start Date End Date Laura Gutierrez MD, IBCLC [address] [place] [phone] PCP - General Family Medicine 06/02/23 documented as of this encounter
--- OUTSIDE RECORDS SUMMARY | 2024-09-17 07:45 | XMS_ITS | Encounter Summary ---
Author Organization [facility] Address [address] [place] [address] Care Team Providers Care Rotary Shear Operator Name Role Phone Laura Gutierrez MD, IBCLC Primary Care Provid er Encounter Details Date Type Department Care Team (Late st Contact Info) Description 03/31/2023 Abstract [facility] [address] [place] [address] A, Unknown Practice [address] [place], [place] [phone] Social History Tobacco Use Types Packs/Day Years [...] [facility] [address] [place] [address] Laura Gutierrez MD, IBCLC [address] [place] [address] documented as of this encounter Visit Diagnoses Not on filedocumented in this encounter Care Teams Rotary Shear Operator Relationship Specialty Start Date End Date Laura Gutierrez MD, IBCLC [address] [place] [phone] PCP - General Family Medicine 06/02/23 documented as of this encounter
--- OUTSIDE RECORDS SUMMARY | 2024-09-17 07:45 | XMS_ITS | Encounter Summary ---
Author Organization [facility] Address [address] [place] [address] Care Team Providers Care Power Plant Supervisor Name Role Phone Laura Gutierrez MD, IBCLC Primary Care Provid er Encounter Details Date Type Department Care Team (Late st Contact Info) Description 03/31/2023 Abstract [facility] [address] [place] [address] A, Unknown Practice [address] [place], [place] [phone] Social History Tobacco Use Types Packs/Day Years [...] [facility] [address] [place] [address] Laura Gutierrez MD, IBCLC [address] [place] [address] documented as of this encounter Visit Diagnoses Not on filedocumented in this encounter Care Teams Power Plant Supervisor Relationship Specialty Start Date End Date Laura Gutierrez MD, IBCLC [address] [place] [phone] PCP - General Family Medicine 06/02/23 documented as of this encounter
--- OUTSIDE RECORDS SUMMARY | 2024-09-17 07:45 | XMS_ITS | Encounter Summary ---
Author Organization [facility] Address [address] [place] [address] Care Team Providers Care Residential Property Tax Appraiser Name Role Phone Laura Gutierrez MD, IBCLC Primary Care Provid er Encounter Details Date Type Department Care Team (Late st Contact Info) Description 03/31/2023 Abstract [facility] [address] [place] [address] A, Unknown Practice [address] [place], [place] [phone] Social History Tobacco Use Types Packs/Day Years [...] [facility] [address] [place] [address] Laura Gutierrez MD, IBCLC [address] [place] [address] documented as of this encounter Visit Diagnoses Not on filedocumented in this encounter Care Teams Residential Property Tax Appraiser Relationship Specialty Start Date End Date Laura Gutierrez MD, IBCLC [address] [place] [phone] PCP - General Family Medicine 06/02/23 documented as of this encounter
--- OUTSIDE RECORDS SUMMARY | 2024-09-17 07:45 | XMS_ITS | Encounter Summary ---
Author Organization [facility] Address [address] [place] [address] Care Team Providers Care Rounder Hand Name Role Phone Laura Gutierrez MD, IBCLC Primary Care Provid er Encounter Details Date Type Department Care Team (Late st Contact Info) Description 03/31/2023 Abstract [facility] [address] [place] [address] A, Unknown Practice [address] [place], [place] [phone] Social History Tobacco Use Types Packs/Day Years [...] [facility] [address] [place] [address] Laura Gutierrez MD, IBCLC [address] [place] [address] documented as of this encounter Visit Diagnoses Not on filedocumented in this encounter Care Teams Rounder Hand Relationship Specialty Start Date End Date Laura Gutierrez MD, IBCLC [address] [place] [phone] PCP - General Family Medicine 06/02/23 documented as of this encounter
--- OUTSIDE RECORDS SUMMARY | 2024-09-17 07:45 | XMS_ITS | Encounter Summary ---
Author Organization [facility] Address [address] [place] [address] Care Team Providers Care Healthcare Or Medical Name Role Phone Laura Gutierrez MD, IBCLC Primary Care Provid er Encounter Details Date Type Department Care Team (Late st Contact Info) Description 03/31/2023 Abstract [facility] [address] [place] [address] A, Unknown Practice [address] [place], [place] [phone] Social History Tobacco Use Types Packs/Day Years [...] [facility] [address] [place] [address] Laura Gutierrez MD, IBCLC [address] [place] [address] documented as of this encounter Visit Diagnoses Not on filedocumented in this encounter Care Teams Healthcare Or Medical Relationship Specialty Start Date End Date Laura Gutierrez MD, IBCLC [address] [place] [phone] PCP - General Family Medicine 06/02/23 documented as of this encounter
--- OUTSIDE RECORDS SUMMARY | 2024-09-17 07:45 | XMS_ITS | Encounter Summary ---
Author Organization [facility] Address [address] [place] [address] Care Team Providers Care Technical Administrator Name Role Phone Laura Gutierrez MD, IBCLC Primary Care Provid er Encounter Details Date Type Department Care Team (Late st Contact Info) Description 03/31/2023 Abstract [facility] [address] [place] [address] A, Unknown Practice [address] [place], [place] [phone] Social History Tobacco Use Types Packs/Day Years [...] [facility] [address] [place] [address] Laura Gutierrez MD, IBCLC [address] [place] [address] documented as of this encounter Visit Diagnoses Not on filedocumented in this encounter Care Teams Technical Administrator Relationship Specialty Start Date End Date Laura Gutierrez MD, IBCLC [address] [place] [address] PCP - General Family Medicine 06/02/23 documented as of this encounter
--- OUTSIDE RECORDS SUMMARY | 2024-09-17 07:45 | XMS_ITS | Encounter Summary ---
Author Organization [facility] Address [address] [place] [address] Care Team Providers Care International Account Manager Name Role Phone Laura Gutierrez MD, IBCLC Primary Care Provid er Encounter Details Date Type Department Care Team (Late st Contact Info) Description 03/31/2023 Abstract [facility] [address] [place] [address] A, Unknown Practice [address] [place], [place] [phone] Social History Tobacco Use Types Packs/Day Years [...] [facility] [address] [place] [address] Laura Gutierrez MD, IBCLC [address] [place] [address] documented as of this encounter Visit Diagnoses Not on filedocumented in this encounter Care Teams International Account Manager Relationship Specialty Start Date End Date Laura Gutierrez MD, IBCLC [address] [place] [phone] PCP - General Family Medicine 06/02/23 documented as of this encounter
--- OUTSIDE RECORDS SUMMARY | 2024-09-17 07:46 | XMS_ITS | Clinical Summary ---
Author Organization [facility] Address [address] [place] [address] Care Team Providers Care Lay Out Maker Name Role Phone Unavailable Primary Care Provider [...]
--- OUTSIDE RECORDS SUMMARY | 2024-09-17 07:46 | XMS_ITS | Encounter Summary ---
Author Organization [facility] Address [address] [place] [address] Care Team Providers Care Master Fisher Name Role Phone Laura Gutierrez MD, IBCLC Primary Care Provid er Reason for Visit * Reason Comments Med Refill Encounter Details Date Type Department Care Team (Late st Contact Info) Description 10/09/2023 Refill [facility] [address] [place] [phone] Angela Myrick, SUPERVISOR [employer] [address] [place] [address] Other migraine without status migrainosus, not intractable Social History Tobacco Use Types Packs/Day Years Used Date Smoking Tobacco: Never Smokeless Tobacco: Never B1300 Health Literacy Answer Date Recor ded How often do you need to hav e someone help you when you read instructions, pamphlets, or other written material from your doctor or pharmacy? Never 09/02/2023 Social Connection and Isolation Panel [NHANES] A nswer Date Recorded In a typical week, how many times do you talk on the phone with family, friends, or neighbors? Twice a week 09/02/19 How often do you get togethe r with friends or relatives? Patient declined 09/02/2023 How often do you attend chur ch or baptist services? Patient declined 09/02/2023 Do you belong to any clubs o r organizations such as mu-ism groups, unions, fraternal or athletic groups, or school groups? No 09/02/2023 How often do you attend meet ings of the clubs or organizations you belong to? Never 09/02/2023 Are you , , di vorced, , never , or living with a partner? Living with partner 09/02/2023 AUDIT-C Answer Date Recorded Q1: How often do you have a drink containing alc ohol? Monthly or less 09/02/2023 Q2: How many drinks containi ng alcohol do you have on a typical day when you are drinking? Patient declined 09/02/2023 Q3: How often do you have si x or more drinks on one occasion? Never 09/02/2023 Overall Financial Resource Strain (CARDIA) Answe r Date Recorded How hard is it for you to pa y for the very basics like food, housing, medical care, and heating? Not hard at all 09/02/2023 [facility] - Occupational Stress Questionnaire Answer Date Recorded Do you feel stress - tense, restless, nervous, or anxious, or unable to sleep at night because your mind is troubled all the time - these days? Very much 09/02/2023 Exercise Vital Sign Answer Date Recorde d On average, how many days pe r week do you engage in moderate to strenuous exercise (like a brisk walk)? 0 days 09/02/2023 On average, how many minutes do you engage in exercise at this level? 0 min 09/02/2023 Hunger Vital Sign Answer Date Recorded Within the past 12 months, y ou worried that your food would run out before you got the money to buy more. Never true 09/02/19 Within the past 12 months, t he food you bought just didn't last and you didn't have money to get more. Never true 09/02/2023 PRAPARE - Transportation Answer Date Re corded In the past 12 months, has l ack of transportation kept you from medical appointments or from getting medications? No 08/10 In the past 12 months, has l ack of transportation kept you from meetings, work, or from getting things needed for daily living? No 09/02/2023 Housing Stability Vital Sign Answer Kody e Recorded In the last 12 months, was t here a time when you were not able to pay the mortgage or rent on time? No 09/02/2023 In the past 12 months, how m any times have you moved where you were living? 0 09/02/2023 At any time in the past 12 m [facility], were you homeless or living in a care home (including now)? No 09/02/2023 Comments No Sex and Gender Information Value [...] Office Visit [facility] [address] [place] [phone] Laura Gutierrez MD, IBCLC [address] [place] [address] documented as of this encounter Visit Diagnoses Diagnosis Other migraine without status migrainosus, not intractable documented in this encounter Care Teams Master Fisher Relationship Specialty Start Date End Date Laura Gutierrez MD, IBCLC [address], [place] [phone] PCP - General Family Medicine 06/02/23 documented as of this encounter
--- OUTSIDE RECORDS SUMMARY | 2024-09-17 07:46 | XMS_ITS | Encounter Summary ---
Author Organization [facility] Address [address] [place] [address] Care Team Providers Care Semiconductor Processor Name Role Phone Laura Gutierrez MD, IBCLC Primary Care Provid er Encounter Details Date Type Department Care Team (Late st Contact Info) Description 09/07/2024 Bamboo flowsheet [facility] [address] [place] [phone] Laura Gutierrez MD, IBCLC [address] [place] [address] Social History Tobacco Use Types Packs/Day Years [...] often do you attend chur ch or yarsani services? Never 09/07/2024 Do you belong to any clubs o r organizations such as gnosticist groups, unions, fraternal or athletic groups, or [...] Recorded Patient Health Questionnaire-2 Score 0 08/17/2024 [facility] Answer Date Recorded [...] any time in the past 12 m [facility], were you homeless or living in a residential (including now)? No 09/07/2024 Comments No Sex and Gender Information Value Date Recorded Sex Assigned at Female 06/03/2023 5:50 AM EDT Legal Sex Female 7:18 PM EDT Gender Identity Female 06/03/2023 5:50 AM EDT Sexual Orientation Not on file documented as of this encounter Functional Status * Audit-C Score [...] Mychart, Generic documented as of this encounter Plan of Treatment Upcoming Encounters Date Type Department Care Team (Late st Contact Info) Description 09/26/2024 3:00 PM EDT Office Visit [facility] [address] [place] [phone] Laura Gutierrez MD, IBCLC [address] [place], [place] [phone] documented as of this encounter Visit Diagnoses Not on filedocumented in this encounter Care Teams Semiconductor Processor Relationship Specialty Start Date End Date Laura Gutierrez MD, IBCLC [address] [place] [address] PCP - General Family Medicine 06/02/23 documented as of this encounter
--- OUTSIDE RECORDS SUMMARY | 2024-09-17 07:46 | XMS_ITS | Encounter Summary ---
Author Organization [facility] Address [address] [place] [address] Care Team Providers Care Tip Banding Machine Operator Name Role Phone Laura Gutierrez MD, IBCLC Primary Care Provid er Encounter Details Date Type Department Care Team (Latest Contact Info) Description 09/16/2024 Travel Social History Tobacco Use Types Packs/Day Years [...] often do you attend chur ch or hinduism services? Never 09/07/2024 Do you belong to any clubs o r organizations such as mandaeism groups, unions, fraternal or athletic groups, or [...] Recorded Patient Health Questionnaire-2 Score 0 08/17/2024 [facility] - Occupational Stress Questionnaire Answer Date Recorded [...] any time in the past 12 m [facility], were you homeless or living in a long term (including now)? No 09/07/2024 Comments No Sex [...] [facility] [address] [place] [phone] Laura Gutierrez MD, IBCLC [address] [place] [address] documented as of this encounter Visit Diagnoses Not on filedocumented in this encounter Care Teams Tip Banding Machine Operator Relationship Specialty Start Date End Date Laura Gutierrez MD, IBCLC [address] [place] [address] PCP - General Family Medicine 06/02/23 documented as of this encounter
--- OUTSIDE RECORDS SUMMARY | 2024-09-17 07:46 | XMS_ITS | CCD ---
Author Organization [facility] CliniSyar Care Team Providers Care Tax Agent Name Role Phone KEISHA ROBLERO Admitting Unavailable ANNIKA KEISHA Attending Unavailable ESTHER MILTON Primary Care Unavailable ALL GUDINO Consulting Unavailable ANNIKA, KEISHA Consulting Unavailable DAWN COHEN Admitting Unavailable DAWN COHEN Attending Unavailable DAWN COHEN Consulting Unavailable ESTHER MILTON Primary Care Unavailable ANNIKA, KEISHA Admitting Unavailable ANNIKA KEISHA Attending Unavailable MENDEZ KANG Consulting Unavailable Robert Chinchilla Consulting Unavailable ESTHER MILTON Primary Care Unavailable ROSAURA ARTHUR Admitting UnavailROSAURA Laws Attending UnavailROSAURA Laws Consulting UnavailChico Fortune Consulting Unavailable DAWN COHEN Admitting Unavailable DAWN COHEN Attending Unavailable ESTHER MILTON Primary Care Unavailable DAWN COHEN Consulting Unavailable Esther Milton Unavailable Maggie Harper Unavailable DO Esther Milton Primary Care Provider DO Esther Milton Attending Provider DO Esther Milton Primary Care Provider DO Dalton Orr Attending Provider Alyssia Madden Unavailable CARRI ORO Referring Unavailable BRENDAGENOVEVA Primary Care Unavailable BRENDA, GENOVEVA Primary Care Unavailable DEREK OBRIEN Attending Unavailable DEREK OBRIEN Referring Unavailable GENOVEVA GUTIERREZ Primary Care Unavailable DEREK OBRIEN Attending Unavailable DEREK OBRIEN Referring Unavailable Brenda MEDINA, IBCLC, Genoveva Primary Care [facility] Esther Milton Primary Care Unavailable Bruno Kay Attending Unavailab Bruno Awad Admitting Unavailab pratima Gutierrez MD, Genoveva Primary Care Provider [phone] Esther Milton DO Primary Care Provider [phone] oMunika De Souza APRN Attending Provider GENOVEVA GUTIERREZ Attending Unavailable GENOVEVA GUTIERREZ Attending Unavailable Allergies Allergy Classification Reported Allergen(s) Allergy Type Date of Onset Reaction(s) Facility (20 sources) Acetaminophen / HYDROcodone Drug Allergy 10-08-19 16 Unknown, mood changes [facility] Repository (1 source) Acetaminophen / oxyCODONE Drug Allergy 10-08-19 16 [facility] Repository (5 sources) Morphine Drug Allergy 10-08-19 16 Unknown Reaction, Unknown Reaction, mood changes [facility] Repository (19 sources) Acetaminophen / oxyCODONE Drug Allergy changes in personality [facility] Other (20 sources) Codeine Drug Allergy 09-02-19 behaivioral issues, violent behavior [facility] (20 sources) Estrogens, Conjugated (MCC) Drug Allergy 06-03-19 24 Other (See Comments) [facility] Other (20 sources) Morphine Drug Allergy 09-09-19 20 Unknown, Other (See Comments) [facility] Other (6 sources) Acetaminophen; Translations: [acetaminophen] Drug Allergy 09-09-19 Other (See Comments) [facility] (16 sources) HYDROcodone; Translations: [hydrocodone] Drug Allergy 09-09-19 Unknown [facility] (17 sources) oxyCODONE; Translations: [oxycodone] Drug Allergy 09-09-19 Unknown, Other (See Comments) [facility] (4 sources) Morphine Drug Allergy mood changes [facility] Other (12 sources) Acetaminophen / HYDROcodone Drug Allergy 06-03-19 Unknown, Other (See Comments) [facility] (11 sources) Conjugated Estrogens Allergy to substance 06-03-19 Unknown [facility] (1 source) Codeine Drug Allergy 11-22-19 [facility] Repository (3 sources) Estrogens, Conjugated (MCC) Drug Allergy 11-22-19 behaivioral changes [facility] Repository (1 source) Morphine Drug Allergy 11-22-19 [facility] Repository Medications Current Medications Medication Drug Class(es) Dates Sig (Normalized) Sig (Original) 0.5 ML semaglutide 0.5 MG/ML Auto-Injector [Wegovy] (8 sources) Start: 02-05-2022 inject 0.25 mg by subcutaneous injection every week Wegovy 0.25 MG/0.5ML 0.25 mg Subcutaneous weekly for 30 day(s) Jan, Active hydrOXYzine hydrochloride 25 mg oral tablet (8 sources) Antihistamine Start: 08-17-2024 End: 09-16-2024 take 2 tablets by mouth every eight hours hydrOXYzine HCl (Atarax) 25 MG tablet Indications: Poison kar dermatitis Take 2 tablets (50 mg) by mouth every 8 (eight) hours if needed for itching 30 tablet 08/17/2024 09/07/2024 Discontinued Start: 08-13-2024 End: 08-17-2024 take 1 tablet by mouth four times daily as needed hydrOXYzine HCl (Atarax) 25 MG tablet TAKE 1 TABLET BY MOUTH FOUR TIMES DAILY NEEDED FOR ITCHING FOR 5 DAYS 08/13/2024 08/17/2024 Discontinued (Reorder) ibuprofen 800 mg oral tablet (20 sources) Nonsteroidal Anti-inflammatory Drug Start: 09-09-2019 End: 08-17-2024 take 1 tablet by mouth every eight hours for pain ibuprofen 800 MG tablet Indications: Other migraine without status migrainosus, not intractable Take 1 tablet (800 mg) by mouth every 8 (eight) hours if needed for mild pain 90 tablet 08/17/2024 Active Start: 09-09-2019 Ibuprofen Acti ve 800 MG PO As Directed September 08, 2019 11:00pm Ozempic (0.25 or 0.5 MG/DOSE) 2 MG/1.5ML [...] tablet Discontinued 20 MG PO Twice daily 10 May 16, 2024 12:00am August 13, 2024 9:27am [...] every week ergocalciferol (Vitamin D2) 1.25 MG (93960 UT) capsule Indications: Vitamin D deficiency TAKE 1 CAPSULE BY MOUTH ONE TIME PER WEEK 12 capsule 1 10/30/2023 08/17/2024 Discontinued LORazepam 0.5 mg oral tablet (20 sources) [...] 11-14-2020 take 1 tablet by zenon th once [...] Translations: [Vitamin D deficiency, unspecified] 10-29-2023 Chronic Open wounds of extremities (2 sources) Laceration of left little finger; Translations: [Laceration without foreign body of left little finger without damage to nail, subsequent encounter] 09-07-2024 Episodic Other aftercare (2 sources) Removal of sutures done; Translations: [Encounter for removal of sutures] 09-07-2024 Episodic Other gastrointestinal disorders (20 sources) Irritable bowel [...] Test Name Value Interpretation Reference Range Facility No Panel Informationon 09-07 Genoveva Gutierrez MD, IBCLC 09/07/2024 1:46 PM Suture Removal Date/Time: 09/07/2024 1:45 PM Performed by: Genoveva Gutierrez MD, IBCLC Authorized by: Genoveva Gutierrez MD, IBCLC Consent: Consent obtained: Verbal [...] Procedure completion: Tolerated well, no immediate complications [facility] Calprotectin, Fecalon 2023 Calprotectin, Fecal 62 ug/g High <=49 [facility] Comment on above: Result Comment: (NOT E) REFERENCE INTERVAL: Calprotectin, Fecal by Immunoassay Less than 50 ug/g.........Normal 50-120 ug/g...............Borderline elevated, test should be re-evaluated in 4-6 weeks. 121 ug/g or greater.......Elevated Performed By: [facility] [address] [place] [address] [employer] Officer: Pankaj Corrales MD, PhD CLIA Number: [id number] Performed By: #### A CALPF #### [facility] [address] [place] [address] [employer] [place]: Bravo Vasquez MD #### STLPCR #### [facility] [address] [place] [address] [employer] [place]: Rashard Otero MD [facility] [address] [place] [address] [employer] [place]: Jaime Chavez MD Stool PCR B[place] 10-28-19 24 Campylobacter sp PCR NEGATIVE: No Campylobacter spp. (jejuni or coli) DNA Detected Normal [facility] Comment on above: Performed By: #### A CALPF #### [facility] [address] [place] [address] [employer] [place]: Bravo Vasquez MD #### STLPCR #### [facility] [address] [place] [address] [employer] [place]: Rashard Otero MD [facility] [address] [place] [address] [employer] [place]: Jaime Chavez MD E coli enterotox PCR NEGATIVE: No Enterotoxigenic E. coli (ETEC) Heat-labile and heat-stable (LT/ST) Normal [facility]NEG [facility] Comment on above: Result Comment: DNA Detected Performed By: #### A CALPF #### [facility] [address] [place] [address] [employer] [place]: Bravo Vasquez MD #### STLPCR #### [address] [address] [employer] [place]: Rashard Otero MD [facility] [address] [place] [address] [employer] [place]: Jaime Chavez MD Plesiomonas sp PCR Negative Normal [facility] Comment on above: Performed By: #### A CALPF #### [facility] [address] [place] [address] [employer] [place]: Bravo Vasquez MD #### STLPCR #### [facility] [address] [place] [address] [employer] [place]: Rashard Otero MD [facility] [address] [place] [address] [employer] [place]: Jaime Chavez MD Salmonella sp PCR Negative [facility] Comment on above: Performed By: #### A CALPF #### [facility] [address] [place] [address] [employer] [place]: Bravo Vasquez MD #### STLPCR #### [facility] [address] [place] [address] [employer] [place]: Rashard Otero MD [facility] [address] [place] [address] [employer] [place]: Jaime Chavez MD Shigatoxin gene PCR Negative Normal STXNEG [facility] Comment on above: Performed By: #### A CALPF #### [facility] [address] [place] [address] [employer] [place]: Bravo Vasquez MD #### STLPCR #### [facility] [address] [place] [address] [employer] [place]: Rashard Otero MD [facility] [address] [place] [address] [employer] [place]: Jaime Chavez MD Shigella sp PCR Negative Normal [facility] Comment on above: Performed By: #### A CALPF #### [facility] [address] [place] [address] [employer] [place]: Bravo Vasquez MD #### STLPCR #### [facility] [address] [place] [address] [employer] [place]: Rashard Otero MD [facility] [address] [place] [address] [employer] [place]: Jaime Chavez MD Vibrio sp PCR NEGATIVE: No Vibrio (V. vulnificus, V, parahaemolyticus and V. cholerae) DNA [facility] Comment on above: Result Comment: Dete cted Performed By: #### A CALPF #### [facility] [address] [place] [address] [employer] [place]: Bravo Vasquez MD #### STLPCR #### [facility] [address] [place] [address] [employer] [place]: Rashard Otero MD [facility] [address] [place], [place] [id number] [employer] [place]: Jaime Chavez MD Yersinia gene PCR Negative Normal [facility] Comment on above: Performed By: #### A CALPF #### [facility] [address] [place] [address] [employer] [place]: Bravo Vasquez MD #### STLPCR #### [facility] [address] [place], [place] [id number] [employer] [place]: Rashard Otero MD [facility] [address] [place] [address] [employer] [place]: Jaime Chavez MD C-Reactive Proteinon 024 CRP [Mass/Vol] 5.1 mg/L High 0.0-5.0 [facility] Comment on above: Performed By: #### C DP, CP, CRP, TSH #### [facility] [address] [place] [address] [employer] [place]: Jaime Chavez MD CBC with Diffon 10-27-2023 Abs. Basophil 0.05 k/uL Normal 0.00-0.20 [facility] Comment on above: Performed By: #### C DP, CP, CRP, TSH #### [facility] [address] [place] [address] [employer] [place]: Jaime Chavez MD Abs.Imm.Granulocyte 0.01 k/uL Normal 0.00-0.30 [facility] Comment on above: Performed By: #### C DP, CP, CRP, TSH #### [facility] [address] [place] [address] [employer] [place]: Jaime Chavez MD Abs.Neutrophil (Seg) 4.21 k/uL Normal 2.5-7.0 [facility] Comment on above: Performed By: #### C DP, CP, CRP, TSH #### [facility] [address] [place] [address] [employer] [place]: Jaime Chavez MD Basophils/100 WBC (Bld) 1 % Normal 0-2 M [facility] Comment on above: Performed By: #### C DP, CP, CRP, TSH #### [facility] [address] [place] [address] [employer] [place]: Jaime Chavez MD Eosinophils (Bld) [#/Vol] 0.12 10*3/uL Normal 0.00-0.40 [facility] Comment on above: Performed By: #### C DP, CP, CRP, TSH #### [facility] [address] [place] [address] [employer] [place]: Jaime Chavez MD Eosinophils/100 WBC (Bld) 2 % Normal 0-5 [facility] Comment on above: Performed By: #### C DP, CP, CRP, TSH #### [facility] [address] [place] [address] [employer] [place]: Jaime Chavez MD Erythrocyte distribution width (RBC) [Ratio] 12.9 % Normal 12.1-15.2 [facility] Comment on above: Performed By: #### C DP, CP, CRP, TSH #### [facility] [address] [place] [address] [employer] [place]: Jaime Chavez MD Hematocrit (Bld) [Volume fraction] 44.3 % Normal 36.0-46.0 [facility] Comment on above: Performed By: #### C DP, CP, CRP, TSH #### [facility] [address] [place] [address] [employer] [place]: Jaime Chavez MD Hemoglobin (Bld) [Mass/Vol] 14.4 g/dL Normal 12.0-16.0 [facility] Comment on above: Performed By: #### C DP, CP, CRP, TSH #### [facility] [address] [place] [address] [employer] [place]: Jaime Chavez MD Immature granulocytes/100 WBC (Bld) 0 % Normal 0-5 [facility] Comment on above: Performed By: #### C DP, CP, CRP, TSH #### [facility] [address] [place] [address] [employer] [place]: Jaime Chavez MD Lymphocytes (Bld) [#/Vol] 1.94 10*3/uL Normal 1.00-4.80 [facility] Comment on above: Performed By: #### C DP, CP, CRP, TSH #### [facility] [address] [place] [address] [employer] [place]: Jaime Chavez MD Lymphocytes/100 WBC (Bld) 28 % Normal 15-40 [facility] Comment on above: Performed By: #### C DP, CP, CRP, TSH #### [facility] [address] [place] [address] [employer] [place]: Jaime Chavez MD MCH (RBC) [Entitic mass] 28.5 pg Normal 26.0-34.0 [facility] Comment on above: Performed By: #### C DP, CP, CRP, TSH #### [facility] [address] [place] [address] [employer] [place]: Jaime Chavez MD MCHC (RBC) [Mass/Vol] 32.5 g/dL Normal 31.0-37.0 [facility] Comment on above: Performed By: #### C DP, CP, CRP, TSH #### [facility] [address] [place] [address] [employer] [place]: Jaime Chavez MD MCV (RBC) [Entitic vol] 87.5 fL Normal 80.0-100.0 [facility] Comment on above: Performed By: #### C DP, CP, CRP, TSH #### [facility] [address] [place] [address] [employer] [place]: Jaime Chavez MD Monocytes (Bld) [#/Vol] 0.61 10*3/uL Normal 0.00-1.00 [facility] Comment on above: Performed By: #### C DP, CP, CRP, TSH #### [facility] [address] [place], [place] [phone] (299) [employer] [place]: Jaime Chavez MD Monocytes/100 WBC (Bld) 9 % High 4-8 M [facility] Comment on above: Performed By: #### C DP, CP, CRP, TSH #### [facility] [address] [place] [address] [employer] [place]: Jaime Chavez MD Neutrophil (Seg) 60 % Normal 47-75 [facility] Comment on above: Performed By: #### C DP, CP, CRP, TSH #### [facility] [address] [place] [address] [employer] [place]: Jaime Chavez MD Platelet mean volume (Bld) [Entitic vol] 9.3 fL Normal 6.0-12.[address] [facility] Comment on above: Performed By: #### C DP, CP, CRP, TSH #### [facility] [address] [place] [address] [employer] [place]: Jaime Chavez MD Platelets (Bld) [#/Vol] 347 10*3/uL Normal 140-450 [facility] Comment on above: Performed By: #### C DP, CP, CRP, TSH #### [facility] [address] [place] [id number] [employer] [place]: Jaime Chavez MD RBC (Bld) [#/Vol] 5.06 10*6/uL Normal 4.00-5.20 [facility] Comment on above: Performed By: #### C DP, CP, CRP, TSH #### [facility] [address] [place] [address] [employer] [place]: Jaime Chavez MD WBC (Bld) [#/Vol] 6.9 10*3/uL Normal 3.5-11.0 [facility] Comment on above: Performed By: #### C DP, CP, CRP, TSH #### [facility] [address] [place], [place] [phone] [employer] [place]: Jaime Chavez MD Comp Metabolic Profon 2023 Albumin [Mass/Vol] 4.1 g/dL Normal 3.5-5.2 [facility] Comment on above: Performed By: #### C DP, CP, CRP, TSH #### [facility] [address] [place], [place] [id number] [employer] [place]: Jaime Chavez MD Alkaline Phos 89 U/L Normal 35-104 [facility] Comment on above: Performed By: #### C DP, CP, CRP, TSH #### [facility] [address] [place], [place] [id number] [employer] [place]: Jaime Chavez MD ALT [Catalytic activity/Vol] 17 U/L Normal 5-33 [facility] Comment on above: Performed By: #### C DP, CP, CRP, TSH #### [facility] [address] [place], [place] 3274[address] [employer] [place]: Jaime Chavez MD Anion gap [Moles/Vol] 11 mmol/L Normal 9-17 [facility] Comment on above: Performed By: #### C DP, CP, CRP, TSH #### [facility] [address] [place], [place] [id number] [employer] [place]: Jaime Chavez MD AST [Catalytic activity/Vol] 13 U/L Normal <32 [facility] Comment on above: Performed By: #### C DP, CP, CRP, TSH #### [facility] [address] [place], [place] [address] [employer] [place]: Jaime Chavez MD Bilirubin [Mass/Vol] 0.4 mg/dL Normal 0.3-1.2 [facility] Comment on above: Performed By: #### C DP, CP, CRP, TSH #### [facility] [address] [place] [address] [employer] [place]: Jaime Chavez MD BUN/CRE Ratio 14 Normal 9-20 [facility] Comment on above: Performed By: #### C DP, CP, CRP, TSH #### [facility] [address] [place] [address] [employer] [place]: Jaime Chavez MD Calcium [Mass/Vol] 9.8 mg/dL Normal 8.6-10.4 [facility] Comment on above: Performed By: #### C DP, CP, CRP, TSH #### [facility] [address] [place] [address] [employer] [place]: Jaime Chavez MD Chloride [Moles/Vol] 103 mmol/L Normal 98-107 [facility] Comment on above: Performed By: #### C DP, CP, CRP, TSH #### [facility] [address] [place] [address] [employer] [place]: Jaime Chavez MD CO2 [Moles/Vol] 27 mmol/L Normal 20-31 [facility] Comment on above: Performed By: #### C DP, CP, CRP, TSH #### [facility] [address] [place] [address] [employer] [place]: Jaime Chavez MD Creatinine [Mass/Vol] 0.9 mg/dL Normal 0.5-0.9 [facility] Comment on above: Performed By: #### C DP, CP, CRP, TSH #### [facility] [address] [place] [address] [employer] [place]: Jaime Chavez MD GFR/1.73 sq M.predicted among non-blacks MDRD (S/P/Bld) [Vol rate/Area] 80 mL/min/{1.73_m2} Normal >[address] [facility] Comment on above: Result Comment: These [...] #### C DP, CP, CRP, TSH #### [facility] [address] [place] [id number] [employer] [place]: Jaime Chavez MD Glucose [Mass/Vol] 91 mg/dL Normal 70-99 [facility] Comment on above: Performed By: #### C DP, CP, CRP, TSH #### [facility] [address] [place] [address] [employer] [place]: Jaime Chavez MD Potassium [Moles/Vol] 3.9 mmol/L Normal 3.7-5.3 [facility] Comment on above: Performed By: #### C DP, CP, CRP, TSH #### [facility] [address] [place] [address] [employer] [place]: Jaime Chavez MD Protein [Mass/Vol] 7.2 g/dL Normal 6.4-8.3 [facility] Comment on above: Performed By: #### C DP, CP, CRP, TSH #### [facility] [address] [place], [place] [id number] [employer] [place]: Jaime Chavez MD Sodium [Moles/Vol] 141 mmol/L Normal 135-144 [facility] Comment on above: Performed By: #### C DP, CP, CRP, TSH #### [facility] [address] [place] [id number] [employer] [place]: Jaime Chavez MD Urea nitrogen [Mass/Vol] 13 mg/dL Normal 6-20 [facility] Comment on above: Performed By: #### C DP, CP, CRP, TSH #### [facility] [address] [place] [address] [employer] [place]: Jaime Chavez MD Fecal Lactoferrinon 10-27-19 24 Fecal Lactoferrin POSITIVE for fecal lactoferrin, a marker for fecal leukocytes and an indicator Abnormal [facility] Comment on above: Result Comment: of i ntestinal inflammation. Performed By: #### F LACT #### [facility] [address] [place], [place] [id number] [employer] [place]: Rashard Otero MD Stool PCR Batter[place] 10-27-19 24 Specimen Description .FECES Normal [facility] Comment on above: Performed By: #### A CALPF #### [facility] [address] [place], [place] [id number] [employer] [place]: Bravo Vasquez MD #### STLPCR #### [facility] [address], [place] [address] [employer] [place]: Rashard Otero MD [facility] [address] [place] [address] [employer] [place]: Jaime Chavez MD Thyroid Stim. Horm.on 2023 Thyroid Stim. Horm. 1.51 uIU/mL Normal 0.30-5.00 [facility] Comment on above: Performed By: #### C DP, CP, CRP, TSH #### [facility] [address] [place] [address] [employer] [place]: Jaime Chavez MD US GALLBLADDER RUQon 024 [...] Jaime Rueda MD 10/27/23 Final result Normal [facility] Gallbladder Views W elodia cystokinin and W radionuclide Wendie 09-25-2023 1. Gallbladder ejection fraction is low at 32%. In the proper clinical setting, this is consistent with functional gallbladder disorder. 2. No acute cholecystitis. [facility] EXAMINATION: NUCLEAR MEDICINE HEPATOBILIARY SCINTIGRAPHY (HIDA [...] CCK protocol. Patient-reported symptoms during CCK infusion:None [facility] Anthony Chris MD - 09/25/2023 EXAMINATION: NUCLEAR MEDICINE HEPATOBILIARY [...] et al. Clinical Gastroenterology and Hepatology June 2010384 COMPARISON: None available HISTORY: ORDERING SYSTEM PROVIDED [...] functional gallbladder disorder. 2. No acute cholecystitis. [facility] Radiology Study observation (narrative) [facility] NM Gallbladder Views W elodia cystokinin and W radionuclide IVOrdered By: Anthony Chris on 09-25-2023 [facility] Work Phone: NM HEPATOBILIARY SCAN W PHAR [...] et al. Clinical Gastroenterology and Hepatology June 2010384 COMPARISON: None available HISTORY: ORDERING SYSTEM PROVIDED [...] Anthony Chris MD 09/25/23 Final result Normal [facility] Dipstick & Microscopicon Dipstick & Microscopic No [facility] [employer] Other Urinalysis - AUTOMATEDon Appearance (U) clear [employer] Other Bilirubin Ql (U) Negative [employer] Other Color (U) yellow [employer] Other Glucose Ql (U) Negative [employer] Other Hemoglobin Ql (U) small [employer] Other Ketones Ql (U) Negative [employer] Other Leukocyte esterase Test strip Ql (U) Negative [employer] Other Nitrite Ql (U) Negative [employer] Other pH (U) 7.0 [pH] [employer] Other Protein Ql (U) Negative [employer] Other Specific gravity (U) [Rel density] 1.010 [employer] Other Urobilinogen (U) [Mass/Vol] 0.2 mg/dL [employer] Other Urinalysis - AUTOMATED No [employer] Other Urine Cultureon 10-29-2022 Bacteria identified Cx Nom (U) [employer] Other Alanine aminotransferase [En zymatic activity/volume] in Serum or PlasmaOrdered By: Dalton Orr on 10-23-2022 ALT [Catalytic activity/Vol] 26 U/L [facility] [facility] [Mass/volume] in Ser um or Plasma by Bromocresol green (BCG) dye binding methoOrdered By: Dalton Orr on 10-23-2022 Albumin BCG dye [Mass/Vol] 4.5 g/dL 3.5-5.7 [facility] Alkaline phosphatase [Enzyma tic activity/volume] in Serum or PlasmaOrdered By: Dalton Orr on 10-23-2022 ALP [Catalytic activity/Vol] 73 U/L 34-104 [facility] Aspartate aminotransferase [ Enzymatic activity/volume] in Serum or PlasmaOrdered By: Dalton Orr on 10-23-2022 AST [Catalytic activity/Vol] 19 U/L 13-39 [facility] Bilirubin.total [Mass/volume ] in Serum or PlasmaOrdered By: Dalton Orr on 10-23-2022 Bilirubin [Mass/Vol] 0.6 mg/dL 0.3-1.0 [facility] Calcium [Mass/volume] in Ser um or PlasmaOrdered By: Dalton Orr on 10-23-2022 Calcium [Mass/Vol] 9.7 mg/dL 8.6-10.3 [facility] Carbon dioxide, total [Moles /volume] in Serum or PlasmaOrdered By: Dalton Orr on 10-23-2022 CO2 [Moles/Vol] 27.0 mmol/L 21.0-31.0 [facility] Chloride [Moles/volume] in S bipin or PlasmaOrdered By: Dalton Orr on 10-23-2022 Chloride [Moles/Vol] 105 mmol/L 98-107 [facility] Cholesterol [Mass/volume] in Serum or PlasmaOrdered By: Dalton Orr on 10-23-2022 Cholesterol [Mass/Vol] 234 mg/dL 140-200 [facility] Comment on above: Chol less than 200 m g/dl low riskChol 201-239 mg/dl borderline riskChol 240 mg/dl and greater high risk Cholesterol in LDL Calc [Mas s/Vol]Ordered By: Dalton Orr on 10-23-2022 Cholesterol in LDL [Mass/Vol] 146 mg/dL 0-100 [facility] Comment on above: LDL ATP III CLASSIFI CATIONLDL less than 100 mg/dL OptimalLDL 100-129 mg/dL Near or above optimalLDL 130-159 mg/dL Borderline highLDL 160-189 mg/dL HighLDL greater than 189 mg/dL Very high Cholesterol in VLDL Calc [Ma ss/Vol]Ordered By: Dalton Orr on 10-23-2022 Cholesterol in VLDL [Mass/Vol] 30 mg/dL [facility] Creatinine [Mass/volume] in Serum or PlasmaOrdered By: Dalton Orr on 10-23-2022 Creatinine [Mass/Vol] 0.81 mg/dL 0.60-1.20 [facility] Globulin Calc (S) [Mass/Vol] Ordered By: Dalton Orr on 10-23-2022 Globulin (S) [Mass/Vol] 2.8 g/dL [facility] Glucose [Mass/volume] in Ser um or PlasmaOrdered By: Dalton Orr on 10-23-2022 Glucose [Mass/Vol] 79 mg/dL 70-100 [facility] No Panel InformationOrdered By: Dalton Orr on 10-23-2022 Estimated GFR (CKD-EPI) > 60.0 mL/Min [facility] Creatinine Clearance (Chem N/A [facility] Potassium [Moles/volume] in Serum or PlasmaOrdered By: Dalton Orr on 10-23-2022 Potassium [Moles/Vol] 4.6 mmol/L 3.5-5.1 [facility] Protein [Mass/volume] in Ser um or PlasmaOrdered By: Dalton Orr on 10-23-2022 Protein [Mass/Vol] 7.3 g/dL 6.4-8.9 [facility] Serum or plasma albumin/glob ulin mass ratioOrdered By: Dalton Orr on 10-23-2022 Albumin/Globulin [Mass ratio] 1.6 {ratio} [facility] Serum or plasma anion gap de terminationOrdered By: Dalton Orr on 10-23-2022 Anion gap [Moles/Vol] 13.6 mmol/L 6.0-15.0 [facility] Serum or plasma high density lipoprotein (HDL) cholesterol measurementOrdered By: Dalton Orr on 10-23-2022 Cholesterol in HDL [Mass/Vol] 58 mg/dL 23-92 [facility] Comment on above: HDL CHOL ATP-III CLA SSIFICATION Cardiovascular RiskHDL > or equal to 60 mg/dL LOWHDL < 40 mg/dL HIGH Serum or plasma total choles terol/high density lipoprotein (HDL) cholesterol mass ratOrdered By: Dalton Orr on 10-23-2022 Cholesterol.total/Elodia sterol in HDL [Mass ratio] 4.0 {ratio} <5.0 [facility] Sodium [Moles/volume] in Ser um or PlasmaOrdered By: Dalton Orr on 10-23-2022 Sodium [Moles/Vol] 141 mmol/L 136-145 [facility] Triglyceride [Mass/volume] i n Serum or PlasmaOrdered By: Dalton Orr on 10-23-2022 Triglyceride [Mass/Vol] 150 mg/dL 0-149 [facility] Comment on above: TRIG ATP III CLASSIF ICATIONTRIG less than 150 mg/dL NormalTRIG 150-199 mg/dL Borderline highTRIG 200-500 mg/dL High TRIG greater than 500 mg/dL Very highStandard traceable to the Center for Disease Conrtrol and Prevention (CDC) test method. Urea nitrogen [Mass/volume] in Serum or PlasmaOrdered By: Dalton Orr on 10-23-2022 Urea nitrogen [Mass/Vol] 9 mg/dL 7-25 [facility] Albumin [Mass/volume] in Ser um or PlasmaOrdered By: Esther Milton on 01-24-2022 Albumin [Mass/Vol] 3.8 g/dL 3.2-5.5 [facility] Basophils Auto (Bld) [#/Vol] Ordered By: Esther Milton on 01-24-2022 Basophils (Bld) [#/Vol] 0.1 10*3/uL 0.0-0.2 [facility] Basophils/100 WBC Auto (Bld) Ordered By: Esther Milton on 01-24-2022 Basophils/100 WBC (Bld) 0.7 % . [facility] Cholesterol [Mass/volume] in Serum or PlasmaOrdered By: Esther Milton on 01-24-2022 Cholesterol [Mass/Vol] 215 mg/dL 140-200 [facility] Comment on above: Chol less than 200 m g/dl low riskChol 201-239 mg/dl borderline riskChol 240 mg/dl and greater high risk Cholesterol in LDL Calc [Mas s/Vol]Ordered By: Esther Milton on 01-24-2022 Cholesterol in LDL [Mass/Vol] 131 mg/dL 0-100 [facility] Comment on above: LDL ATP III CLASSIFI CATIONLDL less than 100 mg/dL OptimalLDL 100-129 mg/dL Near or above optimalLDL 130-159 mg/dL Borderline highLDL 160-189 mg/dL HighLDL greater than 189 mg/dL Very high Cholesterol in VLDL Calc [Ma ss/Vol]Ordered By: Esther Milton on 01-24-2022 Cholesterol in VLDL [Mass/Vol] 30 mg/dL [facility] Creatinine and Glomerular fi ltration rate.predicted panel (S/P/Bld)Ordered By: Esther Milton on 01-24-2022 Creatinine [Mass/Vol] 0.85 mg/dL 0.44-1.03 [facility] Eosinophils Auto (Bld) [#/Vo l]Ordered By: Esther Milton on 01-24-2022 Eosinophils (Bld) [#/Vol] 0.2 10*3/uL 0.0-0.45 [facility] Eosinophils/100 WBC Auto (Bl d)Ordered By: Esther Milton on 01-24-2022 Eosinophils/100 WBC (Bld) 2.1 % . [facility] Erythrocyte distribution wid th Auto (RBC) [Ratio]Ordered By: Esther Milton on 01-24-2022 Erythrocyte distribution width (RBC) [Ratio] 13.5 % 11.9-15.3 [facility] Estimated glomerular filtrat ion rate (GFR) non- AmericanOrdered By: Esther Milton on 01-24-2022 GFR/1.73 sq M.predicted among non-blacks MDRD (S/P/Bld) [Vol rate/Area] > 60 mL/Min [facility] Globulin Calc (S) [Mass/Vol] Ordered By: Esther Milton on 01-24-2022 Globulin (S) [Mass/Vol] 2.8 g/dL [facility] Hematocrit Auto (Bld) [Volum e fraction]Ordered By: Esther Milton on 01-24-2022 Hematocrit (Bld) [Volume fraction] 41.8 % 34.0-46.4 [facility] Hemoglobin [Mass/volume] in BloodOrdered By: Esther Milton on 01-24-2022 Hemoglobin (Bld) [Mass/Vol] 13.6 g/dL 11.8-15.4 [facility] Leukocytes [#/volume] correc malika for nucleated erythrocytes in Blood by Automated counOrdered By: Esther Milton on 01-24-2022 WBC corrected for nucl RBC Auto (Bld) [#/Vol] 7.9 10*3/uL 3.8-11.6 [facility] Lymphocytes Auto (Bld) [#/Vo l]Ordered By: Esther Milton on 01-24-2022 Lymphocytes (Bld) [#/Vol] 2.3 10*3/uL 1.00-4.8 [facility] Lymphocytes/100 WBC Auto (Bl d)Ordered By: Esther Milton on 01-24-2022 Lymphocytes/100 WBC (Bld) 28.4 % . [facility] MCH Auto (RBC) [Entitic mass ]Ordered By: Esther Milton on 01-24-2022 MCH (RBC) [Entitic mass] 28.2 pg 24.7-34.3 [facility] MCHC Auto (RBC) [Mass/Vol]Or dered By: Esther Milton on 01-24-2022 MCHC (RBC) [Mass/Vol] 32.5 g/dL 32.0-35.0 [facility] MCV Auto (RBC) [Entitic vol] Ordered By: Esther Milton on 01-24-2022 MCV (RBC) [Entitic vol] 86.9 fL 80-100 [facility] Monocytes Auto (Bld) [#/Vol] Ordered By: Esther Milton on 01-24-2022 Monocytes (Bld) [#/Vol] 0.8 10*3/uL 0.0-0.8 [facility] Monocytes/100 WBC Auto (Bld) Ordered By: Esther Milton on 01-24-2022 Monocytes/100 WBC (Bld) 9.5 % . [facility] Neutrophils Auto (Bld) [#/Vo l]Ordered By: Esther Milton on 01-24-2022 Neutrophils (Bld) [#/Vol] 4.7 10*3/uL 1.8-7.7 [facility] Neutrophils/100 WBC Auto (Bl d)Ordered By: Esther Milton on 01-24-2022 Neutrophils/100 WBC (Bld) 59.3 % . [facility] No Panel InformationOrdered By: Esther Milton on 01-24-2022 Estimated GFR () > 60 mL/Min [facility] Comment on above: GFR estimated refere nce range: According to KDOQI guidelines, <60 ml/min/1.73m2 is sufficient to diagnose a patient with chronic kidney disease. Pharmacy Creatinine Clearance (Chem N/A [facility] Nucleated erythrocytes [Pres ence] in Blood by Automated countOrdered By: Esther Milton on 01-24-2022 Nucleated RBC Auto Ql (Bld) 0.1 /100{WBC} 0-0.5 [facility] Platelet mean volume Auto (B ld) [Entitic vol]Ordered By: Esther Milton on 01-24-2022 Platelet mean volume (Bld) [Entitic vol] 7.7 fL 6.3-10.7 [facility] Platelets Auto (Bld) [#/Vol] Ordered By: Esther Milton on 01-24-2022 Platelets (Bld) [#/Vol] 350 10*3/uL 150-450 [facility] Protein [Mass/volume] in Ser um or PlasmaOrdered By: Esther Milton on 01-24-2022 Protein [Mass/Vol] 6.6 g/dL 6.1-7.9 [facility] RBC Auto (Bld) [#/Vol]Ordere d By: Esther Milton on 01-24-2022 RBC (Bld) [#/Vol] 4.82 10*6/uL 3.60-5.00 [facility] Serum or plasma alanine yoon otransferase measurement without P-5'-P (enzymatic activiOrdered By: Esther Milton on 01-24-2022 ALT No additional P-5'-P [Catalytic activity/Vol] 25 U/L 10-60 [facility] Serum or plasma albumin/glob ulin mass ratioOrdered By: Esther Milton on 01-24-2022 Albumin/Globulin [Mass ratio] 1.4 {ratio} [facility] Serum or plasma alkaline venancio sphatase measurement (enzymatic activity/volume)Ordered By: Esther Milton on 01-24-2022 ALP [Catalytic activity/Vol] 69 U/L 32-92 [facility] Serum or plasma anion gap de terminationOrdered By: Esther Milton on 01-24-2022 Anion gap [Moles/Vol] 12.6 mmol/L 6.0-15.0 [facility] Serum or plasma aspartate am inotransferase measurement (enzymatic activity/volume)Ordered By: Esther Milton on 01-24-2022 AST [Catalytic activity/Vol] 20 U/L 10-42 [facility] Serum or plasma calcium edward urement (mass/volume)Ordered By: Esther Milton on 01-24-2022 Calcium [Mass/Vol] 9.7 mg/dL 8.2-10.2 [facility] Serum or plasma chloride jacquelyn surement (moles/volume)Ordered By: Esther Milton on 01-24-2022 Chloride [Moles/Vol] 102 mmol/L 95-114 [facility] Serum or plasma glucose edward urement (mass/volume)Ordered By: Esther Milton on 01-24-2022 Glucose [Mass/Vol] 84 mg/dL 70-100 [facility] Comment on above: ADA recommended refe rence rangeRandom Glucose Reference Range is dependent on time and content of last meal. Glucose of more than 200 mg/dL in a nonstressed, ambulatory subject supports the diagnosis of Diabetes Mellitus. Serum or plasma high density lipoprotein (HDL) cholesterol measurementOrdered By: Esther Milton on 01-24-2022 Cholesterol in HDL [Mass/Vol] 54 mg/dL 35-85 [facility] Comment on above: HDL CHOL ATP-III CLA SSIFICATION Cardiovascular RiskHDL > or equal to 60 mg/dL LOWHDL < 40 mg/dL HIGH Serum or plasma potassium me asurement (moles/volume)Ordered By: Esther Milton on 01-24-2022 Potassium [Moles/Vol] 4.1 mmol/L 3.5-5.1 [facility] Serum or plasma sodium measu rement (moles/volume)Ordered By: Esther Milton on 01-24-2022 Sodium [Moles/Vol] 136 mmol/L 136-146 [facility] Serum or plasma total biliru bin measurement (mass/volume)Ordered By: Esther Milton on 01-24-2022 Bilirubin [Mass/Vol] 0.5 mg/dL 0.3-1.2 [facility] Serum or plasma total carbon dioxide measurement (moles/volume)Ordered By: Esther Milton on 01-24-2022 CO2 [Moles/Vol] 25.5 mmol/L 22.0-30.0 [facility] Serum or plasma total choles terol/high density lipoprotein (HDL) cholesterol mass ratOrdered By: Esther Milton on 01-24-2022 Cholesterol.total/Elodia sterol in HDL [Mass ratio] 4.0 {ratio} <5.0 [facility] Serum or plasma urea nitroge n measurement (mass/volume)Ordered By: Esther Milton on 01-24-2022 Urea nitrogen [Mass/Vol] 18 mg/dL 9-23 [facility] TSH DL <= 0.005 mIU/L QnOrde red By: Esther Milton on 01-24-2022 TSH Qn 2.26 m[IU]/L 0.45-5.33 [facility] Triglyceride [Mass/volume] i n Serum or PlasmaOrdered By: Esther Milton on 01-24-2022 Triglyceride [Mass/Vol] 151 mg/dL 35-149 [facility] Comment on above: TRIG ATP III CLASSIF ICATIONTRIG less than 150 mg/dL NormalTRIG 150-199 mg/dL Borderline highTRIG 200-500 mg/dL High TRIG greater than 500 mg/dL Very highStandard traceable to the Center for Disease Conrtrol and Prevention (CDC) test method. WBC Auto (Bld) [#/Vol]Ordere d By: Esther Milton on 01-24-2022 WBC (Bld) [#/Vol] 7.9 10*3/uL 3.8-11.6 [facility] A1C with Estimated Average G daquan 11-20-2020 HbA1c (Bld) [Mass fraction] 5.3 % 4.3-5.6 [employer] Other HbA1c (Bld) [Mass fraction] 105 % [employer] Other Complete Blood Count Auto Di ffon 11-20-2020 Basophils (Bld) [#/Vol] 0.0 10*3/uL 0.0-0.2 [employer] [facility] Other Basophils/100 WBC (Bld) 0.4 % . [employer] Other Eosinophils (Bld) [#/Vol] 0.0 10*3/uL 0.0-0.45 [employer] Other Eosinophils/100 WBC (Bld) 0.2 % . [employer] Other Erythrocyte distribution width (RBC) [Ratio] 13.4 % 11.9-15.3 [employer] Other Hematocrit (Bld) [Volume fraction] 39.4 % 34.0-46.4 [employer] Other Hemoglobin (Bld) [Mass/Vol] 13.1 g/dL 11.8-15.4 [employer] Other Lymphocytes (Bld) [#/Vol] 2.1 10*3/uL 1.00-4.8 [employer] Other Lymphocytes/100 WBC (Bld) 15.3 % . [employer] Other MCH (RBC) [Entitic mass] 28.9 pg 24.7-34.3 [employer] Other MCH (RBC) [Entitic mass] 33.2 pg 32.0-35.0 [employer] Other MCV (RBC) [Entitic vol] 87.1 fL 80-100 [facility] [employer] Other Monocytes (Bld) [#/Vol] 1.0 10*3/uL 0.0-0.8 [employer] Other Monocytes/100 WBC (Bld) 7.3 % . N [employer] Other Neutrophils (Bld) [#/Vol] 10.3 10*3/uL 1.8-7.7 [employer] Other Neutrophils/100 WBC (Bld) 76.8 % . [employer] Other Platelet mean volume (Bld) [Entitic vol] 8.3 fL 6.3-10.7 [employer] Other Platelets (Bld) [#/Vol] 302 10*3/uL 150-450 [employer] Other RBC (Bld) [#/Vol] 4.52 10*6/uL 3.60-5.00 [employer] Other WBC (Bld) [#/Vol] 13.4 10*3/uL 3.8-11.6 [employer] Other Complete Blood Count Auto Diff 13.4 4.5-11.0 [employer] Other Complete Blood Count Auto Diff 0.0 0-0.5 [employer] Other Comprehensive Metabolic Pane tatyana 11-20-2020 Albumin [Mass/Vol] 3.8 g/dL 3.2-5.5 [employer] Other Albumin/Globulin [Mass ratio] 1.5 {ratio} [employer] Other ALP [Catalytic activity/Vol] 75 U/L 32-92 [employer] Other ALT [Catalytic activity/Vol] 26 U/L 10-60 [employer] Other AST [Catalytic activity/Vol] 20 U/L 10-42 [facility] [employer] Other Bilirubin [Mass/Vol] 0.4 mg/dL 0.3-1.2 [facility] [employer] Other Calcium [Mass/Vol] 9.4 mg/dL 8.2-10.2 [facility] [employer] Other Chloride [Moles/Vol] 104 mmol/L 95-114 [facility] [employer] Other CO2 [Moles/Vol] 24.9 mmol/L 22.0-30.0 [facility] [employer] Other Creatinine [Mass/Vol] 0.66 mg/dL 0.44-1.03 [facility] [employer] Other Glucose [Mass/Vol] 70 mg/dL 70-100 [facility] [employer] Other Potassium [Moles/Vol] 4.0 mmol/L 3.5-5.1 [facility] [employer] Other Protein [Mass/Vol] 6.4 g/dL 6.1-7.9 [facility] [employer] Other Sodium [Moles/Vol] 138 mmol/L 136-146 [facility] [employer] Other Urea nitrogen [Mass/Vol] 7 mg/dL 9-23 [facility] [employer] Other Comprehensive Metabolic Panel > 60 [facility] [employer] Other Comprehensive Metabolic Panel 2.6 [facility] [employer] Other Lipid Panelon 11-20-2020 Cholesterol [Mass/Vol] 204 mg/dL 140-200 [facility] [employer] [facility] Cholesterol in HDL [Mass/Vol] 46 mg/dL 35-85 [facility] [employer] Other Cholesterol in LDL Elph Qn 133 0-100 [facility] [employer] Other Cholesterol.total/Elodia sterol in HDL [Mass ratio] 4.4 {ratio} <5.0 [facility] [employer] Other Lipid Panel 127 35-149 [employer] Other Lipid Panel 25 [employer] Other Thyroid Stim Hormone w/Rflxo n 11-20-2020 Thyroid Stim Hormone w/Rflx 1.58 0.45-5.33 [employer] Other COVID Quick Testingon 2020 Result Negative [employer] Other TRIGLYCERIDEon 09-26-2019 Triglyceride [Mass/Vol] 197 mg/dL Critically high <=150 [facility] Comment on above: Performed By: #### NAOMI DORSEY, BMP #### [facility] [address] [place] [id number] Rogelio Renetta CBC AUTO DIFFon 09-19-2019 Basophils (Bld) [#/Vol] 0.0 103/ul Normal 0.0-0.1 [facility] Comment on above: Performed By: #### NAOMI DORSEY, BMP #### [facility] [address] [place] [id number] Rogelio Renetta Basophils/100 WBC (Bld) 0.3 % Normal 0.2-2.0 [facility] Comment on above: Performed By: #### NAOMI DORSEY, BMP #### [facility] [address] [place] [id number] Rogelio Renetta Eosinophils (Bld) [#/Vol] 0.1 103/ul Normal 0.0-0.7 [facility] Comment on above: Performed By: #### NAOMI DORSEY, BMP #### [facility] [address] [place] [id number] Rogelio Renetta Eosinophils/100 WBC (Bld) 1.0 % Normal 0.9-7.0 [facility] Comment on above: Performed By: #### NAOMI DORSEY, BMP #### [facility] [address] [place] [id number] Rogelio Renetta Erythrocyte distribution width (RBC) [Ratio] 12.7 % Normal 11.0-15.0 [facility] Comment on above: Performed By: #### NAOMI DORSEY, BMP #### [facility] [address] [place] [address] Rogelio Renetta Hematocrit (Bld) [Volume fraction] 40.8 % Normal 36.0-48.0 [facility] Comment on above: Performed By: #### NAOMI DORSEY, BMP #### [facility] [address] [place] [address] Rogelio Renetta Hemoglobin (Bld) [Mass/Vol] 13.3 g/dL Normal 12.0-16.0 [facility] Comment on above: Performed By: #### NAOMI DORSEY, BMP #### [facility] [address] [place] [address] Rogelio Renetta IG # 0.05 10e3/ul Critically high 0.00-0.03 [facility] Comment on above: Performed By: #### NAOMI DORSEY, BMP #### [facility] [address] [place] [address] Rogelio Renetta IG % 0.4 % Normal 0.0-0.5 [facility] Comment on above: Performed By: #### NAOMI DORSEY, BMP #### [facility] [address] [place] [address] Rogelio Renetta Lymphocytes (Bld) [#/Vol] 1.4 103/ul Normal 1.2-3.8 [facility] Comment on above: Performed By: #### NAOMI DORSEY, BMP #### [facility] [address] [place] [address] Rogelio Renetta Lymphocytes/100 WBC (Bld) 10.9 % Critically low 20.5-60.0 [facility] Comment on above: Performed By: #### NAMOI DORSEY, BMP #### [facility] [address] [place] [address] Rogelio Renetta MANUAL DIFF REQ NO Normal [facility] Comment on above: Performed By: #### NAOMI DORSEY, BMP #### [facility] [address] [place] [address] Rogelio Jackson MCH (RBC) [Entitic mass] 28.7 pg Normal 26.7-34.0 [facility] Comment on above: Performed By: #### NAOMI DORSEY, BMP #### [facility] [address] [place], [place] [id number] Rogelio Jackson MCHC (RBC) [Mass/Vol] 32.6 g/dL Normal 29.9-35.2 [facility] Comment on above: Performed By: #### NAOMI DORSEY, BMP #### [facility] [address] [place] [address] Rogeliorajan Jackson MCV (RBC) [Entitic vol] 87.9 fL Normal 81.0-99.0 [facility] Comment on above: Performed By: #### NAOMI DORSEY, BMP #### [facility] [address] [place] [address] Rogelio Renetta Monocytes (Bld) [#/Vol] 0.6 103/ul Normal 0.3-0.8 [facility] Comment on above: Performed By: #### NAOMI DORSEY, BMP #### [facility] [address] [place] [address] Rogelio Renetta Monocytes/100 WBC (Bld) 5.1 % Normal 1.7-12.0 [facility] Comment on above: Performed By: #### NAOMI DORSEY, BMP #### [facility] [address] [place] [address] Rogelio Renetta Neutrophils (Bld) [#/Vol] 10.2 103/ul Critically high 1.4-6.5 [facility] Comment on above: Performed By: #### NAOMI DORSEY, BMP #### [facility] [address] [place] [address] Rogelio Renetta Neutrophils/100 WBC (Bld) 82.3 % Critically high 43.0-75.0 [facility] Comment on above: Performed By: #### NAOMI DORSEY, BMP #### [facility] [address] [place] [address] Rogelio Jackson Platelet mean volume (Bld) [Entitic vol] 9.3 fL Critically low 9.5-13.5 [facility] Comment on above: Performed By: #### L NAOMI SHEPARD, BMP #### [facility] [address] [id number] Rogelio Jackson Platelets (Bld) [#/Vol] 249 103/ul Normal 150-450 [facility] Comment on above: Performed By: #### L NAOMI SHEPARD, BMP #### [facility] [address] [phone] Rogelio Jackson RBC (Bld) [#/Vol] 4.64 106/ul Normal 4.20-5.40 [facility] Comment on above: Performed By: #### L NAOMI SHEPARD, BMP #### [facility] [address] [place] [address] Rogelio Jackson WBC (Bld) [#/Vol] 12.5 103/ul Critically high 4.0-11.0 [facility] Comment on above: Performed By: #### L NAOMI SHEPARD, BMP #### [facility] [address] [phone] [address] CHEST W CONon 09-19-2019 [...] by: CHICO GANDHI Date: 2019-09-19 05:16 Normal [facility] LIPASEon 09-19-2019 Lipase [Catalytic activity/Vol] 117.0 U/L Normal 23.0-300.0 [facility] Comment on above: Performed By: #### L DREA LIPA, BMP #### [facility] [address] [place], [place] [address] Rogelio Jackson PROF 14(COMP METB)on 020 Albumin [Mass/Vol] 3.3 g/dL Critically low 3.5-5.0 [facility] Comment on above: Performed By: #### L ESTEFANIER LIPA, BMP #### [facility] [address] [address] Rogelio Renetta Albumin/Globulin [Mass ratio] 0.9 {ratio} Normal [facility] Comment on above: Performed By: #### NAOMI DORSEY BMP #### [facility] [address] [phone] Rogelio Renetta ALP [Catalytic activity/Vol] 83 U/L Normal 38-126 [facility] Comment on above: Performed By: #### NAOMI DORSEY BMP #### [facility] [address] [place] [address] Rogelio Renetta ALT [Catalytic activity/Vol] 31 U/L Normal 9-52 [facility] Comment on above: Performed By: #### NAOMI DORSEY BMP #### [facility] [address] [place] [address] Rogelio Renetta Anion gap [Moles/Vol] 9.5 mmol/L Normal [facility] Comment on above: Performed By: #### NAOMI DORSEY BMP #### [facility] [address] [place] [address] Rogelio Renetta AST [Catalytic activity/Vol] 21 U/L Normal 14-36 [facility] Comment on above: Performed By: #### NAOMI DORSEY BMP #### [facility] [address] [place] [address] Rogelio Renetta Bilirubin Ql (U) 0.6 mg/dL Normal 0.2-1.3 [facility] Comment on above: Performed By: #### NAOMI DORSEY, BMP #### [facility] [address] [place] [address] Rogelio Renetta Calcium [Mass/Vol] 9.2 mg/dL Normal 8.4-10.2 [facility] Comment on above: Performed By: #### NAOMI DORSEY BMP #### [facility] [address] [place] [address] Rogelio Renetta Chloride [Moles/Vol] 103 mmol/L Normal 98-107 [facility] Comment on above: Performed By: #### NAOMI DORSEY BMP #### [facility] [address] [id number] Rogelio Renetta CO2 [Moles/Vol] 28.4 mmol/L Normal 22.0-30.0 [facility] Comment on above: Performed By: #### NAOMI DORSEY, BMP #### [facility] [address] [id number] Rogelio Renetta Creatinine [Mass/Vol] 1.04 mg/dL Normal 0.52-1.04 [facility] Comment on above: Performed By: #### NAOMI DORSEY, BMP #### [facility] [address] [address] Rogelio Renetta EGFR-AF LAO >60 Normal >=60 [facility] Comment on above: Performed By: #### NAOMI DORSEY, BMP #### [facility] [address] [place] [address] Rogelio Renetta EGFR-NON AF LAO 58 mL/min/1.73m2 Critically low >=60 [facility] Comment on above: Performed By: #### NAOMI DORSEY, BMP #### [facility] [address] [place], [place] [phone] Rogelio Renetta Globulin (S) [Mass/Vol] 3.7 g/dL Normal T [facility] Comment on above: Performed By: #### NAOMI DORSEY, BMP #### [facility] [address] [place], [place] [phone] Rogelio Renetta Glucose [Mass/Vol] 101 mg/dL Normal 74-106 [facility] Comment on above: Performed By: #### NAOMI DORSEY, BMP #### [facility] [address] [place] [address] Rogelio Renetta Potassium [Moles/Vol] 3.9 mmol/L Normal 3.4-5.0 [facility] Comment on above: Performed By: #### NAOMI DORSEY, BMP #### [facility] [address] [phone] Rogelio Renetta Protein [Mass/Vol] 7.0 g/dL Normal 6.1-8.2 [facility] Comment on above: Performed By: #### NAOMI DORSEY, BMP #### [facility] [address] [place] [address] Rogelio Renetta Sodium [Moles/Vol] 137 mmol/L Normal 137-145 [facility] Comment on above: Performed By: #### NAOMI DORSEY BMP #### [facility] [address] [place] [address] Rogelio Renetta Urea nitrogen [Mass/Vol] 14.0 mg/dL Normal 7.0-17.0 [facility] Comment on above: Performed By: #### NAOMI DORSEY BMP #### [facility] [address] [place] [address] Rogelio Renetta Urea nitrogen/Creatinine [Mass ratio] 13.5 mg/mg Normal [facility] Comment on above: Performed By: #### NAOMI DORSEY BMP #### [facility] [address] [place] [address] Rogelio Renetta AMYLASEon 09-18-2019 Amylase [Catalytic activity/Vol] 36 U/L Normal 31-110 [facility] Comment on above: Performed By: #### NAOMI DORSEY BMP #### [facility] [address] [place] [address] Rogelio Renetta CBC AUTO DIFFon 09-18-2019 Basophils (Bld) [#/Vol] 0.1 103/ul Normal 0.0-0.1 [facility] Comment on above: Performed By: #### C BC #### [facility] [address] [place] [address] Rogelio Renetta Basophils/100 WBC (Bld) 0.5 % Normal 0.2-2.0 [facility] Comment on above: Performed By: #### C BC #### [facility] [address] [place] [address] Rogelio Renetta Eosinophils (Bld) [#/Vol] 0.2 103/ul Normal 0.0-0.7 [facility] Comment on above: Performed By: #### C BC #### [facility] [address] [phone] Rogelio Renetta Eosinophils/100 WBC (Bld) 1.8 % Normal 0.9-7.0 [facility] Comment on above: Performed By: #### C BC #### [facility] [address] [place], [place] [phone] Rogelio Renetta Erythrocyte distribution width (RBC) [Ratio] 12.8 % Normal 11.0-15.0 [facility] Comment on above: Performed By: #### C BC #### [facility] [address] [place], [place] [phone] Rogelio Renetta Hematocrit (Bld) [Volume fraction] 44.9 % Normal 36.0-48.0 [facility] Comment on above: Performed By: #### C BC #### [facility] [address] [place], [place] [phone] Rogelio Renetta Hemoglobin (Bld) [Mass/Vol] 14.6 g/dL Normal 12.0-16.0 [facility] Comment on above: Performed By: #### C BC #### [facility] [address] [place], [place] [address] Rogelio Renetta IG # 0.05 10e3/ul Critically high 0.00-0.03 [facility] Comment on above: Performed By: #### C BC #### [facility] [address] [place], [place] [address] Rogelio Renetta IG % 0.5 % Normal 0.0-0.5 [facility] Comment on above: Performed By: #### C BC #### [facility] [address] [place], [place] [phone] Rogelio Renetta Lymphocytes (Bld) [#/Vol] 2.5 103/ul Normal 1.2-3.8 [facility] Comment on above: Performed By: #### C BC #### [facility] [address] [place], [place] [phone] Rogelio Renetta Lymphocytes/100 WBC (Bld) 24.0 % Normal 20.5-60.0 [facility] Comment on above: Performed By: #### C BC #### [facility] [address] [place], [place] [address] Rogelio [place] MANUAL DIFF REQ NO Normal [facility] Comment on above: Performed By: #### C BC #### [facility] [address] [place], [place] [address] Rogeliorajan Jackson MCH (RBC) [Entitic mass] 28.9 pg Normal 26.7-34.0 [facility] Comment on above: Performed By: #### C BC #### [facility] [address] [phone] Rogeliorajan Jackson MCHC (RBC) [Mass/Vol] 32.5 g/dL Normal 29.9-35.2 [facility] Comment on above: Performed By: #### C BC #### [facility] [address] [place], [place] [phone] Rogelio Renetta MCV (RBC) [Entitic vol] 88.7 fL Normal 81.0-99.0 [facility] Comment on above: Performed By: #### C BC #### [facility] [address] [place], [place] [address] Rogelio Renetta Monocytes (Bld) [#/Vol] 0.8 103/ul Normal 0.3-0.8 [facility] Comment on above: Performed By: #### C BC #### [facility] [address] [place], [place] [address] Rogelio Renetta Monocytes/100 WBC (Bld) 7.6 % Normal 1.7-12.0 [facility] Comment on above: Performed By: #### C BC #### [facility] [address] [place], [place] [phone] Rogelio Renetta Neutrophils (Bld) [#/Vol] 6.9 103/ul Critically high 1.4-6.5 [facility] Comment on above: Performed By: #### C BC #### [facility] [address] [place], [place] [address] Rogelio Renetta Neutrophils/100 WBC (Bld) 65.6 % Normal 43.0-75.0 [facility] Comment on above: Performed By: #### C BC #### [facility] [address] [place], [place] [phone] Rogelio Renetta Platelet mean volume (Bld) [Entitic vol] 9.5 fL Normal 9.5-13.5 [facility] Comment on above: Performed By: #### C BC #### [facility] [address] [place], [place] [address] Rogelio Renetta Platelets (Bld) [#/Vol] 315 103/ul Normal 150-450 T [facility] Comment on above: Performed By: #### C BC #### [facility] [address] [place], [place] [address] Rogelio Renetta RBC (Bld) [#/Vol] 5.06 106/ul Normal 4.20-5.40 [facility] Comment on above: Performed By: #### C BC #### [facility] [address] [place], [place] [address] Rogelio Renetta WBC (Bld) [#/Vol] 10.5 103/ul Normal 4.0-11.0 [facility] Comment on above: Performed By: #### C BC #### [facility] [address] [place], [place] [address] Rogelio Renetta ER URINE PROFILEon 0 Bilirubin [Mass/Vol] Negative Normal NEGATIVE [facility] Comment on above: Performed By: #### SUSIE ALVARADO #### [facility] [address] [place], [place] [address] Rogelio Renetta BLOOD SMALL Normal NEGATIVE [facility] Comment on above: Performed By: #### SUSIE ALVARADO #### [facility] [address] [place], [place] [address] Rogelio Renetta Clarity (U) CLEAR Normal [facility] Comment on above: Performed By: #### SUSIE ALVARADO #### [facility] [address] [place], [place] [address] Rogelio Renetta Color (U) LT. YELLOW Normal YELLOW [facility] Comment on above: Performed By: #### SUSIE ALVARADO #### [facility] [address] [place], [place] [address] Rogelio Renetta ERUAHD A micrscopic examination will be performed if indicated. Normal [facility] Comment on above: Performed By: #### SUSIE ALVARADO #### [facility] [address] [place] [address] Rogelio Renetta Glucose [Mass/Vol] Negative Normal NEGATIVE [facility] Comment on above: Performed By: #### NEHAL ALVARADORO #### [facility] [address] [place] [address] Rogelio Renetta Ketones Ql (U) Negative Normal NEGATIVE [facility] Comment on above: Performed By: #### SUSIE ALVARADO #### [facility] [address] [place] [address] Rogelio Renetta Nitrite Ql (U) Negative Normal NEGATIVE [facility] Comment on above: Performed By: #### NEHAL ALVARADORO #### [facility] [address] [place] [address] Rogelio Renetta pH (Bld) 6.5 Normal 5-9 [facility] Comment on above: Performed By: #### NEHAL ALVARADORO #### [facility] [address] [place] [address] Rogelio Renetta Protein (U) [Mass/Vol] Negative Normal [facility] Comment on above: Performed By: #### NEHAL ALVARADORO #### [facility] [address] [place] [address] Rogelio Renetta SPEC GRAVITY 1.025 Normal 1.005-<=1.0 25 [facility] Comment on above: Performed By: #### NEHAL ALVARADORO #### [facility] [address] [place] [address] Rogelio Renetta UR MICRO IND INDICATED Normal [facility] Comment on above: Performed By: #### NEHAL ALVARADORO #### [facility] [address] [place] [address] Rogelio Renetta Urobilinogen Qn (U) 0.2 EU/dl Normal [facility] Comment on above: Performed By: #### SUSIE ALVARADO #### [facility] [address] [place], [place] [address] Rogelio Renetta WBC (Bld) [#/Vol] Negative Normal NEGATIVE [facility] Comment on above: Performed By: #### SUSIE ALVARADO #### [facility] [address] [place] [address] Rogelio Renetta LACTATE/LACTIC ACIDon 2019 Lactate [Moles/Vol] 0.8 mmol/L Normal 0.7-2.0 [facility] Comment on above: Performed By: #### NAOMI DORSEY, BMP #### [facility] [address] [place], [place] [address] Rogelio Renetta LIPASEon 09-18-2019 Lipase [Catalytic activity/Vol] 127.0 U/L Normal 23.0-300.0 [facility] Comment on above: Performed By: #### NAOMI DORSEY, BMP #### [facility] [address] [place], [place] [address] Rogelio Renetta LIVER PROFILEon 09-18-2019 Albumin [Mass/Vol] 3.7 g/dL Normal 3.5-5.0 [facility] Comment on above: Performed By: #### NAOMI DORSEY, BMP #### [facility] [address] [place], [place] [address] Rogelio Renetta Albumin/Globulin [Mass ratio] 0.9 {ratio} Normal [facility] Comment on above: Performed By: #### NAOMI DORSEY, BMP #### [facility] [address] [place], [place] [address] Rogelio Renetta ALP [Catalytic activity/Vol] 101 U/L Normal 38-126 [facility] Comment on above: Performed By: #### NAOMI DORSEY, BMP #### [facility] [address] [place] [address] Rogelio Renetta ALT [Catalytic activity/Vol] 29 U/L Normal 9-52 [facility] Comment on above: Performed By: #### NAOMI DORSEY, BMP #### [facility] [address] [place] [address] Rogelio Renetta AST [Catalytic activity/Vol] 19 U/L Normal 14-36 [facility] Comment on above: Performed By: #### NAOMI DORSEY, BMP #### [facility] [address] [place] [address] Rogelio Renetta BILI, CONJUGATED 0.1 mg/dL Normal 0.0-0.3 [facility] Comment on above: Performed By: #### NAOMI DORSEY, BMP #### [facility] [address] [place] [address] Rogelio Renetta Bilirubin Ql (U) 0.3 mg/dL Normal 0.2-1.3 [facility] Comment on above: Performed By: #### NAOMI DORSEY, BMP #### [facility] [address] [place] [address] Rogelio Renetta Globulin (S) [Mass/Vol] 4.1 g/dL Normal T [facility] Comment on above: Performed By: #### NAOMI DORSEY, BMP #### [facility] [address] [place] [address] Rogelio Renetta Protein [Mass/Vol] 7.8 g/dL Normal 6.1-8.2 [facility] Comment on above: Performed By: #### NAOMI DORSEY, BMP #### [facility] [address] [place], [place] [address] Rogelio Renetta PROF CHEM 8 (BAS METB)on Anion gap [Moles/Vol] 10.7 mmol/L Normal [facility] Comment on above: Performed By: #### NAOMI DORSEY, BMP #### [facility] [address] [place] [address] Rogelio Renetta Calcium [Mass/Vol] 9.4 mg/dL Normal 8.4-10.2 [facility] Comment on above: Performed By: #### NAOMI DORSEY, BMP #### [facility] [address] [place] [address] Rogelio Renetta Chloride [Moles/Vol] 101 mmol/L Normal 98-107 [facility] Comment on above: Performed By: #### NAOMI DORSEY BMP #### [facility] [address] [place] [address] Rogelio Renetta CO2 [Moles/Vol] 27.9 mmol/L Normal 22.0-30.0 [facility] Comment on above: Performed By: #### NAOMI DORSEY BMP #### [facility] [address] [place] [address] Rogelio Renetta Creatinine [Mass/Vol] 0.98 mg/dL Normal 0.52-1.04 [facility] Comment on above: Performed By: #### NAOMI DORSEY BMP #### [facility] [address] [place] [address] Rogelio Renetta EGFR-AF LAO >60 Normal >=60 [facility] Comment on above: Performed By: #### NAOMI DORSEY BMP #### [facility] [address] [place] [address] Rogelio Renetta EGFR-NON AF LAO >60 Normal >=60 [facility] Comment on above: Performed By: #### NAOMI DORSEY BMP #### [facility] [address] [place] [address] Rogelio Renetta Glucose [Mass/Vol] 91 mg/dL Normal 74-106 [facility] Comment on above: Performed By: #### NAOMI DORSEY BMP #### [facility] [address] [place] [address] Rogelio Renetta Potassium [Moles/Vol] 3.6 mmol/L Normal 3.4-5.0 [facility] Comment on above: Performed By: #### NAOMI DORSEY BMP #### [facility] [address] [place] [address] Rogelio Renetta Sodium [Moles/Vol] 136 mmol/L Critically low 137-145 [facility] Comment on above: Performed By: #### NAOMI DORSEY BMP #### [facility] [address] [place] [address] Rogeliorajan Jackson Urea nitrogen [Mass/Vol] 12.0 mg/dL Normal 7.0-17.0 [facility] Comment on above: Performed By: #### NAOMI DORSEY BMP #### [facility] [address] [place] [address] Rogeliorajan Cedilloen Urea nitrogen/Creatinine [Mass ratio] 12.2 mg/mg Normal [facility] Comment on above: Performed By: #### NAOMI DORSEY BMP #### [facility] [address] [place] [address] Rogeliorajan Jackson TROPONIN - Ion 09-18-2019 Troponin I.cardiac [Mass/Vol] SEE BELOW Normal [facility] Comment on above: Result Comment: <0.0 34 ng/ml NEGATIVE 0.034-0.119 INDETERMINATE 0.120 AMI CUT OFF Performed By: #### NAOMI DORSEY BMP #### [facility] [address] [place] [address] Rogeliorajan Jackson Troponin I.cardiac [Mass/Vol] ng/mL Normal <=0.034 [facility] Comment on above: Performed By: #### NAOMI DORSEY BMP #### [facility] [address] [place] [address] Rogelio Renetta URINE MICROSCOPIC ONLYon Bacteria LM.HPF (Urine sed) [#/Area] TRACE Normal NONE SEEN [facility] Comment on above: Performed By: #### NAOMI DORSEY, BMP #### [facility] [address] [place] [address] Rogelio Renetta CAST NONE SEEN Normal NONE SEEN [facility] Comment on above: Performed By: #### NAOMI DORSEY, BMP #### [facility] [address] [place] [address] Rogelio Renetta Crystals LM Nom (Urine sed) NONE SEEN Normal NONE SEEN [facility] Comment on above: Performed By: #### NAOMI DORSEY, BMP #### [facility] [address] [place] [address] Rogelio Renetta CULTURE NOT INDICATED Normal [facility] Comment on above: Performed By: #### L DREA LIPA, BMP #### [facility] [address] [place], [place] [address] Rogeliorajan Jackson Epithelial cells LM.HPF (Urine sed) [#/Area] RARE Normal [facility] Comment on above: Performed By: #### L DREA LIPA, BMP #### [facility] [address] [place], [place] [address] Rogelio Renetta MUCOUS TRACE Normal NONE SEEN [facility] Comment on above: Performed By: #### L DREA LIPA, BMP #### [facility] [address] [place], [place] [address] Rogelio Renetta RBC (U) [#/Vol] 5-10 Normal 0-2 [facility] Comment on above: Performed By: #### L ONELIA SHEPARDA, BMP #### [facility] [address] [place], [place] [address] Rogelio Renetta WBC (Bld) [#/Vol] 0-2 Normal NONE SEEN [facility] Comment on above: Performed By: #### L DREA LIPA, BMP #### [facility] [address] [place], [place] [address] Rogelio Renetta XR ABD FLAT UP_PA Natalie [...] ROBERT CHINCHILLA Date: 2019-09-18 16:18 Normal [facility] COVID-19 PCRon 09-08-2019 SARS-CoV-2, CESIA Not Detected Normal Not Detected [facility] Comment on above: Result Comment: This test was developed and its performance characteristics determined by [employer] This test has not been FDA cleared [...] assay. Performed By: #### C VDPCR #### [facility] [address] [place] [id number] Rogelio Renetta CBC AUTO DIFFon 08-22-2019 Basophils (Bld) [#/Vol] 0.1 103/ul Normal 0.0-0.1 [facility] Comment on above: Performed By: #### C BC #### [facility] [address] [place] [address] Rogelio Renetta Basophils/100 WBC (Bld) 0.8 % Normal 0.2-2.0 [facility] Comment on above: Performed By: #### C BC #### [facility] [address] [place] [address] Rogelio Renetta Eosinophils (Bld) [#/Vol] 0.2 103/ul Normal 0.0-0.7 [facility] Comment on above: Performed By: #### C BC #### [facility] [address] [place] [address] Rogelio Renetta Eosinophils/100 WBC (Bld) 2.6 % Normal 0.9-7.0 [facility] Comment on above: Performed By: #### C BC #### [facility] [address] [place] [address] Rogelio Renetta Erythrocyte distribution width (RBC) [Ratio] 13.2 % Normal 11.0-15.0 [facility] Comment on above: Performed By: #### C BC #### [facility] [address] [place] [address] Rogelio Renetta Hematocrit (Bld) [Volume fraction] 40.7 % Normal 36.0-48.0 [facility] Comment on above: Performed By: #### C BC #### [facility] [address] [place] [address] Rogelio Renetta Hemoglobin (Bld) [Mass/Vol] 13.1 g/dL Normal 12.0-16.0 [facility] Comment on above: Performed By: #### C BC #### [facility] [address] [place] [address] Rogelio Renetta IG # 0.01 10e3/ul Normal 0.00-0.03 [facility] Comment on above: Performed By: #### C BC #### [facility] [address] [place] [address] Rogelio Renetta IG % 0.2 % Normal 0.0-0.5 [facility] Comment on above: Performed By: #### C BC #### [facility] [address] [place] [address] Rogelio Renetta Lymphocytes (Bld) [#/Vol] 2.3 103/ul Normal 1.2-3.8 [facility] Comment on above: Performed By: #### C BC #### [facility] [address] [place] [address] Rogelio Renetta Lymphocytes/100 WBC (Bld) 36.2 % Normal 20.5-60.0 [facility] Comment on above: Performed By: #### C BC #### [facility] [address] [place], [place] [phone] Rogelio Renetta MANUAL DIFF REQ NO Normal [facility] Comment on above: Performed By: #### C BC #### [facility] [address] [place], [place] [address] Rogeliorajan Jackson MCH (RBC) [Entitic mass] 28.8 pg Normal 26.7-34.0 [facility] Comment on above: Performed By: #### C BC #### [facility] [address] [place] [id number] Rogeliorajan Jackson MCHC (RBC) [Mass/Vol] 32.2 g/dL Normal 29.9-35.2 [facility] Comment on above: Performed By: #### C BC #### [facility] [address] [place] [address] Rogeliorajan Jackson MCV (RBC) [Entitic vol] 89.5 fL Normal 81.0-99.0 [facility] Comment on above: Performed By: #### C BC #### [facility] [address] [place], [place] [phone] Rogelio Renetta Monocytes (Bld) [#/Vol] 0.8 103/ul Normal 0.3-0.8 [facility] Comment on above: Performed By: #### C BC #### [facility] [address] [place], [place] [phone] Rogelio Renetta Monocytes/100 WBC (Bld) 12.5 % Critically high 1.7-12. 0 [facility] Comment on above: Performed By: #### C BC #### [facility] [address] [place], [place] [phone] Rogelio Renetta Neutrophils (Bld) [#/Vol] 3.1 103/ul Normal 1.4-6.5 [facility] Comment on above: Performed By: #### C BC #### [facility] [address] [place], [place] [phone] Rogelio Renetta Neutrophils/100 WBC (Bld) 47.7 % Normal 43.0-75.0 [facility] Comment on above: Performed By: #### C BC #### [facility] [address] [place] [id number] Rogelio Renetta Platelet mean volume (Bld) [Entitic vol] 9.5 fL Normal 9.5-13.5 [facility] Comment on above: Performed By: #### C BC #### [facility] [address] [place], [place] [address] Rogelio Jackson Platelets (Bld) [#/Vol] 293 103/ul Normal 150-450 T [facility] Comment on above: Performed By: #### C BC #### [facility] [address] [place], [place] [address] Rogelio Jackson RBC (Bld) [#/Vol] 4.55 106/ul Normal 4.20-5.40 [facility] Comment on above: Performed By: #### C BC #### [facility] [address] [place], [place] [address] Rogelio Jackson WBC (Bld) [#/Vol] 6.5 103/ul Normal 4.0-11.0 [facility] Comment on above: Performed By: #### C BC #### [facility] [address] [place] [id number] ABD/PELV W CONon 08-22-[address] [...] ALL GUDINO Date: 2019-08-22 15:49 Normal [facility] ER URINE PROFILEon 0 Bilirubin [Mass/Vol] Negative Normal NEGATIVE [facility] Comment on above: Performed By: #### NEHAL ALVARADORO #### [facility] [address] [place] [address] Rogelio Renetta BLOOD SMALL Normal NEGATIVE [facility] Comment on above: Performed By: #### NEHAL ALVARADORO #### [facility] [address] [place] [address] Rogelio Renetta Clarity (U) CLEAR Normal [facility] Comment on above: Performed By: #### NEHAL ALVARADORO #### [facility] [address] [place] [address] Rogelio Renetta Color (U) LT. YELLOW Normal YELLOW [facility] Comment on above: Performed By: #### NEHAL ALVARADORO #### [facility] [address] [place] [address] Rogelio Renetta ERUAHD A micrscopic examination will be performed if indicated. Normal [facility] Comment on above: Performed By: #### NEHAL ALVARADORO #### [facility] [address] [place] [address] Rogelio Renetta Glucose [Mass/Vol] Negative Normal NEGATIVE [facility] Comment on above: Performed By: #### NEHAL ALVARADORO #### [facility] [address] [place] [address] Rogelio Renetta Ketones Ql (U) Negative Normal NEGATIVE [facility] Comment on above: Performed By: #### NEHAL ALVARADORO #### [facility] [address] [place] [address] Rogelio Jackson Nitrite Ql (U) Negative Normal NEGATIVE [facility] Comment on above: Performed By: #### SUSIE ALVARADO #### [facility] [address] [place] [address] Rogelio Jackson pH (Bld) 6.0 Normal 5-9 [facility] Comment on above: Performed By: #### SUSIE ALVARADO #### [facility] [address] [place] [address] Rogelio Jackson Protein (U) [Mass/Vol] Negative Normal [facility] Comment on above: Performed By: #### SUSIE ALVARADO #### [facility] [address] [place] [address] Rogelio Jackson SPEC GRAVITY <=1.005 Normal 1.005-<=1.0 25 [facility] Comment on above: Performed By: #### SUSIE ALVARADO #### [facility] [address] [place] [address] Rogelio Jackson UR MICRO IND INDICATED Normal [facility] Comment on above: Performed By: #### SUSIE ALVARADO #### [facility] [address] [place] [address] Rogelio Jackson Urobilinogen Qn (U) 0.2 EU/dl Normal [facility] Comment on above: Performed By: #### SUSIE ALVARADO #### [facility] [address] [place] [address] Rogelio Jackson WBC (Bld) [#/Vol] Negative Normal NEGATIVE [facility] Comment on above: Performed By: #### SUSIE ALVARADO #### [facility] [address] [place], [place] [phone] Rogelio Jackson LIPASEon 08-22-2019 Lipase [Catalytic activity/Vol] 144.0 U/L Normal 23.0-300.0 [facility] Comment on above: Performed By: #### NAOMI DORSEY, BMP #### [facility] [address] [place] [address] Rogelio Renetta LIVER PROFILEon 08-22-2019 Albumin [Mass/Vol] 3.6 g/dL Normal 3.5-5.0 [facility] Comment on above: Performed By: #### NAOMI DORSYE BMP #### [facility] [address] [place] [address] Rogelio Renetta Albumin/Globulin [Mass ratio] 1.0 {ratio} Normal [facility] Comment on above: Performed By: #### NAOMI DORSEY, BMP #### [facility] [address] [place] [address] Rogelio Renetta ALP [Catalytic activity/Vol] 82 U/L Normal 38-126 [facility] Comment on above: Performed By: #### NAOMI DORSEY, BMP #### [facility] [address] [place] [address] Rogelio Renetta ALT [Catalytic activity/Vol] 31 U/L Normal 9-52 [facility] Comment on above: Performed By: #### NAOMI DORSEY, BMP #### [facility] [address] [place] [address] Rogelio Renetta AST [Catalytic activity/Vol] 14 U/L Normal 14-36 [facility] Comment on above: Performed By: #### NAOMI DORSEY, BMP #### [facility] [address] [place] [address] Rogelio Renetta BILI, CONJUGATED 0.0 mg/dL Normal 0.0-0.3 [facility] Comment on above: Performed By: #### NAOMI DORSEY, BMP #### [facility] [address] [place] [address] Rogelio Renetta Bilirubin Ql (U) 0.3 mg/dL Normal 0.2-1.3 [facility] Comment on above: Performed By: #### NAOMI DORSEY, BMP #### [facility] [address] [place] [address] Rogelio Renetta Globulin (S) [Mass/Vol] 3.7 g/dL Normal T [facility] Comment on above: Performed By: #### NAOMI DORSEY, BMP #### [facility] [address] [place] [address] Rogelio Renetta Protein [Mass/Vol] 7.3 g/dL Normal 6.1-8.2 [facility] Comment on above: Performed By: #### NAOMI DORSEY BMP #### [facility] [address] [place] [address] Rogelio Renetta PROF CHEM 8 (BAS METB)on Anion gap [Moles/Vol] 12.0 mmol/L Normal [facility] Comment on above: Performed By: #### NAOMI DORSEY, BMP #### [facility] [address] [place] [address] Rogelio Renetta Calcium [Mass/Vol] 9.0 mg/dL Normal 8.4-10.2 [facility] Comment on above: Performed By: #### NAOMI DORSEY BMP #### [facility] [address] [place] [address] Rogelio Renetta Chloride [Moles/Vol] 103 mmol/L Normal 98-107 [facility] Comment on above: Performed By: #### NAOMI DORSEY BMP #### [facility] [address] [place] [address] Rogelio Renetta CO2 [Moles/Vol] 25.7 mmol/L Normal 22.0-30.0 [facility] Comment on above: Performed By: #### NAOMI DORSEY, BMP #### [facility] [address] [place] [address] Rogelio Renetta Creatinine [Mass/Vol] 0.84 mg/dL Normal 0.52-1.04 [facility] Comment on above: Performed By: #### NAOMI DORSEY, BMP #### [facility] [address] [place] [address] Rogelio Renetta EGFR-AF LAO >60 Normal >=60 [facility] Comment on above: Performed By: #### NAOMI DORSEY, BMP #### [facility] [address] [place] [address] Rogelio Renetta EGFR-NON AF LAO >60 Normal >=60 [facility] Comment on above: Performed By: #### NAOMI DORSEY BMP #### [facility] [address] [place] [address] Rogelio Renetta Glucose [Mass/Vol] 85 mg/dL Normal 74-106 [facility] Comment on above: Performed By: #### NAOMI DORSEY BMP #### [facility] [address] [place] [address] Rogelio Renetta Potassium [Moles/Vol] 3.7 mmol/L Normal 3.4-5.0 [facility] Comment on above: Performed By: #### NAOMI DORSEY BMP #### [facility] [address] [place] [address] Rogelio Renetta Sodium [Moles/Vol] 137 mmol/L Normal 137-145 [facility] Comment on above: Performed By: #### NAOMI DORSEY BMP #### [facility] [address] [place] [address] Rogelio Renetta Urea nitrogen [Mass/Vol] 11.0 mg/dL Normal 7.0-17.0 [facility] Comment on above: Performed By: #### NAOMI DORSEY BMP #### [facility] [address] [place] [address] Rogelio Renetta Urea nitrogen/Creatinine [Mass ratio] 13.1 mg/mg Normal [facility] Comment on above: Performed By: #### NAOMI DORSEY BMP #### [facility] [address] [place] [address] Rogelio Renetta URINE MICROSCOPIC ONLYon Bacteria LM.HPF (Urine sed) [#/Area] TRACE Normal NONE SEEN [facility] Comment on above: Performed By: #### SUSIE ALVARADO #### [facility] [address] [place] [address] Rogelio Renetta CAST NONE SEEN Normal NONE SEEN [facility] Comment on above: Performed By: #### SUSIE ALAVRADO #### [facility] [address] [place], [place] [phone] Rogelio Renetta Crystals LM Nom (Urine sed) NONE SEEN Normal NONE SEEN [facility] Comment on above: Performed By: #### SUSIE ALVARADO #### [facility] [address] [place], [place] [phone] Rogelio Renetta CULTURE NOT INDICATED Normal [facility] Comment on above: Performed By: #### SUSIE ALVARADO #### [facility] [address] [place], [place] [phone] Rogelio Renetta Epithelial cells LM.HPF (Urine sed) [#/Area] RARE Normal [facility] Comment on above: Performed By: #### SUSIE ALVARADO #### [facility] [address] [place], [place] [phone] Rogelio Renetta MUCOUS NONE SEEN Normal NONE SEEN [facility] Comment on above: Performed By: #### SUSIE ALVARADO #### [facility] [address] [place], [place] [phone] Rogelio Renetta RBC (U) [#/Vol] 0-2 Normal 0-2 [facility] Comment on above: Performed By: #### SUSIE ALVARADO #### [facility] [address] [place], [place] [phone] Rogelio Renetta WBC (Bld) [#/Vol] NONE SEEN Normal NONE SEEN [facility] Comment on above: Performed By: #### SUSIE ALVARADO #### [facility] [address] [place], [place] [phone] Rogelio Renetta Vital Signs Date Time Vital Sign Value Performing Clinician Facility 09-07-2024 13:27-0400 Body height 162.6 cm Genoveva Gutierrez MD, IBCLC Work Phone: [facility] 09-07-2024 13:27-0400 Body mass index (BMI) [Ratio] 49.68 kg/m2 Genoveva Gutierrez MD, IBCLC Work Phone: [facility] 09-07-2024 13:27-0400 Body temperature 96.91 [degF] Genoveva Gutierrez MD, IBCLC Work Phone: [facility] 09-07-2024 13:27-0400 Body weight 131.27 kg Genoveva Gutierrez MD, IBCLC Work Phone: [facility] 09-07-2024 13:27-0400 Diastolic blood pressure 72 mm[Hg] Genoveva Gutierrez MD, IBCLC Work Phone: [facility] 09-07-2024 13:27-0400 Heart rate 95 /min Genoveva Gutierrez MD, IBCLC Work Phone: [facility] 09-07-2024 13:27-0400 SaO2% (BldA) [Mass fraction] 98 % Genoveva Gutierrez MD, IBCLC Work Phone: [facility] 09-07-2024 13:27-0400 Systolic blood pressure 122 mm[Hg] Genoveva Gutierrez MD, IBCLC Work Phone: [facility] 08-17-2024 14:32-0400 Body height 162.6 cm Genoveva Gutierrez MD, IBCLC Work Phone: [facility] 08-17-2024 14:32-0400 Body mass index (BMI) [Ratio] 48.78 kg/m2 Genoveva Gutierrez MD, IBCLC Work Phone: [facility] 08-17-2024 14:32-0400 Body temperature 97.11 [degF] Genoveva Gutierrez MD, IBCLC Work Phone: [facility] 08-17-2024 14:32-0400 Body weight 128.91 kg Genoveva Gutierrez MD, IBCLC Work Phone: [facility] 08-17-2024 14:32-0400 Diastolic blood pressure 74 mm[Hg] Genoveva Gutierrez MD, IBCLC Work Phone: [facility] 08-17-2024 14:32-0400 Heart rate 76 /min Genoveva Gutierrez MD, IBCLC Work Phone: [facility] 08-17-2024 14:32-0400 SaO2% (BldA) [Mass fraction] 98 % Genoveva Gutierrez MD, IBCLC Work Phone: [facility] 08-17-2024 14:32-0400 Systolic blood pressure 128 mm[Hg] Genoveva Gutierrez MD, IBCLC Work Phone: [facility] 08-13-2024 09:23-0400 Body height 162.56 cm Esther Milton DO Work Phone: [facility] 08-13-2024 09:23-0400 Body mass index (BMI) [Ratio] 48.5 kg/m2 Esther Milton DO Work Phone: [facility] 08-13-2024 09:23-0400 Body temperature 98.2 [degF] Esther Milton DO Work Phone: [facility] 08-13-2024 09:23-0400 Body weight 128.36 kg Esther Milton DO Work Phone: [facility] 08-13-2024 09:23-0400 Diastolic blood pressure 64 mm[Hg] Esther Milton DO Work Phone: [facility] 08-13-2024 09:23-0400 Heart rate 67 /min Esther Milton DO Work Phone: [facility] 08-13-2024 09:23-0400 Respiratory rate 18 /min Esther Milton DO Work Phone: [facility] 08-13-2024 09:23-0400 SaO2% (BldA) [Mass fraction] 96 % Esther Milton DO Work Phone: [facility] 08-13-2024 09:23-0400 Systolic blood pressure 114 mm[Hg] Esther Milton DO Work Phone: [facility] 05-16-2024 16:13-0400 Body height 162.56 cm [facility] 05-16-2024 16:13-0400 Body mass index (BMI) [Ratio] 48 kg/m2 [facility] 05-16-2024 16:13-0400 Body temperature 96 [degF] [facility] 05-16-2024 16:13-0400 Body weight 127 kg [facility] 05-16-2024 16:13-0400 Diastolic blood pressure 73 mm[Hg] [facility] 05-16-2024 16:13-0400 Heart rate 73 /min [facility] 05-16-2024 16:13-0400 SaO2% (BldA) [Mass fraction] 98 % [facility] 05-16-2024 16:13-0400 Systolic blood pressure 131 mm[Hg] [facility] 09-25-2023 08:30-0400 Body height 162.6 cm Mth 2 [facility] [employer] 09-25-2023 08:30-0400 Body mass index (BMI) [Ratio] 43.77 kg/m2 Mth 2 [facility] [employer] 09-25-2023 08:30-0400 Body weight 115.67 kg Mth 2 [facility] [employer] 11-19-2022 14:00-0400 Body height 160.02 cm Alyssia Maryanne Other [facility] [employer] Other 11-19-2022 14:00-0400 Body mass index (BMI) [Ratio] 48.43 kg/m2 Alyssia Maryanne Other [employer] [facility] [employer] Other 11-19-2022 14:00-0400 Body temperature 98.3 [degF] Alyssia Maryanne Other [employer] Other 11-19-2022 14:00-0400 Body weight 124.01 kg Alyssia Maryanne Other [employer] Other 11-19-2022 14:00-0400 Diastolic blood pressure 82 mm[Hg] Alyssia Maryanne Other [employer] [facility] [employer] Other 11-19-2022 14:00-0400 Respiratory rate 16 /min Alyssia Maryanne Other [employer] Other 11-19-2022 14:00-0400 SaO2% (BldA) [Mass fraction] 98 % Alyssia Maryanne Other [employer] Other 11-19-2022 14:00-0400 Systolic blood pressure 128 mm[Hg] Alyssia Maryanne Other [employer] Other 02-05-2022 17:00-0500 Body height 160.02 cm Esther Milton Other [employer] Other 02-05-2022 17:00-0500 Body mass index (BMI) [Ratio] 48.82 kg/m2 Esther Milton Other [employer] Other 02-05-2022 17:00-0500 Body temperature 97.6 [degF] Esther Milton Other [employer] Other 02-05-2022 17:00-0500 Body weight 125.01 kg Esther Milton Other [employer] Other 02-05-2022 17:00-0500 Diastolic blood pressure 80 mm[Hg] Esther Milton Other [employer] Other 02-05-2022 17:00-0500 Respiratory rate 16 /min Esther Milton Other [employer] Other 02-05-2022 17:00-0500 SaO2% (BldA) [Mass fraction] 97 % Esthermaggie Riveraers Other [employer] Other 02-05-2022 17:00-0500 Systolic blood pressure 126 mm[Hg] Esther Milton Other [employer] Other 04-12-2021 10:30-0500 Body height 160.02 cm Esther Riveraers Other [employer] Other 04-12-2021 10:30-0500 Body mass index (BMI) [Ratio] 40.92 kg/m2 Esther Milton Other [employer] Other 04-12-2021 10:30-0500 Body temperature 98.5 [degF] Esther Milton Other [employer] Other 04-12-2021 10:30-0500 Body weight 104.78 kg Esther Milton Other [employer] Other 04-12-2021 10:30-0500 Diastolic blood pressure 78 mm[Hg] Esther Milton Other [employer] Other 04-12-2021 10:30-0500 Respiratory rate 16 /min Esther Riveraers Other [employer] Other 04-12-2021 10:30-0500 SaO2% (BldA) [Mass fraction] 98 % Esther Riveraers Other [employer] Other 04-12-2021 10:30-0500 Systolic blood pressure 122 mm[Hg] Esther Milton Other [employer] Other 11-16-2020 13:45-0400 Respiratory rate 18 /min Maggie Harper Other [employer] Other 11-16-2020 13:45-0400 SaO2% (BldA) [Mass fraction] 98 % Maggie Harper Other [employer] Other 11-14-2020 18:45-0400 Body height 160.02 cm Esthermaggie Riveraers Other [employer] Other 11-14-2020 18:45-0400 Body mass index (BMI) [Ratio] 45.7 kg/m2 Esthermaggie Riveraers Other [employer] Other 11-14-2020 18:45-0400 Body temperature 98.2 [degF] Esther Riveraers Other [employer] Other 11-14-2020 18:45-0400 Body weight 117.03 kg Esther Riveraers Other [employer] Other 11-14-2020 18:45-0400 Diastolic blood pressure 72 mm[Hg] Esther Milton Other [employer] Other 11-14-2020 18:45-0400 Respiratory rate 18 /min Esther Milton Other [employer] Other 11-14-2020 18:45-0400 SaO2% (BldA) [Mass fraction] 99 % Esther Milton Other [employer] Other 11-14-2020 18:45-0400 Systolic blood pressure 128 mm[Hg] Esther Milton Other [employer] Other 11-14-2020 17:45-0400 Body height 160.02 cm Esther Milton Other [employer] Other 11-14-2020 17:45-0400 Body mass index (BMI) [Ratio] 45.7 kg/m2 Esther Milton Other [employer] Other 11-14-2020 17:45-0400 Body temperature 98.2 [degF] Esther Milton Other [employer] Other 11-14-2020 17:45-0400 Body weight 117.03 kg Esther Milton Other [employer] Other 11-14-2020 17:45-0400 Diastolic blood pressure 72 mm[Hg] Esther Milton Other [employer] Other 11-14-2020 17:45-0400 Respiratory rate 18 /min Esther Milton Other [employer] Other 11-14-2020 17:45-0400 SaO2% (BldA) [Mass fraction] 99 % Esther Milton Other [employer] Other 11-14-2020 17:45-0400 Systolic blood pressure 128 mm[Hg] Esther Milton Other [employer] Other Encounters Encounter Date Encounter Type Care Provider Facility Start: 09-07-2024 End: 09-07-2024 Aby Gutierrez MD, IBCLC Work Phone: [facility] Start: 09-07-2024 End: 09-07-2024 Aby Gutierrez MD, IBCLC Work Phone: [facility] Start: 09-07-2024 End: 09-07-2024 ambulatory GENOVEVA GUTIERREZ Not Available Start: 09-07-2024 End: 09-07-2024 Office outpatient visit 15 minutes Genoveva Gutierrez MD, IBCLC Work Phone: [facility] Comment on above: Visit for suture rem oval (Primary Dx); Laceration of left little finger without foreign body without damage to nail, subsequent encounter Start: 08-17-2024 End: 08-17-2024 ambulatory GENOVEVA GUTIERREZ Not Available Start: 08-17-2024 End: 08-17-2024 Office outpatient visit 25 minutes Genoveva Gutierrez MD, IBCLC Work Phone: [facility] Comment on above: Poison kar dermatiti s (Primary Dx); Encounter for screening mammogram for malignant neoplasm of breast; Other migraine without status migrainosus, not intractable ; Encounter for lipid screening for cardiovascular disease; Class 3 severe obesity due to excess calories without serious comorbidity with body mass index (BMI) of 45.0 to 49.9 in adult ([facility]); Reactive depression ; Generalized anxiety disorder Start: 08-17-2024 End: 08-17-2024 Bamboo flowsheet Genoveva Gutierrez MD, IBCLC Work Phone: [facility] Start: 08-17-2024 End: 08-17-2024 Bamboo flowstiffanie Gutierrez MD, IBCLC Work Phone: [facility] Start: 08-13-2024 End: 08-13-2024 ambulatory Esther Milton DO Work Phone: [facility] Work Phone: Start: 08-13-2024 End: 08-13-2024 Patient encounter procedure Mounika Sarabia PLANOGRAMMER -[facility] Work Phone: Start: 05-16-2024 End: 05-16-2024 ambulatory [facility] Work Phone: Start: 05-16-2024 End: 05-16-2024 Patient encounter procedure [facility] Work Phone: Start: 01-16-2024 End: 01-19-2024 Refill Genoveva Gutierrez MD, IBCLC Work Phone: [facility] Comment on above: Other migraine witho ut status migrainosus, not intractable ([facility]) Start: 01-05-2024 ambulatory Esther Milton Facili ty:[facility] Start: 12-07-2023 End: 12-08-2023 Refill Angela Myrick [employer] SUPERINTENDENT Work Phone: [facility] Comment on above: Other migraine witho ut status migrainosus, not intractable ([facility]) Start: 11-03-2023 End: 11-03-2023 Refill Genoveva Gutierrez MD, IBCLC Work Phone: [facility] Comment on above: Generalized anxiety disorder ([facility]) Start: 10-29-2023 End: 10-30-2023 Refill Genoveva Gutierrez MD, IBCLC Work Phone: [facility] Comment on above: Vitamin D deficiency Start: 10-27-2023 End: 10-29-2023 ambulatory GENOVEVA GUTIERREZ [facility] Start: 09-30-2023 End: 09-30-2023 Refill Genoveva Gutierrez MD, IBCLC Work Phone: [facility] Comment on above: Generalized postpran dial abdominal pain (Primary Dx); RUQ pain Start: 09-25-2023 End: 09-27-2023 ambulatory CARRI ORO [facility] Start: 09-25-2023 End: 09-27-2023 Subsequent hospital visit by physician [facility] 2 [facility] Comment on above: Generalized postpran dial abdominal pain Start: 03-20-2023 End: 03-20-2023 ambulatory Esther Milton Other [facility] Other Start: 03-20-2023 Telephone encounter Esther Cifuentes [facility] Start: 11-19-2022 End: 11-19-2022 ambulatory Alyssia Madden Other [facility] Other Start: 11-19-2022 Encounter for genera l adult medical examination without abnormal findings [facility]ara Madd[facility] Start: 11-19-2022 Periodic preventive med est patient 40-64yrs Alyssiara Madden [facility] Start: 11-10-2022 End: 11-10-2022 ambulatory Esthermaggie Riveraers Other [facility] Other Start: 11-10-2022 Telephone [facility] Start: 11-03-2022 End: 11-03-2022 ambulatory Esther Milton Other [facility] Other Start: 11-03-2022 Telephone encounter [facility] Start: 10-29-2022 End: 10-29-2022 ambulatory Alyssiara Madden Other [facility] Other Start: 10-29-2022 Office outpatient vi sit 15 minutes Alyssia Madden [facility] Start: 10-28-2022 End: 10-28-2022 ambulatory Esther Milton Other [facility] Other Start: 10-28-2022 Encounter by ann-marie Milton [facility] Start: 10-23-2022 Telephone encounter Esther Milton F [facility] Start: 10-23-2022 End: 10-23-2022 ambulatory DO Esther Milton Work Phone: [facility] Other Start: 10-23-2022 End: 10-23-2022 Departed Referred DO Esther Milton Work Phone: [facility] [address] Work Phone: Start: 02-18-2022 End: 02-18-2022 ambulatory Esther Milton Other [facility] Other Start: 02-18-2022 Telephone encounter Esther Riveraers [facility] Start: 02-05-2022 End: 02-05-2022 ambulatory Esther Milton Other [facility] Other Start: 02-05-2022 Encounter for genera l adult medical examination without abnormal findings Esther Milton [facility] Start: 02-05-2022 Periodic preventive med est patient 40-64yrs Esther Milton [facility] Start: 01-27-2022 End: 01-27-2022 ambulatory Esthermaggie Riveraers Other [facility] Other Start: 01-27-2022 Telephone encounter Esther Milton [facility] Start: 01-24-2022 End: 01-24-2022 ambulatory DO Esther Milton Work Phone: [facility] Work Phone: Start: 01-24-2022 End: 01-24-2022 Patient encounter procedure DO Esther Milton Work Phone: [facility] [place] Start: 12-18-2021 End: 12-18-2021 ambulatory Esthermaggie Riveraers Other [facility] Other Start: 12-18-2021 Encounter for genera l adult medical examination without abnormal findings Esther Milton [facility] Start: 12-18-2021 Telephone encounter Esther Milton F [facility] Start: 05-20-2021 End: 05-20-2021 ambulatory Esther Milton Other [facility] Other Start: 05-20-2021 Telephone encounter Esther Milton [facility] [place] [facility] Start: 04-12-2021 End: 04-12-2021 ambulatory Esthermaggie Riveraers Other [facility] Other Start: 04-12-2021 Office outpatient vi sit 25 minutes Esthermaggie Riveraers [facility] [place] [facility] Start: 01-25-2021 End: 01-25-2021 ambulatory Esther Milton Other [facility] Other Start: 01-25-2021 Telephone encounter Esther Cifuentes [facility] Start: 01-10-2021 End: 01-10-2021 ambulatory Esther Milton Other [facility] Other Start: 01-10-2021 Telephone encounter Esther Cifuentes [facility] Start: 11-16-2020 End: 11-16-2020 ambulatory Maggie Harper Other [facility] Other Start: 11-16-2020 Office outpatient vi sit 15 minutes Maggie Harper [facility] Start: 11-14-2020 End: 11-14-2020 ambulatory Esther Milton Other [facility] Other Start: 11-14-2020 Encounter for genera l adult medical examination without abnormal findings Esther Milton [facility] Start: 11-14-2020 Periodic preventive med est patient 40-64yrs Esther Milton [facility] Start: 11-14-2020 Telephone encounter Esther Milton [facility] [place] [facility] Start: 09-26-2019 End: 09-27-2019 Patient encounter procedure [facility] Facility:H1 Start: 09-19-2019 End: 09-19-2019 Patient encounter procedure ESTHER MILTON Facility:H1 Start: 09-18-2019 End: 09-18-2019 Patient encounter procedure ESTHER MILTON Facility:H1 Start: 09-06-2019 End: 09-07-2019 Patient encounter procedure [facility] Facility:H1 Start: 08-22-2019 End: 08-22-2019 Patient encounter procedure KEISHADANIEL ROBLERO Facility: Procedures Date Procedure Procedure Detail Performing Clinician Start: 09-07-2024 SUTURE/STAPLE REMOVAL A юлия Gutierrez MD, IBCLC Work Phone: Start: 09-25-2023 Hepatobil syst imag inc gb w/pharma intervenj Carri Oro PLANOGRAMMER - HAND GLASS CUTTER Work Phone: Start: 07-08-2023 Mammography Genoveva Gutierrez MD, IBCLC Work Phone: Start: 09-12-2019 Colonoscopy Mth 2 Plan of Treatment Date Care Activity Detail Author Start: 09-11-2029 Screening for malign ant neoplasm of colon [facility] Start: 07-07-2025 Screening for malign ant neoplasm of breast Breast cancer screen [facility] Start: 10-10-2024 Influenza vaccination Influenza Vacc ine (#1) [facility] Start: 08-17-2024 End: 08-17-2025 CBC W Auto Differential panel - Blood CBC auto differential Lab Routine Class 3 severe obesity due to excess calories without serious comorbidity with body mass index (BMI) of 45.0 to 49.9 in adult ([facility]) Reactive depression Generalized anxiety disorder Expected: 08/17/2024 (Approximate), Expires: 08/17/2025 [facility] Comment on above: Expected: 08/17/2024 (Approximate), Expires: 08/17/2025 Start: 08-17-2024 End: 08-17-2025 Comprehensive metabolic 2000 panel - Serum or Plasma Comprehensive metabolic panel Lab Routine Class 3 severe obesity due to excess calories without serious comorbidity with body mass index (BMI) of 45.0 to 49.9 in adult ([facility]) Reactive depression Generalized anxiety disorder Expected: 08/17/2024 (Approximate), Expires: 08/17/2025 [facility] Comment on above: Expected: 08/17/2024 (Approximate), Expires: 08/17/2025 Start: 08-17-2024 End: 10-18-2025 DBT Breast - bilateral screening Bilateral screening mammogram with tomosynthesis Imaging Routine Encounter for screening mammogram for malignant neoplasm of breast Expected: 08/17/2024, Expires: 10/18/2025 [facility] Work Phone: Comment on above: Expected: 08/17/2024 , Expires: 10/18/2025 Start: 08-17-2024 End: 08-17-2025 Lipid 1996 panel - Serum or Plasma Lipid panel Lab Routine Encounter for lipid screening for cardiovascular disease Expected: 08/17/2024 (Approximate), Expires: 08/17/2025 [facility] Comment on above: Expected: 08/17/2024 (Approximate), Expires: 08/17/2025 Start: 07-07-2024 Screening for malign ant neoplasm of breast Mammogram [facility] Start: 10-11-2023 Influenza vaccination Influenza Vacc ine (#1) [facility] Start: 09-10-2023 Influenza vaccination Flu vaccine (# 1) [facility] Start: 04-30-2023 Screening for malign ant neoplasm of colon [facility] Start: 10-23-2022 [facility] Start: 10-10-2022 COVID-19 Vaccine ( season) COVID-19 Vaccine ( season) [facility] Start: 2018 Lipid panel Lipids [facility] Start: 2013 Diabetes screen Diabetes screen [facility] Start: 2008 Screening for malign ant neoplasm of cervix [facility] Start: 04-30-1999 Screening for malign ant neoplasm of cervix Pap smear [facility] Start: 1997 DTaP/Tdap/Td vaccine (1 - Tdap) DTaP/Tdap/Td vaccine (1 - Tdap) [facility] Start: 1997 Hepatitis B vaccine (1 of 3 - 19+ 3-dose series) Hepatitis B vaccine (1 of 3 - 19+ 3-dose series) [facility] Start: 1996 Hepatitis C screening Hepatitis C sc reen [facility] Start: 1993 HIV screening HIV screen [facility] Start: 1990 Depression Monitoring Depression Mon itoring [facility] Start: 1978 Screening for malign ant neoplasm of colon [facility] Immunizations Immunization Date Immunization Notes Care Provider Tejal white 10-23-2022 influenza virus vaccine, unspecified formulation Genoveva Gutierrez MD, IBCLC Work Phone: [facility] 11-27-2021 COVID-19 Pfizer (bivalent) Esther Milton Other [facility] 11-27-2021 influenza, injectable, quadrivalent, preservative free Esther Milton Other [facility] 01-04-2021 COVID-19 Vaccine Pfizer - Documentation Purposes Only Esther Milton Other [facility] 11-14-2020 influenza, injectable, quadrivalent, preservative free [facility] 11-14-2020 influenza, injectable, quadrivalent, contains preservative Esther Milton Other [employer] [facility] [employer] Other 05-31-2020 COVID-19 Vaccine Pfizer - Documentation Purposes Only Esther Milton Other [facility] 05-10-2020 COVID-19 Vaccine Pfizer - Documentation Purposes Only Esther Milton Other [facility] 02-25-2019 influenza, seasonal, injectable Patient Objection Esther Milton Other [facility] Other 06-08-2018 Kenalog -40 mg Esther Riveraer s Other [facility] Other 04-06-2018 Kenalog -40 mg Esther Arroyo s Other [facility] Other 02-26-2018 influenza, seasonal, injectable Patient Objection Esther Milton Other [facility] Other NEGATED: Highlighted row has not occurred! 0 influenza, seasonal, injectable Patient Objection Maggie Harper Other [facility] Other NEGATED: Highlighted row has not occurred! 9 influenza, seasonal, injectable Patient Objection Maggie Harper Other [facility] Other Payers Date Payer Category Payer [facility] [id number] 2024 Unknown [id number] 2023 Self-pay [id number] 2023 Private Health Insurance [facility] [id number] 2023 Unknown [facility] [id number] 2023-Present [address] [address] [place] [address] [id number] 2023 Unknown [id number] 2022 Unknown [id number] 1978 Unknown [id number] 2.16.840.1.578476.3.579.2. 593 1978 Unknown [id number] 2.16.840.1.459489.3.579.2. 593 1978 Unknown [id number] 2.16.840.1.149617.3.579.2. 593 1978 Unknown [id number] 2.16.840.1.868899.3.579.2. 593 1978 Unknown [id number] 2.16.840.1.692556.3.579.2. 593 1978 Unknown [id number] 2.16.840.1.088129.3.579.2. 173 1978 Unknown [id number] 2.16.840.1.971047.3.579.2. 174 1978 Unknown [id number] 2.16840.1.385940.3.579.2. 174 1978 Unknown [id number] 2.16.840.1.960458.3.579.2. 1259 1978 Unknown [id number] 2.16840.1.790973.3.579.2. 1259 1959 Unknown [id number] Blue Cross Blue Shield [id number] Self-pay [id number] Self-pay [id number] Self-pay [id number] Unknown [place] BC/BS [id number] Unknown [id number] Unknown [id number] [id number]. 531 Social History Date Type Detail Facility Unknown if ever smoked [facility] Other Start: 09-02-2023 End: 09-07-2024 Sex Assigned At [facility] Start: 09-09-2019 End: 06-03-2023 Tobacco smoking status TNIS Never smoked tobacco (finding) [facility] Start: 1980 Sex Assigned At Female [facility] Start: 06-03-2023 Tobacco use and exposure Smokeless tobacco non-user [facility] Start: 09-02-2023 End: 09-07-2024 History of Social function [facility] How often do you nee d to have someone help you when you read instructions, pamphlets, or other written material from your doctor or pharmacy [SILS] Never [facility] Do you belong to any clubs or organizations such as jewish groups, unions, fraternal or athletic groups, or [...] [OSQ] Very much [facility] (I/We) worried zain er (my/our) food would run out before (I/we) got money to buy more. Never true [facility] Start: 06-03-2023 Gender identity Identifies as female gender (finding) [facility] consumption unknown [employer] Start: 1980 Sex assigned at Not on file [employer] Start: 05-16-2024 Sex Female (finding) [facility] Within the last year , have you been afraid of your partner or ex-partner? Yes [facility] Are you now , , , , never or living with a partner? [facility] How many standard dr inks containing alcohol do you have on a typical day? 1 or 2 [facility] Do you feel stress - tense, restless, nervous, or anxious, or unable to sleep at night because your mind is troubled all the time - these days [OSQ] Only a little [facility] Functional Status Date Assessment Result Facility 09-07-2024 Total score [AUDIT-C] 1 09/08/19 6:04 AM EDT Mychart, Generic [facility] 09-07-2024 How often to you hav e a drink containing alcohol? Monthly or less 09/07/2024 6:04 AM EDT Mychart, Generic Monthly or less [facility] 09-07-[address] inks containing alcohol do you have on a typical day? 1 or 2 09/07/2024 6:04 AM EDT Mychart, Generic 1 or 2 [facility] 09-07-2024 How often do you hav e 6 or more drinks on 1 occasion? Never 09/07/2024 6:04 AM EDT Mychart, Generic Never [facility] 08-17-2024 Patient Health Quest ionnaire 2 item (PHQ-2) [Reported] [facility] Clinical Notes 11-14-2020 to 09-07-2024 Genoveva Gutierrez MD, [facility] - 09/07/2024 1:20 PM Yu Gutierrez MD, [facility] - 08/17/2024 2:20 PM Yu Gutierrez MD, [facility] - 08/17/2024 2:20 PM EDTPatient Instructions Note Date & Type Note Facility 09-07-2024 History of Presen t illness Narrative Associated Order(s): Suture Removal Post-Procedure Diagnose(s): Visit for suture removal; Laceration of left little finger without foreign body without damage to nail, subsequent encounter Images from the original note were not included. Torey Manzanares is a 44 y.o. female here today for Suture / Staple Removal SUBJECTIVE: History Provided by: patient History of Present Illness The patient is a 44-year-old female who came in today to have her stitches removed. She explained that she accidentally cut her left little finger on 08/27/2024 while using a knife to slice a watermelon for her granddaughter. She was seen at [place] emergency room, where six stitches were placed [...] OBJECTIVE: BP 122/72 Pulse 95 Temp 96.9 F Ht 5' 4 Wt 289 lb 6.4 oz SpO2 98% BMI 49.68 kg/m Physical Exam Physical Exam General Appearance: [...] interrupted sutures were present and successfully removed using pickups and a 12 blade. Patient tolerated the procedure well. Media Information Document Information [facility] Clinical: Clinical Unknown 09/07/2024 13:40 Attached To: Office Visit on 09/07/24 with Genoveva Gutierrez MD, IBCLC Source Information Genoveva Gutierrez MD, IBCLC [facility] Document History Results PROCEDURE: Suture Removal Date/Time: 09/07/2024 1:45 PM Performed by: Genoveva Gutierrez MD, IBCLC Authorized by: Genoveva Gutierrez MD, SERA Consent: Consent obtained: Verbal Consent given by: [...] the fifth finger is maintained, and sensation is intact but slightly altered in the middle of the laceration flap. - No further use of hydrogen peroxide is recommended. The area should be kept covered with Vaseline, Aquaphor, or a Band-Aid until it heals completely. - She was informed that the area might always feel slightly different due to potential nerve injury. Genoveva Gutierrez MD, IBCLC documented in this encounter [facility] 08-17-2024 History of Presen t illness Narrative Associated Problem(s): Class 3 severe obesity due to excess calories without serious comorbidity with body mass index (BMI) of 45.0 to 49.9 in adult ([facility]) Wt Readings from Last 5 Encounters: 08/17/24 [...] from the original note were not included. Torey Manzanares is a 44 y.o. female here today for Poison Romance SUBJECTIVE: History Provided by: patient History of [...] skin dryness, she's been using a Honey Pettus natural remedy, which she said feels much [...] increase hydroxyzine to 50 mg and start [id number] famotidine (Pepcid) 40 mg (2 tablets) daily [...] (BMI) of 45.0 to 49.9 in adult ([facility]) Wt Readings from Last 5 Encounters: 08/17/24 [...] metabolic panel; Future Genoveva Gutierrez MD, IBCLC [facility] documented in this encounter [facility] 08-17-2024 Instructions Genoveva Gutierrez MD, IBCLC - 08/17/2024 2:20 PM EDT Increase hydroxyzine to 50mg Famotidine (Pepcid) 40mg (2 tablets) Stop medrol dosepak Start the new prednisone taper Calamine lotion Cold / ice baths documented in this encounter [facility] 05-16-2024 Evaluation note Diagnosis Onset Date Resolution Sinusitis acute May 16 3:46pm Poison kar dermatitis acute Aug 9:20am [facility] Work Phone: [phone]) 897-310402-09-2024 Evaluation note* Encounter Date Diagnosis Assessment Notes Treatment Notes Treatment Clinical Notes Mar, Bipolar disorder (ICD-10 - F31.9) [facility] Other 10-11-2023 Evaluation note* Encounter Date Diagnosis [...] reviewed. Nov, Other Referral to azra williamson [facility] [employer] Other 09-20-2023 Evaluation note* Encounter Date Diagnosis [...] if she develops any of these symptoms [facility] Other 12-28-2022 Evaluation note* Encounter Date Diagnosis [...] will cont current rx at this time. [facility] Other 11-09-2022 Evaluation note* Encounter Date Diagnosis Assessment Notes Treatment Notes Treatment Clinical Notes Dec, Anxiety (ICD-10 - F41.9) Dec, Laboratory exam ordered as part of routine general medical examination (ICD-10 - Z00.00) [facility] Other 04-11-2022 Evaluation note* Encounter Date Diagnosis Assessment Notes Treatment Notes Treatment Clinical Notes May, Anxiety (ICD-10 - F41.9) [facility] Other 03-04-2022 Evaluation note* Encounter Date Diagnosis [...] call for rx if she likes it. [facility] Other 10-08-2021 Evaluation note* Encounter Date Diagnosis [...] understanding and is agreeable to treatment plan. [facility] Other 10-06-2021 Evaluation note* Encounter Date Diagnosis [...] metastatic colon cancer. Will send referral to care nurse rn for assistance. Nov, Hyperlipidemia (ICD-10 - E78.5) Nov, Anxiety (ICD-10 - F41.9) [facility] [employer] Other [facility]No [facility] [employer] Other Evaluation noteNo assessment information available [facility] Work Phone: Evaluation note* Diagnosis Generalized anxiety disorder (CMS/HCC)- Primary Generalized anxiety disorder Reactive depression (CMS/HCC) Class 3 severe obesity due to excess calories without serious comorbidity with body mass index (BMI) of 45.0 to 49.9 in adult ([facility]) Other fatigue Encounter for screening mammogram for [...] Abdominal pain, generalized documented in this encounter [facility] Diagnosis Generalized anxiety disorder- Primary Generalized anxiety disorder Reactive depression Class 3 severe obesity due to excess calories without serious comorbidity with body mass index (BMI) of 45.0 to 49.9 in adult ([facility]) Other fatigue Encounter for screening mammogram for [...] (BMI) of 45.0 to 49.9 in adult ([facility]) Reactive depression Generalized anxiety disorder Generalized anxiety disorder [facility] Diagnosis Generalized anxiety disorder- Primary Generalized anxiety disorder Reactive depression Class 3 severe obesity due to excess calories without serious comorbidity with body mass index (BMI) of 45.0 to 49.9 in adult ([facility]) Other fatigue Encounter for screening mammogram for [...] (BMI) of 45.0 to 49.9 in adult ([facility]) Reactive depression Generalized anxiety disorder Generalized anxiety disorder Visit for suture removal- Primary Laceration of left little finger without foreign body without damage to nail, subsequent encounter documented in [facility] encounter [facility] [...] Hospitalization History see above surgical histo ry [place] [employer] Other Reason for referral (narrative)No reason for referral [facility] Work Phone: Summary Purpose Family History Relationship Condition Age at Onset Recorded Date/T [...] of pancreatic cancer Unkno wn Advance Directives Advance Directive Response Recorded Date/ Time Advance [...] HEPATOBILIARY SCAN W EJECTION FRACTION Carri Oro, PLANOGRAMMER - HAND GLASS CUTTER [address] [address] Referral ID Status Reason Start Date Expiration Date Visits Re quested Visits Authorized [id number] Closed 09/14/2023 09/13/2024 1 1 Reason weight management Diagnosis 1 BMI 45.0-49.9, adult (Z68.42) Referral Organization [facility] Referring Provider First Name Alyssia Referring Provider Last Name Maryanne Referring Provider Specialty Nurse Pract itioner Referred Organization [facility] Referred Provider Marcus Blancas Referred Address [address] [place] [address],[address],[place], [place],[address] Referred Provider Specialty Internal Med icine Referral Priority Routine General Notes Palmira Carrillo 04:29:02 PM >received today, attachments made, will fax labs seperately once notes are locked. Additional Source Comments INFORMATION SOURCE (unrecogn ized section and content) DATE CREATED AUTHOR 11/28/2019 [facility] DATE CREATED AUTHOR AUTHOR'S ORGANIZ ATION 09/28/2023 [facility] DATE CREATED AUTHOR AUTHOR'S ORGANIZ ATION [facility]/31[facility]2023 [facility] DATE CREATED AUTHOR AUTHOR'S ORGANIZ ATION 01/08/2024 [facility] DATE CREATED AUTHOR AUTHOR'S ORGANIZ ATION 09/09/2024 [facility] EPIC REASON FOR VISIT (unrecogniz ed section and content) Reason Comments Med Refill Reason Comments Med Change Request Reason Onset Date Comments Med Refill 11/03/2023 Specialty Diagnoses / Procedures Referred By Contac t Referred To Contact Radiology Diagnoses Generalized postprandial abdominal pain Procedures NM HEPATOBILIARY SCAN W EJECTION FRACTION Carri Oro, PLANOGRAMMER - HAND GLASS CUTTER [address] [address] Referral ID Status Reason Start Date Expiration Date Visits Re quested Visits Authorized [id number] Closed 09/14/2023 09/13/2024 1 1 Reason Comments Poison Romance Reason Comments Suture / Staple Removal Care Teams (unrecognized sec tion and content) Team Status: Inactive Member Role Status Dates Esther Milton , DO Primary Care Provider, Attending Provider Active Team Status: Active Member Role Status Dates Esther Milton , DO Primary Care Provider Active Team Status: Inactive Member Role Status Dates Esther Milton , DO Primary Care Provider Active Dalton Orr , DO [facility] Attending Provider Active Tax Agent Relationship Specialty Start Date End Date Genoveva Gutierrez MD, IBCLC [address] [phone] PCP - General Family Medicine 06/02/23 Tax Agent Relationship Specialty Start Date End Date Genoveva Gutierrez MD, IBCLC [address] [place] [address] PCP - General Family Medicine 06/02/23 Tax Agent Relationship Specialty Start Date End Date Genoveva Gutierrez MD, IBCLC [address] [place] [address] PCP - General Family Medicine 06/02/23 Tax Agent Relationship Specialty Start Date End Date Genoveva Gutierrez MD, IBCLC [address] [place] [address] PCP - General Family Medicine 06/02/23 Tax Agent Relationship Specialty Start Date End Date Genoveva Gutierrez MD [address] [place] [address] PCP - General 09/07/23 Team Status: Inactive [...] August 13, 2024 End: August 13, 2024 Tax Agent Relationship Specialty Start Date End Date Genoveva Gutierrez MD, IBCLC [address] [place] [address] PCP - General Family Medicine 06/02/23 Tax Agent Relationship Specialty Start Date End Date Gneoveva Gutierrez MD, IBCLC [address] [place] [address] PCP - General Family Medicine 06/02/23 Tax Agent Relationship Specialty Start Date End Date Genoveva Gutierrez MD, IBCLC [address] [place] [address] PCP - General Family Medicine 06/02/23 Goals [...] BE BASED ON THE PRIMARY CLINICAL RECORDS. [facility]. provides no warranty or guarantee of the accuracy or completeness of information in this document.
--- OUTSIDE RECORDS SUMMARY | 2024-09-17 07:46 | XMS_ITS | Clinical Summary ---
Author Organization [facility] Address [address] [place] [address] Care Team Providers Care Cassandra Architect Name Role Phone Laura Gutierrez MD, IBCLC Primary Care Provid er Allergies Active Allergy Reactions Criticality Noted Date Comments Codeine 09/02/2023 Conjugated Estrogens Unknown 06/03/2023 Hydrocodone Unknown 09/09/2019 Hydrocodone-Acetaminophen Unknown 06/03/2023 Morphine Unknown 09/09/2019 Oxycodone Unknown 09/09/2019 Medications ibuprofen 800 MG tabletIndicatio ns:Other migraine without status migrainosus, not intractable Take 1 tablet (800 mg) by mouth every 8 (eight) hours if needed for mild pain 90 tablet 5 Active hydrOXYzine HCl (Atarax) 25 MG tabletIndicatio ns:Poison kar dermatitis Take 2 tablets (50 mg) by mouth every 8 (eight) hours if needed for itching 30 tablet 5 025 Discontinued predniSONE (Deltasone) 10 MG tabletIndicatio ns:Poison kar dermatitis Take 6 tablets (60 mg) by mouth Daily for 2 days, THEN 5 tablets (50 mg) Daily for 2 days, THEN 4 tablets (40 mg) Daily for 2 days, THEN 3 tablets (30 mg) Daily for 2 days, THEN 2 tablets (20 mg) Daily for 2 days, THEN 1 tablet (10 mg) Daily for 2 days. 42 tablet 5 025 Active Problems Problem Noted Date Diagnosed Date Class 3 severe obesity due t o excess calories without serious comorbidity with body mass index (BMI) of 45.0 to 49.9 in adult 06/03/2023 Assessment & Plan (08/19/2024 12:05 PM EDT): Wt Readings from Last 5 Encounters: 08/17/24 [...] auto differential; Future Comprehensive metabolic panel; Future Assessment & Plan (06/11/2023 10:26 AM EDT): Counseled patient on dietary and exercise recommendations She is interested in weight loss pharmacotherapy. We will defer this pending workup for abdominal pain Reactive depression 06/03/2023 Assessment & Plan (08/19/2024 12:05 PM EDT): - in remission - has not needed medication since ending her prior relationship - Recommend regular physical exercise, well-rounded diet, engaging in hobbies outside of work, and interacting with friends. Orders: CBC auto differential; Future Comprehensive metabolic panel; Future Assessment & Plan (06/11/2023 10:26 AM EDT): Controlled with abilify Generalized anxiety disorder 06/03/2023 Assessment & Plan (08/19/2024 12:05 PM EDT): - in remission - has not needed medication since ending her prior relationship - Recommend regular physical exercise, well-rounded diet, engaging in hobbies outside of work, and interacting with friends. Orders: CBC auto differential; Future Comprehensive metabolic panel; Future Assessment & Plan (06/11/2023 10:26 AM EDT): Uses PRN Ativan Encounters Date Type Department Care Team Description 09/16/2024 5:00 PM EDT Ancillary Procedure [facility] [address] [place] [phone] Encounter for screening mammogram for malignant neoplasm of breast 09/16/2024 Travel 09/15/2024 Travel 09/07/2024 1:20 PM EDT Office Visit [address] [phone] Laura Gutierrez MD, IBCLC Visit for suture removal (Primary Dx); Laceration of left little finger without foreign body without damage to nail, subsequent encounter 09/07/2024 Bamboo flowsheet [address] [phone] Laura Gutierrez MD, IBCLC 09/07/2024 Travel 08/29/[address] [phone] Deena Reese MA ER Follow-up 08/17/2024 2:20 PM EDT Office Visit [address] [phone] Laura Gutierrez MD, IBCLC Poison kar dermatitis (Primary Dx); Encounter for screening mammogram for malignant neoplasm of breast; Other migraine without status migrainosus, not intractable ; Encounter for lipid screening for cardiovascular disease; Class 3 severe obesity due to excess calories without serious comorbidity with body mass index (BMI) of 45.0 to 49.9 in adult (CMS-HCC); Reactive depression ; Generalized anxiety disorder 08/17/20[address]amboo flow[address] [phone] Laura Gutierrez MD, IBCLC 08/17/2024 Travel from Last 3 Months Family History Relation Name Status Comments Brother 1 Alive Brother 2 Alive Daughter 1 Alive Daughter 2 Alive Father Alive Mother Alive Sister Alive Son 1 Alive Son 2 Alive Social History Tobacco Use Types Packs/Day Years Used Date Smoking Tobacco: Never Smokeless Tobacco: Never Tobacco Cessation:Counseling Given: Not Answered B1300 Health Literacy Answer Date Recor ded [...] often do you attend chur ch or jainism services? Never 09/07/2024 Do you belong to any clubs o r organizations such as shinto groups, unions, fraternal or athletic groups, or [...] Recorded Patient Health Questionnaire-2 Score 0 08/17/2024 [facility] - Occupational Stress Questionnaire Answer Date [...] any time in the past 12 m [facility], were you homeless or living in a detention (including now)? No 09/07/2024 Comments No Sex and Gender Information Value Date Recorded Sex Assigned at Female 06/03/2023 5:50 AM EDT Legal Sex Female 7:18 PM EDT Gender Identity Female 06/03/2023 5:50 AM EDT Sexual Orientation Not on file Last Filed Vital Signs Vital Sign Reading [...] Mass Index 49.68 09/07/2024 1:27 PM EDT Plan of Treatment Upcoming Encounters Date Type Department Care Team (Late st Contact Info) Description 09/26/2024 3:00 PM EDT Office Visit [facility] [address] [place] [address] Laura Gutierrez MD, IBCLC [address] [place] [address] Health Maintenance Due Date Last Done Comments CT Colonography 1978 FIT-DNA 1978 FIT 1978 FOBT 1978 Sigmoidoscopy 1978 Mammogram 07/07/2024 07/08/2023, 06/10, 06/21/2021, Additional history exists Influenza Vaccine (#1) 2024 10/23/2022, 2021, 11/14/2020 Colonoscopy 09/11/2029 09/12/2019 Colorectal Cancer Screening 09/11/2029 Cervical Cancer Screening Discontinued HPV/Cotest Discontinued 06/21/2021, 12/04/2020, 05/2020 Pap Smear Discontinued Procedures Procedure Name Priority Date/Time Associated Diagnosis Comments SUTURE/STAPLE REMOVAL Routine 09/07/2024 1:45 PM EDT Visit for suture removal Laceration of left little finger without foreign body without damage to nail, subsequent encounter BI MAMMOGRAM SCREENING TOMOSYNTHESIS BILATERAL Routine 07/08/2023 3:12 PM EDT Encounter for screening mammogram for malignant neoplasm of breast THINPREP TIS PAP REFLEX HPV MRNA E6/E7 ([id number]) Routine 06/21/2021 from Last 3 Months or Most Recently Relevant to Health Maintenance Results * Suture Removal (09/07/2024 1:45 PM EDT) Laura Wagner MD, IBCLC - 09/07/2024 1:45 PM EDT Laura Gutierrez MD, IBCLC 09/07/2024 1:46 PM Suture Removal Date/Time: 09/07/2024 1:45 PM Performed by: Laura Gutierrez MD, IBCLC Authorized by: Laura Gutierrez MD, SERA Consent: Consent obtained: Verbal [...] completion: Tolerated well, no immediate complications us SERA Aden MD IN CLINIC/BEDSIDE OR DERABLES Final Result * Bilateral screening mammogram with tomosynthesis (07/08/2023 3:12 PM EDT) Anatomical Region Laterality Modality Breast Bilateral Mammography 07/10/2023 9:44 AM EDT Impressions 07/10/2023 10:17 AM EDT BIRADS 1 - Negative Follow-up: Routine Screening Mamm Board Certified Radiologists. Accredited by the ACR and FDA. MAMMOGRAPHY IS VERY IMPORTANT TO YOUR HEALTH. THE [place] GUIDELINES RECOMMEND THAT WOMEN 40 [...] ADDITIONAL VIEWS. TRANSCRIBED BY: ELECTRONICALLY SIGNED BY: MD Mohit Oliver 07/10/2023 10:17 AM EDT EXAMINATION: BI MAMMOGRAM SCREENING TOMOSYNTHESIS BILATERAL CLINICAL HISTORY:screening COMPARISON: November 29, 2020. RESULT: Digital mammography and 3D tomosynthesis of bilateral breasts was performed. Density: Almost entirely fatty [1] Overall appearance is stable. There is no suspicious mass, asymmetry, architectural distortion, or calcification Procedure Note Robert Sotomayor MD - 07/10/2023 EXAMINATION: BI MAMMOGRAM SCREENING TOMOSYNTHESIS BILATERAL CLINICAL HISTORY:screening COMPARISON: November 29, 2020. RESULT: Digital mammography and 3D tomosynthesis of bilateral breasts wasperformed. Density: Almost entirely fatty [1] Overall appearance is stable. There is no suspicious mass, asymmetry, architectural distortion, orcalcification IMPRESSION: BIRADS 1 - Negative Follow-up: Routine Screening Mamm Board Certified Radiologists. Accredited by the ACR and FDA. MAMMOGRAPHY IS VERY IMPORTANT TO YOUR HEALTH. THE [place] [employer]YGUIDELINES RECOMMEND THAT WOMEN 40 YEARS OF AGE AND OLDER SHOULD HAVE AMAMMOGRAM EVERY YEAR. A REMINDER LETTER WILL BE SENT AT THE APPROPRIATE TIME. THIS FACILITYUTILIZES A REMINDER SYSTEM TO ENSURE ALL PATIENTS RECEIVE REMINDERNOTIFICATIONS AT THE APPROPRIATE TIME BASED ON THE RECOMMENDATIONS OF THISEXAM. THIS INCLUDES REMINDERS FOR ROUTINE SCREENING MAMMOGRAMS, DIAGNOSTICMAMMOGRAMS IN WHICH THE PATIENT IS ASKED TO RETURN FOR ADDITIONAL VIEWS,OR OTHER BREAST IMAGING INTERVENTIONS WHEN APPROPRIATE. THE PATIENT WILLBE PLACED IN THE APPROPRIATE REMINDER SYSTEM INCLUDING A REMINDER AT THEAPPROPRIATE TIME FOR ANY PENDING ADDITIONAL VIEWS. TRANSCRIBED BY: ELECTRONICALLY SIGNED BY: Robert Sotomayor MD Laura Gutierrez MD, IBCLC IMG BI PROCEDURES Fi nal Result * (ABNORMAL) THINPREP TIS PAP REFLEX HPV MRNA E6/E7 ([id number]) (06/21/2021) CLINICAL INFORMATION: HYST [facility] LMP: NONE GIVEN [facility] PREV. PAP: 11/2020 LSIL [facility] PREV. BX: NONE GIVEN [facility] SOURCE: Vagina [facility] STATEMENT OF ADEQUACY: SATISFACTORY FOR EVALUATION [facility] GENERAL CATEGORIZATION: EPITHELIAL CELL ABNORMALITY(A) [facility] INTERPRETATION/R ESULT: Low Grade Squamous Intraepithelial Lesion (LSIL)(A) [facility] COMMENT: SEE COMMENT [facility] Comment: This Pap test has been evaluated with computer assisted technology. Consider follow up tissue sampling, as clinically indicated. VESSEL SPECIALIST : SEE COMMENT [facility] Comment: NNO, CT(ASCP) CT screening location: [facility], [address] [place] [address], [place] [address]. PATHOLOGIST: SEE COMMENT [facility] Comment: Pedro Loera MD Board Certified in Anatomic Pathology and Cytopathology (electronic signature) For questions regarding this report call Anatomic Pathology at [phone] Pedro Loera MD, Registered Veterinary Technician [facility] [place], [place] COMMENT SEE COMMENT [facility] Comment: EXPLANATORY NOTE: The Pap is a screening test for cervical cancer. It is not a diagnostic test and is subject to false negative and false positive results. It is most reliable when a satisfactory sample, regularly obtained, is submitted with relevant clinical findings and history, and when the Pap result is evaluated along with historic and current clinical information. 06/21/2021 us Fany Plummer DO [facility] Final Resul t [facility] from Last 3 Months or Most Recently Relevant to Health Maintenance Insurance [facility] Care Teams Cassandra Architect Relationship Specialty Start Date End Date Laura Gutierrez MD, IBCLC [address] [place] [id number] PCP - General Family Medicine 06/02/23
--- OUTSIDE RECORDS SUMMARY | 2024-09-17 07:46 | XMS_ITS | Encounter Summary ---
Author Organization [facility] Address [address] [place] [address] Care Team Providers Care Warehouse Helper Name Role Phone Laura Gutierrez MD, IBCLC Primary Care Provid er Encounter Details Date Type Department Care Team (Latest Contact Info) Description 09/07/2024 Travel Social History Tobacco Use Types Packs/Day [...] often do you attend chur ch or alevism services? Never 09/07/2024 Do you belong to any clubs o r organizations such as jew groups, unions, fraternal or athletic groups, or [...] Recorded Patient Health Questionnaire-2 Score 0 08/17/2024 [facility] - Occupational Stress Questionnaire Answer Date [...] any time in the past 12 m [facility], were you homeless or living in a nursing home (including now)? No 09/07/2024 Comments No Sex [...] Office Visit [facility] [address] [place] [phone] Laura Gutierrez MD, IBCLC [address] [place] [address] documented as of this encounter Visit Diagnoses Not on filedocumented in this encounter Care Teams Warehouse Helper Relationship Specialty Start Date End Date Laura Gutierrez MD, IBCLC [address] [place] [address] PCP - General Family Medicine 06/02/23 documented as of this encounter
--- OUTSIDE RECORDS SUMMARY | 2024-09-17 07:46 | XMS_ITS | Encounter Summary ---
Author Organization [facility] Address [address] [place] [address] Care Team Providers Care Supervisor Bottle Machines Name Role Phone Laura Gutierrez MD, IBCLC Primary Care Provid er Encounter Details Date Type Department Care Team (Late st Contact Info) Description 09/04/2023 Orders Only [facility] [address] [place] [phone] Laura Gutierrez MD, IBCLC [address] [place] [address] Social History Tobacco Use Types Packs/Day Years [...] often do you attend chur ch or scientologist services? Patient declined 09/02/2023 Do you belong to any clubs o r organizations such as congregation groups, unions, fraternal or athletic groups, or [...] and heating? Not hard at all 09/02/2023 [facility] - Occupational Stress [...] time in the past 12 m [facility], were you homeless or living in a senior living (including now)? No 09/02/2023 Comments No Sex [...] 3:00 PM EDT Office Visit [facility] [address] [place] [address] Laura Gutierrez MD, IBCLC [address] [place] [address] documented as of this encounter Procedures Procedure Name Priority Date/Time Associated Diagnosis Comments CT ABDOMEN & PELVIS W Routine 09/03/2023 2:14 PM EDT documented in this encounter Results * CT ABDOMEN & PELVIS W (09/03/2023 2:14 PM EDT) Anatomical Region Laterality Modality Radiographic Yolanda ging us Laura Gutierrez MD, IBCLC IMG XR PROCEDURES Fi nal Result documented in this encounter Visit Diagnoses Not on filedocumented in this encounter Care Teams Supervisor Bottle Machines Relationship Specialty Start Date End Date Laura Gutierrez MD, IBCLC [address] [place] [address] PCP - General Family Medicine 06/02/23 documented as of this encounter
--- OUTSIDE RECORDS SUMMARY | 2024-09-17 07:46 | XMS_ITS | Clinical Summary ---
Author Organization [facility] Address [address], [address] [place] [address] Care Team Providers Care Wash Worker Name Role Phone Laura Gutierrez MD Primary Care Provider [phone] Allergies Active Allergy Reactions Criticality Noted Date Comments Acetaminophen Other (See Comments) 09/09/2019 Patient says she tolerates but feels it does help with pain Codeine 09/02/2023 Conjugated Estrogens Other (See Comments) 06/03/2023 Hydrocodone-Acetaminophe n Other (See Comments) 06/03/2023 Morphine Other (See Comments) 09/09/2019 Oxycodone Other (See Comments) 09/09/2019 Medications sucralfate (CARAFATE) 1 GM tablet Take 1 tablet by mouth 09/08/2023 Active pantoprazole (PROTONIX) 40 MG tablet Take 1 tablet by mouth every morning (before breakfast) 09/09/2023 Active LORazepam (ATIVAN) 0.5 MG tablet Take 1 tablet by mouth every 6 hours as needed. 09/09/2019 Active ibuprofen (ADVIL;MOTRIN) 800 MG tablet Take 1 tablet by mouth every 8 hours as needed 09/09/2019 Active ARIPiprazole (ABILIFY) 2 MG tablet TAKE 1 TABLET BY MOUTH ONCE A DAY NEEDED 04/22/2023 Active ergocalciferol (ERGOCALCIFEROL ) 1.25 MG (52966 UT) capsule Take 1.25 mg by mouth once a week 09/02/2023 Active sucralfate (CARAFATE) 1 GM tablet Take 1 tablet by mouth as needed nausea Active Active Problems Problem Noted Date Diagnosed Date Class 3 severe obesity due t o excess calories without serious comorbidity with body mass index (BMI) of 45.0 to 49.9 in adult 06/03/2023 Overview (09/14/2023): Last Assessment & Plan: Counseled patient on dietary and exercise recommendations She is interested in weight loss pharmacotherapy. We will defer this pending workup for abdominal pain Generalized anxiety disorder 06/03/2023 Overview (09/14/2023): Last Assessment & Plan: Uses PRN Ativan Reactive depression 06/03/2023 Overview (09/14/2023): Last Assessment & Plan: Controlled with abilify Family History Medical History Relation Name Comments Depression Brother 1 Carlos Other Brother 2 Ron Abdominal Desmo id Tumors Congenital Heart Defect Father Diabetes type 2 Father Pancreatic Cancer Mother Endometriosis Sister Erin Relation Name Status Comments Brother 1 Carlos Alive Brother 2 Ron Alive Father Alive Mother Alive Sister Erin Alive Social History Tobacco Use Types Packs/Day Years Used Date Smoking Tobacco: Never Assessed Comments Unknown Sex and Gender Information Value Date Recorded Sex Assigned at Not on file Legal Sex Female 3:42 PM EST Gender Identity Not on file Sexual Orientation Not on file Last Filed Vital Signs Vital Sign Reading Time Taken Comments Blood Pressure 134/74 11/04/2023 3:46 PM EDT Pulse 92 11/04/2023 3:46 PM EDT Temperature - - Respiratory Rate 18 11/04/2023 3:46 PM EDT Oxygen Saturation 98% 11/04/2023 3:46 PM EDT Inhaled Oxygen Concentration - - Weight 111.1 kg (245 lb) 11/04/2023 3:46 PM EDT Height 162.6 cm (5' 4 ) 09/25/2023 8:30 AM EDT Body Mass Index 42.05 09/25/2023 8:30 AM EDT Plan of Treatment Health Maintenance Due Date Last Done Comments Depression Monitoring 1990 HIV screen 1993 Hepatitis C screen 1996 DTaP/Tdap/Td vaccine (1 - Tdap) 1997 Hepatitis B vaccine (1 of 3 - 19+ 3-dose series) 1997 Lipids 2018 FIT/FOBT: Average risk 04/30/2023 Fecal-DNA (Cologuard): Average risk 04/30/2023 Sigmoidoscopy/CT colonography 04/30/2023 COVID-19 Vaccine ( season) 2023 11/27/2021, 01/04/2021, 05/31/2020, Additional history exists Flu vaccine (#1) 09/09/2024 10/23/2022, 11/27/2021 Breast cancer screen 07/07/2025 07/08/2023, 06/21/2021, 11/29/2020 Colonoscopy 09/11/2029 09/12/2019 Colorectal Cancer Screen 09/11/2029 HPV vaccine Aged Out No longer eligi ble based on patient's age to complete this topic Hepatitis A vaccine Aged Out No longe r eligible based on patient's age to complete this topic Hib vaccine Aged Out No longer eligi ble based on patient's age to complete this topic Meningococcal (ACWY) vaccine Aged Out No longer eligible based on patient's age to complete this topic Meningococcal B vaccine Aged Out No l onger eligible based on patient's age to complete this topic Pneumococcal 0-49 years Vaccine Aged Out No longer eligible based on patient's age to complete this topic Polio vaccine Aged Out No longer elig ible based on patient's age to complete this topic Procedures Procedure Name Priority Date/Time Associated Diagnosis Comments COLONOSCOPY Routine 09/12/2019 12:00 PM EDT from Last 3 Months or Most Recently Relevant to Health Maintenance Results * Colonoscopy (09/12/2019 12:00 PM EDT) Heath Dai MD GENERIC SURGICAL HISTORY Final Result from Last 3 Months or Most Recently Relevant to Health Maintenance Insurance [address] [place], [place] [address] Care Teams Wash Worker Relationship Specialty Start Date End Date Laura Gutierrez MD [address] [place] [address] PCP - General 09/07/23
--- OUTSIDE RECORDS SUMMARY | 2024-09-17 07:46 | XMS_ITS | Encounter Summary ---
Author Organization [facility] Address [address] [place] [address] Care Team Providers Care Shotblast Equipment Operator Name Role Phone Laura Gutierrez MD, IBCLC Primary Care Provid er Encounter Details Date Type Department Care Team (Latest Contact Info) Description 09/15/2024 Travel Social History Tobacco Use Types Packs/Day [...] often do you attend chur ch or adventism services? Never 09/07/2024 Do you belong to any clubs o r organizations such as bahai groups, unions, fraternal or athletic groups, or [...] Recorded Patient Health Questionnaire-2 Score 0 08/17/2024 [facility] - Occupational Stress Questionnaire Answer Date [...] any time in the past 12 m [facility], were you homeless or living in a [facility] (including now)? No 09/07/2024 Comments No Sex [...] [facility] [address] [place] [address] Laura Gutierrez MD, IBCLC [address] [place] [address] documented as of this encounter Visit Diagnoses Not on filedocumented in this encounter Care Teams Shotblast Equipment Operator Relationship Specialty Start Date End Date Laura Gutierrez MD, IBCLC [address] [place] [address] PCP - General Family Medicine 06/02/23 documented as of this encounter
[2024-09-17 08:23] LABS: Hematocrit 40.4 % (36.0-48.0); Hemoglobin 13.0 g/dL (12.0-16.0); Immature Granulocytes Abs Auto 0.08 10^3/uL (0.00-0.03); Immature Granulocytes Pct Auto 1.1 % (0.0-0.5); Lymphocytes Absolute Auto 1.8 10^3/uL (1.2-3.8); Mean Corpuscular HGB Conc 32.2 g/dL (29.9-35.2); Mean Corpuscular Hemoglobin 28.2 pg (26.7-34.0); Mean Corpuscular Volume 87.6 fL (81.0-99.0); Platelet Count 299 10^3/uL (150-450); Red Blood Count 4.61 10^6/uL (4.20-5.40); White Blood Count 7.2 10^3/uL (4.0-11.0)
[2024-09-17 08:29] LABS: Alanine Aminotransferase 28 U/L (14-59); Albumin Globulin Ratio 0.9; Albumin Level 3.3 g/dL (3.4-5.0); Alkaline Phosphatase 76 U/L (46-116); Anion Gap 11.1; Aspartate Amino Transferase 16 U/L (15-37); Blood Urea Nitrogen 16.0 mg/dL (7.0-18.0); Calcium 9.0 mg/dL (8.5-10.1); Carbon Dioxide 28.3 mmol/L (21.0-32.0); Chloride 104 mmol/L (98-107); Cholesterol 198 mg/dL (<=200); Estimated GFR (African America >60 (>=60 mL/min/1.73m^2); Estimated GFR (Non-African Ame >60 (>=60 mL/min/1.73m^2); Globulin 3.5 g/dL; Glucose 96 mg/dL (74-106); HDL Cholesterol 62 mg/dL (40-60); Potassium 4.4 mmol/L (3.5-5.1); Sodium 139 mmol/L (136-145); Total Protein 6.8 g/dL (6.4-8.2); Triglycerides 95 mg/dL (<=150); VLDL CHOLESTEROL 19.0 mg/dL
== END 2024-09-17 07:40 | disposition home or self-care (01) ==
PROVIDERS: PCP Student in an Organized Health Care Education/Training Program; Visit Provider Student in an Organized Health Care Education/Training Program
DX: F32.9 Major depressive disorder, single episode, unspecified (principal); Z13.220 Encounter for screening for lipoid disorders; Z13.6 Encounter for screening for cardiovascular disorders; E66.813 Obesity, class 3; Z68.42 Body mass index [BMI] 45.0-49.9, adult; E66.01 Morbid (severe) obesity due to excess calories; F41.1 Generalized anxiety disorder
CPT/HCPCS: 36415; 80053; 80061; 85025